=== PATIENT | male | born 1955 | race Caucasian/White ===

== ENCOUNTER 2017-05-09 09:30 | Inpatient (IN) | payer OTHER ==
[~2017-05-09] VITALS: Ht 157.5 cm; Wt 67.4 kg
[~2017-05-09 09:30] MED LIST: DIPH25CA37 PO; METF850T PO; OXYC5TAB PO; PRLSR20 PO
[2017-05-09] MEDS ORDERED: ATOR-26 PO (10:26)
[2017-05-09] MEDS ORDERED: GLIM1TAB2 PO (10:26)
[2017-05-09] MEDS ORDERED: PANT40TA2 PO (10:26)
[2017-05-09] MEDS ORDERED: MRLP527 PO (10:26)
[2017-05-09] MEDS ORDERED: GLC500 PO (10:26)
[2017-05-09] MEDS ORDERED: SITA1TAB27 PO (10:26)
[2017-05-09] MEDS ORDERED: LISI-461 PO (10:26)
--- NOTE | 2017-05-09 11:08 | DIAGNOSTIC IMAGING REPORT ---
ABDOMEN 2VIEW W/PA CHEST RTN CLINICAL HISTORY: constipation COMPARISON STUDY: Chest x-ray dated 06/09/2013 FINDINGS: Erect chest reveals bibasal atelectasis. There is no free air. Erect and supine views the abdomen reveal no abnormally dilated loops of large or small bowel. There are no transition zones indicate bowel obstruction. There are few right lower quadrant air-fluid levels. There is an eggshell right upper quadrant calcification. This could represent a gallstone, but it is not possible to accurately locate without a cross-sectional study.. IMPRESSION: 1. No evidence of bowel obstruction. No evidence of free air 2. Right upper quadrant eggshell calcification. This could represent a gallstone. Electronically signed by: Carlos Bonilla M.D. 05/09/2017 11:06 AM Dictated Date/Time: 05/09/2017 11:04 AM
[2017-05-09] MEDS ORDERED: OPTIRAY 320 IV PRN (11:45)
[2017-05-09 12:00] LABS: BASO % 0.2 %; BASO ABS # 0.02 K/uL (0-0.2); COMPLETE YES; EOS % 2.5 %; HEMATOCRIT 42.4 % (42-52); IG% 0.4 %; LYMPH % 6.4 %; LYMPH ABS # 0.83 K/uL (1.2-3.4); MEAN CELL VOLUME 85.5 fL (80-100); MEAN CORPUSCULAR HGB CONC 35.1 g/dl (32-36); MEAN PLATELET VOLUME 10.1 fL (7.4-10.4); MONO % 13.8 %; NEUT % 76.7 %; PLATELET COUNT 184 K/uL (130-400); RED BLOOD COUNT 4.96 M/uL (4.7-6.1)
[2017-05-09 12:20] LABS: BUN/CREATININE RATIO 11.8 (10-20); CALCIUM 9.2 mg/dl (8.5-10.1); CREATININE 0.92 mg/dl (0.60-1.40)
[2017-05-09 12:23] LABS: ALB/GLOB RATIO 0.7 (0.9-2)
--- NOTE | 2017-05-09 13:04 | DIAGNOSTIC IMAGING REPORT ---
CT ABD/PELVIS IV CONTRAST ONLY CLINICAL HISTORY: diffuse abdominal pain COMPARISON STUDY: None. TECHNIQUE: Following the IV administration of 110 mL of Optiray-320, CT scan of the abdomen and pelvis was performed from the lung bases to the proximal femurs. Images are reviewed in the axial, sagittal, and coronal planes. IV contrast was administered without complication. A dose lowering technique was utilized adhering to the principles of ALARA. CT DOSE: 948.11 mGy.cm FINDINGS: Lower chest: There is respiratory motion artifact. There is no focal pulmonary consolidation. There is a small hiatal hernia with mild distal esophageal wall thickening Liver: The contrast-enhanced liver is normal in size, contour, and attenuation. There is no intrahepatic biliary ductal dilatation. The hepatic veins and portal veins are patent. Gallbladder: There is cholelithiasis. There is marked gallbladder wall edema. There is pericholecystic stranding. The findings are viewed as suspicious for acute cholecystitis. Spleen: Normal in size and attenuation. Pancreas: No pancreatic masses are visualized. There is subtle infiltration the fat surrounding the pancreatic head. This may be secondary to gallbladder inflammation. Adrenal glands: Unremarkable. Kidneys: There is a 9 cm right renal cyst. Additional smaller renal cysts are visualized. Bowel: There are no transition zones indicate bowel obstruction. There is colonic diverticulosis. There are no acute peridiverticular inflammatory changes. There is a right inguinal hernia which contains a portion of the right colon. The appendix appears normal. Peritoneum: There is no intraperitoneal free air or abdominal ascites. Vasculature: The abdominal aorta is normal in course and caliber. Adenopathy: None. Pelvic viscera: The prostate is enlarged measuring 7.4 cm transversely. There is mild lateral wall thickening. Skeletal structures: No destructive osseous lesions are seen. IMPRESSION: 1. Cholelithiasis, marked gallbladder wall thickening, and mild pericholecystic edema. The findings are viewed as suspicious for acute cholecystitis and clinical correlation in this regard is advocated. If clinically indicated, a nuclear medicine hepatobiliary study could be obtained in follow-up to assess cystic duct patency 2. Mild pancreatic head edema. Diagnostic considerations include coexistent pancreatitis versus inflammation from adjacent cholecystitis 3. No evidence of bowel obstruction. No evidence of free air. 4. Normal appendix 5. Diverticulosis. No evidence of acute diverticulitis 6. Marked prostamegaly 7. Right internal hernia containing a portion right colon 8. Small hiatal hernia with distal esophageal wall thickening Electronically signed by: Carlos Bonilla M.D. 05/09/2017 1:03 PM Dictated Date/Time: 05/09/2017 12:55 PM
[2017-05-09] MEDS ORDERED: CEFOXITIN SOD 1 GM VIAL IV STA (13:34)
--- NOTE | 2017-05-09 15:01 | Surgery Consultation ---
Consultation Date of Consultation: May 09, 2017. Attending Physician: History of Present Illness The patient is a 62 year old white male who presents to the Emergency Room with complaints of difficulty moving his bowels over the last 2-3 days. He feels as though his abdomen is more bloated. No change in his diet. He continues to drink fluids. No fevers, chills, sweats, nausea,, vomiting, or diarrhea. He did use some MiraLAX yesterday and the day before with a small bowel movement. He states he used an enema last night with good results. He still feels as though his abdomen is bloated. He did not move his bowels this morning. He states he is going approximately once per day. Mild abdominal pain, worse in the right no difficulty with urination. No hematuria. No back pain. No chest pain or shortness of breath. No prior history of similar episodes. I saw pt at ER, pt is still have some RUQ pain, with nausea, no vomiting, pt denies fever, but some diarrhea, pt had CT scan- acute cholecystitis, with gallstones. Family History Diabetes mellitus Hypertension Social History Smoking Status: Never Smoker Smokeless Tobacco Use: No Alcohol Use: none Drug Use: none Marital Status: Housing Status: lives with family Occupation Status: retired Allergies Coded Allergies: No Known Allergies (Verified , 05/09/17) Home Medications Scheduled Atorvastatin (Lipitor), 80 MG PO DAILY Glimepiride (Glimepiride), 1 MG PO DAILY Lisinopril (Lisinopril), 10 MG PO DAILY Metformin HCl (Metformin HCl), 1,000 MG PO BIDM Pantoprazole (Pantoprazole Sodium), 40 MG PO DAILY Polyethylene (Polyethylene Glycol 3350), 71 GM PO BID Sitagliptin (Januvia), 100 MG PO DAILY Current Inpatient Medications Current Inpatient Medications Medications (Trade) Dose Ordered Sig/Tc Route Start Time Stop Time Status Last Admin Dose Admin Ioversol (Optiray 320) 100 ml UD PRN IV 05/09/17 11:45 05/13/17 11:44 Review of Systems Constitutional: No fever, No chills, No sweats, No weight loss, No weakness, No fatigue, No problem reported Eyes: No worsening of vision, No eye pain, No redness, No discharge, No diplopia, No problem reported ENT: No hearing loss, No unusual epistaxis, No nasal symptoms, No sore throat, No tinnitus, No dental problems, No trouble swallowing, No problem reported Respiratory: No cough, No sputum, No wheezing, No shortness of breath, No dyspnea on exertion, No dyspnea at rest, No hemoptysis, No problem reported Cardiovascular: No chest pain, No orthopnea, No PND, No edema, No claudication , No palpitations, No problem reported Abdomen: + pain, + nausea, + vomiting Musculoskeletal: No joint pain, No muscle pain, No swelling, No calf pain, No problem reported Genitourinary - Male: No hematuria, No dysuria, No urinary frequency, No urinary urgency, No urinary hesitancy, No urinary retention, No urinary incontinence, No penile discharge, No lesions, No impotence, No problem reported Neurologic: No memory loss, No paralysis, No weakness, No numbness/tingling, No vertigo, No balance problems, No problem reported Psychiatric: No depression symptoms, No anhedonism, No anxiety, No insomnia, No substance abuse, No problem reported Endocrine: + problem reported (DM) Hematologic / Lymphatic: No abnormal bleeding/bruising, No clotting problems, No swollen lymph nodes, No night sweats, No problem reported Physical Exam Date Time Temp Pulse Resp B/P (MAP) Pulse Ox O2 Delivery O2 Flow Rate FiO2 05/09/17 13:25 101 16 121/93 96 Room Air 05/09/17 11:53 102 18 141/89 95 Room Air 05/09/17 09:37 36.7 120 18 119/84 96 Room Air General Appearance: WD/WN, no apparent distress Head: normocephalic Eyes: normal inspection ENT: normal ENT inspection Neck: supple, no JVD Respiratory/Chest: chest non-tender, lungs clear, normal breath sounds, no respiratory distress Cardiovascular: regular rate, rhythm, no edema, no gallop, no JVD, no murmur Abdomen/GI: normal bowel sounds, soft, + tenderness (at RUQ, no rebound pain) Extremities/Musculoskelatal: normal inspection, no calf tenderness, normal capillary refill Neurologic/Psych: no motor/sensory deficits, alert, normal mood/affect Skin: normal color, warm/dry, no rash Laboratory Results Last 24 Hours Test 05/09/17 11:45 White Blood Count 13.00 K/uL Red Blood Count 4.96 M/uL Hemoglobin 14.9 g/dL Hematocrit 42.4 % Mean Corpuscular Volume 85.5 fL Mean Corpuscular Hemoglobin 30.0 pg Mean Corpuscular Hemoglobin Concent 35.1 g/dl Platelet Count 184 K/uL Mean Platelet Volume 10.1 fL Neutrophils (%) (Auto) 76.7 % Lymphocytes (%) (Auto) 6.4 % Monocytes (%) (Auto) 13.8 % Eosinophils (%) (Auto) 2.5 % Basophils (%) (Auto) 0.2 % Neutrophils # (Auto) 9.98 K/uL Lymphocytes # (Auto) 0.83 K/uL Monocytes # (Auto) 1.79 K/uL Eosinophils # (Auto) 0.33 K/uL Basophils # (Auto) 0.02 K/uL RDW Standard Deviation 44.2 fL RDW Coefficient of Variation 14.2 % Immature Granulocyte % (Auto) 0.4 % Immature Granulocyte # (Auto) 0.05 K/uL Sodium Level 134 mmol/L Potassium Level 4.0 mmol/L Chloride Level 101 mmol/L Carbon Dioxide Level 23 mmol/L Anion Gap 10.0 mmol/L Blood Urea Nitrogen 11 mg/dl Creatinine 0.92 mg/dl Est Creatinine Clear Calc Drug Dose 75.2 ml/min Estimated GFR () 101.5 Estimated GFR (Non- 87.6 BUN/Creatinine Ratio 11.8 Random Glucose 279 mg/dl Calcium Level 9.2 mg/dl Total Bilirubin 1.7 mg/dl Aspartate Amino Transf (AST/SGOT) 16 U/L Alanine Aminotransferase (ALT/SGPT) 28 U/L Alkaline Phosphatase 102 U/L Total Protein 8.6 gm/dl Albumin 3.4 gm/dl Globulin 5.2 gm/dl Albumin/Globulin Ratio 0.7 Amylase Level 27 U/L Lipase 118 U/L Assessment & Plan CT scan-IMPRESSION: 1. Cholelithiasis, marked gallbladder wall thickening, and mild pericholecystic edema. The findings are viewed as suspicious for acute cholecystitis and clinical correlation in this regard is advocated. If clinically indicated, a nuclear medicine hepatobiliary study could be obtained in follow-up to assess cystic duct patency 2. Mild pancreatic head edema. Diagnostic considerations include coexistent pancreatitis versus inflammation from adjacent cholecystitis 3. No evidence of bowel obstruction. No evidence of free air. 4. Normal appendix 5. Diverticulosis. No evidence of acute diverticulitis 6. Marked prostamegaly 7. Right internal hernia containing a portion right colon 8. Small hiatal hernia with distal esophageal wall thickening pt is a 62 yo male who presents to ER with 2 days history RUQ pain with nausea and vomiting, CT - acute cholecystitis, with gallstone, IMP: acute cholecystitis, with gallstone, Plan, I recommend to admit to hospital IV fluid iv antibiotic, control pain, U/ S study and HIDA scan, repeat labs in AM. Will F/U pt and his family agree with the plan, I answered all questions, D/W possible laparsoscopic cholecystectomy, possible open or cholangiogram, D/W the risks and benefits, and alternatives of the procedure, the risks -infection , bleeding, injury CBD, bowel, NM, DVT, stroke, may need ERCP, they understood,
[2017-05-09] MEDS ORDERED: D5W AND 1/2NSS + 20MEQ KCL 1,000 ML IV SCH ×2 (15:02→16:30)
[2017-05-09] MEDS ORDERED: ONDANSETRON INJ 2 MG/ML 2 ML VIAL IV PRN (15:15)
[2017-05-09] MEDS ORDERED: ACETAMINOPHEN 325 MG TAB PO PRN (15:15)
--- NOTE | 2017-05-09 15:44 | EMERGENCY ROOM VISIT NOTE ---
History First contact with patient: 09:46 Chief Complaint: CONSTIPATION Stated Complaint: ABD PAIN Nursing Triage Summary: abdominal pain. taking mirilax and gave myself enema on thursday had relief. "I want to be checked out." History of Present Illness The patient is a 62 year old white male who presents to the Emergency Room with complaints of difficulty moving his bowels over the last 2-3 days. He feels as though his abdomen is more bloated. No change in his diet. He continues to drink fluids. No fevers, chills, sweats, nausea,, vomiting, or diarrhea. He did use some MiraLAX yesterday and the day before with a small bowel movement. He states he used an enema last night with good results. He still feels as though his abdomen is bloated. He did not move his bowels this morning. He states he is going approximately once per day. Mild abdominal pain, worse in the right, no difficulty with urination. No hematuria. No back pain. No chest pain or shortness of breath. No prior history of similar episodes. He is a poor historian and is very vague when describing his area of abdominal pain. Family members accompany him today. He is unsure if there is any relation to food intake, but he does not think so. He has not ate or drank anything since last night. Review of Systems REVIEW OF SYSTEM: HEENT: No dizziness, visual problems, hearing loss, or tinnitus. There is no difficulty swallowing and no oral lesions are present. PULMONARY: No cough, shortness of breath, sputum production or hemoptysis. CARDIOVASCULAR: No chest pain, palpitations, shortness of breath or peripheral edema. GASTROINTESTINAL: No diarrhea, nausea, vomiting, or abdominal pain. GENITOURINARY: No dysuria, frequency, urgency or nocturia. NEUROLOGIC: No weakness, muscle tenderness, epilepsy or history of neurological problems. MUSCULOSKELETAL: No history of joint tenderness/swelling. No history of arthritis or arthralgias. SKIN: No rashes or lesions. PSYCHIATRIC: No history of depression or mental illness. ENDOCRINE: No history of thyroid disorders, or abnormal hair growth. Positive diabetes. Past Medical/Surgical History Medical Problems: (1) Acute cholecystitis due to biliary calculus (2) Diab Alexa Wo Compl, Type Ii Or Unspec Type, Uncontrolled (3) Esophageal Reflux (4) Esophageal Stricture (5) Hypertension Nos (6) Hypertrophy (Benign) Of Prostate W/O Urinary Obst & Oth Luts Family History Diabetes mellitus Hypertension Social History Smoking Status: Never Smoker Smokeless Tobacco Use: No Alcohol Use: none Drug Use: none Marital Status: Housing Status: lives with family Occupation Status: retired Current/Historical Medications Scheduled Atorvastatin (Lipitor), 80 MG PO DAILY Glimepiride (Glimepiride), 1 MG PO DAILY Lisinopril (Lisinopril), 10 MG PO DAILY Metformin HCl (Metformin HCl), 1,000 MG PO BIDM Pantoprazole (Pantoprazole Sodium), 40 MG PO DAILY Polyethylene (Polyethylene Glycol 3350), 71 GM PO BID Sitagliptin (Januvia), 100 MG PO DAILY Physical Exam Vital Signs Date Time Temp Pulse Resp B/P (MAP) Pulse Ox O2 Delivery O2 Flow Rate FiO2 05/09/17 13:25 101 16 121/93 96 Room Air 05/09/17 11:53 102 18 141/89 95 Room Air 05/09/17 09:37 36.7 120 18 119/84 96 Room Air Physical Exam Gen.: Well-developed, well-nourished, middle-aged obese white male, in no acute distress. Sitting in a chair. Alert and oriented. Looks older than his stated age. Skin:Warm and dry with good turgor. No rashes or lesions. No ecchymosis or erythema. The patient is not diaphoretic. No abrasions. Heart: Heart RRR. No MGR. Peripheral pulses are 2+. Lungs: Lungs are clear to auscultation. No crackles rhonchi or wheezing. Good air movement. The patient is able to take a deep breath. Abdomen: Abdomen was inspected, auscultated, and palpated. Obese. Bowel sounds present x 4 but infrequent. Mildly firm, right-sided tenderness to palpation. He does have some pain present over the right upper quadrant with palpation. No hepato-splenomegaly. No masses noted. No rebound. No CVA tenderness. Rectal: Rectal exam today shows yellowish-brown stool present. No impaction in the rectal vault. Enlarged prostate without pain. No other obstructions are noted. Fairly good sphincter tone. Musculoskeletal: Gross motor function of the upper and lower extremities is intact and unremarkable. Medical Decision & Procedures ER Provider Diagnostic Interpretation: Radiologic imaging obtained today of the abdomen shows nonspecific bowel gas pattern. No evidence for obstruction. Questionable gallstone is present. CT scan imaging of the abdomen and pelvis was obtained with IV contrast. Films were read as positive by radiology for acute cholecystitis with pericholecystic fluid. No evidence for obstruction. EKG obtained today shows a normal sinus rhythm with a rate of 99. No acute ST or T-wave changes. Unchanged from 2012. Laboratory Results 05/09/17 11:45 Red Blood Count 4.96, Mean Corpuscular Volume 85.5, Mean Corpuscular Hemoglobin 30.0, Mean Corpuscular Hemoglobin Concent 35.1, Mean Platelet Volume 10.1, Neutrophils (%) (Auto) 76.7, Lymphocytes (%) (Auto) 6.4, Monocytes (%) (Auto) 13.8, Eosinophils (%) (Auto) 2.5, Basophils (%) (Auto) 0.2, Neutrophils # (Auto ) 9.98, Lymphocytes # (Auto) 0.83, Monocytes # (Auto) 1.79, Eosinophils # (Auto ) 0.33, Basophils # (Auto) 0.02 05/09/17 11:45 Test 05/09/17 11:45 White Blood Count 13.00 K/uL (4.8-10.8) Red Blood Count 4.96 M/uL (4.7-6.1) Hemoglobin 14.9 g/dL (14.0-18.0) Hematocrit 42.4 % (42-52) Mean Corpuscular Volume 85.5 fL (80-100) Mean Corpuscular Hemoglobin 30.0 pg (25-34) Mean Corpuscular Hemoglobin Concent 35.1 g/dl (32-36) Platelet Count 184 K/uL (130-400) Mean Platelet Volume 10.1 fL (7.4-10.4) Neutrophils (%) (Auto) 76.7 % Lymphocytes (%) (Auto) 6.4 % Monocytes (%) (Auto) 13.8 % Eosinophils (%) (Auto) 2.5 % Basophils (%) (Auto) 0.2 % Neutrophils # (Auto) 9.98 K/uL (1.4-6.5) Lymphocytes # (Auto) 0.83 K/uL (1.2-3.4) Monocytes # (Auto) 1.79 K/uL (0.11-0.59) Eosinophils # (Auto) 0.33 K/uL (0-0.5) Basophils # (Auto) 0.02 K/uL (0-0.2) RDW Standard Deviation 44.2 fL (36.4-46.3) RDW Coefficient of Variation 14.2 % (11.5-14.5) Immature Granulocyte % (Auto) 0.4 % Immature Granulocyte # (Auto) 0.05 K/uL (0.00-0.02) Anion Gap 10.0 mmol/L (3-11) Est Creatinine Clear Calc Drug Dose 75.2 ml/min Estimated GFR () 101.5 Estimated GFR (Non- 87.6 BUN/Creatinine Ratio 11.8 (10-20) Calcium Level 9.2 mg/dl (8.5-10.1) Total Bilirubin 1.7 mg/dl (0.2-1) Aspartate Amino Transf (AST/SGOT) 16 U/L (15-37) Alanine Aminotransferase (ALT/SGPT) 28 U/L (12-78) Alkaline Phosphatase 102 U/L (45-117) Total Protein 8.6 gm/dl (6.4-8.2) Albumin 3.4 gm/dl (3.4-5.0) Globulin 5.2 gm/dl (2.5-4.0) Albumin/Globulin Ratio 0.7 (0.9-2) Amylase Level 27 U/L (25-115) Lipase 118 U/L (73-393) CBC, chem panel, amylase, and lipase were obtained. WBCs are elevated at 13.0. Bilirubin is elevated at 1.7. Amylase and lipase are normal. Glucose elevated at 279. Medications Administered Medications (Trade) Dose Ordered Sig/Tc Route Start Time Stop Time Status Last Admin Dose Admin Cefoxitin Sodium (Mefoxin IV) 1,000 mg NOW STAT IV 05/09/17 13:34 05/09/17 13:36 DC 05/09/17 14:16 1,000 MG Mefoxin 1 g IV ED Course Patient and his family were educated regarding today's findings. Conservative care measures were discussed. Acute abdominal x-ray series was obtained. There was no evidence for obstruction. He does have a significant amount of retained stool. Rectal exam was unremarkable. Because of the potential gallstone seen on a regular radiographic films and his continued abdominal pain , CT scan of the abdomen and pelvis was obtained. IV was established and labs were also obtained. Findings are consistent with acute cholecystitis. Patient was given a gram of Mefoxin IV. I did speak with Dr. Salcedo. He did come to the ED to evaluate the patient. He will admit the patient for further management. Please see his dictation for final management and outcome. Patient will likely require surgical intervention and is aware. Patient remained stable while in the ED. He was reassured that I do not suspect significant constipation or obstruction at this point. Medical Decision Possibility of constipation, bowel obstruction, perforation, diverticulitis, colitis, acute cholecystitis, pancreatitis, and gastroenteritis were all considered, among others. [place] Drug Monitoring Program Search Results: no issues identified Medication Reconcilliation Current Medication List: was personally reviewed by me Blood Pressure Screening Blood pressure disposition: Elevated BP felt to be situational Impression Primary Impression: Acute cholecystitis due to biliary calculus Departure Information Referrals Fausto Reeves M.D. (PCP) Patient Instructions My [facility]
[2017-05-09 17:16] VITALS: BP 134/87; PULSE 97; TEMP 36.9; O2SAT 98; BMI 27.2
[2017-05-09] MEDS ORDERED: NURSING DECISION MEDICATION ORDER SCH (18:30)
[2017-05-09] MEDS ORDERED: NURSING VERBAL MED ORDER ONE (19:00)
[2017-05-09] MEDS ORDERED: INSULIN ASPART 100 UNITS/ML 3 ML PEN SC STA (19:36)
[2017-05-09] MEDS ORDERED: PHARMACY GLYCEMIC MGMT CONSULT PRN (20:00)
[2017-05-09] MEDS ORDERED: INSULIN ASPART 100 UNITS/ML 3 ML PEN SC ONE ×2 (20:00)
[2017-05-09] MEDS ORDERED: SODIUM CHLOR 0.45% + 20MEQ KCL 1,000 ML IV SCH (20:00)
[2017-05-09 20:06] LABS: MANUAL MICROSCOPIC REQUIRED? NO; REVIEW REQ? NO; URINE APPEARANCE CLEAR (CLEAR); URINE BILIRUBIN NEG (NEG); URINE COLOR DK YELLOW; URINE NITRITE NEG (NEG); URINE PH 5.5 (4.5-7.5); URINE SPECIFIC GRAVITY > 1.045 (1.000-1.030); UROBILINOGEN NEG (NEG)
--- NOTE | 2017-05-09 20:38 | DIAGNOSTIC IMAGING REPORT ---
BILIARY ULTRASOUND CLINICAL HISTORY: Right upper quadrant abdominal pain. Acute cholecystitis. COMPARISON STUDY: CT scan dated 05/09/2017 FINDINGS: The liver is of increased echogenicity consistent with hepatic steatosis. There is an area of presumed focal fatty sparing adjacent to gallbladder fossa. The liver measures 21 cm. The pancreas is obscured by bowel gas. There is no right-sided hydronephrosis. There is an 8 cm right renal cyst. Multiple gallstones are visualized. There is marked gallbladder wall thickening which measures up to 1 cm. There is trace pericholecystic fluid. The findings are viewed as suspicious for acute cholecystitis. The common bile duct is dilated measuring 1 cm. There is an equivocal 6 mm common bile duct calculus. IMPRESSION: 1. Multiple gallstones. Markedly thickened gallbladder wall measuring up to 1 cm. Trace pericholecystic fluid. The findings are suspicious for acute cholecystitis. 2. Dilated common bile duct measuring 1 cm. Equivocal 6 mm common bile duct calculus. 3. Hepatic steatosis 4. Nondiagnostic evaluation of the pancreas Electronically signed by: Carlos Bonilla M.D. 05/09/2017 8:37 PM Dictated Date/Time: 05/09/2017 8:33 PM
[2017-05-09] MEDS: SODIUM CHLORIDE 0.9% 1000ML 1,000 ML IV SCH (20:53)
[2017-05-09] MEDS ORDERED: INSULIN GLARGINE SOLOSTAR 100 UNITS/ML 3 ML PEN SC ONE (21:00)
[2017-05-09] MEDS ORDERED: INSULIN ASPART 100 UNITS/ML 3 ML PEN SC SCH ×2 (21:00)
[2017-05-09] MEDS ORDERED: CEFAZOLIN IV 1,000 MG in SYRINGE 0 ML IV SCH (22:00)
[2017-05-09] MEDS ORDERED: CEFAZOLIN IV 1,000 MG in DEXTROSE 5% 50ML 50 ML IV SCH (22:00)
[2017-05-09] MEDS ORDERED: METRONIDAZOLE / NSS 500 MG in PREMIXED NSS 0 ML IV SCH (22:00)
[2017-05-09] MEDS ORDERED: AMPICILLIN/SULBACTAM CONSULT ACTIVE PRN ×2 (22:30)
[2017-05-09 22:57] VITALS: BP 137/80; PULSE 85; TEMP 37.3; O2SAT 93
[2017-05-10] VITALS (8 sets, daily range): BP systolic 116–136; BP diastolic 75–81; PULSE 80–103; TEMP 36.5–36.9; O2SAT 92–97
[2017-05-10] MEDS ORDERED: POLYETHYLENE (MIRALAX) 17 GM PACK PO PRN
[2017-05-10] MEDS ORDERED: INSULIN ASPART 100 UNITS/ML 3 ML PEN SC SCH ×2
[2017-05-10] MEDS: AMPICILLIN/SULBACTAM SOD INJ 3,000 MG in SODIUM CHLORIDE 0.9% 100ML 100 ML IV SCH ×5 (00:08→23:55)
[2017-05-10] MEDS: INSULIN ASPART 100 UNITS/ML 3 ML PEN SC SCH ×4 (00:13→21:04)
--- NOTE | 2017-05-10 01:04 | INTERNAL MEDICINE CONSULTATION ---
DATE OF CONSULTATION: 05/10/2017 PRIMARY CARE PHYSICIAN: Prosper Oviedo MD Patient seen on the request of Dr. Salcedo for medical management. History obtained from patient and records. HISTORY OF PRESENT ILLNESS: Medical history significant for hypertension, diabetes type 2 on oral meds, GERD , BPH as per records, PUD as per records. Two days history of central achy abdominal discomfort, constipation, some nausea. No vomiting, no fever, no chills. A CAT scan done at the ER showed cholelithiasis, marked gallbladder thickening, mild pericholecystic edema, acute cholecystitis, mild pancreatic head edema. Patient admitted under Surgery service for acute cholecystitis. Currently comfortable. Has already had a bowel movement inpatient. Has received IV Cefazolin and Metronidazole. MEDICAL HISTORY: As above. SURGERIES: He has had hernia surgery. HOME MEDICATIONS: Include MiraLax, lisinopril, Januvia, Protonix, atorvastatin, glimepiride, aspirin, metformin, ranitidine. ALLERGIES: No known drug allergies. FAMILY HISTORY: Diabetes. PERSONAL AND SOCIAL HISTORY: Nonsmoker, no chronic intake of alcohol. 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 REVIEW OF SYSTEMS: As per HPI, all other ROS negative. PHYSICAL EXAMINATION: VITAL SIGNS: Blood pressure was noted to be 137/80, pulse rate 85, RR 16, temperature 37.3, sats 93% on room air. GENERAL: Noted to be comfortable, no respiratory distress. SKIN: Normal color, warm. HEENT: alopecia. [place] palpebral conjuctivae. No ptosis. Dry mucosa. NECK: Short, supple. CHEST: Clear to auscultation. No tenderness. CARDIOVASCULAR: Regular rate and rhythm. No murmurs. ABDOMEN: Some distention. Right-sided abdominal tenderness. EXTREMITIES: No LE tenderness, no edema, no gross deformities. NEUROLOGIC: Coherent, no gross focality. LABORATORIES: Hemoglobin was noted to be 14.9, hematocrit 42.4, white cell count 13, platelets was noted to be 184. Sodium 136, potassium 4, chloride 101, BUN 11, creatinine 0.9, glucose was noted to be 279, LFTs, lipase normal Hemoglobin A1c in April 2017 was noted to be 10. CT abdomen and pelvis : 1. Cholelithiasis, marked gallbladder wall thickening, and mild pericholecystic edema. The findings are viewed as suspicious for acute cholecystitis and clinical correlation in this regard is advocated. If clinically indicated, a nuclear medicine hepatobiliary study could be obtained in follow-up to assess cystic duct patency 2. Mild pancreatic head edema. Diagnostic considerations include coexistent pancreatitis versus inflammation from adjacent cholecystitis 3. No evidence of bowel obstruction. No evidence of free air. 4. Normal appendix 5. Diverticulosis. No evidence of acute diverticulitis 6. Marked prostamegaly 7. Right internal hernia containing a portion right colon 8. Small hiatal hernia with distal esophageal wall thickening Abdominal ultrasound showed multiple gallstones, markedly thickened gallbladder wall, Possible acute cholecystitis, dilated common bile duct. ASSESSMENT : 1. Acute calculous cholecystitis no sepsis. Marked symptomatic improvement with ongoing management 2. Hypertension, stable. 3. DM2, on oral meds, suboptimal control as of recent HgA1c. RECOMMENDATIONS: Consider changing current antibiotic regimen of IV Cefazolin and Flagyl to Unasyn in light of Flagyl shortage in the hospital. Glycemic control as per Pharmacy. DVT prophylaxis, SCDs for now Recommend pharmacologic anticoagulation with Lovenox 40 mg subcutaneous daily once bleeding risk is deemed to be minimal and negligible. Thank you very much for this consultation. Dr. Zeng will follow patient's progress. ANA PAULA
[2017-05-10] MEDS: SODIUM CHLORIDE 0.9% 1000ML 1,000 ML IV SCH ×2 (06:12→15:47)
[2017-05-10 06:29] LABS: BASO % 0.2 %; BASO ABS # 0.02 K/uL (0-0.2); COMPLETE YES; EOS % 7.1 %; HEMATOCRIT 37.7 % (42-52); IG% 0.4 %; LYMPH % 10.1 %; LYMPH ABS # 0.96 K/uL (1.2-3.4); MEAN CELL VOLUME 86.3 fL (80-100); MEAN CORPUSCULAR HEMOGLOBIN 29.1 pg (25-34); MEAN CORPUSCULAR HGB CONC 33.7 g/dl (32-36); MEAN PLATELET VOLUME 10.1 fL (7.4-10.4); MONO % 11.3 %; NEUT % 70.9 %; PLATELET COUNT 169 K/uL (130-400); RED BLOOD COUNT 4.37 M/uL (4.7-6.1); WHITE BLOOD COUNT 9.53 K/uL (4.8-10.8)
[2017-05-10 07:07] LABS: BUN/CREATININE RATIO 17.8 (10-20); CALCIUM 8.4 mg/dl (8.5-10.1); CREATININE 0.65 mg/dl (0.60-1.40); MAGNESIUM 2.4 mg/dl (1.8-2.4); POTASSIUM 3.7 mmol/L (3.5-5.1)
[2017-05-10 07:11] LABS: ALB/GLOB RATIO 0.6 (0.9-2)
[2017-05-10] MEDS ORDERED: CONSULT PHARMACY PRN (09:00)
[2017-05-10] MEDS: PANTOprazole SOD 40 MG TAB PO SCH ×2 (09:00→09:10)
[2017-05-10] MEDS: LISINOPRIL 10 MG TAB PO SCH ×2 (09:00→09:10)
--- NOTE | 2017-05-10 09:42 | Surgery Progress Note ---
Surgery Progress Note Date of Service May 10, 2017. Subjective + feeling well pt is doing better, but pt is still have RUQ pain, U/S -IMPRESSION: 1. Multiple gallstones. Markedly thickened gallbladder wall measuring up to 1 cm. Trace pericholecystic fluid. The findings are suspicious for acute cholecystitis. 2. Dilated common bile duct measuring 1 cm. Equivocal 6 mm common bile duct calculus. 3. Hepatic steatosis 4. Nondiagnostic evaluation of the pancreas Objective Vital Signs: Date Time Temp Pulse Resp B/P (MAP) Pulse Ox O2 Delivery O2 Flow Rate FiO2 05/10/17 09:14 Room Air 05/10/17 07:43 36.7 80 18 116/75 (89) 97 Room Air 05/10/17 00:00 Room Air 05/09/17 22:57 37.3 85 16 137/80 (99) 93 Room Air 05/09/17 18:45 Room Air 05/09/17 17:16 36.9 97 17 134/87 98 Room Air 05/09/17 15:55 36.7 97 16 130/89 97 05/09/17 15:30 97 18 130/89 97 05/09/17 13:25 101 16 121/93 96 Room Air 05/09/17 11:53 102 18 141/89 95 Room Air General Appearance: WD/WN, + mild distress Head: normocephalic Neck: supple, no JVD Respiratory/Chest: chest non-tender, lungs clear, normal breath sounds Cardiovascular: regular rate, rhythm, no edema, no gallop, no JVD, no murmur Abdomen: normal bowel sounds, soft, + tenderness (RUQ, felt tenderness mass on RUQ) Extremities: normal range of motion, non-tender, normal inspection Laboratory Results: Results Past 24 Hours Test 05/09/17 11:45 05/09/17 18:02 05/09/17 19:30 05/09/17 20:36 Range/Units White Blood Count 13.00 4.8-10.8 K/uL Red Blood Count 4.96 4.7-6.1 M/uL Hemoglobin 14.9 14.0-18.0 g/dL Hematocrit 42.4 42-52 % Mean Corpuscular Volume 85.5 80-100 fL Mean Corpuscular Hemoglobin 30.0 25-34 pg Mean Corpuscular Hemoglobin Concent 35.1 32-36 g/dl Platelet Count 184 130-400 K/uL Mean Platelet Volume 10.1 7.4-10.4 fL Neutrophils (%) (Auto) 76.7 % Lymphocytes (%) (Auto) 6.4 % Monocytes (%) (Auto) 13.8 % Eosinophils (%) (Auto) 2.5 % Basophils (%) (Auto) 0.2 % Neutrophils # (Auto) 9.98 1.4-6.5 K/uL Lymphocytes # (Auto) 0.83 1.2-3.4 K/uL Monocytes # (Auto) 1.79 0.11-0.59 K/uL Eosinophils # (Auto) 0.33 0-0.5 K/uL Basophils # (Auto) 0.02 0-0.2 K/uL RDW Standard Deviation 44.2 36.4-46.3 fL RDW Coefficient of Variation 14.2 11.5-14.5 % Immature Granulocyte % (Auto) 0.4 % Immature Granulocyte # (Auto) 0.05 0.00-0.02 K/uL Sodium Level 134 136-145 mmol/L Potassium Level 4.0 3.5-5.1 mmol/L Chloride Level 101 98-107 mmol/L Carbon Dioxide Level 23 21-32 mmol/L Anion Gap 10.0 3-11 mmol/L Blood Urea Nitrogen 11 7-18 mg/dl Creatinine 0.92 0.60-1.40 mg/dl Est Creatinine Clear Calc Drug Dose 75.2 ml/min Estimated GFR () 101.5 Estimated GFR (Non- 87.6 BUN/Creatinine Ratio 11.8 10-20 Random Glucose 279 70-99 mg/dl Calcium Level 9.2 8.5-10.1 mg/dl Total Bilirubin 1.7 0.2-1 mg/dl Aspartate Amino Transf (AST/SGOT) 16 15-37 U/L Alanine Aminotransferase (ALT/SGPT) 28 12-78 U/L Alkaline Phosphatase 102 45-117 U/L Total Protein 8.6 6.4-8.2 gm/dl Albumin 3.4 3.4-5.0 gm/dl Globulin 5.2 2.5-4.0 gm/dl Albumin/Globulin Ratio 0.7 0.9-2 Amylase Level 27 25-115 U/L Lipase 118 73-393 U/L Bedside Glucose 234 224 70-99 mg/dl Urine Color DK YELLOW Urine Appearance CLEAR CLEAR Urine pH 5.5 4.5-7.5 Urine Specific [place] > 1.045 1.000-1.030 Urine Protein 1+ NEG Urine Glucose (UA) 3+ NEG Urine Ketones 2+ NEG Urine Occult Blood NEG NEG Urine Nitrite NEG NEG Urine Bilirubin NEG NEG Urine Urobilinogen NEG NEG Urine Leukocyte Esterase NEG NEG Urine WBC (Auto) 10-30 0-5 /hpf Urine RBC (Auto) 0-4 0-4 /hpf Urine Hyaline Casts (Auto) 1-5 0-5 /lpf Urine Epithelial Cells (Auto) 5-10 0-5 /lpf Urine Bacteria (Auto) NEG NEG Test 05/09/17 23:53 05/10/17 05:55 05/10/17 05:57 Range/Units Bedside Glucose 227 198 70-99 mg/dl White Blood Count 9.53 4.8-10.8 K/uL Red Blood Count 4.37 4.7-6.1 M/uL Hemoglobin 12.7 14.0-18.0 g/dL Hematocrit 37.7 42-52 % Mean Corpuscular Volume 86.3 80-100 fL Mean Corpuscular Hemoglobin 29.1 25-34 pg Mean Corpuscular Hemoglobin Concent 33.7 32-36 g/dl Platelet Count 169 130-400 K/uL Mean Platelet Volume 10.1 7.4-10.4 fL Neutrophils (%) (Auto) 70.9 % Lymphocytes (%) (Auto) 10.1 % Monocytes (%) (Auto) 11.3 % Eosinophils (%) (Auto) 7.1 % Basophils (%) (Auto) 0.2 % Neutrophils # (Auto) 6.75 1.4-6.5 K/uL Lymphocytes # (Auto) 0.96 1.2-3.4 K/uL Monocytes # (Auto) 1.08 0.11-0.59 K/uL Eosinophils # (Auto) 0.68 0-0.5 K/uL Basophils # (Auto) 0.02 0-0.2 K/uL RDW Standard Deviation 44.0 36.4-46.3 fL RDW Coefficient of Variation 14.0 11.5-14.5 % Immature Granulocyte % (Auto) 0.4 % Immature Granulocyte # (Auto) 0.04 0.00-0.02 K/uL Sodium Level 137 136-145 mmol/L Potassium Level 3.7 3.5-5.1 mmol/L Chloride Level 106 98-107 mmol/L Carbon Dioxide Level 22 21-32 mmol/L Anion Gap 9.0 3-11 mmol/L Blood Urea Nitrogen 12 7-18 mg/dl Creatinine 0.65 0.60-1.40 mg/dl Est Creatinine Clear Calc Drug Dose 97.0 ml/min Estimated GFR () 119.2 Estimated GFR (Non- 102.8 BUN/Creatinine Ratio 17.8 10-20 Random Glucose 208 70-99 mg/dl Calcium Level 8.4 8.5-10.1 mg/dl Magnesium Level 2.4 1.8-2.4 mg/dl Total Bilirubin 0.9 0.2-1 mg/dl Aspartate Amino Transf (AST/SGOT) 11 15-37 U/L Alanine Aminotransferase (ALT/SGPT) 23 12-78 U/L Alkaline Phosphatase 93 45-117 U/L Total Protein 7.2 6.4-8.2 gm/dl Albumin 2.7 3.4-5.0 gm/dl Globulin 4.5 2.5-4.0 gm/dl Albumin/Globulin Ratio 0.6 0.9-2 Amylase Level 27 25-115 U/L Lipase 121 73-393 U/L Assessment & Plan base on U/S finding, pt has significant inflammation of gallbladder I recommend to do laparosocpic cholecystectomy, possible open , cholangiogram, subtotal cholecystectomy. D/W benefits, risks and alternatives of the procedure, the risks- infection, bleeding, injury CBD, bowel, biliary leak, may need ERCP, UT, DVT, stroke, , pt understood, he and his agree with the plan, I answered all questions,
[2017-05-10] MEDS: INSULIN GLARGINE SOLOSTAR 100 UNITS/ML 3 ML PEN SC SCH ×2 (09:53→21:06)
[2017-05-10] MEDS ORDERED: MoRPHine SULFATE 2 MG/ML CARP ONE (10:33)
[2017-05-10] MEDS ORDERED: EpHEDrine SULFATE INJ 50 MG/ML AMP IV PRN (10:45)
[2017-05-10] MEDS ORDERED: FENTANYL CITRATE INJ 50 MCG/1 ML 2 ML VIAL IV PRN (10:45)
[2017-05-10] MEDS ORDERED: PROMETHAZINE HCL INJ 12.5 MG in SODIUM CHLORIDE 0.9% 50ML 50 ML IV PRN (10:45)
[2017-05-10] MEDS ORDERED: NURSING VERBAL MED ORDER ONE (10:45)
[2017-05-10] MEDS ORDERED: HYDROmorphone INJ 1 MG/ML SYR IV PRN (10:45)
[2017-05-10] MEDS ORDERED: PHENYLEPHRINE 100MCG/ML 5ML SYR IV PRN (10:45)
[2017-05-10] MEDS ORDERED: ATROPINE SULFATE 0.1 MG/ML 5ML SYR IV PRN (10:45)
[2017-05-10] MEDS ORDERED: ONDANSETRON INJ 2 MG/ML 2 ML VIAL IV PRN (10:45)
[2017-05-10] MEDS ORDERED: LABETALOL HCL IV 5 MG/ML 20ML IV PRN (10:45)
[2017-05-10] MEDS ORDERED: LIDOCAINE HCL 2% 2 ML VIAL (20MG/ML) ONE ×2 (10:47)
[2017-05-10] MEDS ORDERED: PROPOFOL IV EMULSION 10 MG/ML 20 ML VIAL IV ONE (10:47)
[2017-05-10] MEDS ORDERED: ROCURONIUM BROMIDE 10 MG/ML 5 ML VIAL IV ONE ×5 (10:48→12:16)
[2017-05-10] MEDS ORDERED: FENTANYL CITRATE INJ 50 MCG/1 ML 2 ML VIAL ONE ×3 (10:51→14:58)
[2017-05-10] MEDS ORDERED: MIDAZOLAM HCL 1 MG/ML 2ML VIAL ONE (10:51)
[2017-05-10] MEDS ORDERED: LIDOCAINE HCL 1% 20 ML VIAL ONE (11:12)
[2017-05-10] MEDS ORDERED: BUPIVACAINE 0.5 % 5 MG/1 ML MPF 30ML VIAL ONE (11:13)
[2017-05-10] MEDS ORDERED: BACITRACIN OINT 15 GM TUBE ONE (11:13)
--- NOTE | 2017-05-10 11:29 | DIAGNOSTIC IMAGING REPORT ---
NUCLEAR HEPATOBILIARY SCAN CLINICAL HISTORY: Right upper quadrant abdominal pain. Cholecystitis. COMPARISON STUDY: Abdominal ultrasound dated 05/09/2017. Abdominal CT dated 05/09/2017. TECHNIQUE: Dynamic images of the liver and anterior abdomen were obtained every 5 minutes for a total of 60 minutes following the IV administration of 5.5mCi of technetium 99m Choletec. The gallbladder was not visualized at 60 minutes, so 2 mg of IV morphine was administered with additional imaging performed every 5 minutes for 30 additional minutes. FINDINGS: The hepatobiliary scan shows prompt and heterogeneous hepatic uptake. There is visualized activity within the intra and extrahepatic biliary tree at 10 minutes. There is normal biliary to bowel transit, with small bowel visualized by 15 minutes. The gallbladder was not visualized on 60 minutes, and was also not seen at 90 minutes following morphine administration. IMPRESSION: Findings are consistent with acute cholecystitis. This is concordant with the CT and ultrasound findings. Electronically signed by: Clarence Barahona M.D. 05/10/2017 11:28 AM Dictated Date/Time: 05/10/2017 11:25 AM
--- NOTE | 2017-05-10 11:31 | Gastrointestinal Consultation ---
Gastrointestinal Consultation Date of Consultation: May 10, 2017 History of Present Illness Patient is a 62 year old male who presented to the hospital yesterday with acute onset of right upper quadrant and epigastric abdominal pain. We were consulted out of concern of distal biliary obstruction as suggested on ultrasound. He notes that he was eating his meal yesterday afternoon he began to have severe stabbing pain in the epigastrium and right upper quadrant region. He did have nausea without vomiting associated with this. No fevers or chills, and no diarrhea. This is first occurrence of pain of this nature. He's had no alarm symptoms such as weight loss, heartburn, or other GI complaints. Evaluation with CT scan and right upper quadrant ultrasound suggesting acute cholecystitis, he had a very mildly elevated total bilirubin yesterday 1.7 minutes normalized this morning. He feels somewhat better but not totally improved. He is now finishing a HIDA scan that appears to be positive for acute cholecystitis but did fill the small bowel. CT 1. Cholelithiasis, marked gallbladder wall thickening, and mild pericholecystic edema. The findings are viewed as suspicious for acute cholecystitis and clinical correlation in this regard is advocated. If clinically indicated, a nuclear medicine hepatobiliary study could be obtained in follow-up to assess cystic duct patency 2. Mild pancreatic head edema. Diagnostic considerations include coexistent pancreatitis versus inflammation from adjacent cholecystitis 3. No evidence of bowel obstruction. No evidence of free air. 4. Normal appendix 5. Diverticulosis. No evidence of acute diverticulitis 6. Marked prostamegaly 7. Right internal hernia containing a portion right colon 8. Small hiatal hernia with distal esophageal wall thickening Right upper quadrant ultrasound 1. Multiple gallstones. Markedly thickened gallbladder wall measuring up to 1 cm. Trace pericholecystic fluid. The findings are suspicious for acute cholecystitis. 2. Dilated common bile duct measuring 1 cm. Equivocal 6 mm common bile duct calculus. 3. Hepatic steatosis 4. Nondiagnostic evaluation of the pancreas Family History Diabetes mellitus Hypertension Social History Smoking Status: Never Smoker Alcohol Use: none Drug Use: none Marital Status: Housing Status: lives with family Occupation Status: retired Allergies Coded Allergies: No Known Allergies (Verified , 05/09/17) Current Medications Home Meds and Scripts Medications Dose Route/Sig Max Daily Dose Days Date Category Metformin HCl 500 Mg Tab 1,000 Mg PO BIDM 05/09/17 Reported Lipitor (Atorvastatin Calcium) 80 Mg Tab 80 Mg PO DAILY 05/09/17 Reported Glimepiride 1 Mg Tab 1 Mg PO DAILY 05/09/17 Reported Pantoprazole Sodium (Pantoprazole) 40 Mg Tab 40 Mg PO DAILY 05/09/17 Reported Januvia (Sitagliptin) 100 Mg Tab 100 Mg PO DAILY 05/09/17 Reported Lisinopril 10 Mg Tab 10 Mg PO DAILY 05/09/17 Reported Polyethylene Glycol 3350 (Polyethylene) 527 Gm Soln 71 Gm PO BID 05/09/17 Reported Review of Systems Constitutional: + see HPI Eyes: No see HPI, No worsening of vision, No eye pain, No redness, No discharge , No diplopia, No problem reported ENT: No see HPI, No hearing loss, No unusual epistaxis, No nasal symptoms, No sore throat, No tinnitus, No dental problems, No trouble swallowing, No pain on swallowing, No problem reported Respiratory: No see HPI, No cough, No sputum, No wheezing, No shortness of breath, No dyspnea on exertion, No dyspnea at rest, No hemoptysis, No problem reported Cardiac: + see HPI Abdomen: No see HPI, No pain, No nausea, No vomiting, No diarrhea, No constipation, No GI bleeding, No dysphagia, No odynophagia, No acolic stools, No jaundice, No dark urine, No problem reported Musculoskeletal: No see HPI, No joint pain, No muscle pain, No swelling, No calf pain, No problem reported Male : No see HPI, No dysuria, No urinary frequency, No incontinence, No nocturia more than once/night, No slowing stream, No hematuria, No sexual dysfunction, No problem reported Neuro: No see HPI, No memory loss, No paralysis, No weakness, No numbness/ tingling, No vertigo, No balance problems, No problem reported Physical Exam Date Time Temp Pulse Resp B/P (MAP) Pulse Ox O2 Delivery O2 Flow Rate FiO2 05/10/17 09:14 Room Air 05/10/17 07:43 36.7 80 18 116/75 (89) 97 Room Air 05/10/17 00:00 Room Air 05/09/17 22:57 37.3 85 16 137/80 (99) 93 Room Air 05/09/17 18:45 Room Air 05/09/17 17:16 36.9 97 17 134/87 98 Room Air 05/09/17 15:55 36.7 97 16 130/89 97 05/09/17 15:30 97 18 130/89 97 05/09/17 13:25 101 16 121/93 96 Room Air 05/09/17 11:53 102 18 141/89 95 Room Air General Appearance: WD/WN Eyes: normal inspection ENT: normal ENT inspection Neck: supple Respiratory/Chest: chest non-tender, lungs clear Cardiovascular: regular rate, rhythm, no edema Abdomen: normal bowel sounds (mild tenderness in the right upper quadrant and epigastric region), non tender Neurologic/Psych: rn faculty II-XII nml as tested Laboratory Results Last 24 Hours Test 05/09/17 11:45 05/09/17 18:02 05/09/17 19:30 05/09/17 20:36 White Blood Count 13.00 K/uL Red Blood Count 4.96 M/uL Hemoglobin 14.9 g/dL Hematocrit 42.4 % Mean Corpuscular Volume 85.5 fL Mean Corpuscular Hemoglobin 30.0 pg Mean Corpuscular Hemoglobin Concent 35.1 g/dl Platelet Count 184 K/uL Mean Platelet Volume 10.1 fL Neutrophils (%) (Auto) 76.7 % Lymphocytes (%) (Auto) 6.4 % Monocytes (%) (Auto) 13.8 % Eosinophils (%) (Auto) 2.5 % Basophils (%) (Auto) 0.2 % Neutrophils # (Auto) 9.98 K/uL Lymphocytes # (Auto) 0.83 K/uL Monocytes # (Auto) 1.79 K/uL Eosinophils # (Auto) 0.33 K/uL Basophils # (Auto) 0.02 K/uL RDW Standard Deviation 44.2 fL RDW Coefficient of Variation 14.2 % Immature Granulocyte % (Auto) 0.4 % Immature Granulocyte # (Auto) 0.05 K/uL Sodium Level 134 mmol/L Potassium Level 4.0 mmol/L Chloride Level 101 mmol/L Carbon Dioxide Level 23 mmol/L Anion Gap 10.0 mmol/L Blood Urea Nitrogen 11 mg/dl Creatinine 0.92 mg/dl Est Creatinine Clear Calc Drug Dose 75.2 ml/min Estimated GFR () 101.5 Estimated GFR (Non- 87.6 BUN/Creatinine Ratio 11.8 Random Glucose 279 mg/dl Calcium Level 9.2 mg/dl Total Bilirubin 1.7 mg/dl Aspartate Amino Transf (AST/SGOT) 16 U/L Alanine Aminotransferase (ALT/SGPT) 28 U/L Alkaline Phosphatase 102 U/L Total Protein 8.6 gm/dl Albumin 3.4 gm/dl Globulin 5.2 gm/dl Albumin/Globulin Ratio 0.7 Amylase Level 27 U/L Lipase 118 U/L Bedside Glucose 234 mg/dl 224 mg/dl Urine Color DK YELLOW Urine Appearance CLEAR Urine pH 5.5 Urine Specific [place] > 1.045 Urine Protein 1+ Urine Glucose (UA) 3+ Urine Ketones 2+ Urine Occult Blood NEG Urine Nitrite NEG Urine Bilirubin NEG Urine Urobilinogen NEG Urine Leukocyte Esterase NEG Urine WBC (Auto) 10-30 /hpf Urine RBC (Auto) 0-4 /hpf Urine Hyaline Casts (Auto) 1-5 /lpf Urine Epithelial Cells (Auto) 5-10 /lpf Urine Bacteria (Auto) NEG Test 05/09/17 23:53 05/10/17 05:55 05/10/17 05:57 Bedside Glucose 227 mg/dl 198 mg/dl White Blood Count 9.53 K/uL Red Blood Count 4.37 M/uL Hemoglobin 12.7 g/dL Hematocrit 37.7 % Mean Corpuscular Volume 86.3 fL Mean Corpuscular Hemoglobin 29.1 pg Mean Corpuscular Hemoglobin Concent 33.7 g/dl Platelet Count 169 K/uL Mean Platelet Volume 10.1 fL Neutrophils (%) (Auto) 70.9 % Lymphocytes (%) (Auto) 10.1 % Monocytes (%) (Auto) 11.3 % Eosinophils (%) (Auto) 7.1 % Basophils (%) (Auto) 0.2 % Neutrophils # (Auto) 6.75 K/uL Lymphocytes # (Auto) 0.96 K/uL Monocytes # (Auto) 1.08 K/uL Eosinophils # (Auto) 0.68 K/uL Basophils # (Auto) 0.02 K/uL RDW Standard Deviation 44.0 fL RDW Coefficient of Variation 14.0 % Immature Granulocyte % (Auto) 0.4 % Immature Granulocyte # (Auto) 0.04 K/uL Sodium Level 137 mmol/L Potassium Level 3.7 mmol/L Chloride Level 106 mmol/L Carbon Dioxide Level 22 mmol/L Anion Gap 9.0 mmol/L Blood Urea Nitrogen 12 mg/dl Creatinine 0.65 mg/dl Est Creatinine Clear Calc Drug Dose 97.0 ml/min Estimated GFR () 119.2 Estimated GFR (Non- 102.8 BUN/Creatinine Ratio 17.8 Random Glucose 208 mg/dl Calcium Level 8.4 mg/dl Magnesium Level 2.4 mg/dl Total Bilirubin 0.9 mg/dl Aspartate Amino Transf (AST/SGOT) 11 U/L Alanine Aminotransferase (ALT/SGPT) 23 U/L Alkaline Phosphatase 93 U/L Total Protein 7.2 gm/dl Albumin 2.7 gm/dl Globulin 4.5 gm/dl Albumin/Globulin Ratio 0.6 Amylase Level 27 U/L Lipase 121 U/L Impression Patient is a 62 year old male oozing with right upper quadrant abdominal pain with imaging and history to support acute cholecystitis I'm unsure of this ultrasound reading, based upon his symptoms and laboratory findings, I think that he is a low to intermediate probability of having a common bile duct obstruction. Agree with planned today of cholecystectomy, suggest intraoperative cholangiogram if possible during time of cholecystectomy. Continue antibiotics, if has choledocholithiasis, we'll plan on ERCP during this admission. We'll continue to follow based upon results of surgery and clinical course. Please call with any questions and thanks for consultation.
--- NOTE | 2017-05-10 11:35 | History & Physical Bridge Note ---
H&P Re-Evaluation Bridge Note: I have examined the patient, reviewed the History & Physical and in the interval since the performance of the History & Physical I have noted the following changes of clinical significance: No changes noted
[2017-05-10] MEDS ORDERED: CEFAZOLIN SOD 2000MG/10 ML IV PUSH IV ONE (11:39)
[2017-05-10] MEDS ORDERED: CEFAZOLIN 2000MG IV PUSH 10 ML IV SCH (11:45)
[2017-05-10] MEDS ORDERED: NEOSTIGMINE METHYLSULFATE 5 MG/5 ML SYR ONE (12:27)
[2017-05-10] MEDS ORDERED: ONDANSETRON INJ 2 MG/ML 2 ML VIAL ONE (12:27)
[2017-05-10] MEDS ORDERED: GLYCOPYRROLATE INJ 0.2 MG/ML VIAL ONE (12:27)
--- NOTE | 2017-05-10 14:44 | [facility] Post Operative Brief Note ---
Immediate Operative Summary Operative Date May 10, 2017. Pre-Operative Diagnosis Acute Cholecystitis, cholelithiasis Post-Operative Diagnosis Acute Cholecystitis, cholelithiasis Procedure(s) Performed Laparoscopic Cholecystectomy Surgeon [employer] Consultant Surgeon(s) Dr Medina Estimated Blood Loss 150cc Findings signifcant inflammation of gallbladder, wall thicking edema, Specimens A: Gallbladder and Contents Drains NEY x1 Anesthesia general Complication(s) None Disposition Recovery Room / PACU
--- NOTE | 2017-05-10 15:04 | Pharmacy Progress Note ---
Glycemic Control Intl Consult Date of Service May 10, 2017. Scope Glycemic Pharmacist consulted by Dr Salcedo on 05/09/17 for glycemic control and to write orders per [facility] inpatient glycemic control protocol Objective Weight (Kilograms): 67.400 Accuchecks BSG (last 24hrs): Test 05/09/17 18:02 05/09/17 20:36 05/09/17 23:53 05/10/17 05:55 Bedside Glucose 234 mg/dl (70-99) 224 mg/dl (70-99) 227 mg/dl (70-99) 198 mg/dl (70-99) Test 05/10/17 05:57 Random Glucose 208 mg/dl (70-99) Laboratory Data (last 24hrs) Test 05/10/17 05:57 Anion Gap 9.0 mmol/L BUN/Creatinine Ratio 17.8 Blood Urea Nitrogen 12 mg/dl Creatinine 0.65 mg/dl Potassium Level 3.7 mmol/L Sodium Level 137 mmol/L White Blood Count 9.53 K/uL Red Blood Count 4.37 M/uL Hemoglobin 12.7 g/dL Hematocrit 37.7 % Mean Corpuscular Volume 86.3 fL Mean Corpuscular Hemoglobin 29.1 pg Mean Corpuscular Hemoglobin Concent 33.7 g/dl Platelet Count 169 K/uL Mean Platelet Volume 10.1 fL Neutrophils (%) (Auto) 70.9 % Lymphocytes (%) (Auto) 10.1 % Monocytes (%) (Auto) 11.3 % Eosinophils (%) (Auto) 7.1 % Basophils (%) (Auto) 0.2 % Neutrophils # (Auto) 6.75 K/uL Lymphocytes # (Auto) 0.96 K/uL Monocytes # (Auto) 1.08 K/uL Eosinophils # (Auto) 0.68 K/uL Basophils # (Auto) 0.02 K/uL HbA1c Test 05/10/17 05:57 Recent Pertinent Medications Outpatient Anti-diabetic Regimen: * Januvia 100 mg po daily, Metformin 1g po BID, Glimepiride 1 mg po daily The patient is currently receiving: * Basal insulin: Lantus 11 units SQ HS on 05/09 * Correctional Insulin: Novolog Correction per scale ACHS Goal Range: Low 140 mg/dL - High 180 mg/dL Correction Factor: 35 mg/dL/unit * Prandial insulin: Per carb ratio of 1 unit per 12 grams CHO consumed * Oral Agents: on hold Assessment & Plan ASSESSMENT: * 62 yr old T2DM male with acute cholecystitis. Patient taken to the OR today for laparoscopic cholecystectomy. * He is maintained on oral anti-diabetic agents as an outpatient. Unknown glycemic control, last A1c on record is 9.5%. A1c ordered for 11/6 am. * Will hold oral agents for admission and utilize SQ basal bolus insulin regimen which is the recommended regimen for inpatient glycemic control. * Fasting BSG of 208 mg/dL is above goal. Will continue to titrate Lantus dosing. Patient did not receive am Lantus dose per he was off the floor for HIDA scan and then transferred to OR holding. * Will add overnight checks with coverage since insulin needs are unknown, last dose of insulin was 1 unit this am, last BSG was taken > 9 hours ago. PLAN FOR INPATIENT GLYCEMIC CONTROL: * Holding outpatient oral diabetes medications * Basal insulin * Lantus 0-17 units SQ BID * 0 units for BSG < 110 mg/dL, 11 units for BSG 110-180 mg/dL, 17 units for BSG > 180 mg/dL * Correctional Insulin - tighten * NOVOLOG per scale ACHS * Goal Range: Low 120 mg/dL - High 160 mg/dL * Correction Factor: 30 mg/dL/unit * Nutritional / Prandial insulin per carb ratio of 1 unit per 10 grams CHO consumed * Please note that the plan above was derived based on current level of insulin resistance and hospital stress. These recommendations are appropriate for inpatient admission only. Plan of care upon discharge will need to be reassessed to avoid potential outpatient hypo/hyperglycemia. Thank you.
--- NOTE | 2017-05-10 15:23 | Anesthesiology Progress Note ---
Anesthesia Post Op Note Date & Time May 10, 2017 at 15:23 Vital Signs Pain Intensity: 7 Vital Signs Past 12 Hours Date Time Temp Pulse Resp B/P (MAP) Pulse Ox O2 Delivery O2 Flow Rate FiO2 05/10/17 15:15 78 16 135/73 96 Nasal Cannula 2 05/10/17 15:05 68 16 140/76 96 Oxymask 10 05/10/17 14:55 64 16 143/78 98 Oxymask 10 05/10/17 14:47 37. 64 16 127/72 98 Oxymask 10 05/10/17 09:14 Room Air 05/10/17 07:43 36.7 80 18 116/75 (89) 97 Room Air Notes Mental Status: alert / awake / arousable, participated in evaluation Pt Amnestic to Procedure: Yes Nausea / Vomiting: adequately controlled Pain: adequately controlled Airway Patency, RR, SpO2: stable & adequate BP & HR: stable & adequate Hydration State: stable & adequate Anesthetic Complications: no major complications apparent
[2017-05-10] MEDS: HYDROmorphone INJ 1 MG/ML SYR IV PRN ×2 (15:56→19:11)
[2017-05-11] MEDS: INSULIN ASPART 100 UNITS/ML 3 ML PEN SC SCH ×6 (00:02→21:27)
[2017-05-11] MEDS: OXYCODONE/ACETAMINOPHEN 5-325 TAB PO PRN ×5 (01:24→23:33)
[2017-05-11] MEDS: SODIUM CHLORIDE 0.9% 1000ML 1,000 ML IV SCH (01:25)
[2017-05-11 03:50] VITALS: BP 125/77; PULSE 82; TEMP 36.9; O2SAT 95
[2017-05-11] MEDS: AMPICILLIN/SULBACTAM SOD INJ 3,000 MG in SODIUM CHLORIDE 0.9% 100ML 100 ML IV SCH ×4 (05:59→23:33)
[2017-05-11] MEDS ORDERED: CEFAZOLIN SOD 2000MG/10 ML IV PUSH IV ONE (06:00)
[2017-05-11 06:42] LABS: BASO % 0.2 %; BASO ABS # 0.01 K/uL (0-0.2); COMPLETE YES; EOS % 4.1 %; IG% 0.2 %; LYMPH % 13.8 %; LYMPH ABS # 0.85 K/uL (1.2-3.4); MEAN CELL VOLUME 87.5 fL (80-100); MEAN CORPUSCULAR HEMOGLOBIN 29.2 pg (25-34); MEAN CORPUSCULAR HGB CONC 33.3 g/dl (32-36); MEAN PLATELET VOLUME 9.6 fL (7.4-10.4); MONO % 14.9 %; NEUT % 66.8 %; PLATELET COUNT 154 K/uL (130-400); RED BLOOD COUNT 3.77 M/uL (4.7-6.1); WHITE BLOOD COUNT 6.16 K/uL (4.8-10.8)
[2017-05-11 07:07] LABS: BUN/CREATININE RATIO 12.4 (10-20); CALCIUM 7.7 mg/dl (8.5-10.1); CREATININE 0.62 mg/dl (0.60-1.40); POTASSIUM 3.6 mmol/L (3.5-5.1)
--- NOTE | 2017-05-11 07:12 | OPERATIVE REPORT ---
DATE OF OPERATION: 05/10/2017 PREOPERATIVE DIAGNOSIS: Acute cholecystitis, cholelithiasis. POSTOPERATIVE DIAGNOSIS: Acute cholecystitis, cholelithiasis. PROCEDURE PERFORMED: Laparoscopic cholecystectomy. SURGEON: Marie Salcedo MD. PROMOTIONS PRODUCER: Prosper Medina MD. ANESTHESIA: General. ESTIMATED BLOOD LOSS: About 150 mL. INTRAVENOUS FLUIDS: 1100 mL. FINDINGS: Significant inflammation on the gallbladder. The gallbladder with significantly thickening, edema, inflammation, and multiple gallstones. COMPLICATIONS: None. INDICATIONS FOR THE PROCEDURE: This is a 62-year-old gentleman, who presented with 3 days' history of right upper quadrant pain and the patient had ultrasound showing significant cholecystitis with cholelithiasis. However, we did a HIDA scan, which shows patent common bile duct, and acute cholecystitis. The patient will require to do laparoscopic cholecystectomy, possible open, possible cholangiogram, possible subtotal cholecystectomy. I did talk to the patient and the patient's and the patient's daughter about the benefit and risk, alternate procedure. I indicated the risks may include, but not limited to such as bleeding, infection, injury to common bile duct, injury to bowel, may need ERCP, myocardial infarction, DVT, stroke, bile leak, incisional hernia, even . The patient understands and the patient's signed informed consent and I answered all questions. DETAILS OF PROCEDURE: We brought the patient to the OR, put the patient in the supine position. The patient received SCD on bilateral legs to prevent DVT. Also, the patient received 2 g of Ancef IV for prophylactic antibiotic. The patient received general anesthesia without difficulty. The abdomen was prepped and draped in routine sterile fashion. After a timeout, I injected local anesthesia by using 1% lidocaine mixed with 0.5% Marcaine just above umbilical and made a small incision just above umbilical, opened the fascia, and opened peritoneum under direct vision. I put a Moe trocar in, connected to CO2 to create pneumoperitoneum. Flow rate at 6 L per minute, pressure not more than 14 mmHg. Once we got a nice pneumoperitoneum, we put a 10 mm camera in, looked around the abdomen showing no more findings on the stomach, small bowel, large bowel, and liver. However, the gallbladder did show significant inflammation, gallbladder wall thickening, edema, inflammation with omentum covering the gallbladder showing his acute cholecystitis. Then, we put another three 5 mm trocar under direct vision on the right upper quadrant. Once all trocars in, we put a grasper in to hold the base of the gallbladder; however, based on the patient had significant distend gallbladder, we used a long needle and decompressed the gallbladder. Then, we used a grasper to hold the base of the gallbladder, put direction towards the diaphragm and put another grasper to hold the pouch of the gallbladder and put the latter in to expose the triangle of Calot. The cystic duct was identified and mobilized. I put two 5 mm metal clips on the proximal cystic duct, one on the distal cystic duct. Then, I used scissor transection to the cystic duct. Then, the cystic artery was identified and mobilized. I put two 5 mm metal clips on the proximal cystic artery and on the distal cystic artery. I used scissor transection to the cystic artery. I used Bovie to take down the gallbladder from liver bed and rechecked. No active bleeding and no bile leak. We pulled out the gallbladder through the catcher bag, then we reinserted Moe trocar in, connected to CO2 to create pneumoperitoneum again to look around the abdomen showing no active bleeding and no bile leak from the liver bed. Then, we removed all trocar under direct vision. No active bleeding from trocar site. Also, we put one 10 mm NEY drain inside the abdominal cavity based on the patient had significant inflammation on the gallbladder liver bed. Then, the pneumoperitoneum was released. I closed the umbilical incision of the fascial layer by using [id number] x2, #1 Vicryl and closed subcutaneous layer by using 2-0 Vicryl continuous running, closed skin by using 4-0 Vicryl, another two 5 mm trocar site then closed skin only and another 10 mm trocar site in the epigastrium. I closed the fascial layer by using #1 Vicryl [id number] x2, closed subcutaneous layer by using 2-0 Vicryl, closed the skin by using 4-0 Vicryl. We put the dressing on, and the patient tolerated the procedure well. All the instrument, needle, and sponge count correct x2 at the end of the case. The specimen sent to pathology. Gallbladder with gallstones. After the procedure, I did talk to the patient and the patient's about the OR finding and procedure we did, they understand, I answered all questions. I attest to the content of the Intraoperative Record and any orders documented therein. Any exceptions are noted below. ANA PAULA
[2017-05-11 07:15] LABS: ALB/GLOB RATIO 0.6 (0.9-2)
[2017-05-11] MEDS ORDERED: POTASSIUM CHLORIDE 20 MEQ TABCR PO STA (07:55)
[2017-05-11 07:57] VITALS: BP 118/72; PULSE 83; TEMP 36.8; O2SAT 96
--- NOTE | 2017-05-11 08:03 | Progress Note ---
Internal Med Progress Note Date of Service: May 11, 2017. Provider Documentation: SUBJECTIVE: no overnight events, patient reports that he is comfortable after his surgery, feels some pain at the site of surgery but tolerating pain, denies shortness of breath or chest pain OBJECTIVE: Exam: General- no acute distress, sitting on chair by bedside Eyes- EOMI ENT- no epistaxis or hemoptysis Neck- no JVD, trachea midline Lungs- lung monte clear to auscultation, no wheezing Heart- regular rate Abdomen- has abdomen dressing /binders, serosanguineous fluid from NEY drain from right quadrant Extremities- no edema Neuro- awake, alert, verbal, cooperative on exam Lab data as noted below. ASSESSMENT & PLAN: Hospitalist medicine consult followup s/p surgery on 05/10/17 (PROCEDURE PERFORMED: Laparoscopic cholecystectomy. POSTOPERATIVE DIAGNOSIS: Acute cholecystitis, cholelithiasis.) postop antibiotics: Ampicillin/Sulbactam postop anemia with CBC from admission to date 14.9 to 12.7 to 11, monitor CBC, maintain active type and screen postop elevations of Liver function enzyme alkaline phosphatase, continue to trend these labs mild hypokalemia - serum potassium 3.6, 40 meq of oral potassium ordered informed by nurse that patient making minimal urine output post-op but no urinary retention by bladder scan, renal function by lab normal today, continue hydration and monitor for urine output later versus repeating bladder ultrasound blood pressure within normal parameters, can continue lisinopril 5 mg daily diabetes mellitus - glucose controlled on current insulin regimen diabetes diet recommended pain medication: perococet prn bowel regimen: Miralax prn DVT: prophylaxis on SCD, encourage ambulation, physical therapy Vital Signs: Date Time Temp Pulse Resp B/P (MAP) Pulse Ox O2 Delivery O2 Flow Rate FiO2 05/11/17 07:57 36.8 83 17 118/72 (87) 96 Room Air 05/11/17 03:50 36.9 82 16 125/77 (93) 95 Room Air 05/11/17 00:00 Room Air 05/10/17 23:00 36.6 96 17 124/80 (95) 94 Room Air 05/10/17 19:44 Room Air 05/10/17 18:40 36.5 103 16 123/78 (93) 92 Room Air 05/10/17 18:34 97 Room Air 05/10/17 17:37 36.5 100 16 136/81 (99) 96 Nasal Cannula 2.0 05/10/17 16:44 36.9 96 16 117/76 (90) 97 Nasal Cannula 2.0 05/10/17 16:11 36.6 90 17 124/77 (93) 96 Nasal Cannula 2.0 05/10/17 15:40 97 Nasal Cannula 2.0 05/10/17 15:40 36.8 90 16 128/79 (95) 97 Nasal Cannula 2.0 05/10/17 15:40 97 Nasal Cannula 2.0 05/10/17 15:25 37 79 16 132/70 96 Nasal Cannula 2 05/10/17 15:15 78 16 135/73 96 Nasal Cannula 2 05/10/17 15:05 68 16 140/76 96 Oxymask 10 05/10/17 14:55 64 16 143/78 98 Oxymask 10 05/10/17 14:47 37. 64 16 127/72 98 Oxymask 10 05/10/17 09:14 Room Air Lab Results: Results Past 24 Hours Test 05/10/17 15:12 05/10/17 17:32 05/10/17 20:43 05/11/17 00:00 Range/Units Bedside Glucose 234 205 194 201 70-99 mg/dl Test 05/11/17 03:54 05/11/17 06:22 05/11/17 07:56 Range/Units Bedside Glucose 172 70-99 mg/dl White Blood Count 6.16 4.8-10.8 K/uL Red Blood Count 3.77 4.7-6.1 M/uL Hemoglobin 11.0 14.0-18.0 g/dL Hematocrit 33.0 42-52 % Mean Corpuscular Volume 87.5 80-100 fL Mean Corpuscular Hemoglobin 29.2 25-34 pg Mean Corpuscular Hemoglobin Concent 33.3 32-36 g/dl Platelet Count 154 130-400 K/uL Mean Platelet Volume 9.6 7.4-10.4 fL Neutrophils (%) (Auto) 66.8 % Lymphocytes (%) (Auto) 13.8 % Monocytes (%) (Auto) 14.9 % Eosinophils (%) (Auto) 4.1 % Basophils (%) (Auto) 0.2 % Neutrophils # (Auto) 4.12 1.4-6.5 K/uL Lymphocytes # (Auto) 0.85 1.2-3.4 K/uL Monocytes # (Auto) 0.92 0.11-0.59 K/uL Eosinophils # (Auto) 0.25 0-0.5 K/uL Basophils # (Auto) 0.01 0-0.2 K/uL RDW Standard Deviation 45.3 36.4-46.3 fL RDW Coefficient of Variation 14.2 11.5-14.5 % Immature Granulocyte % (Auto) 0.2 % Immature Granulocyte # (Auto) 0.01 0.00-0.02 K/uL Sodium Level 140 136-145 mmol/L Potassium Level 3.6 3.5-5.1 mmol/L Chloride Level 106 98-107 mmol/L Carbon Dioxide Level 24 21-32 mmol/L Anion Gap 10.0 3-11 mmol/L Blood Urea Nitrogen 8 7-18 mg/dl Creatinine 0.62 0.60-1.40 mg/dl Est Creatinine Clear Calc Drug Dose 101.7 ml/min Estimated GFR () 121.5 Estimated GFR (Non- 104.8 BUN/Creatinine Ratio 12.4 10-20 Random Glucose 154 70-99 mg/dl Calcium Level 7.7 8.5-10.1 mg/dl Total Bilirubin 0.8 0.2-1 mg/dl Aspartate Amino Transf (AST/SGOT) 205 15-37 U/L Alanine Aminotransferase (ALT/SGPT) 121 12-78 U/L Alkaline Phosphatase 370 45-117 U/L Total Protein 6.2 6.4-8.2 gm/dl Albumin 2.2 3.4-5.0 gm/dl Globulin 4.0 2.5-4.0 gm/dl Albumin/Globulin Ratio 0.6 0.9-2
[2017-05-11] MEDS: PANTOprazole SOD 40 MG TAB PO SCH (08:38)
[2017-05-11] MEDS: LISINOPRIL 10 MG TAB PO SCH (08:39)
[2017-05-11 08:42] LABS: ESTIMATED AVERAGE GLUCOSE 255 mg/dl; HA1C FLAG Normal (Normal)
[2017-05-11] MEDS: INSULIN GLARGINE SOLOSTAR 100 UNITS/ML 3 ML PEN SC SCH ×2 (08:49→21:29)
[2017-05-11 09:15] VITALS: O2SAT 96
--- NOTE | 2017-05-11 09:39 | Clinical Documentation Query ---
CLINICAL DOCUMENTATION QUERY Dr. REID, In your clinical opinion is this patient being managed for: ( ) Acute blood loss anemia/postoperative anemia due to blood loss ( ) Not Agree (x ) Other explanation of clinical findings (Please Explain) ( ) Unable to determine (Please Define) ( ) Need to Discuss The finalized consultation note for today has already addressed post-operation anemia The medical record reflects the following clinical findings, treatment, and risk factors. Clinical Indicators: Progress note 05/10 indicates pt with postoperative anemia. Initial Hgb 14.5/Hct 42.2 which has trended down to Hgb 11/Hct 33. EBL of 50 cc with an additional 75 cc hemovac drainage Treatment: daily CBC, maintain active type and screen Risk Factors: surgery Please clarify and document your clinical opinion in the progress notes and discharge summary. Terms such as "probable", "suspected", "likely", "questionable", "possible", or "still to be ruled out" are acceptable. IF IN AGREEMENT, YOU MUST DOCUMENT ABOVE DIAGNOSTIC STATEMENT IN DAILY PROGRESS NOTES AND DISCHARGE SUMMARY. This document is not part of the patient's record. Thank You, Anne Nicolas RN [phone]
--- NOTE | 2017-05-11 10:24 | Gastroenterology Progress Note ---
Progress Note Date of Service: May 11, 2017 Subjective Pt evaluation today including: conversation w/ patient, conversation w/ family , physical exam, chart review, lab review, review of inpatient medication list Pt sitting up at bedside, said tolerated [place] breakfast this AM, denies any fever , chills, CP, SOB, n/v. 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 Is feeling some "gas " in abd but denies any BM yet, just had prune juice and plans to walk around soon. Review of Systems Constitutional: No fever, No chills Respiratory: No cough, No shortness of breath Cardiac: No chest pain Abdomen: + pain, No nausea, No vomiting Skin: No rash, No itch, No jaundice Medications Current Inpatient Medications Medications (Trade) Dose Ordered Sig/Tc Route Start Time Stop Time Status Last Admin Dose Admin Ioversol (Optiray 320) 100 ml UD PRN IV 05/09/17 11:45 05/13/17 11:44 Ondansetron HCl (Zofran Inj) 4 mg Q4H PRN IV 05/09/17 15:15 06/08/17 15:14 Acetaminophen (Tylenol Tab) 650 mg Q6H PRN PO 05/09/17 15:15 06/08/17 15:14 Oxycodone/ Acetaminophen (Percocet 5-325mg Tab) 1 tab Q4H PRN PO 05/09/17 15:15 05/23/17 15:14 05/11/17 07:44 1 TAB Hydromorphone HCl (Dilaudid Inj) 1 mg Q3H PRN IV 05/09/17 15:15 05/23/17 15:14 05/10/17 19:11 1 MG Miscellaneous Information (Consult Glycemic Management Pharmacy) 1 ea UD PRN N/A 05/09/17 20:00 06/08/17 19:59 Sodium Chloride 1,000 ml @ 100 mls/hr Q10H IV 05/09/17 20:45 06/08/17 20:44 05/11/17 01:25 100 MLS/HR Lisinopril (Zestril Tab) 5 mg DAILY PO 05/10/17 09:00 06/09/17 08:59 05/11/17 08:39 5 MG Pantoprazole Sodium (Protonix Tab) 40 mg DAILY PO 05/10/17 09:00 06/09/17 08:59 05/11/17 08:38 40 MG Ampicillin Sodium/ Sulbactam Sodium 3000 mg/Sodium Chloride 108 ml @ 216 mls/hr Q6H IV 05/10/17 00:00 05/20/17 00:00 05/11/17 05:59 216 MLS/HR Ampicillin Sodium/ Sulbactam Sodium (Consult) 1 ea UD PRN N/A 05/09/17 22:30 06/08/17 22:29 Polyethylene (Miralax Powder Packet) 17 gm DAILY PRN PO 05/10/17 00:00 06/09/17 00:00 05/11/17 09:18 17 GM Insulin Glargine (Lantus Solostar Pen) SEE PROTOCOL TEXT BID SC 05/10/17 10:00 06/09/17 09:59 05/11/17 08:49 11 UNITS Insulin Aspart (novoLOG ASPART) SLIDING SCALE ACHS SC 05/10/17 17:15 06/09/17 17:14 05/11/17 08:48 6 UNITS Objective Vital Signs Date Time Temp Pulse Resp B/P (MAP) Pulse Ox O2 Delivery O2 Flow Rate FiO2 05/11/17 09:15 96 Room Air 05/11/17 07:57 36.8 83 17 118/72 (87) 96 Room Air 05/11/17 07:40 Room Air 05/11/17 03:50 36.9 82 16 125/77 (93) 95 Room Air 05/11/17 00:00 Room Air 05/10/17 23:00 36.6 96 17 124/80 (95) 94 Room Air 05/10/17 19:44 Room Air 05/10/17 18:40 36.5 103 16 123/78 (93) 92 Room Air 05/10/17 18:34 97 Room Air 05/10/17 17:37 36.5 100 16 136/81 (99) 96 Nasal Cannula 2.0 05/10/17 16:44 36.9 96 16 117/76 (90) 97 Nasal Cannula 2.0 05/10/17 16:11 36.6 90 17 124/77 (93) 96 Nasal Cannula 2.0 05/10/17 15:40 97 Nasal Cannula 2.0 05/10/17 15:40 36.8 90 16 128/79 (95) 97 Nasal Cannula 2.0 05/10/17 15:40 97 Nasal Cannula 2.0 05/10/17 15:25 37 79 16 132/70 96 Nasal Cannula 2 05/10/17 15:15 78 16 135/73 96 Nasal Cannula 2 05/10/17 15:05 68 16 140/76 96 Oxymask 10 05/10/17 14:55 64 16 143/78 98 Oxymask 10 05/10/17 14:47 37. 64 16 127/72 98 Oxymask 10 Physical Exam General Appearance: WD/WN, no apparent distress Eyes: normal inspection, PERRL, EOMI Neck: supple, no JVD, trachea midline Respiratory/Chest: normal breath sounds, no respiratory distress, no accessory muscle use Cardiovascular: regular rate, rhythm, no gallop, no murmur Abdomen: + abnormal bowel sounds (hypoactive), + distended, + tenderness (mid abd area), + pertinent finding (NEY drain to RUQ w sangenous drainage) Extremities: normal inspection, no pedal edema, no calf tenderness Neurologic/Psych: alert, normal mood/affect, oriented x 3 Skin: normal color, no jaundice, no rash Laboratory Results Last 24 Hours Test 05/10/17 15:12 05/10/17 17:32 05/10/17 20:43 05/11/17 00:00 Bedside Glucose 234 mg/dl 205 mg/dl 194 mg/dl 201 mg/dl Test 05/11/17 03:54 05/11/17 06:22 05/11/17 07:56 Bedside Glucose 172 mg/dl 158 mg/dl White Blood Count 6.16 K/uL Red Blood Count 3.77 M/uL Hemoglobin 11.0 g/dL Hematocrit 33.0 % Mean Corpuscular Volume 87.5 fL Mean Corpuscular Hemoglobin 29.2 pg Mean Corpuscular Hemoglobin Concent 33.3 g/dl Platelet Count 154 K/uL Mean Platelet Volume 9.6 fL Neutrophils (%) (Auto) 66.8 % Lymphocytes (%) (Auto) 13.8 % Monocytes (%) (Auto) 14.9 % Eosinophils (%) (Auto) 4.1 % Basophils (%) (Auto) 0.2 % Neutrophils # (Auto) 4.12 K/uL Lymphocytes # (Auto) 0.85 K/uL Monocytes # (Auto) 0.92 K/uL Eosinophils # (Auto) 0.25 K/uL Basophils # (Auto) 0.01 K/uL RDW Standard Deviation 45.3 fL RDW Coefficient of Variation 14.2 % Immature Granulocyte % (Auto) 0.2 % Immature Granulocyte # (Auto) 0.01 K/uL Sodium Level 140 mmol/L Potassium Level 3.6 mmol/L Chloride Level 106 mmol/L Carbon Dioxide Level 24 mmol/L Anion Gap 10.0 mmol/L Blood Urea Nitrogen 8 mg/dl Creatinine 0.62 mg/dl Est Creatinine Clear Calc Drug Dose 101.7 ml/min Estimated GFR () 121.5 Estimated GFR (Non- 104.8 BUN/Creatinine Ratio 12.4 Random Glucose 154 mg/dl Calcium Level 7.7 mg/dl Total Bilirubin 0.8 mg/dl Aspartate Amino Transf (AST/SGOT) 205 U/L Alanine Aminotransferase (ALT/SGPT) 121 U/L Alkaline Phosphatase 370 U/L Total Protein 6.2 gm/dl Albumin 2.2 gm/dl Globulin 4.0 gm/dl Albumin/Globulin Ratio 0.6 Assessment and Plan Pt is a 62 y/o male w RUQ abd pain, studies consistent w acute cholecystitis s/ p lap cholecystectomy on 05/10. IOC unable to be performed. Tbili and Alk phos are trending down, but transminases are elevated. - Obtain MRCP to r/o CBD stone. - Monitor LFTs - Symptomatic management otherwise. - Antibx and diet per Surgery team. I have seen, examined and agree with the plan as outlined by KUSH Eller as above. -exam reveals soft abd, tender in post surgical area -MRCP, if has stone then will plan for ERCP Jose Cintron M.D.
--- NOTE | 2017-05-11 11:17 | Pharmacy Progress Note ---
Glycemic Control Progress Note Date of Service May 11, 2017. Scope Glycemic Pharmacist consulted for glycemic control to write orders per [facility] inpatient glycemic control protocol. Objective Accuchecks BSG (last 24hrs): Test 05/10/17 15:12 05/10/17 17:32 05/10/17 20:43 05/11/17 00:00 Bedside Glucose 234 mg/dl (70-99) 205 mg/dl (70-99) 194 mg/dl (70-99) 201 mg/dl (70-99) Test 05/11/17 03:54 05/11/17 06:22 05/11/17 07:56 Bedside Glucose 172 mg/dl (70-99) 158 mg/dl (70-99) Random Glucose 154 mg/dl (70-99) HbA1c: Test 05/10/17 05:57 Hemoglobin A1c 10.5 % (4.5-5.6) H Recent Pertinent Medications The patient is currently receiving: * Basal insulin: Lantus 11-17 units every 12 hours * Correctional Insulin: Novolog Correction per scale ACHS Goal Range: Low 120 mg/dL - High 160 mg/dL Correction Factor: 30 mg/dL/unit * Prandial insulin: Per carb ratio of 1 unit per 10 grams CHO consumed * Oral Agents: on hold for admission - using SQ basal bolus insulin regimen Outpatient Anti-Diabetic Meds Outpatient Anti-diabetic Regimen: * Januvia 100 mg po daily, Metformin 1g po BID, Glimepiride 1 mg po daily Assessment & Plan ASSESSMENT: * See progress note from 05/10/17 for more background info, in short: * Pt receiving SQ basal bolus insulin regimen for hyperglycemia secondary to baseline DM (outpatient PO regimen on hold),stress/infection, recent surgery, * Pt s/p POD #1 laparoscopic cholecystectomy . Initiated on full liquid diets but not changing back to NPO for MRCP. * Patient is currently receiving an average of 30 units of insulin per day with near-adequate control. * ~31 units of basal insulin * minimal units of prandial/correctional insulin as pt has been NPO and on liquid diet * BSGs over the past 24hrs: 158, 172, 201, 194 * Changes needed to insulin regimen: * AM Fasting BSG = 158 mg/dl. This is slightly above goal range for patient based on inpatient targets and co-morbidities. However pt is NPO. Lantus is not quite at steady state. Expect BSGs to continue to improve with current dosing after repeated dosing. No changes to basal at this time but will schedule set dose rather than scale dosing. * Post-prandial BSGs: unable to really assess CF/CR since pt has had minimal PO intake PLAN FOR INPATIENT GLYCEMIC CONTROL: SQ basal bolus insulin regimen to maintain BSG <150 mg/dl to facilitate healing post-operatively. * Oral Agents * Continue to hold outpatient oral diabetes medications. * Basal insulin * Lantus 14 units SQ BID * Bolus insulin * NovoLog per scale ACHS or Q6hrs while NPO * Goal Range: Low 120 mg/dL - High 150 mg/dL * Correction Factor: 30 mg/dL/unit * Nutritional / Prandial insulin per carb ratio of 1 unit per 10 grams CHO consumed RECOMMENDATIONS FOR DISCHARGE: * A1c significantly elevated at 10.5% on 3 oral agents * Goal A1c based on age/comorbidities is <7% Per ADA Guidelines * A1c is greater than or equal to 10% consider metformin + combination injectable therapy (basal insulin + rapid acting insulin OR GLP1-RA) * Recommend continuing Metformin & Januvia. Consider d/c Glimepiride. Start basal insulin with Lantus/Baslagar vs NPH for discharge * Metformin, if not contraindicated and if tolerated, is the preferred initial pharmacological agent for type 2 diabetes. Metformin has a long standing evidence base for efficacy and safety, is inexpensive, and may reduce risk of cardiovascular events. * B12 supplementation may be necessary with intermediate project manager metformin use * Support Patient Self-Management * Healthy Lifestyle (diet, exercise, and smoking cessation) * Disease self-management (SMBG) * Prevention of complications (BP, Lipid goals, Immunizations) * Consider outpatient Diabetes Self-Management Education & Support * Please note that the plan above was derived based on current level of insulin resistance and hospital stress. These recommendations are appropriate for inpatient admission only. Plan of care upon discharge will need to be reassessed to avoid potential outpatient hypo/hyperglycemia. Thank you.
[2017-05-11 11:53] VITALS: BP 130/86; PULSE 92; TEMP 36.9; O2SAT 94
--- NOTE | 2017-05-11 13:27 | Surgery Progress Note ---
Surgery Progress Note Date of Service May 11, 2017. Subjective Post OP Day: 1 + feeling well F/U S/P lap manolo, pt is doing better, but pt develops urine retention, but pt denies nausea, no vomiting, Objective Vital Signs: Date Time Temp Pulse Resp B/P (MAP) Pulse Ox O2 Delivery O2 Flow Rate FiO2 05/11/17 11:53 36.9 92 20 130/86 (101) 94 Room Air 05/11/17 09:15 96 Room Air 05/11/17 07:57 36.8 83 17 118/72 (87) 96 Room Air 05/11/17 07:40 Room Air 05/11/17 03:50 36.9 82 16 125/77 (93) 95 Room Air 05/11/17 00:00 Room Air 05/10/17 23:00 36.6 96 17 124/80 (95) 94 Room Air 05/10/17 19:44 Room Air 05/10/17 18:40 36.5 103 16 123/78 (93) 92 Room Air 05/10/17 18:34 97 Room Air 05/10/17 17:37 36.5 100 16 136/81 (99) 96 Nasal Cannula 2.0 05/10/17 16:44 36.9 96 16 117/76 (90) 97 Nasal Cannula 2.0 05/10/17 16:11 36.6 90 17 124/77 (93) 96 Nasal Cannula 2.0 05/10/17 15:40 97 Nasal Cannula 2.0 05/10/17 15:40 36.8 90 16 128/79 (95) 97 Nasal Cannula 2.0 05/10/17 15:40 97 Nasal Cannula 2.0 05/10/17 15:25 37 79 16 132/70 96 Nasal Cannula 2 05/10/17 15:15 78 16 135/73 96 Nasal Cannula 2 05/10/17 15:05 68 16 140/76 96 Oxymask 10 05/10/17 14:55 64 16 143/78 98 Oxymask 10 05/10/17 14:47 37. 64 16 127/72 98 Oxymask 10 General Appearance: WD/WN, no apparent distress Head: normocephalic Neck: supple, no JVD Respiratory/Chest: chest non-tender, lungs clear, normal breath sounds Cardiovascular: regular rate, rhythm, no edema, no gallop, no JVD, no murmur Abdomen: normal bowel sounds, non distended, soft, + tenderness (at RUQ) Incision(s): clean, dry, intact Extremities: normal range of motion, non-tender, normal inspection Laboratory Results: Results Past 24 Hours Test 05/10/17 15:12 05/10/17 17:32 05/10/17 20:43 05/11/17 00:00 Range/Units Bedside Glucose 234 205 194 201 70-99 mg/dl Test 05/11/17 03:54 05/11/17 06:22 05/11/17 07:56 05/11/17 12:00 Range/Units Bedside Glucose 172 158 253 70-99 mg/dl White Blood Count 6.16 4.8-10.8 K/uL Red Blood Count 3.77 4.7-6.1 M/uL Hemoglobin 11.0 14.0-18.0 g/dL Hematocrit 33.0 42-52 % Mean Corpuscular Volume 87.5 80-100 fL Mean Corpuscular Hemoglobin 29.2 25-34 pg Mean Corpuscular Hemoglobin Concent 33.3 32-36 g/dl Platelet Count 154 130-400 K/uL Mean Platelet Volume 9.6 7.4-10.4 fL Neutrophils (%) (Auto) 66.8 % Lymphocytes (%) (Auto) 13.8 % Monocytes (%) (Auto) 14.9 % Eosinophils (%) (Auto) 4.1 % Basophils (%) (Auto) 0.2 % Neutrophils # (Auto) 4.12 1.4-6.5 K/uL Lymphocytes # (Auto) 0.85 1.2-3.4 K/uL Monocytes # (Auto) 0.92 0.11-0.59 K/uL Eosinophils # (Auto) 0.25 0-0.5 K/uL Basophils # (Auto) 0.01 0-0.2 K/uL RDW Standard Deviation 45.3 36.4-46.3 fL RDW Coefficient of Variation 14.2 11.5-14.5 % Immature Granulocyte % (Auto) 0.2 % Immature Granulocyte # (Auto) 0.01 0.00-0.02 K/uL Sodium Level 140 136-145 mmol/L Potassium Level 3.6 3.5-5.1 mmol/L Chloride Level 106 98-107 mmol/L Carbon Dioxide Level 24 21-32 mmol/L Anion Gap 10.0 3-11 mmol/L Blood Urea Nitrogen 8 7-18 mg/dl Creatinine 0.62 0.60-1.40 mg/dl Est Creatinine Clear Calc Drug Dose 101.7 ml/min Estimated GFR () 121.5 Estimated GFR (Non- 104.8 BUN/Creatinine Ratio 12.4 10-20 Random Glucose 154 70-99 mg/dl Calcium Level 7.7 8.5-10.1 mg/dl Total Bilirubin 0.8 0.2-1 mg/dl Aspartate Amino Transf (AST/SGOT) 205 15-37 U/L Alanine Aminotransferase (ALT/SGPT) 121 12-78 U/L Alkaline Phosphatase 370 45-117 U/L Total Protein 6.2 6.4-8.2 gm/dl Albumin 2.2 3.4-5.0 gm/dl Globulin 4.0 2.5-4.0 gm/dl Albumin/Globulin Ratio 0.6 0.9-2 Assessment & Plan base on U/S finding, pt has significant inflammation of gallbladder I recommend to do laparosocpic cholecystectomy, possible open , cholangiogram, subtotal cholecystectomy. D/W benefits, risks and alternatives of the procedure, the risks- infection, bleeding, injury CBD, bowel, biliary leak, may need ERCP, PR, DVT, stroke, , pt understood, he and his agree with the plan, I answered all questions, 05/11/2017 S/P lap manolo doing better, urine retention, consult urologist D/C main IV fluid repeta labs in am, stay one more day at hospital pt and his family members agree with [place] plan, will F/U base on U/S finding, pt has significant inflammation of gallbladder I recommend to do laparosocpic cholecystectomy, possible open , cholangiogram, subtotal cholecystectomy. D/W benefits, risks and alternatives of the procedure, the risks- infection, bleeding, injury CBD, bowel, biliary leak, may need ERCP, PR, DVT, stroke, , pt understood, he and his agree with the plan, I answered all questions,
[2017-05-11] MEDS: HYDROmorphone INJ 1 MG/ML SYR IV PRN (13:32)
[2017-05-11 14:10] VITALS: Ht 157.5 cm; Wt 67.4 kg
[2017-05-11 15:00] VITALS: BP 126/74; PULSE 89; TEMP 36.6; O2SAT 94
--- NOTE | 2017-05-11 16:29 | DIAGNOSTIC IMAGING REPORT ---
MRCP CLINICAL HISTORY: elevated lfts; r/o CBD stone s/p cholecystectomy postoperative pain TECHNIQUE: Multiaxial MRI acquisition COMPARISON STUDY: Biliary scan 05/10/2017. Right upper quadrant ultrasound 05/09/2017. CT examination 05/09/2017. FINDINGS: Near nondiagnostic study due to patient respiratory and somatic motion. Fatty infiltration of liver. Findings of prior cholecystectomy. Considerable infiltrative change in the gallbladder fossa region most likely residual from the patient's prior acute cholecystitis. Several small air bubbles presumably on a postoperative basis. Minimal edematous change of the pancreatic head and uncinate process. No evidence for abscess or collection. Bibasilar atelectatic and/or infiltrative change. MRCP component of the study shows considerable artifact throughout. There is no evidence for a major filling defect on the axial images of the common duct. Pancreatic duct does not appear distended. Poor visibility of the head distal aspect of the common bile duct. IMPRESSION: 1. Limited study due to considerable patient respiratory and somatic motion. 2. Findings of a prior cholecystectomy with considerable infiltrative change in the gallbladder fossa with mild secondary pancreatitis and/or edematous change of the pancreatic head and uncinate process. 3. No evidence for abscess collection or obstruction at this time. 4. Although the common bile duct is not seen well, a large residual calculus within that structure is not felt to be present. 5. note is made of a large lower pole right renal cyst. The above report was generated using voice recognition software. It may contain grammatical, syntax or spelling errors. Electronically signed by: Prosper Browne M.D. 05/11/2017 4:28 PM Dictated Date/Time: 05/11/2017 4:20 PM
[2017-05-11] MEDS ORDERED: TAMSULOSIN HCL 0.4 MG CAP PO SCH (21:00)
[2017-05-12 00:15] VITALS: BP 148/87; PULSE 87; TEMP 36.8; O2SAT 97
[2017-05-12] MEDS: OXYCODONE/ACETAMINOPHEN 5-325 TAB PO PRN ×2 (04:47→12:40)
[2017-05-12] MEDS: AMPICILLIN/SULBACTAM SOD INJ 3,000 MG in SODIUM CHLORIDE 0.9% 100ML 100 ML IV SCH ×2 (05:52→11:36)
[2017-05-12 06:56] LABS: BASO % 0.2 %; BASO ABS # 0.01 K/uL (0-0.2); COMPLETE YES; EOS % 6.5 %; HEMATOCRIT 33.7 % (42-52); IG% 0.5 %; LYMPH % 14.7 %; LYMPH ABS # 0.88 K/uL (1.2-3.4); MEAN CELL VOLUME 87.1 fL (80-100); MEAN CORPUSCULAR HEMOGLOBIN 28.7 pg (25-34); MEAN CORPUSCULAR HGB CONC 32.9 g/dl (32-36); MEAN PLATELET VOLUME 9.8 fL (7.4-10.4); NEUT % 65.1 %; PLATELET COUNT 173 K/uL (130-400); RED BLOOD COUNT 3.87 M/uL (4.7-6.1)
[2017-05-12 07:24] VITALS: BP 151/89; PULSE 72; TEMP 36.9; O2SAT 97
[2017-05-12 07:32] LABS: BUN/CREATININE RATIO 9.1 (10-20); CALCIUM 7.8 mg/dl (8.5-10.1); CREATININE 0.58 mg/dl (0.60-1.40); POTASSIUM 3.5 mmol/L (3.5-5.1)
[2017-05-12 07:33] LABS: ALB/GLOB RATIO 0.5 (0.9-2)
[2017-05-12 08:12] LABS: URINE APPEARANCE CLEAR (CLEAR); URINE BILIRUBIN NEG (NEG); URINE COLOR YELLOW; URINE EPITHELIAL CELL AUTO 0-5 /lpf (0-5); URINE NITRITE NEG (NEG); URINE PH 5.5 (4.5-7.5); URINE SPECIFIC GRAVITY 1.014 (1.000-1.030); UROBILINOGEN NEG (NEG)
[2017-05-12 08:13] LABS: MANUAL MICROSCOPIC REQUIRED? NO; REVIEW REQ? NO
[2017-05-12] MEDS: PANTOprazole SOD 40 MG TAB PO SCH (08:36)
[2017-05-12] MEDS: LISINOPRIL 10 MG TAB PO SCH (08:36)
[2017-05-12] MEDS: INSULIN ASPART 100 UNITS/ML 3 ML PEN SC SCH ×2 (08:39→12:46)
[2017-05-12] MEDS: INSULIN GLARGINE SOLOSTAR 100 UNITS/ML 3 ML PEN SC SCH (08:39)
[2017-05-12 08:47] LABS: AMYLASE 30 U/L (25-115)
--- NOTE | 2017-05-12 11:49 | Gastroenterology Progress Note ---
Progress Note Date of Service: May 12, 2017 Subjective Pt evaluation today including: conversation w/ patient, physical exam, chart review, lab review, review of studies, review of inpatient medication list Pt sitting up at bedside, said able to urinate w/o cath today, no BMs yet, denies any abd pain, n/v. Tolerating regular breakfast this AM. Noted LFTs improving, MRCP not an optimal study but no obvious filling defect or CBD stone noted. Review of Systems Constitutional: No fever, No chills Respiratory: No cough, No shortness of breath Cardiac: No chest pain Abdomen: No pain, No nausea, No vomiting Medications Current Inpatient Medications Medications (Trade) Dose Ordered Sig/Tc Route Start Time Stop Time Status Last Admin Dose Admin Ioversol (Optiray 320) 100 ml UD PRN IV 05/09/17 11:45 05/13/17 11:44 Ondansetron HCl (Zofran Inj) 4 mg Q4H PRN IV 05/09/17 15:15 06/08/17 15:14 Acetaminophen (Tylenol Tab) 650 mg Q6H PRN PO 05/09/17 15:15 06/08/17 15:14 Oxycodone/ Acetaminophen (Percocet 5-325mg Tab) 1 tab Q4H PRN PO 05/09/17 15:15 05/23/17 15:14 05/12/17 04:47 1 TAB Hydromorphone HCl (Dilaudid Inj) 1 mg Q3H PRN IV 05/09/17 15:15 05/23/17 15:14 05/11/17 13:32 1 MG Miscellaneous Information (Consult Glycemic Management Pharmacy) 1 ea UD PRN N/A 05/09/17 20:00 06/08/17 19:59 Lisinopril (Zestril Tab) 5 mg DAILY PO 05/10/17 09:00 06/09/17 08:59 05/12/17 08:36 5 MG Pantoprazole Sodium (Protonix Tab) 40 mg DAILY PO 05/10/17 09:00 06/09/17 08:59 05/12/17 08:36 40 MG Ampicillin Sodium/ Sulbactam Sodium 3000 mg/Sodium Chloride 108 ml @ 216 mls/hr Q6H IV 05/10/17 00:00 05/20/17 00:00 05/12/17 11:36 216 MLS/HR Ampicillin Sodium/ Sulbactam Sodium (Consult) 1 ea UD PRN N/A 05/09/17 22:30 06/08/17 22:29 Polyethylene (Miralax Powder Packet) 17 gm DAILY PRN PO 05/10/17 00:00 06/09/17 00:00 05/11/17 09:18 17 GM Insulin Aspart (novoLOG ASPART) SLIDING SCALE ACHS SC 05/10/17 17:15 06/09/17 17:14 05/12/17 08:39 8 UNITS Insulin Glargine (Lantus Solostar Pen) 14 units BID SC 05/11/17 21:00 06/10/17 20:59 05/12/17 08:39 14 UNITS Tamsulosin HCl (Flomax Cap) 0.4 mg HS PO 05/11/17 21:00 06/10/17 20:59 05/11/17 21:25 0.4 MG Objective Vital Signs Date Time Temp Pulse Resp B/P (MAP) Pulse Ox O2 Delivery O2 Flow Rate FiO2 05/12/17 07:30 Room Air 05/12/17 07:24 36.9 72 16 151/89 (109) 97 Room Air 05/12/17 00:15 36.8 87 16 148/87 (107) 97 Room Air 05/11/17 23:35 Room Air 05/11/17 16:20 Room Air 05/11/17 15:00 36.6 89 17 126/74 (91) 94 Room Air 05/11/17 11:53 36.9 92 20 130/86 (101) 94 Room Air Physical Exam General Appearance: WD/WN, no apparent distress, + obese Eyes: normal inspection, PERRL, EOMI Neck: supple, no JVD, trachea midline Respiratory/Chest: normal breath sounds, no respiratory distress, no accessory muscle use Cardiovascular: regular rate, rhythm, no gallop, no murmur Abdomen: normal bowel sounds, non tender, + distended, + pertinent finding (NEY drain to RUQ w scant amt of blood present) Extremities: normal inspection, no pedal edema, no calf tenderness Neurologic/Psych: alert, normal mood/affect, oriented x 3 Skin: normal color, no jaundice, no rash Laboratory Results Last 24 Hours Test 05/11/17 12:00 05/11/17 17:04 05/11/17 20:44 05/12/17 06:38 Bedside Glucose 253 mg/dl 163 mg/dl 186 mg/dl White Blood Count 6.00 K/uL Red Blood Count 3.87 M/uL Hemoglobin 11.1 g/dL Hematocrit 33.7 % Mean Corpuscular Volume 87.1 fL Mean Corpuscular Hemoglobin 28.7 pg Mean Corpuscular Hemoglobin Concent 32.9 g/dl Platelet Count 173 K/uL Mean Platelet Volume 9.8 fL Neutrophils (%) (Auto) 65.1 % Lymphocytes (%) (Auto) 14.7 % Monocytes (%) (Auto) 13.0 % Eosinophils (%) (Auto) 6.5 % Basophils (%) (Auto) 0.2 % Neutrophils # (Auto) 3.91 K/uL Lymphocytes # (Auto) 0.88 K/uL Monocytes # (Auto) 0.78 K/uL Eosinophils # (Auto) 0.39 K/uL Basophils # (Auto) 0.01 K/uL RDW Standard Deviation 44.5 fL RDW Coefficient of Variation 13.9 % Immature Granulocyte % (Auto) 0.5 % Immature Granulocyte # (Auto) 0.03 K/uL Sodium Level 138 mmol/L Potassium Level 3.5 mmol/L Chloride Level 104 mmol/L Carbon Dioxide Level 24 mmol/L Anion Gap 10.0 mmol/L Blood Urea Nitrogen 5 mg/dl Creatinine 0.58 mg/dl Est Creatinine Clear Calc Drug Dose 108.7 ml/min Estimated GFR () 124.9 Estimated GFR (Non- 107.7 BUN/Creatinine Ratio 9.1 Random Glucose 151 mg/dl Calcium Level 7.8 mg/dl Total Bilirubin 0.6 mg/dl Aspartate Amino Transf (AST/SGOT) 68 U/L Alanine Aminotransferase (ALT/SGPT) 83 U/L Alkaline Phosphatase 290 U/L Total Protein 6.4 gm/dl Albumin 2.2 gm/dl Globulin 4.2 gm/dl Albumin/Globulin Ratio 0.5 Amylase Level 30 U/L Lipase 129 U/L Test 05/12/17 07:40 05/12/17 08:20 Urine Color YELLOW Urine Appearance CLEAR Urine pH 5.5 Urine Specific [place] 1.014 Urine Protein NEG Urine Glucose (UA) 2+ Urine Ketones TRACE Urine Occult Blood 2+ Urine Nitrite NEG Urine Bilirubin NEG Urine Urobilinogen NEG Urine Leukocyte Esterase NEG Urine WBC (Auto) 1-5 /hpf Urine RBC (Auto) 10-30 /hpf Urine Hyaline Casts (Auto) 0 /lpf Urine Epithelial Cells (Auto) 0-5 /lpf Urine Bacteria (Auto) NEG Bedside Glucose 165 mg/dl Assessment and Plan Pt is a 62 y/o male w RUQ abd pain, studies consistent w acute cholecystitis s/ p lap cholecystectomy on 05/10. IOC unable to be performed. Tbili and alk phos normalized, LFTs improving now. MRCP did produce an optimal result but negative for filling defect/CBD stone. - Monitor LFTs - Symptomatic management otherwise. - Antibx and diet per Surgery team. - Will sign off; call if new questions/concerns arise. I have seen, examined and agree with the plan as outlined by KUSH Eller as above. -exam reveals soft abd -MRCP normal, LFT's improved Elsa Cramer.
--- NOTE | 2017-05-12 13:47 | Surgery Progress Note ---
Surgery Progress Note Date of Service May 12, 2017. Subjective Post OP Day: 3 + feeling well pt is doing better, no abdominal pain, he tolerated the diet, MRCP- IMPRESSION: 1. Limited study due to considerable patient respiratory and somatic motion. 2. Findings of a prior cholecystectomy with considerable infiltrative change in the gallbladder fossa with mild secondary pancreatitis and/or edematous change of the pancreatic head and uncinate process. 3. No evidence for abscess collection or obstruction at this time. 4. Although the common bile duct is not seen well, a large residual calculus within that structure is not felt to be present. 5. note is made of a large lower pole right renal cyst. Objective Vital Signs: Date Time Temp Pulse Resp B/P (MAP) Pulse Ox O2 Delivery O2 Flow Rate FiO2 05/12/17 07:30 Room Air 05/12/17 07:24 36.9 72 16 151/89 (109) 97 Room Air 05/12/17 00:15 36.8 87 16 148/87 (107) 97 Room Air 05/11/17 23:35 Room Air 05/11/17 16:20 Room Air 05/11/17 15:00 36.6 89 17 126/74 (91) 94 Room Air Physical Exam: NEY drainage (25 ml) General Appearance: WD/WN, no apparent distress Head: normocephalic Neck: supple, no JVD Respiratory/Chest: chest non-tender, lungs clear, normal breath sounds, no respiratory distress Cardiovascular: regular rate, rhythm, no edema, no gallop, no JVD, no murmur Abdomen: normal bowel sounds, non tender, non distended, soft, no organomegaly Incision(s): clean, dry, intact Extremities: normal range of motion, non-tender, normal inspection Laboratory Results: Results Past 24 Hours Test 05/11/17 17:04 05/11/17 20:44 05/12/17 06:38 05/12/17 07:40 Range/Units Bedside Glucose 163 186 70-99 mg/dl White Blood Count 6.00 4.8-10.8 K/uL Red Blood Count 3.87 4.7-6.1 M/uL Hemoglobin 11.1 14.0-18.0 g/dL Hematocrit 33.7 42-52 % Mean Corpuscular Volume 87.1 80-100 fL Mean Corpuscular Hemoglobin 28.7 25-34 pg Mean Corpuscular Hemoglobin Concent 32.9 32-36 g/dl Platelet Count 173 130-400 K/uL Mean Platelet Volume 9.8 7.4-10.4 fL Neutrophils (%) (Auto) 65.1 % Lymphocytes (%) (Auto) 14.7 % Monocytes (%) (Auto) 13.0 % Eosinophils (%) (Auto) 6.5 % Basophils (%) (Auto) 0.2 % Neutrophils # (Auto) 3.91 1.4-6.5 K/uL Lymphocytes # (Auto) 0.88 1.2-3.4 K/uL Monocytes # (Auto) 0.78 0.11-0.59 K/uL Eosinophils # (Auto) 0.39 0-0.5 K/uL Basophils # (Auto) 0.01 0-0.2 K/uL RDW Standard Deviation 44.5 36.4-46.3 fL RDW Coefficient of Variation 13.9 11.5-14.5 % Immature Granulocyte % (Auto) 0.5 % Immature Granulocyte # (Auto) 0.03 0.00-0.02 K/uL Sodium Level 138 136-145 mmol/L Potassium Level 3.5 3.5-5.1 mmol/L Chloride Level 104 98-107 mmol/L Carbon Dioxide Level 24 21-32 mmol/L Anion Gap 10.0 3-11 mmol/L Blood Urea Nitrogen 5 7-18 mg/dl Creatinine 0.58 0.60-1.40 mg/dl Est Creatinine Clear Calc Drug Dose 108.7 ml/min Estimated GFR () 124.9 Estimated GFR (Non- 107.7 BUN/Creatinine Ratio 9.1 10-20 Random Glucose 151 70-99 mg/dl Calcium Level 7.8 8.5-10.1 mg/dl Total Bilirubin 0.6 0.2-1 mg/dl Aspartate Amino Transf (AST/SGOT) 68 15-37 U/L Alanine Aminotransferase (ALT/SGPT) 83 12-78 U/L Alkaline Phosphatase 290 45-117 U/L Total Protein 6.4 6.4-8.2 gm/dl Albumin 2.2 3.4-5.0 gm/dl Globulin 4.2 2.5-4.0 gm/dl Albumin/Globulin Ratio 0.5 0.9-2 Amylase Level 30 25-115 U/L Lipase 129 73-393 U/L Urine Color YELLOW Urine Appearance CLEAR CLEAR Urine pH 5.5 4.5-7.5 Urine Specific [place] 1.014 1.000-1.030 Urine Protein NEG NEG Urine Glucose (UA) 2+ NEG Urine Ketones TRACE NEG Urine Occult Blood 2+ NEG Urine Nitrite NEG NEG Urine Bilirubin NEG NEG Urine Urobilinogen NEG NEG Urine Leukocyte Esterase NEG NEG Urine WBC (Auto) 1-5 0-5 /hpf Urine RBC (Auto) 10-30 0-4 /hpf Urine Hyaline Casts (Auto) 0 0-5 /lpf Urine Epithelial Cells (Auto) 0-5 0-5 /lpf Urine Bacteria (Auto) NEG NEG Test 05/12/17 08:20 05/12/17 12:12 Range/Units Bedside Glucose 165 246 70-99 mg/dl Assessment & Plan base on U/S finding, pt has significant inflammation of gallbladder I recommend to do laparosocpic cholecystectomy, possible open , cholangiogram, subtotal cholecystectomy. D/W benefits, risks and alternatives of the procedure, the risks- infection, bleeding, injury CBD, bowel, biliary leak, may need ERCP, CT, DVT, stroke, , pt understood, he and his agree with the plan, I answered all questions, 05/11/2017 S/P lap manolo doing better, urine retention, consult urologist D/C main IV fluid repeta labs in am, stay one more day at hospital pt and his family members agree with [facility] plan, will F/U 05/12/2017 pull out NEY pt wants to go home today, the post-op care instruction was given. F/U 1 week, base on U/S finding, pt has significant inflammation of gallbladder I recommend to do laparosocpic cholecystectomy, possible open , cholangiogram, subtotal cholecystectomy. D/W benefits, risks and alternatives of the procedure, the risks- infection, bleeding, injury CBD, bowel, biliary leak, may need ERCP, CT, DVT, stroke, , pt understood, he and his agree with the plan, I answered all questions, 05/11/2017 S/P lap manolo doing better, urine retention, consult urologist D/C main IV fluid repeta labs in am, stay one more day at hospital pt and his family members agree with [facility] plan, will F/U
[2017-05-12] MEDS ORDERED: OXYC-57 PO (13:49)
--- NOTE | 2017-05-12 13:52 | Discharge Instructions ---
Discharge Instructions Date of Service May 12, 2017. Admission Reason for Admission: Acute Cholecystitis Due To Biliary Calulus Discharge Discharge Diagnosis / Problem: S/P laparoscopic cholecystectomy Discharge Goals Goal(s): Decrease discomfort, Improve function Activity Recommendations Activity Limitations: per Instructions/Follow-up section Lifting Limitations: no more than 25 pounds Exercise/Sports Limitations: gradually increase as tolerated May Resume Sexual Activity: when tolerated Shower/Bathe: may shower/bathe in 3 days Driving or Machine Use: resume 3 days after discharge . Instructions / Follow-Up Instructions / Follow-Up keep the dressing on for 4 days, he can take a shower on 05/16/2017, no driving while taking pain medicine, follow up Dr. Salcedo 1 week, Current Hospital Diet Patient's current hospital diet: Diabetes Type 2 Diet Discharge Diet Recommended Diet: Regular Diet Procedures Procedures Performed: Laparoscopic Cholecystectomy Pending Studies Studies pending at discharge: no Laboratory Results Hemoglobin A1c Test 05/10/17 05:57 Range/Units Estimated Average Glucose 255 mg/dl Hemoglobin A1c 10.5 H 4.5-5.6 % Medical Emergencies . Who to Call and When: Medical Emergencies: If at any time you feel your situation is an emergency, please call 911 immediately. . Non-Emergent Contact Non-Emergency issues call your: Surgeon Call Non-Emergent contact if: you have a fever, temperature is above 100.5, your pain is not controlled, your pain is worsening, wound has increased drainage, wound has increased redness . "Provider Documentation" section prepared by Marie Salcedo. . VTE Core Measure Inpt VTE Proph given/why not?: SCD's [place] Drug Monitoring Program Search Results: no issues identified
[2017-05-12 14:05] VITALS: BP 151/89; PULSE 72; TEMP 36.9; O2SAT 97
--- NOTE | 2017-05-12 16:34 | DISCHARGE SUMMARY ---
ADMITTING DIAGNOSIS: Acute cholecystitis, cholelithiasis. DISCHARGE DIAGNOSIS: Same. OPERATION: Laparoscopic cholecystectomy. SURGEON: Marie Salcedo M.D. DETAILS OF DISCHARGE SUMMARY: This is a 62-year-old gentleman who presented to the ED with 3 days history of right upper quadrant pain and the patient had ultrasound shows acute cholecystitis with cholelithiasis. The patient was admitted to the hospital for IV antibiotic, comfort the pain, IV fluid and now the patient feels better. We did a laparoscopic cholecystectomy 05/09/2017. The patient tolerated the procedure well and the patient stayed in the hospital another couple days, the patient feels much better and today we removed the NEY drainage. PHYSICAL EXAMINATION: VITAL SIGNS: Temperature is 36.9, heart rate 72, respiratory rate 16, blood pressure is 151/89. GENERAL: The patient is alert, awake, oriented x3. HEAD, EYES, EARS, NOSE, AND THROAT: With normal limitation. No distress. NEUROLOGIC: Intact. NECK: No JVD. CHEST: Bilateral lung sounds clear. HEART: Normal S1, S2. No murmur. ABDOMEN: Soft, no tenderness, nondistended. All incisions intact, clear. EXTREMITIES: No edema. LABORATORY DATA: WBC 6, hemoglobin 11.1. Sodium 138, potassium 3.5, BUN 5, creatinine 0.58. AST is 68, total bilirubin 0.6, alk phos 290, amylase 30, lipase 129. PLAN: The patient wanted to go home today and I gave patient the postop care instructions. The patient understands. We will follow up the patient in 1 week in my office. ANA PAULA
--- NOTE | 2017-05-13 12:38 | EDITING REQUIRED CODING QUERY ---
ANEMIA To promote full compliance with coding requirements relating to patient care, physician participation is requested in all cases of gas leak inspector helper uncertainty. Please assist us with the question(s) below: Coding Question(s): The record reflects the following clinical findings: * postop anemia with CBC from admission to date 14.9 to 12.7 to 11, monitor CBC, maintain active type and screen * to clarify the above note. patient likely had blood loss post-op and should likely have stable hemoglobin in successive labs postop If these findings are indicative of anemia, please specify the known or suspected type by placing an "X" within the parenthesis (x). If other, please document type. Examples are: ( ) Acute blood loss anemia ( ) Acute Postoperative blood loss anemia ( ) Acute postoperative anemia due to dilutional fluids ( ) Chronic blood loss anemia ( ) Anemia of chronic disease ( ) Aplastic anemia ( ) Anemia due to renal disease ( ) Anemia in neoplastic disease ( ) Iron deficient anemia ( ) Anemia, unspecified or other ( ) Other: (please specify) ( ) Unable to determine Thank you Nelly Matthews
--- NOTE | 2017-05-21 12:25 | Urology Consultation ---
History General Date of Service: May 21, 2017. Primary Care Physician: Prosper Oviedo M.D. History of Present Illness I spoke with Dr Salcedo about pt. He agreed to withdrawal consult and I would see pt as outpatient he was started on flomax and began to void spontaneously prior to discharge. Laboratory Labs were reviewed and are within normal limits unless listed below. Labs are available in the chart and at [facility] Family History Diabetes mellitus Hypertension Social History Hx Tobacco Use In Past Year?: No Marital status: Occupation status: retired Immunizations History of Influenza Vaccine: Yes History of Tetanus Vaccine?: No History of Pneumococcal: Yes History of Hepatitis B Vaccine: No History of MDRO No Allergies Coded Allergies: No Known Allergies (Verified , 05/09/17) Medications Home Medications: Home Meds and Scripts Medications Dose Route/Sig Max Daily Dose Days Date Category Metformin HCl 500 Mg Tab 1,000 Mg PO BIDM 05/09/17 Reported Lipitor (Atorvastatin Calcium) 80 Mg Tab 80 Mg PO DAILY 05/09/17 Reported Glimepiride 1 Mg Tab 1 Mg PO DAILY 05/09/17 Reported Pantoprazole Sodium (Pantoprazole) 40 Mg Tab 40 Mg PO DAILY 05/09/17 Reported Januvia (Sitagliptin) 100 Mg Tab 100 Mg PO DAILY 05/09/17 Reported Lisinopril 10 Mg Tab 10 Mg PO DAILY 05/09/17 Reported Polyethylene Glycol 3350 (Polyethylene) 527 Gm Soln 71 Gm PO BID 05/09/17 Reported
--- NOTE | 2017-06-10 05:41 | EDITING REQUIRED CODING QUERY ---
ANEMIA To promote full compliance with coding requirements relating to patient care, physician participation is requested in all cases of polytechnic registrar uncertainty. Please assist us with the question(s) below: Coding Question(s): The record reflects the following clinical findings: * postop anemia with CBC from admission to date 14.9 to 12.7 to 11, monitor CBC, maintain active type and screen * to clarify the above note. patient likely had blood loss post-op and should likely have stable hemoglobin in successive labs postop If these findings are indicative of anemia, please specify the known or suspected type by placing an "X" within the parenthesis (x). If other, please document type. Examples are: ( ) Acute blood loss anemia (x) Acute Postoperative blood loss anemia ( ) Acute postoperative anemia due to dilutional fluids ( ) Chronic blood loss anemia ( ) Anemia of chronic disease ( ) Aplastic anemia ( ) Anemia due to renal disease ( ) Anemia in neoplastic disease ( ) Iron deficient anemia ( ) Anemia, unspecified or other ( ) Other: (please specify) ( ) Unable to determine Thank you Nelly Matthews
== END 2017-05-12 14:38 | disposition home or self-care (01) | DRG 418 ==
LOC: C.EDB 09:32 → C.3E 15:05 → ENRESERV 15:27
PROVIDERS: ADMIT Surgery; ATTEND Surgery
PROC: 0FT44ZZ Resection of Gallbladder, Percutaneous Endoscopic Approach (ICD-10-PCS; principal; 2017-05-10 11:30)
DX: K80.00 Calculus of gallbladder with acute cholecystitis without obstruction (principal); D62 Acute posthemorrhagic anemia; R74.8 Abnormal levels of other serum enzymes; R33.9 Retention of urine, unspecified; I10 Essential (primary) hypertension; E11.9 Type 2 diabetes mellitus without complications; K21.9 Gastro-esophageal reflux disease without esophagitis; E78.5 Hyperlipidemia, unspecified; N40.0 Benign prostatic hyperplasia without lower urinary tract symptoms; Z79.84 Long term (current) use of oral hypoglycemic drugs; Z79.899 Other long term (current) drug therapy; Z83.3 Family history of diabetes mellitus; Z82.49 Family history of ischemic heart disease and other diseases of the circulatory system

== ENCOUNTER 2018-11-29 10:14 | Observation (INO) ==
--- OUTSIDE RECORDS SUMMARY | 2018-11-29 10:17 | External Medical Summary | Continuity of Care Document ---
:1955 Author Name Nery Jimenez Address Unavailable Unavailable , Care Team Providers Name Role Phone Sandra CELESTE Unavailable [email or web address] PA-C Unavailable [email or web address] Darryl Dawson PA-C Unavailable [email or web address] LISETH CALDWELL M.D., A Unavailable Unavailable Unavailable Unavailable Unavailable Problems Inguinal hernia (550.90) (K40.90) Encounter for screening for cardiovascular disorders (V81.2) (Z13.6) Phimosis (605) (N47.1) Wound infection (958.3) (T14.8XXA) Esophageal reflux (530.81) (K21.9) Noncompliance with treatment (V15.81) (Z91.19) Esophageal stricture (530.3) (K22.2) Prostatitis (601.9) (N41.9) Diabetes mellitus (250.00) (E11.9) Swelling of upper lip (784.2) (R22.0) Urinary symptom or sign (788.99) (R39.9) Urinary tract infection (599.0) (N39.0) Benign Prostatic Hypertrophy (600.00) Hematuria (599.70) (R31.9) Need for influenza vaccination (V04.81) (Z23) Dysuria (788.1) (R30.0) Allergies and Adverse Reactions No Known Drug Allergies (Allergy) Medications Omeprazole 20 MG Oral Capsule Delayed Release; TAKE 1 CAPSULE TWICE DAILY. JIM Jacobsen Quantity: 180 Refills: 3 metFORMIN HCl - 500 MG Oral Tablet; TAKE 1 TABLET TWIC E DAILY WITH MEALS. JIM Dawson Quantity: 180 Refills: 3 raNITIdine HCl - 150 MG Oral Tablet; Take 1 tablet daily DO Sarina Parra Start: 14-May-2011 Quantity: 30 Refills: 5 Procedures History of Inguinal Hernia Repair Status : Completed Immunizations Influenza On: Jun-2011 Fluzone INJ On: 19-Apr-2014 9:20 Lot #: [id number], SANOFI PASTEUR Family History Unknown Family Member Family history of Diabetes Mellitus (V18.0) Status: Active Comments: Family History Family history of Hypertension (V17.49) Status: Active Comments: Family History Family history of Cancer Status: Active Comments: Famil y History Social History - Smoking Status Former smoker Plan of Treatment Planned Observations Planned Goals not documented Results No Known Results Results not documented Encounters Appointment; Anca Dawson PA-C 05-May-2017 10:00 Encounter Diagnosis: Problem not documented
--- NOTE | 2018-11-29 11:09 | XRay Report ---
XR chest 1V portable CLINICAL HISTORY: Chest Pain COMPARISON STUDY: No previous studies for comparison. FINDINGS: The bones soft tissues and hemidiaphragms are normal. The cardiomediastinal silhouette is n ormal. The lungs are clear. The pulmonary vasculature is normal. IMPRESSION: Negative chest. The above report was generated using voice recognition software. It may contain grammatical, syntax or spelling errors. Electronically signed by: Prosper Browne M.D. 11/29/2018 11:08 AM
[2018-11-29] MEDS ORDERED: FAMOTIDINE 20 MG TAB PO ONE (11:32)
[2018-11-29 11:37] LABS: Basophils # (auto) 0.02 K/uL (0-0.2); Basophils % (auto) 0.2 %; Eosinophils # (auto) 0.41 K/uL (0-0.5); Eosinophils % (auto) 3.7 %; Hematocrit (blood only) 44.7 % (42-52); Hemoglobin 15.9 g/dL (14.0-18.0); Immature Granulocytes # (auto) 0.06 K/uL (0.00-0.02); Immature Granulocytes % (auto) 0.5 %; Lymphocytes # (auto) 1.24 K/uL (1.2-3.4); Lymphocytes % (auto) 11.2 %; Mean Corpuscular Hgb Conc 35.6 g/dL (32-36); Mean Corpuscular Volume 83.1 fL (80-100); Mean Platelet Volume 10.6 fL (7.4-10.4); Monocytes % (auto) 9.9 %; Neutrophils # (auto) 8.23 K/uL (1.4-6.5); Neutrophils % (auto) 74.5 %; Platelet Count 222 K/uL (130-400); RDW Coefficient of Variation 14.8 % (11.5-14.5); RDW Standard Deviation 45.2 fL (36.4-46.3); Red Blood Count 5.38 M/uL (4.7-6.1); White Blood Count 11.06 K/uL (4.8-10.8)
[2018-11-29 11:53] LABS: Alanine Aminotransferase 38 U/L (12-78); Albumin Level 3.8 gm/dl (3.4-5.0); Aspartate Aminotransferase 20 U/L (15-37); Bilirubin Direct 0.2 mg/dl (0-0.2); Blood Urea Nitrogen 21 mg/dl (7-18); Calcium 9.8 mg/dl (8.5-10.1); Carbon Dioxide 23 mmol/L (21-32); Chloride 103 mmol/L (98-107); Creatinine Clr Calc Pharmacy 96.4 ml/min; Est GFR (African American) 112.8; Est GFR (Non-African American) 97.3; Glucose 152 mg/dl (70-99); Magnesium 2.1 mg/dl (1.8-2.4); Potassium 3.9 mmol/L (3.5-5.1); Sodium 139 mmol/L (136-145)
[2018-11-29 11:57] LABS: Albumin Globulin Ratio 0.9 (0.9-2); Alkaline Phosphatase 115 U/L (45-117); Bilirubin,Total 0.8 mg/dl (0.2-1); Globulin 4.2 gm/dl (2.5-4.0); Phosphorus 3.5 mg/dl (2.5-4.9); Troponin I < 0.015 ng/ml (0-0.045)
[2018-11-29] MEDS ORDERED: GI COCKTAIL ED USE PO STA (12:39)
[2018-11-29] MEDS ORDERED: NITROGLYCERIN SL 0.4 MG/TAB TAB SL STA (13:24)
[2018-11-29] MEDS ORDERED: ASPIRIN CHEW 324 MG PO STA (13:24)
--- NOTE | 2018-11-29 13:28 | Emergency Department Note ---
Entered by Magda Phillip acting as a scribe for Javed Swanson MD History of Present Illness General Chief complaint: Chest Pain Stated complaint: CHEST PAIN, THROAT PAIN Time Seen by Provider: 11/29/18 10:48 Source: patient and family Mode of arrival: ambulatory Limitations: no limitations History of Present Illness Onset (ago): hour(s) (0700) Location: chest Pain Consistency: + constant Exacerbated By: + movement and + other (deep breath) Associated symptoms: + chest pain and + other (The patient complains of throat pain and diarrhea. The patient denies diarrhea. ); no nausea/vomiting and no shortness of breath The patient is a 63 year old male with a history of diabetes and hypertension who presents to the ED with complaints of constant chest pain that onset at 0700. The patient presents with his family. He states that he woke up with the pain this morning. He notes that the pain is exacerbated with deep breathing and movement. The patient complains of throat pain. The patient denies shortness of breath, nausea, vomiting, and diarrhea. He states that he had spaKreditechetti last night at 1930 and did not eat breakfast this morning. He denies smoking cigarettes. Home Medications Home Medications Medication Instructions Recorded Confirmed Type atorvastatin 80 mg PO DAILY #0 05/09/17 11/29/18 History glimepiride 2 mg PO DAILY #0 05/09/17 11/29/18 History lisinopril 10 mg PO DAILY #0 05/09/17 11/29/18 History metformin 1,000 mg PO BIDM #0 05/09/17 11/29/18 History pantoprazole [Protonix] 40 mg PO DAILY #0 05/09/17 11/29/18 History Jardiance 25 mg PO DAILYBB 11/29/18 11/29/18 History linagliptin [Tradjenta] 5 mg PO DAILY 11/29/18 11/29/18 History Allergies Allergy/AdvReac Type Severity Reaction Status Date / Time No Known Allergies Allergy Unknown Verified 11/29/18 11:02 Past Med/Surg History Medical History Wound abscess (Acute 05/04/13) Wound, surgical, infected (Acute 05/05/13) Wound infection (Acute 05/05/13) Wound infection after surgery (Acute 05/05/13) Tendonitis of ankle, right (Acute) Acute cholecystitis due to biliary calculus Angioedema (Acute) Swelling of upper lip (Acute) No pertinent family history Surgical History No significant past surgical history Family History Other No pertinent family history Social History Preferred Language: Albanian Communication Ability: Effective Visual Impairment: No Limitations Hearing Ability: Normal Ad Operations Associate Required: No Beliefs That Will Affect Care: None Current Living Situation: Significant Other Other Information That Helps Us Care for You: No Feels Safe at Home: Yes Safety Concerns: Feels Safe At This Time Smoking Status: Never smoker Do You Dip or Chew Tobacco: No Second Hand Exposure: No Tobacco Cessation Education Requested by Patient: No Hx Alcohol Use: No Hx Substance Use: No Review of Systems See HPI for pertinent positives & negatives. and A total of 10 systems reviewed and were otherwise negative Physical Exam Vital Signs Vital Signs - 24 hr 11/29/18 10:19 11/29/18 10:37 11/29/18 10:38 Temperature 36.6 C Temperature Source Oral Sepsis Recent Fever Within 48 Hours No Sepsis New/Unexplained Change in Mental Status No Sepsis Action Taken by Nursing No Action Required Pulse Rate 105 H 101 H 96 H Pulse Rate [Apical] Pulse Rate from SpO2 Sensor 100 H 97 H Respiratory Rate 18 24 24 Respiratory Effort / Characteristics Respiratory Depth Normal Respiratory Pattern Blood Pressure 146/90 H 134/93 Blood Pressure [Right Arm] Blood Pressure Mean 108 106 Blood Pressure Mean [Right Arm] Blood Pressure Position [Right Arm] Pulse Oximetry 96 95 95 Oxygen Delivery Method Room Air 11/29/18 11:00 11/29/18 11:30 11/29/18 11:39 Temperature Temperature Source Sepsis Recent Fever Within 48 Hours Sepsis New/Unexplained Change in Mental Status Sepsis Action Taken by Nursing Pulse Rate 103 H 105 H Pulse Rate [Apical] Pulse Rate from SpO2 Sensor 105 H 104 H Respiratory Rate 28 H 23 Respiratory Effort / Characteristics Respiratory Depth Respiratory Pattern Blood Pressure 133/88 Blood Pressure [Right Arm] Blood Pressure Mean 103 Blood Pressure Mean [Right Arm] Blood Pressure Position [Right Arm] Pulse Oximetry 96 95 Oxygen Delivery Method 11/29/18 11:41 11/29/18 12:02 11/29/18 12:33 Temperature Temperature Source Sepsis Recent Fever Within 48 Hours Sepsis New/Unexplained Change in Mental Status Sepsis Action Taken by Nursing Pulse Rate 104 H 99 H Pulse Rate [Apical] 104 H Pulse Rate from SpO2 Sensor 99 H Respiratory Rate 18 17 27 H Respiratory Effort / Characteristics Non-Labored Spontaneous Respiratory Depth Normal Respiratory Pattern Regular Blood Pressure Blood Pressure [Right Arm] 133/88 Blood Pressure Mean Blood Pressure Mean [Right Arm] 103 Blood Pressure Position [Right Arm] Sitting Pulse Oximetry 98 97 Oxygen Delivery Method Room Air 11/29/18 13:13 11/29/18 13:30 11/29/18 13:36 Temperature Temperature Source Sepsis Recent Fever Within 48 Hours Sepsis New/Unexplained Change in Mental Status Sepsis Action Taken by Nursing Pulse Rate 99 H 99 H 104 H Pulse Rate [Apical] Pulse Rate from SpO2 Sensor 98 H 99 H 104 H Respiratory Rate 25 H 23 24 Respiratory Effort / Characteristics Respiratory Depth Respiratory Pattern Blood Pressure 142/94 H Blood Pressure [Right Arm] Blood Pressure Mean 110 Blood Pressure Mean [Right Arm] Blood Pressure Position [Right Arm] Pulse Oximetry 96 98 96 Oxygen Delivery Method GENERAL: Awake, alert, well-appearing, in no distress HENT: Normocephalic, atraumatic. Oropharynx with dry mucous membranes and otherwise unremarkable. EYES: Normal conjunctiva. Sclera non-icteric. NECK: Supple. No nuchal rigidity. FROM. No JVD. RESPIRATORY: Clear to auscultation bilaterally. CARDIAC: Regular rate, normal rhythm. Extremities warm and well perfused. Pulses equal. ABDOMEN: Soft, non-distended. Mild epigastric tenderness. No rebound or gu arding. No masses. RECTAL: Deferred. MUSCULOSKELETAL: Chest examination reveals no tenderness. The back is symmetrical on inspection without obvious abnormality. There is no CVA tenderness to palpation. No joint edema. LOWER EXTREMITIES: Calves are equal size bilaterally and non-tender. No edema. No discoloration. NEURO: Normal sensorium. No sensory or motor deficits noted. SKIN: No rash or jaundice noted. Course 1107: Past medical records reviewed. The patient was evaluated in room C03. A complete history and physical examination was performed. 1328: I reviewed the patient's case with Dr. Rachel Roberts [facility]. He will evaluate the patient for further management. Consultations Consultation #1: [id number]: I reviewed the patient's case with Dr. Ramos Hospitalist [facility]jo. He will evaluate the patient for further management. Administered Medications Insulin Aspart (Novolog Flexpen) 0 units SC ACHS RASHAAD Stop: 12/29/18 16:29 Last Admin: 11/29/18 17:08 Dose: 6 units Documented by: [id number] Cosigned by: [id number] Nitroglycerin (Nitro-Bid 2%) 0.5 inch EXT Q6H RASHAAD Stop: 12/29/18 15:59 Last Admin: 11/29/18 15:31 Dose: 0.5 inch Documented by: [id number] Discontinued Medications Al Hydrox/Mg Hydrox/Simethicone () 1 dose PO NOW STA Stop: 11/29/18 12:40 Last Admin: 11/29/18 12:55 Dose: 1 dose Documented by: [id number] Aspirin (Aspirin) 324 mg PO NOW STA Stop: 11/29/18 13:25 Last Admin: 11/29/18 13:38 Dose: 324 mg Documented by: [id number] Famotidine (Pepcid) 20 mg PO NOW ONE Stop: 11/29/18 11:33 Last Admin: 11/29/18 11:39 Dose: 20 mg Documented by: [id number] Nitroglycerin (Nitrostat) 0.4 mg SL NOW STA Stop: 11/29/18 13:25 Last Admin: 11/29/18 13:38 Dose: 0.4 mg Documented by: [id number] Medical Decision Making Differential Diagnosis Differential diagnoses: Acute coronary syndrome, myocardial infarction, pericarditis, pulmonary embolus, aortic dissection, pneumonia, pneumothorax, musculoskeletal, shingles, esopha geal. Medical Records Attestation: I reviewed the patient's medical records. Home Medications Current Medication List: was personally reviewed by me Laboratory Data Attestation: I reviewed the patient's lab results. Result diagrams: 11/29/18 10:39 11/29/18 10:39 Lab Results 11/29/18 11/29/18 Range/Units 10:39 10:39 WBC 11.06 H (4.8-10.8) K/uL RBC 5.38 (4.7-6.1) M/uL Hgb 15.9 (14.0-18.0) g/dL Hct 44.7 (42-52) % MCV 83.1 (80-100) fL MCH 29.6 (25-34) pg MCHC 35.6 (32-36) g/dL RDW Std Deviation 45.2 (36.4-46.3) fL RDW Coeff of Naomy 14.8 H (11.5-14.5) % Plt Count 222 (130-400) K/uL MPV 10.6 H (7.4-10.4) fL Immature Gran % (Auto) 0.5 % Neut % (Auto) 74.5 % Lymph % (Auto) 11.2 % Wake % (Auto) 9.9 % Eos % (Auto) 3.7 % Baso % (Auto) 0.2 % Immature Gran # (Auto) 0.06 H (0.00-0.02) K/uL Neut # (Auto) 8.23 H (1.4-6.5) K/uL Lymph # (Auto) 1.24 (1.2-3.4) K/uL Wake # (Auto) 1.10 H (0.11-0.59) K/uL Eos # (Auto) 0.41 (0-0.5) K/uL Baso # (Auto) 0.02 (0-0.2) K/uL Sodium 139 (136-145) mmol/L Potassium 3.9 (3.5-5.1) mmol/L Chloride 103 (98-107) mmol/L Carbon Dioxide 23 (21-32) mmol/L Anion Gap 12.0 H (3-11) BUN 21 H (7-18) mg/dl Creatinine 0.73 (0.6-1.4) mg/dl Est Cr Clr Drug Dosing 96.4 ml/min Est GFR ( Amer) 112.8 Est GFR (Non-Af Amer) 97.3 BUN/Creatinine Ratio 29.0 H (10-20) Glucose 152 H (70-99) mg/dl Calcium 9.8 (8.5-10.1) mg/dl Phosphorus 3.5 (2.5-4.9) mg/dl Magnesium 2.1 (1.8-2.4) mg/dl Total Bilirubin 0.8 (0.2-1) mg/dl Direct Bilirubin 0.2 (0-0.2) mg/dl AST 20 (15-37) U/L ALT 38 (12-78) U/L Alkaline Phosphatase 115 (45-117) U/L Troponin I < 0.015 (0-0.045) ng/ml Total Protein 8.0 (6.4-8.2) gm/dl Albumin 3.8 (3.4-5.0) gm/dl Globulin 4.2 H (2.5-4.0) gm/dl Albumin/Globulin Ratio 0.9 (0.9-2) Lipase 132 (73-393) U/L Imaging Data Radiologist's Impression: Radiology results as stated below per my review and the radiologist's interpretation: XR chest 1V portable CLINICAL HISTORY: Chest Pain COMPARISON STUDY: No previous studies for comparison. FINDINGS: The bones soft tissues and hemidiaphragms are normal. The cardiomediastinal silhouette is normal. The lungs are clear. The pulmonary va sculature is normal. IMPRESSION: Negative chest. The above report was generated using voice recognition software. It may contain grammatical, syntax or spelling errors. Electronically signed by: Prosper Browne M.D. 11/29/2018 11:08 AM Dictated: 11/29/18 1108 Transcribed: 11/29/18 1108 ECG Data Attestation: I personally reviewed and interpreted this ECG as follows: Indication: chest pain Rate (beats per minute): 99 Rhythm: normal sinus Findings: + other (normal axis) and + acute ischemic change (no acute ischemia) Blood Pressure Blood Pressure Findings: Normal blood pressure MDM Narrative The patient is a pleasant 63 y/o gentleman with a pmhx of NIDDM2 who presents to the emergency department with SSCP that he first noticed at 7am this morning after waking up and has been constant per HPI. On arrival the patient is in NAD, AFVSS. Patient has mild epigastric tpp without guarding. EKG without overt acute ischemia. CXR negative for acute process. WBC, nonspecific. H/H and platelets w nl. Chemistry without acidosis. LFTs and electrolytes unremarkable. Initial troponin negative, ~3.5 hours after onset of constant sx. Given patient's reproducible epigastric pain, suspicion initially was for more likely GI etiology. However, patient denies any improvement after Pepcid and GI cocktail. Moreover, while patient denies any prior exertional sx prior to today he does report that he felt his pain became worse when walking this morning. Thus, patient was ordered for ASA and nitroglycerin to see if sx improved. Given exertional component to patient's sx and Heart score of 5, moderate risk, reasonable to admit the patient for further cardiac evaluation. Case d/w Dr. Ramos, [facility] hospitalist, who will evaluate the patient for admission. Impression & Plan Substernal chest pain Discharge Plan Visit Data *Final* Discharge Date/Time: 11/29/18 14:25 Chief Complaint: Chest Pain Stated Complaint: CHEST PAIN, THROAT PAIN ED Provider: Javed Swanson Discharge Problem: Substernal chest pain Patient Disposition: Admitted As Inpatient Discharge Instructions Interventions: ED Discharge Assessment Last Done: 11/29/18 14:25 The scribe's documentation has been prepared under my direction and personally reviewed by me in its entirety. I confirm that the note above accurately reflects all work, treatment, procedures, and medical decision making performed by me.
[2018-11-29] MEDS ORDERED: ONDANSETRON INJ 2 MG/ML 2 ML VIAL IV PRN (14:57)
[2018-11-29] MEDS ORDERED: MoRPHine SULFATE 2 MG/ML CARP IV PRN (14:57)
[2018-11-29] MEDS ORDERED: ACETAMINOPHEN 325 MG TAB PO PRN (14:57)
[2018-11-29] MEDS ORDERED: NITROGLYCERIN SL 0.4 MG/TAB TAB SL PRN (14:57)
[2018-11-29] MEDS ORDERED: GLUCOSE 10 TABS/TUBE PO PRN (15:30)
[2018-11-29] MEDS ORDERED: GLUCOSE 40% GEL 15 GM TUBE PO PRN (15:30)
[2018-11-29] MEDS ORDERED: GLUCAGON FOR INJ 1 MG VIAL SQ PRN (15:30)
[2018-11-29] MEDS ORDERED: CARBOHYDRATES FOR HYPOGLYCEMIA PO PRN (15:30)
[2018-11-29] MEDS ORDERED: DEXTROSE 50% 50 ML SYRINGE IV PRN (15:30)
[2018-11-29] MEDS: NITROGLYCERIN 2% OINTMENT 30GM TUBE EXT SCH ×2 (15:31→22:11)
[2018-11-29] MEDS: INSULIN ASPART 100 UNITS/ML 3 ML PEN SC SCH ×2 (17:08→22:06)
[2018-11-29] MEDS ORDERED: NITROGLYCERIN/D5W 100MCG/ML 20ML SYR ONE (20:42)
[2018-11-29] MEDS ORDERED: NiCARDipine HCL INJ 2.5 MG/ML 10 ML AMP ONE (20:42)
[2018-11-29] MEDS ORDERED: HEPARIN (PORCINE) 1000 UNIT/ML 10 ML (CATH LAB USE ONLY) ONE (20:42)
[2018-11-29] MEDS ORDERED: MIDAZOLAM HCL 1 MG/ML 2ML VIAL ONE (20:42)
[2018-11-29] MEDS ORDERED: fentaNYL citrate 100 MCG/2 ML VIAL ONE (20:42)
--- NOTE | 2018-11-29 21:01 | Pre Anesthesia Assessment ---
Date of Service November 29, 2018 Pre Sedation Assessment Vital Signs Temp Pulse Pulse Pulse Resp BP BP 11/29/18 19:47 36.8 C 108 H 20 104/70 11/29/18 19:23 36.8 C 108 H 18 104/68 11/29/18 16:00 104 H 11/29/18 15:29 100 H 11/29/18 14:40 36.8 C 104 H 20 11/29/18 14:25 100 H 18 118/83 11/29/18 13:36 104 H 24 142/94 H 11/29/18 13:30 99 H 23 11/29/18 13:13 99 H 25 H 11/29/18 12:33 99 H 27 H 11/29/18 12:02 104 H 17 11/29/18 11:41 104 H 18 11/29/18 11:39 105 H 23 133/88 11/29/18 11:30 103 H 28 H 11/29/18 11:00 11/29/18 10:38 96 H 24 11/29/18 10:37 101 H 24 134/93 11/29/18 10:19 36.6 C 105 H 18 146/90 H BP Pulse Ox 11/29/18 19:47 94 11/29/18 19:23 93 11/29/18 16:00 11/29/18 15:29 111/70 94 11/29/18 14:40 126/73 95 11/29/18 14:25 96 11/29/18 13:36 96 11/29/18 13:30 98 11/29/18 13:13 96 11/29/18 12:33 97 11/29/18 12:02 11/29/18 11:41 133/88 98 11/29/18 11:39 11/29/18 11:30 95 11/29/18 11:00 96 11/29/18 10:38 95 11/29/18 10:37 95 11/29/18 10:19 96 Cardiovascular RRR, no murmur, no edema Respiratory normal respiratory effort, lungs clear to auscultation Pre-Sedation Airway Assessment Smoking Status: Never smoker Hx Sleep Apnea: No Hx Difficult Intubation: No Short, Thick Neck: No Thyromental Distance: > or= 3.5 Finger Breadths Oral Cavity: + WNL Mallampati Class: II ASA: ASA4 Procedure Planning Contraindications for Sedation: none Current Medications Reviewed: Yes Notes The planned sedation has been discussed with the patient. Informed Consent was obtained. I have identified the patient, determined the appropriateness of sedation and have assessed the patient immediately prior to the procedure. All medicine(s) and interventions are by my order.
--- NOTE | 2018-11-29 21:11 | History and Physical Report ---
DATE OF ADMISSION: 11/29/2018 CHIEF COMPLAINT: Chest pain. HISTORY OF PRESENT ILLNESS: This is a 63-year-old male with past medical history significant for diabetes, hypertension, peptic ulcer disease, family history of heart disease, elevated LFTs, who presents with chest pain. The patient woke up today morning with chest pain, it is was sharp and severe in nature. Pain is in the middle of the chest and also some radiation to the right shoulder. Also had some sweating. No shortness of breath, no dizziness, no cough, no fever, no chills, no headache, no blurred visions, no earache, no runny nose. Has some sore throat during this episode. No cough, no fever, no chills. Was brought in to the ER. Initial workup was negative. The patient given Gi cocktail has had epigastric tenderness. Did not helped much. Nitro seemed to help bring the pain a l bit down, but still had some chest discomfort, so we are called for admission. Currently resting comfortably, hemodynamically stable. He just took nitro and still has some pain in the middle of the chest. No diarrhea, no constipation, no blood in the stools, no black stools, no hematuria. Normal bladder movements. No burning micturition. No swelling in the legs. No rash. Lives with his fiancee. Otherwise was doing okay until this episode happened. He says his sugars are running okay at home. He says he used to be on medication for his peptic ulcer disease, but is no longer taking those medications. ALLERGIES: No known drug allergies. PAST MEDICAL HISTORY: As mentioned above. PAST SURGICAL HISTORY: Inguinal hernia repair. MEDICATIONS: The patient is on Protonix 40 mg p.o. daily, but patient is not taking it, linagliptin 5 mg p.o. daily, glimepiride 2 mg p.o. daily, Jardiance 25 mg p.o. daily, metformin 1000 mg p.o. b.i.d., atorvastatin 80 mg p.o. daily, lisinopril 10 mg p.o. daily, aspirin 81 mg p.o. daily. FAMILY HISTORY: Significant for father had cancer, diabetes. Mother had diabetes, leukemia. Brother had NH. Another brother had hypertension. SOCIAL HISTORY: , currently living with aneesh. No smoking history, no alcohol, no drug use. REVIEW OF SYMPTOMS: As per HPI. Rest of the review of symptoms negative. PHYSICAL EXAMINATION: GENERAL: The patient is of moderate build, not in acute distress. VITAL SIGNS: Temperature 36.6, pulse 104, respiratory rate 24, blood pressure 142/94, oxygen 96% on room air. HEENT: No pallor, no icterus. Pupils equal, round, and reactive to light. NECK: No JVD, no neck masses, no carotid bruits. CARDIOVASCULAR: S1, S2 heard, regular rate and rhythm, no murmur, no gallop. RESPIRATORY SYSTEM: Normal AP diameter. No accessory muscle use. No wheezing, no crackles. ABDOMEN: Soft, bowel sounds present. Epigastric tenderness present, no guarding, no rigidity, no distention. CENTRAL NERVOUS SYSTEM: Cranial nerves II-XII grossly intact. Nonfocal. EXTREMITIES: No edema, no erythema. LABORATORY DATA: WBC 11, hemoglobin 15.9, hematocrit 44.7, platelets 222. Sodium 139, potassium 3.9, chloride 103, bicarbonate 23, BUN 21, creatinine 0.7, serum glucose 152, calcium 9.8, phosphorus 3.5, magnesium 2.1, total bilirubin 0.8, direct bilirubin 0.2, AST 20, ALT 38, alkaline phosphatase 115. Troponin I less than 0.015. Lipase 132. IMAGING DATA: Chest x-ray, negative chest. EKG: Normal sinus rhythm at a rate of 92. No acute ST changes seen. ASSESSMENT AND PLAN: This is a 63-year-old male who presents with chest pain. 1. Chest pain, rule out acute coronary syndrome. Risk factors of diabetes, hypertension, age, family history, but the patient also has some tenderness in the epigastric region. But nitro seemed to help with the pain. We will observe in tele floor, serial cardiac enzymes, echocardiogram, Place on nitro paste, and consult cardiology for further recommendations. We will keep him n.p.o. after midnight . 2. History of possible peptic ulcer disease. Patient on Protonix and Zantac as per [facility]. Patient says he is not taking these medications, may need prescription for these medications. Will continue his Protonix daily and placed him on IV Pepcid b.i.d. and monitor. 3. Diabetes. He is on glimepiride, Jardiance, linagliptin, and metformin. We will hold all these medications. We will place him on Lantus and insulin sliding scale and follow the blood sugars. We will follow HbA1c levels. 4. History of hyperlipidemia. Continue statin. Follow fasting lipid profile. 5. History of hypertension, on lisinopril. We will monitor the blood pressure. 6. Deep venous thrombosis prophylaxis, sequential compression devices for now. 7. Disposition: Closely observe in the tele floor. Level 1 full code. Addendum. In the late evening patient complained of chest pain 10/10 in severity, received morphine and ekg showed st elevation in inferior leads. His troponin at 4pm was negative. Discussed with interventional cardiology and as patient having ongoing chest pain with St elevations heart was called. Will monitor post cath. MTDD
--- NOTE | 2018-11-29 21:44 | Post Anesthesia Assessment ---
Date of Service November 29, 2018 Post Sedation Assessment Vital Signs Temp Pulse Pulse Pulse Resp BP BP 11/29/18 19:47 36.8 C 108 H 20 104/70 11/29/18 19:23 36.8 C 108 H 18 104/68 11/29/18 16:00 104 H 11/29/18 15:29 100 H 11/29/18 14:40 36.8 C 104 H 20 11/29/18 14:25 100 H 18 118/83 11/29/18 13:36 104 H 24 142/94 H 11/29/18 13:30 99 H 23 11/29/18 13:13 99 H 25 H 11/29/18 12:33 99 H 27 H 11/29/18 12:02 104 H 17 11/29/18 11:41 104 H 18 11/29/18 11:39 105 H 23 133/88 11/29/18 11:30 103 H 28 H 11/29/18 11:00 11/29/18 10:38 96 H 24 11/29/18 10:37 101 H 24 134/93 11/29/18 10:19 36.6 C 105 H 18 146/90 H BP Pulse Ox 11/29/18 19:47 94 11/29/18 19:23 93 11/29/18 16:00 11/29/18 15:29 111/70 94 11/29/18 14:40 126/73 95 11/29/18 14:25 96 11/29/18 13:36 96 11/29/18 13:30 98 11/29/18 13:13 96 11/29/18 12:33 97 11/29/18 12:02 11/29/18 11:41 133/88 98 11/29/18 11:39 11/29/18 11:30 95 11/29/18 11:00 96 11/29/18 10:38 95 11/29/18 10:37 95 11/29/18 10:19 96 Recovery Score Activity: Moves 4 extremities Respiration: Deep Breath/Cough Circulation: +/-20% PreAnes Value Consciousness: Fully Awake Oxygen Saturation: O2 needed for >90% Discharge Sedation Level of Care: Fast Track Phase II Post Sedation Plan On clinical assessment, the patient appears to have tolerated the sedation without complications. Patient is recovering as anticipated. Patient will continue to be monitored by nursing and may be discharged when sedation discharge criteria are met per below protocol. Upon Completions of procedure and additional 15 minutes continue every 5 minute vital signs and the P.A.R. score; then discharge to a Phase I or Fast Track to Phase II per the following guidelines: * Discharge Patient to appropriate Phase II area if PAR is 8 or greater or return to pre- procedure baseline. The post - procedure orders will be as directed. * If PAR score is less than 8 or not return to pre-procedure baseline then patient will follow Phase I monitoring till PAR is reached for Phase II. The Phase I may be done in procedure room or may call to secure a Phase I area. * If naloxone or flumazenil are used for reversal, hold in Phase I for continue d monitoring from when last reversal dose was given for a minimum of 60 minutes or longer pending the nurse and/or physician discretion of patient condition before discharge to Phase II. Please call the Sedation Physician to re-evaluate and complete post-note for discharge to Phase II area. Do NOT discharge from procedure sedation or Phase 1 until post- sedation evaluation note is complete by procedure /sedation MD Sedation Discharge Instructions to be given to the patient at discharge to home.
--- NOTE | 2018-11-29 21:57 | Cardiac Catheterization ---
Cardiac Cath Procedure Full Procedure Date November 29, 2018 Pre-Procedure Diagnosis Pre-Procedure Diagnosis: STEMI AUC Score AUC Score: 8 Post-Procedure Diagnosis Post-Procedure Diagnosis: Severe CAD, Normal LV Systolic Function and Normal Intracardiac Pressures Procedure(s) Performed Procedure(s) Performed: Coronary Angiography, Left Heart Cath and LV Angiography Business Process Expert Irwin Nicolas MD Paint Trimmer Pipe Bowls(s) [place] Estimated Blood Loss Estimated Blood Loss: 15 Medication(s) Medication(s): Fentanyl, Heparin, Lidocaine 1%, Nicardipine and Versed Summary of Findings Indication: ACS, borderline inferior ST elevations Access: 6 Fr slender right radial artery Catheters: [place], JL 3.5, JR4 guide Findings: LM -long vessel, angiographically normal LAD -moderate caliber vessel, 50 to 60% mid segment focal stenosis after takeoff of second diagonal, mild diffuse distal disease as wraps around apex. Diagonal small without significant disease. Circumflex -dominant, moderate caliber vessel, mid segment luminal irregularities, mild disease in OM 2. Small left PDA with proximal hazy 80% st enosis. RCA -small, nondominant with mild mid segment disease LVEDP -7 LVEF>70%, no regional wall motion abnormalities, 1+ MR Arterial Closure: TR band Summary: 1. Small, left PDA with 80% hazy proximal stenosis 2. 50 to 60% focal mid LAD 3. Normal intracardiac filling pressure. 4. Hyperdynamic LV without wall motion normalities. Recommendations: Left PDA thought to be likely culprit vessel. Vessel too small for stenting and with SREE-3 flow, no active chest pain and preserved LV function decision to manage medically. Continue heparin infusion, start clopidogrel, continue aspirin. Continue home statin. Beta-eva, SHEREEN inhibitor as BP allows. Trend troponin, echo in a.m. 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
[2018-11-29] MEDS ORDERED: SODIUM CHLORIDE 0.9% 1000ML 1,000 ML IV SCH (22:00)
[2018-11-29] MEDS: INSULIN GLARGINE SOLOSTAR 100 UNITS/ML 3 ML PEN SC SCH (22:07)
[2018-11-29] MEDS: FAMOTIDINE 20 MG in SYRINGE 3 ML IV SCH (22:12)
[2018-11-30 04:45] LABS: Basophils # (auto) 0.01 K/uL (0-0.2); Basophils % (auto) 0.1 %; Hematocrit (blood only) 42.6 % (42-52); Hemoglobin 14.4 g/dL (14.0-18.0); Immature Granulocytes # (auto) 0.04 K/uL (0.00-0.02); Immature Granulocytes % (auto) 0.4 %; Lymphocytes # (auto) 1.01 K/uL (1.2-3.4); Lymphocytes % (auto) 9.8 %; Mean Corpuscular Hgb Conc 33.8 g/dL (32-36); Mean Corpuscular Volume 85.2 fL (80-100); Mean Platelet Volume 10.3 fL (7.4-10.4); Monocytes # (auto) 1.55 K/uL (0.11-0.59); Neutrophils # (auto) 7.64 K/uL (1.4-6.5); Neutrophils % (auto) 73.7 %; Platelet Count 214 K/uL (130-400); RDW Coefficient of Variation 15.4 % (11.5-14.5); RDW Standard Deviation 47.8 fL (36.4-46.3); White Blood Count 10.35 K/uL (4.8-10.8)
[2018-11-30 05:02] LABS: Blood Urea Nitrogen 24 mg/dl (7-18); Calcium 8.5 mg/dl (8.5-10.1); Carbon Dioxide 25 mmol/L (21-32); Chloride 102 mmol/L (98-107); Creatinine Clr Calc Pharmacy 84.8 ml/min; Est GFR (Non-African American) 92.3; Glucose 139 mg/dl (70-99); Magnesium 2.3 mg/dl (1.8-2.4); Potassium 4.2 mmol/L (3.5-5.1); Sodium 135 mmol/L (136-145)
[2018-11-30 05:07] LABS: Chol HDL Ratio 2; Cholesterol 93 mg/dl (0-200); HDL Cholesterol 42 mg/dl; LDL Cholesterol Calculated 18 mg/dl; Triglycerides 164 mg/dl (0-150); Troponin I < 0.015 ng/ml (0-0.045); VLDL Cholesterol 33 mg/dl
[2018-11-30] MEDS: NITROGLYCERIN 2% OINTMENT 30GM TUBE EXT SCH (05:33)
[2018-11-30 06:18] LABS: Estimated Average Glucose 189 mg/dl; Hemoglobin A1C 8.2 % (4.5-5.6)
[2018-11-30] MEDS: INSULIN ASPART 100 UNITS/ML 3 ML PEN SC SCH ×2 (07:37→11:43)
[2018-11-30] MEDS: INSULIN GLARGINE SOLOSTAR 100 UNITS/ML 3 ML PEN SC SCH (07:38)
[2018-11-30] MEDS: FAMOTIDINE 20 MG in SYRINGE 3 ML IV SCH (08:32)
[2018-11-30] MEDS ORDERED: ATORVASTATIN 40 MG TAB PO SCH (09:00)
[2018-11-30] MEDS ORDERED: PANTOprazole 40 MG TAB PO SCH (09:00)
[2018-11-30] MEDS ORDERED: LISINOPRIL 10 MG TAB PO SCH (09:00)
--- NOTE | 2018-11-30 09:34 | Cardiology Consultation ---
Date of Consultation November 30, 2018 Assessment & Plan (1) Substernal chest pain: The substernal chest pain may or may not have been cardiac in origin. The patient has had no additional chest pain since yesterday and has been up walking in the hallways without difficulty. (2) CAD in [place] artery: Patient has diabetic coronary artery disease which is mostly distal and should be treated medically. I will arrange follow-up with our group after disc harge. I will discontinue the Nitropaste. The patient should be given sublingual nitroglycerin upon discharge to be used on an as-needed basis. (3) Diabetes: History of Present Illness Attending Physician: April Hahn History of Present Illness This is a 63-year-old [place] male patient with no prior history of heart disease. Yesterday morning he awoke from sleep with retrosternal chest discomfort. He came to the emergency department. His EKG did not suggest the S ROSALES. His cardiac markers were initially negative and remained negative during his hospital stay. The patient however continued to have retrosternal chest discomfort which was of a concern due to the patient's history of diabetes. The patient was taken urgently to the cardiac catheterization lab where he was found to have diffuse mostly distal coronary artery disease. The most significant was a branch from the PDA with a high-grade stenosis that was felt to be medical treatment. The patient has no additional chest pain this morning. He has been ambulating in the hallway without difficulty. Allergies Allergy/AdvReac Type Severity Reaction Status Date / Time No Known Allergies Allergy Unknown Verified 11/29/18 11:02 Home Medications Home Medications Medication Instructions Recorded Confirmed Type atorvastatin 80 mg PO DAILY #0 05/09/17 11/29/18 History glimepiride 2 mg PO DAILY #0 05/09/17 11/29/18 History lisinopril 10 mg PO DAILY #0 05/09/17 11/29/18 History metformin 1,000 mg PO BIDM #0 05/09/17 11/29/18 History pantoprazole [Protonix] 40 mg PO DAILY #0 05/09/17 11/29/18 History Jardiance 25 mg PO DAILYBB 11/29/18 11/29/18 History linagliptin [Tradjenta] 5 mg PO DAILY 11/29/18 11/29/18 History Patient History Medical History Wound abscess (Acute 05/04/13) Wound, surgical, infected (Acute 05/05/13) Wound infection (Acute 05/05/13) Wound infection after surgery (Acute 05/05/13) Tendonitis of ankle, right (Acute) Acute cholecystitis due to biliary calculus Angioedema (Acute) Swelling of upper lip (Acute) No pertinent family history Surgical History No significant past surgical history Family History Other No pertinent family history Social History Preferred Language: Ghanaian Communication Ability: Effective Visual Impairment: No Limitations Hearing Ability: Normal Regional Flatbed Truck Driver Required: No Beliefs That Will Affect Care: None Current Living Situation: Significant Other Other Information That Helps Us Care for You: No Feels Safe at Home: Yes Safety Concerns: Feels Safe At This Time Smoking Status: Never smoker Do You Dip or Chew Tobacco: No Second Hand Exposure: No Tobacco Cessation Education Requested by Patient: No Hx Alcohol Use: No Hx Substance Use: No Review of Systems Review of Systems: All systems reviewed & are unremarkable except as noted in HPI & below No additional information. Physical Exam Physical Exam: General: no acute distress and stated age Head: normocephalic, no masses, lesions, tenderness or abnormalities Eyes: conjunctiva are pink and non-injected, sclera clear Neck: supple, no adenopathy, no bruits, normal jugular venous pulse, no hepatojugular reflux Chest: normal shape and normal respiratory effort Lungs: clear to auscultation and percussion Cardiac Exam: - regular rate & rhythm, no murmurs gallops or rubs - normal S1, normal S2 Pulses: 2(+) throughout Abdomen: abdomen soft, non-tender, no abnormal masses and no hepatosplenomegaly Musculoskeletal: no gait disturbance, no joint inflammation, no deforming arthritis Extremities: no edema and no cyanosis Neuro: grossly normal exam Results & Data Vital Signs (Past 12 Hours) Vital Signs Temp Pulse Pulse Resp BP Pulse Ox 11/30/18 03:39 37.0 C 93 H 18 115/74 95 11/29/18 23:56 36.8 C 89 18 112/72 93 11/29/18 23:00 101 H 111/72 11/29/18 22:45 74 104/70 11/29/18 22:40 102 H 109/72 11/29/18 22:28 102 H 106/70 11/29/18 22:20 102 H 11/29/18 22:13 66 111/69 11/29/18 21:59 36.6 C 106 H 114/71 93 Laboratory Results Laboratory Results - last 24 hr 11/29/18 11/29/18 11/29/18 10:39 10:39 15:56 WBC 11.06 H RBC 5.38 Hgb 15.9 Hct 44.7 MCV 83.1 MCH 29.6 MCHC 35.6 RDW Std Deviation 45.2 RDW Coeff of Naomy 14.8 H Plt Count 222 MPV 10.6 H Immature Gran % (Auto) 0.5 Neut % (Auto) 74.5 Lymph % (Auto) 11.2 Treasure % (Auto) 9.9 Eos % (Auto) 3.7 Baso % (Auto) 0.2 Immature Gran # (Auto) 0.06 H Neut # (Auto) 8.23 H Lymph # (Auto) 1.24 Treasure # (Auto) 1.10 H Eos # (Auto) 0.41 Baso # (Auto) 0.02 Sodium 139 Potassium 3.9 Chloride 103 Carbon Dioxide 23 Anion Gap 12.0 H BUN 21 H Creatinine 0.73 Est Cr Clr Drug Dosing 96.4 Est GFR ( Amer) 112.8 Est GFR (Non-Af Amer) 97.3 BUN/Creatinine Ratio 29.0 H Glucose 152 H POC Glucose Estimat Average Glucose Hemoglobin A1c Calcium 9.8 Phosphorus 3.5 Magnesium 2.1 Total Bilirubin 0.8 Direct Bilirubin 0.2 AST 20 ALT 38 Alkaline Phosphatase 115 Troponin I < 0.015 < 0.015 Total Protein 8.0 Albumin 3.8 Globulin 4.2 H Albumin/Globulin Ratio 0.9 Triglycerides Cholesterol LDL Cholesterol, Calc VLDL Cholesterol, Calc HDL Cholesterol Cholesterol/HDL Ratio Lipase 132 11/29/18 11/29/18 11/29/18 16:11 20:07 22:04 WBC RBC Hgb Hct MCV MCH MCHC RDW Std Deviation RDW Coeff of Naomy Plt Count MPV Immature Gran % (Auto) Neut % (Auto) Lymph % (Auto) Treasure % (Auto) Eos % (Auto) Baso % (Auto) Immature Gran # (Auto) Neut # (Auto) Lymph # (Auto) Treasure # (Auto) Eos # (Auto) Baso # (Auto) Sodium Potassium Chloride Carbon Dioxide Anion Gap BUN Creatinine Est Cr Clr Drug Dosing Est GFR ( Amer) Est GFR (Non-Af Amer) BUN/Creatinine Ratio Glucose POC Glucose 187 H 202 H 172 H Estimat Average Glucose Hemoglobin A1c Calcium Phosphorus Magnesium Total Bilirubin Direct Bilirubin AST ALT Alkaline Phosphatase Troponin I Total Protein Albumin Globulin Albumin/Globulin Ratio Triglycerides Cholesterol LDL Cholesterol, Calc VLDL Cholesterol, Calc HDL Cholesterol Cholesterol/HDL Ratio Lipase 11/29/18 11/30/18 11/30/18 22:23 04:18 04:19 WBC 10.35 RBC 5.00 Hgb 14.4 Hct 42.6 MCV 85.2 MCH 28.8 MCHC 33.8 RDW Std Deviation 47.8 H RDW Coeff of Naomy 15.4 H Plt Count 214 MPV 10.3 Immature Gran % (Auto) 0.4 Neut % (Auto) 73.7 Lymph % (Auto) 9.8 Treasure % (Auto) 15.0 Eos % (Auto) 1.0 Baso % (Auto) 0.1 Immature Gran # (Auto) 0.04 H Neut # (Auto) 7.64 H Lymph # (Auto) 1.01 L Treasure # (Auto) 1.55 H Eos # (Auto) 0.10 Baso # (Auto) 0.01 Sodium 135 L Potassium 4.2 Chloride 102 Carbon Dioxide 25 Anion Gap 8.0 BUN 24 H Creatinine 0.83 Est Cr Clr Drug Dosing 84.8 Est GFR ( Amer) 107.0 Est GFR (Non-Af Amer) 92.3 BUN/Creatinine Ratio 29.0 H Glucose 139 H POC Glucose Estimat Average Glucose Hemoglobin A1c Calcium 8.5 Phosphorus Magnesium 2.3 Total Bilirubin Direct Bilirubin AST ALT Alkaline Phosphatase Troponin I < 0.015 < 0.015 Total Protein Albumin Globulin Albumin/Globulin Ratio Triglycerides 164 H Cholesterol 93 LDL Cholesterol, Calc 18 VLDL Cholesterol, Calc 33 HDL Cholesterol 42 Cholesterol/HDL Ratio 2 Lipase 11/30/18 11/30/18 04:19 07:33 WBC RBC Hgb Hct MCV MCH MCHC RDW Std Deviation RDW Coeff of Naomy Plt Count MPV Immature Gran % (Auto) Neut % (Auto) Lymph % (Auto) Treasure % (Auto) Eos % (Auto) Baso % (Auto) Immature Gran # (Auto) Neut # (Auto) Lymph # (Auto) Treasure # (Auto) Eos # (Auto) Baso # (Auto) Sodium Potassium Chloride Carbon Dioxide Anion Gap BUN Creatinine Est Cr Clr Drug Dosing Est GFR ( Amer) Est GFR (Non-Af Amer) BUN/Creatinine Ratio Glucose POC Glucose 170 H Estimat Average Glucose 189 Hemoglobin A1c 8.2 H Calcium Phosphorus Magnesium Total Bilirubin Direct Bilirubin AST ALT Alkaline Phosphatase Troponin I Total Protein Albumin Globulin Albumin/Globulin Ratio Triglycerides Cholesterol LDL Cholesterol, Calc VLDL Cholesterol, Calc HDL Cholesterol Cholesterol/HDL Ratio Lipase Medications Administered Current Inpatient Medications Acetaminophen (Tylenol) 650 mg PO Q4H PRN PRN Reason: Pain or Fever Stop: 12/29/18 14:56 Atorvastatin Calcium (Lipitor) 80 mg PO DAILY [facility] Stop: 12/30/18 08:59 Last Admin: 11/30/18 07:40 Dose: 80 mg Documented by: Dextrose (Dextrose 50%) 25 - 50 ml IV UD PRN; Protocol PRN Reason: Hypoglycemia Protocol Stop: 12/29/18 15:29 Glucagon (Glucagen) 1 mg SQ UD PRN; Protocol PRN Reason: Hypoglycemia Protocol Stop: 12/29/18 15:29 Glucose (Glucose 40%) 15 - 30 gm PO UD PRN; Protocol PRN Reason: Hypoglycemia Protocol Stop: 12/29/18 15:29 Glucose (Dex4 Glucose) 4 - 8 tabs PO UD PRN; Protocol PRN Reason: Hypoglycemia Protocol Stop: 12/29/18 15:29 Famotidine 20 mg/ Syringe 5 mls @ 2.5 mls/min IV BID [facility] Stop: 12/29/18 20:59 Last Admin: 11/30/18 08:32 Dose: 2.5 mls/min Documented by: Insulin Aspart (Novolog Flexpen) 0 units SC ACHS [facility] Stop: 12/29/18 16:29 Last Admin: 11/30/18 07:37 Dose: 5 units Documented by: Insulin Glargine (Lantus Solostar Pen) 7 units SC BID [facility] Stop: 12/29/18 20:59 Last Admin: 11/30/18 07:38 Dose: 7 units Documented by: Lisinopril (Zestril) 10 mg PO DAILY RASHAAD Stop: 12/30/18 08:59 Last Admin: 11/30/18 07:40 Dose: 10 mg Documented by: Miscellaneous (Carbohydrates For Hypoglycemia) 15 - 30 gm PO UD PRN PRN Reason: Hypoglycemia Treatment Stop: 12/29/18 15:29 Morphine Sulfate (Morphine Sulfate) 2 mg IV Q30M PRN PRN Reason: Chest Pain Stop: 12/13/18 14:56 Last Admin: 11/29/18 19:51 Dose: 2 mg Documented by: Nitroglycerin (Nitrostat) 0.4 mg SL UD PRN PRN Reason: Chest Pain Stop: 12/29/18 14:56 Ondansetron HCl (Zofran) 4 mg IV Q6H PRN PRN Reason: Nausea Stop: 12/29/18 14:56 Pantoprazole Sodium (Protonix) 40 mg PO DAILY RASHAAD Stop: 12/30/18 08:59 Last Admin: 11/30/18 07:41 Dose: 40 mg Documented by:
--- NOTE | 2018-11-30 11:23 | Hospitalist Progress Note ---
Date of Service November 30, 2018 Assessment & Plan (1) Substernal chest pain: CHEST PAIN : Patient came in with chest pain, retrosternal which woke him up from sleep. Cardiac enzymes were initially negative, EKG did not suggest STEMI. As he continued to have chest pain which was a concern due to history of diabetes and risk factor, he was taken to cardiac cath -S/P Cardiac cath on 11/30/2018 - found to have diffuse mostly distal coronary artery disease, most significant was a branch from PDA with high-grade stenosis, to be medically treated. -Continue with ASA, Atorvastatin 80 mg q HS, Lisinopril 10 mg daily. Will give NTG PRN on discharge. -Discussed with cardiology- Cleared for discharge DM-Type II -HBA1c -Hold Metformin -ISS, Accuchecks HYPERLIPIDEMIA Continue with statin HTN -Stable -Continue with lisinopril DVT PROPHYLAXIS SCDS/TEDS DISPOSITION Cleared by cardiology for discharge. Patient is eager to be discharged Ok to discharge home today Fiance by bedside Subjective Patient is status post cardiac catheterization which did not show any significant obstructive coronary artery disease. Denies any chest pain, shortness of breath, cough, fever, chills. Eager to be discharged Physical Exam Physical Exam: GENERAL- AAOX3, No acute distress LUNGS- Air entry bilaterally equal. No rales, rhonchi, crackles, wheezes heard. HEART- Regular rate and rhythm. No murmurs ABDOMEN- Soft, non tender, non distended, Bowel sounds heard. EXTREMITIES- S/P Cath- right upper extremity; Good peripheral pulses, no edema Results & Data Vital Signs (Past 12 Hours) Vital Signs Temp Pulse Pulse Resp BP Pulse Ox 11/30/18 07:35 94 H 11/30/18 03:39 37.0 C 93 H 18 115/74 95 11/29/18 23:56 36.8 C 89 18 112/72 93
--- NOTE | 2018-11-30 12:30 | Discharge Summary ---
Date of Service November 30, 2018 Admission HPI Per Admitting Provider HISTORY OF PRESENT ILLNESS: This is a 63-year-old male with past medical history significant for diabetes, hypertension, peptic ulcer disease, family history of heart disease, elevated LFTs, who presents with chest pain. The patient woke up today morning with chest pain, it is was sharp and severe in nature. Pain is in the middle of the chest and also some radiation to the right shoulder. Also had some sweating. No shortness of breath, no dizziness, no cough, no fever, no chills, no headache, no blurred visions, no earache, no runny nose. Has some sore throat during this episode. No cough, no fever, no chills. Was brought in to the ER. Initial workup was negative. The patient given Gi cocktail has had epigastric tenderness. Did not helped much. Nitro seemed to help bring the pain a l bit down, but still had some chest discomfort, so we are called for admission. Currently resting comfortably, hemodynamically stable. He just took nitro and still has some pain in the middle of the chest. No diarrhea, no constipation, no blood in the stools, no black stools, no hematuria. Normal bladder movements. No burning micturition. No swelling in the legs. No rash. Lives with his fiancee. Otherwise was doing okay until this episode happened. He says his sugars are running okay at home. He says he used to be on medication for his peptic ulcer disease, but is no longer taking those medications. Principal Diagnosis 1. Chest pain 2. S/P Cardiac cath, no significant obstructive CAD Secondary diagnosis on discharge 1. DM II 2. HTN 3. Obesity Discharge Exam GENERAL- AAOX3, No acute distress LUNGS- Air entry bilaterally equal. No rales, rhonchi, crackles, wheezes heard. HEART- Regular rate and rhythm. No murmurs ABDOMEN- Soft, non tender, non distended, Bowel sounds heard. EXTREMITIES- S/P Cath- right upper extremity; Good peripheral pulses, no edema Discharge Data Allergies Allergy/AdvReac Type Severity Reaction Status Date / Time No Known Allergies Allergy Unknown Verified 11/29/18 11:02 Consultations 11/29/18 13:24 ED Decision to Admit Stat 11/29/18 14:57 Consult Cardiology Routine Procedures Performed Operation Date: 11/29/18 20:40 Actual Procedures p Cath, Left with Cors and Vent(Not Applicable) - George Nicolas MD s Cineradiography w/Routine Exam(Not Applicable) - George Nicolas MD Ordered Studies 11/29/18 20:41 CL Cath Imgs for PACS use only Urgent Hospital Course (1) Substernal chest pain: CHEST PAIN : Patient came in with chest pain, retrosternal which woke him up from sleep. Cardiac enzymes were initially negative, EKG did not suggest STEMI. As he continued to have chest pain which was a concern due to history of diabetes and risk factor, he was taken to cardiac cath -S/P Cardiac cath on 11/30/2018 - found to have diffuse mostly distal coronary artery disease, most significant was a branch from PDA with high-grade stenosis, to be medically treated. -Continue with ASA, Atorvastatin 80 mg q HS, Lisinopril 10 mg daily. Will give NTG PRN on discharge. -Discussed with cardiology- Cleared for discharge DM-Type II -HBA1c -Hold Metformin -ISS, Accuchecks HYPERLIPIDEMIA Continue with statin HTN -Stable -Continue with lisinopril DVT PROPHYLAXIS SCDS/TEDS DISPOSITION Cleared by cardiology for discharge. Patient is eager to be discharged Ok to discharge home today Fiance by bedside Total Time Total Time Spent Total Time Spent (In Minutes): 25 minutes Discharge Plan Discharge Items Patient Disposition: Home - Self-Care Reason For Visit: CHEST PAIN Discharge Diagnosis: Chest pain Discharge Goals: Decrease discomfort and Improve disease control Activity: Resume your previous activity Activity Comment: Post cardiac cath instructions to be followed as instructed Non-emergency contact: Primary Care Provider Call non-emergency contact if: your symptoms worsen Follow-up/Referrals: Prosper Oviedo MD [Primary Care Provider] - 12/09/18 10:05 am Diet: Carb Consistent or DM2, Heart Healthy, Low Fat and Low Sodium (2gm) Addtl Provider Instructions: You were admitted to the hospital for chest pain. You had a cardiac catheterization done today which did not show significant obstructive coronary artery disease. Medication changes New medicationSublingual nitroglycerin to be used every 5 minutes up to 3 times as needed for chest pain. Prescriptions: New nitroglycerin 0.4 mg tablet, sublingual 0.4 mg sublingual UD PRN (Reason: chest pain) Qty: 30 RF: 0 Continued atorvastatin 80 mg Tablet 80 mg PO DAILY Qty: 0 RF: 0 glimepiride 1 mg Tablet 2 mg PO DAILY Qty: 0 RF: 0 pantoprazole [Protonix] 40 mg Tablet,Delayed Release (Dr/Ec) 40 mg PO DAILY Qty: 0 RF: 0 metformin 1,000 mg Tablet 1,000 mg PO BIDM Qty: 0 RF: 0 lisinopril 10 mg Tablet 10 mg PO DAILY Qty: 0 RF: 0 Tradjenta 5 mg tablet 5 mg PO DAILY RF: 0 Jardiance 25 mg 25 mg PO DAILYBB RF: 0 Stand-Alone Forms: Call Back Authorization, [facility] Discharge Orders: Discharge Order (Routine); Ordered 11/30/18 Ordered By: April Hahn Admission Data Admit Date/Time: 11/29/18 13:59 Attending Provider: April Hahn Admit Provider: Hayder Ramos Primary Care Provider: Prosper Oviedo. Other Providers: Hayder Ramos ; Keven Escobar ; Gildardo Cabrera ; Diogo Sommers ; Keshawn Lyons ; KelseySyd yeung ; Prosper Cruz ; Raiza Griffith ; Yuliya Garcia Service: Telemetry
[2018-11-30] MEDS ORDERED: FAMOTIDINE 20 MG TAB PO SCH (21:00)
== END 2018-11-30 12:59 | disposition home or self-care (01) ==
LOC: 2E 10:14 → ED 10:14 → 2E 14:25

== ENCOUNTER 2020-05-14 17:45 | Inpatient (IN) ==
[2020-05-14 19:22] LABS: Hemoglobin 12.4 g/dL (14.0-18.0); Mean Corpuscular Hemoglobin 28.6 pg (25-34); Mean Corpuscular Hgb Conc 33.5 g/dL (32-36); Mean Corpuscular Volume 85.3 fL (80-100); Mean Platelet Volume 10.6 fL (7.4-10.4); Platelet Count 266 K/uL (130-400); RDW Coefficient of Variation 15.2 % (11.5-14.5); Red Blood Count 4.34 M/uL (4.7-6.1); White Blood Count 7.72 K/uL (4.8-10.8)
[2020-05-14 19:48] LABS: Basophils # (auto) 0.02 K/uL (0-0.2); Basophils % (auto) 0.3 %; Dohle Bodies 1+; Eosinophils # (auto) 0.44 K/uL (0-0.5); Eosinophils % (auto) 5.7 %; Immature Granulocytes # (auto) 0.05 K/uL (0.00-0.02); Immature Granulocytes % (auto) 0.6 %; Lymphocytes # (auto) 0.48 K/uL (1.2-3.4); Lymphocytes % (auto) 6.2 %; Monocytes # (auto) 0.72 K/uL (0.11-0.59); Monocytes % (auto) 9.3 %; Neutrophils # (auto) 6.01 K/uL (1.4-6.5); Neutrophils % (auto) 77.9 %; Toxic Vacuolation 1+
--- NOTE | 2020-05-14 19:50 | XRay Report ---
LUMBAR SPINE 5 VIEWS CLINICAL HISTORY: Low back pain. FINDINGS: 5 views of the lumbar spine are correlated with abdominal CT dated 05/09/2017. The skeletal structures are osteopenic. There is no radiographic evidence of fracture or malalignment. Vertebral body height and alignment are maintained. Small anterior osteophytes are seen throughout. The transve rse and spinous processes are intact. There is no evidence of spondylolysis. The intervertebral disc spaces are well-maintained. The visualized bony pelvis appears intact. Mild sclerotic change is noted in the right sacroiliac joint. There is a nonobstructed abdominal bowel gas pattern. Cholecystectomy clips are noted in the right upper quadrant. IMPRESSION: No bony abnormality is seen involving the lumbar spine. ACT 112: Negative or not required by law. Electronically signed by: Clarence Barahona M.D. 05/14/2020 7:48 PM
[2020-05-14 21:04] LABS: Albumin Globulin Ratio 0.5 (0.9-2); Albumin Level 2.7 gm/dl (3.4-5.0); BUN Creatinine Ratio 20.4 (10-20); Bilirubin,Total 0.7 mg/dl (0.2-1); Calcium 8.4 mg/dl (8.5-10.1); Creatinine Clr Calc Pharmacy 19.9 ml/min; Est GFR (Non-African American) 17.2; Potassium 4.1 mmol/L (3.5-5.1); Total Protein 7.7 gm/dl (6.4-8.2)
[2020-05-14 21:05] LABS: Appearance Urine Turbid (Clear); Bacteria Urine Automated 4+ (Negative); Bilirubin Urine Negative (Negative); Blood Urine 3+ (Negative); Color Urine Yellow; Epithelial Cell Urine Auto >30 /lpf (0-5); Glucose Urine UA Trace (Negative); Ketones Urine Trace (Negative); Leukocyte Esterase Urine 3+ (Negative); Nitrite Urine Negative (Negative); Protein Urine 1+ (Negative); RBC Urine Automated >30 /hpf (0-4); Specific Gravity Urine 1.016 (1.000-1.030); Urobilinogen Urine Negative (Negative); WBC Urine Automated >30 /hpf (0-5)
[2020-05-14] MEDS ORDERED: SODIUM CHLORIDE 0.9% 500 ML IV SCH (21:30)
[2020-05-14 21:34] LABS: Beta-Hydroxybutyrate 18.73 mg/dl (0.2-2.81)
[2020-05-14 21:44] LABS: Cast Urine Automated 0 /lpf (0-5)
[2020-05-14] MEDS ORDERED: cefTRIAXone SODIUM 1,000 MG/50 ML BAG IV STA (21:49)
[2020-05-14] MEDS ORDERED: SODIUM CHLORIDE 0.9% 1000ML 1,000 ML IV ONE (21:49)
[2020-05-14 23:01] LABS: Reticulocyte % 1.1 % (0.5-2.0); Reticulocytes # 0.05 10^6/uL (0.02-0.10)
[2020-05-14 23:44] LABS: Base Excess VBG -9.1 mEq/L; HCO3 VBG 16 mmol/L; PCO2 VBG 30 mmHg (38-50); PO2 VBG 31 mmHg; pH VBG 7.33 (7.36-7.41)
[2020-05-14 23:46] LABS: BUN Creatinine Ratio 20.8 (10-20); Calcium 7.7 mg/dl (8.5-10.1); Creatinine Clr Calc Pharmacy 20.2 ml/min; Est GFR (African American) 20.3; Est GFR (Non-African American) 17.5; Magnesium 2.2 mg/dl (1.8-2.4); Potassium 3.7 mmol/L (3.5-5.1)
[2020-05-14] MEDS ORDERED: CEFEPIME 2,000 MG/20 ML VIAL IV STA (23:48)
[2020-05-14] MEDS ORDERED: LACTATED RINGER'S 1,000 ML IV ONE (23:49)
[2020-05-14 23:50] LABS: Oxygen Saturation VBG < 60.0 %
[2020-05-14 23:56] LABS: Ferritin 932.9 ng/ml (8-388); Thyroid Stimulating Hormone 1.89 uIu/ml (0.300-4.500)
--- NOTE | 2020-05-15 00:13 | Emergency Department Note ---
History of Present Illness General Chief complaint: Back Injury/Pain Stated complaint: BACK PAIN, CONSTIPATED Time Seen by Provider: 05/14/20 18:57 History of Present Illness Provider complaint: Constipation and difficulty urinating Onset (ago): month(s) 1 Location: abdomen Maximum Pain Intensity: 1 Current Pain Intensity: 0 Associated symptoms: no chest pain, no cough, no fever/chills, no headaches, no nausea/vomiting and no shortness of breath 65-year-old male presents emergency department for constipation and difficulties urinating. Patient states that over the last month he has been having difficulties going to the bathroom. He states he feels like he needs to urinate but can never get all of his urine out. He states that he tries to run to the bathroom when he does have to urinate and sometimes a little bit of urine leaks out. He reports some chronic back pain. No numbness. Patient reports no fevers loss of taste or smell. No cough. No hematuria. Home Medications Home Medications Medication Instructions Recorded Confirmed Type atorvastatin 80 mg PO DAILY #0 05/09/17 05/14/20 History glimepiride 2 mg PO DAILY #0 05/09/17 05/14/20 History lisinopril 10 mg PO DAILY #0 05/09/17 05/14/20 History pantoprazole [Protonix] 40 mg PO QAM #0 05/09/17 05/14/20 History Tradjenta 5 mg PO DAILY 11/29/18 05/14/20 History empagliflozin [Jardiance] 25 mg PO QAM 09/20/19 05/14/20 History metoprolol succinate 25 mg PO DAILY 09/20/19 05/14/20 History nitroglycerin 0.4 mg SUBLINGUAL DIRECTED PRN 09/20/19 05/14/20 History metformin 1,000 mg PO BIDM 05/14/20 05/14/20 History Allergies Allergy/AdvReac Type Severity Reaction Status Date / Time No Known Allergies Allergy Verified 05/14/20 22:57 Past Med/Surg History Medical History (Updated 05/15/20 @ 00:17 by Serafin Walker) Acute cholecystitis due to biliary calculus Angioedema No pertinent family history Swelling of upper lip Tendonitis of ankle, right Wound abscess (05/04/13) Wound infection (05/05/13) Wound infection after surgery (05/05/13) Wound, surgical, infected (05/05/13) Surgical History No significant past surgical history Family History Other No pertinent family history Social History Smoking Status: Never smoker Second Hand Exposure: No; Hx Alcohol Use: No Hx Substance Use: No Preferred Language: Zimbabwean Communication Ability: Effective Visual Impairment: No Limitations Hearing Ability: Normal Carbonizer Required: No Beliefs That Will Affect Care: None Current Living Situation: Significant Other Feels Safe at Home: Yes Assistive Devices: None Review of Systems A total of 10 systems reviewed and were otherwise negative Physical Exam Vital Signs Vital Signs - 24 hr 05/14/20 17:48 05/14/20 19:10 05/14/20 21:37 Temperature 36.7 C Temperature Source Oral Pulse Rate 121 H Pulse Rate [Apical] 109 H 110 H Respiratory Rate 20 22 25 H Respiratory Effort / Characteristics Non-Labored Non-Labored Non-Labored Spontaneous Respiratory Depth Normal Normal Normal Respiratory Pattern Regular Blood Pressure 112/64 Blood Pressure [Left Arm] 97/60 L 88/61 L Blood Pressure Mean 80 Blood Pressure Mean [Left Arm] 72 70 Blood Pressure Position Sitting Blood Pressure Position [Left Arm] Lying Sitting Pulse Oximetry 96 94 97 Oxygen Delivery Method Room Air Room Air Room Air Sepsis Recent Fever Within 48 Hours No Sepsis New/Unexplained Change in Mental Status No Sepsis Action Taken by Nursing No Action Required 05/14/20 23:06 Temperature Temperature Source Pulse Rate Pulse Rate [Apical] 103 H Respiratory Rate 22 Respiratory Effort / Characteristics Non-Labored Respiratory Depth Normal Respiratory Pattern Blood Pressure Blood Pressure [Left Arm] 100/63 Blood Pressure Mean Blood Pressure Mean [Left Arm] 75 Blood Pressure Position Blood Pressure Position [Left Arm] Pulse Oximetry 95 Oxygen Delivery Method Room Air Sepsis Recent Fever Within 48 Hours Sepsis New/Unexplained Change in Mental Status Sepsis Action Taken by Nursing Physical Exam GENERAL: Disheveled. HENT: Exam performed. - Head: Normocephalic and atraumatic. - Right Ear: External ear normal. No mastoid tenderness. - Left Ear: External ear normal. No mastoid tenderness. - Mouth/Throat: The oropharynx is clear and moist. No trismus in the jaw. No dental abscesses or uvula swelling. No oropharyngeal exudate or tonsillar abscesses. EYES: Conjunctivae and EOM are normal. Pupils are equal, round, and reactive to light. Right eye exhibits no discharge. Left eye exhibits no discharge. No scleral icterus. NECK: Normal range of motion. Neck supple. No JVD present. No spinous process tenderness present. No carotid bruit present. No rigidity. No tracheal deviation and normal range of motion present. No Brudzinski's sign and no Kernig's sign noted. CV: Tachycardic rate, regular rhythm, normal heart sounds and intact distal pulses. There is no peripheral edema. Palpable radial pulses bue. PULM/CHEST: Effort normal and breath sounds normal. No respiratory distress. No stridor. He has no wheezes. He has no rales. - Chest Wall: He exhibits no tenderness. ABD: The abdomen is soft. Bowel sounds are normal. He has distension. No mass is present. There is no tenderness. There is no rebound, no guarding, no Kenyon's sign and no tenderness at McBurney's point. Rovsig negative. MUSC/SKEL: Normal range of motion. There is no peripheral edema, tenderness or deformity. No C or T-spine tenderness. Pain on palpation of the L-spine and the right and left lumbar paraspinal muscles. LYMPH: No cervical adenopathy. NEURO: He is alert and oriented to person, place, and time. He has normal strength. No cranial nerve deficit or sensory deficit. Coordination and gait normal. GCS eye subscore is 4. GCS verbal subscore is 5. GCS motor subscore is 6. Cerebellar tests wnl. No saddle anesthesia or paresthesias. SKIN: Skin is warm and dry. He is not diaphoretic. PSYCH: He has a normal mood and affect. Behavior is normal. Judgment and thought content normal. Course Course 1856: The patient was evaluated in room A3. A complete history and physical exam was performed. Cardiac monitoring: An order was placed for continuous cardiac monitoring. The monitor shows a rate of 100 with sinus rhythm 2144: Patient tachycardic and hypotensive. Patient ordered 1 L normal saline bolus. Labs show a BUN of 71 and a creatinine of 3.42. The patient's creatinin e is usually less than 1 when the EMR is reviewed. Per nursing the patient has urinated on his own multiple times. Per nursing the urine appeared yellow and thick and they were concerned about infection. Rocephin ordered for the patient. CT is pending. Lactic acid and blood cultures will be added. 2324: CT negative for diverticulitis appendicitis obstruction perforation or kidney stones. It does show possible cystitis. Vital signs improved status post fluid bolus. [facility]. Lactic acid within normal limits Administered Medications Discontinued Medications Sodium Chloride (Nss) 500 mls @ 75 mls/hr IV .[id number] RASHAAD Stop: 06/13/20 21:29 Last Infusion: 05/14/20 22:00 Dose: 0 mls/hr Documented by: [id number] Infusion: 05/14/20 21:59 Dose: 0 mls/hr Documented by: [id number] Admin: 05/14/20 21:37 Dose: 75 mls/hr Documented by: [id number] Sodium Chloride (Nss 1000ml) 1,000 mls @ 999 mls/hr IV .Q1H1M ONE Stop: 05/14/20 22:49 Last Infusion: 05/14/20 23:06 Dose: 0 mls/hr Documented by: [id number] Admin: 05/14/20 21:59 Dose: 999 mls/hr Documented by: [id number] Ceftriaxone Sodium (Rocephin) 1,000 mg in 50 mls @ 100 mls/hr IV NOW STA Stop: 05/14/20 22:18 Last Infusion: 05/14/20 22:34 Dose: 0 mls/hr Documented by: [id number] Admin: 05/14/20 21:59 Dose: 100 mls/hr Documented by: [id number] Medical Decision Making Laboratory Data Result diagrams: 05/14/20 19:14 05/14/20 23:16 Lab Results 05/14/20 05/14/20 05/14/20 Range/Units 17:54 19:14 19:14 WBC 7.72 (4.8-10.8) K/uL RBC 4.34 L (4.7-6.1) M/uL Hgb 12.4 L (14.0-18.0) g/dL Hct 37.0 L (42-52) % MCV 85.3 (80-100) fL MCH 28.6 (25-34) pg MCHC 33.5 (32-36) g/dL RDW Std Deviation 48.0 H (36.4-46.3) fL RDW Coeff of Naomy 15.2 H (11.5-14.5) % Plt Count 266 (130-400) K/uL MPV 10.6 H (7.4-10.4) fL Immature Gran % (Auto) 0.6 % Neut % (Auto) 77.9 % Lymph % (Auto) 6.2 % Beadle % (Auto) 9.3 % Eos % (Auto) 5.7 % Baso % (Auto) 0.3 % Reticulocyte % (Auto) 1.1 (0.5-2.0) % Neut # (Auto) 6.01 (1.4-6.5) K/uL Lymph # (Auto) 0.48 L (1.2-3.4) K/uL Beadle # (Auto) 0.72 H (0.11-0.59) K/uL Eos # (Auto) 0.44 (0-0.5) K/uL Baso # (Auto) 0.02 (0-0.2) K/uL Reticulocyte # 0.05 (0.02-0.10) 10^6/uL Immature Gran # (Auto) 0.05 H (0.00-0.02) K/uL Toxic Vacuolation 1+ Dohle Bodies 1+ VBG pH (7.36-7.41) VBG pCO2 (38-50) mmHg VBG pO2 mmHg VBG HCO3 mmol/L VBG O2 Saturation % VBG Base Excess mEq/L Barometric Pressure mm/Hg Sodium 127 L (136-145) mmol/L Potassium 4.1 (3.5-5.1) mmol/L Chloride 95 L (98-107) mmol/L Carbon Dioxide 16 L (21-32) mmol/L Anion Gap 16.0 H (3-11) BUN 71 H (7-18) mg/dl Creatinine 3.47 H (0.6-1.4) mg/dl Est Cr Clr Drug Dosing 19.9 ml/min Est GFR ( Amer) 20.0 Est GFR (Non-Af Amer) 17.2 BUN/Creatinine Ratio 20.4 H (10-20) Glucose 301 H* (70-99) mg/dl Osmolality 305 H (280-300) mOsm/kg Lactate (0.4-2.0) mmol/L Calcium 8.4 L (8.5-10.1) mg/dl Magnesium (1.8-2.4) mg/dl Iron (35-175) mcg/dl TIBC (250-450) mcg/dl Transferrin (200-360) mg/dl Ferritin (8-388) ng/ml Total Bilirubin 0.7 (0.2-1) mg/dl AST 31 (15-37) U/L ALT 27 (12-78) U/L Alkaline Phosphatase 120 H (45-117) U/L Total Protein 7.7 (6.4-8.2) gm/dl Albumin 2.7 L (3.4-5.0) gm/dl Globulin 5.0 H (2.5-4.0) gm/dl Albumin/Globulin Ratio 0.5 L (0.9-2) Lipase 171 (73-393) U/L Beta-Hydroxybutyric Acd 18.73 H (0.2-2.81) mg/dl TSH (0.300-4.500) uIu/ml Urine Color Urine Appearance (Clear) Urine pH (4.5-7.5) Ur Specific [place] (1.000-1.030) Urine Protein (Negative) Urine Glucose (UA) (Negative) Urine Ketones (Negative) Urine Blood (Negative) Urine Nitrite (Negative) Urine Bilirubin (Negative) Urine Urobilinogen (Negative) Ur Leukocyte Esterase (Negative) Urine WBC (Auto) (0-5) /hpf Urine RBC (Auto) (0-4) /hpf U Hyaline Cast (Auto) (0-5) /lpf U Epithel Cells (Auto) (0-5) /lpf Urine Bacteria (Auto) (Negative) Urine Yeast (None Prsent) 05/14/20 05/14/20 05/14/20 Range/Units 23:16 23:16 23:16 WBC (4.8-10.8) K/uL RBC (4.7-6.1) M/uL Hgb (14.0-18.0) g/dL Hct (42-52) % MCV (80-100) fL MCH (25-34) pg MCHC (32-36) g/dL RDW Std Deviation (36.4-46.3) fL RDW Coeff of Naomy (11.5-14.5) % Plt Count (130-400) K/uL MPV (7.4-10.4) fL Immature Gran % (Auto) % Neut % (Auto) % Lymph % (Auto) % Beadle % (Auto) % Eos % (Auto) % Baso % (Auto) % Reticulocyte % (Auto) (0.5-2.0) % Neut # (Auto) (1.4-6.5) K/uL Lymph # (Auto) (1.2-3.4) K/uL Beadle # (Auto) (0.11-0.59) K/uL Eos # (Auto) (0-0.5) K/uL Baso # (Auto) (0-0.2) K/uL Reticulocyte # (0.02-0.10) 10^6/uL Immature Gran # (Auto) (0.00-0.02) K/uL Toxic Vacuolation Dohle Bodies VBG pH 7.33 L (7.36-7.41) VBG pCO2 30 L (38-50) mmHg VBG pO2 31 mmHg VBG HCO3 16 mmol/L VBG O2 Saturation < 60.0 % VBG Base Excess -9.1 mEq/L Barometric Pressure 740.0 mm/Hg Sodium 130 L (136-145) mmol/L Potassium 3.7 (3.5-5.1) mmol/L Chloride 99 (98-107) mmol/L Carbon Dioxide 16 L (21-32) mmol/L Anion Gap 15.0 H (3-11) BUN 71 H (7-18) mg/dl Creatinine 3.42 H (0.6-1.4) mg/dl Est Cr Clr Drug Dosing 20.2 ml/min Est GFR ( Amer) 20.3 Est GFR (Non-Af Amer) 17.5 BUN/Creatinine Ratio 20.8 H (10-20) Glucose 233 H (70-99) mg/dl Osmolality (280-300) mOsm/kg Lactate 1.6 (0.4-2.0) mmol/L Calcium 7.7 L (8.5-10.1) mg/dl Magnesium 2.2 (1.8-2.4) mg/dl Iron 19 L (35-175) mcg/dl TIBC 156 L (250-450) mcg/dl Transferrin 131 L (200-360) mg/dl Ferritin 932.9 H (8-388) ng/ml Total Bilirubin (0.2-1) mg/dl AST (15-37) U/L ALT (12-78) U/L Alkaline Phosphatase (45-117) U/L Total Protein (6.4-8.2) gm/dl Albumin (3.4-5.0) gm/dl Globulin (2.5-4.0) gm/dl Albumin/Globulin Ratio (0.9-2) Lipase (73-393) U/L Beta-Hydroxybutyric Acd (0.2-2.81) mg/dl TSH 1.890 (0.300-4.500) uIu/ml Urine Color Urine Appearance (Clear) Urine pH (4.5-7.5) Ur Specific [place] (1.000-1.030) Urine Protein (Negative) Urine Glucose (UA) (Negative) Urine Ketones (Negative) Urine Blood (Negative) Urine Nitrite (Negative) Urine Bilirubin (Negative) Urine Urobilinogen (Negative) Ur Leukocyte Esterase (Negative) Urine WBC (Auto) (0-5) /hpf Urine RBC (Auto) (0-4) /hpf U Hyaline Cast (Auto) (0-5) /lpf U Epithel Cells (Auto) (0-5) /lpf Urine Bacteria (Auto) (Negative) Urine Yeast (None Prsent) 05/14/20 Range/Units Unknown WBC (4.8-10.8) K/uL RBC (4.7-6.1) M/uL Hgb (14.0-18.0) g/dL Hct (42-52) % MCV (80-100) fL MCH (25-34) pg MCHC (32-36) g/dL RDW Std Deviation (36.4-46.3) fL RDW Coeff of Naomy (11.5-14.5) % Plt Count (130-400) K/uL MPV (7.4-10.4) fL Immature Gran % (Auto) % Neut % (Auto) % Lymph % (Auto) % Beadle % (Auto) % Eos % (Auto) % Baso % (Auto) % Reticulocyte % (Auto) (0.5-2.0) % Neut # (Auto) (1.4-6.5) K/uL Lymph # (Auto) (1.2-3.4) K/uL Beadle # (Auto) (0.11-0.59) K/uL Eos # (Auto) (0-0.5) K/uL Baso # (Auto) (0-0.2) K/uL Reticulocyte # (0.02-0.10) 10^6/uL Immature Gran # (Auto) (0.00-0.02) K/uL Toxic Vacuolation Dohle Bodies VBG pH (7.36-7.41) VBG pCO2 (38-50) mmHg VBG pO2 mmHg VBG HCO3 mmol/L VBG O2 Saturation % VBG Base Excess mEq/L Barometric Pressure mm/Hg Sodium (136-145) mmol/L Potassium (3.5-5.1) mmol/L Chloride (98-107) mmol/L Carbon Dioxide (21-32) mmol/L Anion Gap (3-11) BUN (7-18) mg/dl Creatinine (0.6-1.4) mg/dl Est Cr Clr Drug Dosing ml/min Est GFR ( Amer) Est GFR (Non-Af Amer) BUN/Creatinine Ratio (10-20) Glucose (70-99) mg/dl Osmolality (280-300) mOsm/kg Lactate (0.4-2.0) mmol/L Calcium (8.5-10.1) mg/dl Magnesium (1.8-2.4) mg/dl Iron (35-175) mcg/dl TIBC (250-450) mcg/dl Transferrin (200-360) mg/dl Ferritin (8-388) ng/ml Total Bilirubin (0.2-1) mg/dl AST (15-37) U/L ALT (12-78) U/L Alkaline Phosphatase (45-117) U/L Total Protein (6.4-8.2) gm/dl Albumin (3.4-5.0) gm/dl Globulin (2.5-4.0) gm/dl Albumin/Globulin Ratio (0.9-2) Lipase (73-393) U/L Beta-Hydroxybutyric Acd (0.2-2.81) mg/dl TSH (0.300-4.500) uIu/ml Urine Color Yellow Urine Appearance Turbid A (Clear) Urine pH 5.0 (4.5-7.5) Ur Specific [place] 1.016 (1.000-1.030) Urine Protein 1+ H (Negative) Urine Glucose (UA) Trace H (Negative) Urine Ketones Trace H (Negative) Urine Blood 3+ H (Negative) Urine Nitrite Negative (Negative) Urine Bilirubin Negative (Negative) Urine Urobilinogen Negative (Negative) Ur Leukocyte Esterase 3+ H (Negative) Urine WBC (Auto) >30 H (0-5) /hpf Urine RBC (Auto) >30 H (0-4) /hpf U Hyaline Cast (Auto) 0 (0-5) /lpf U Epithel Cells (Auto) >30 H (0-5) /lpf Urine Bacteria (Auto) 4+ H (Negative) Urine Yeast Budding A (None Prsent) Imaging Data Radiologist's Impression: PreliminaryFindingsOnly See Final Report For Complete Findings CT ABDOMEN & PELVIS Without Contrast: Comparison 05/09/2017. Moderate bilateral hydronephrosis and hydroureters, presumablyrelated to bladder outlet obstruction. No renal or ureteral calculus. Large right renal cyst, as before. Markedlydistended urinarybladder extending into the lower abdomen with diffuse wall thickening and adjacent stranding which mayindicate superimposed cystitis. Markedlyenlarged prostate gland measuring 8.5 cmin greatest transverse dimension. Fattyliver. No abdominal aortic aneurysm. Interval cholecystectomy. No dilated bowel. Unremarkable appendix. Colonic diverticulosis. No CT evidence for diverticulitis. Large right inguinal hernia, as before containing mesenteric fat and loop of transverse colon, as before. No evidence for obstruction. Fat-containing periumbilical ventral abdominal wall hernia. Radiologist: Ezra Boswell M.D. Study ready at 22:10 and initial results transmitted at 22:19 MDM Narrative 1857: The patient was evaluated in room A3. A complete history and physical exam was performed. Cardiac monitoring: An order was placed for continuous cardiac monitoring. The monitor shows a rate of 100 with sinus rhythm 5: Patient tachycardic and hypotensive. Patient ordered 1 L normal saline bolus. Labs show a BUN of 71 and a creatinine of 3.42. The patient's creatinine is usually less than 1 when the EMR is reviewed. Per nursing the patient has urinated on his own multiple times. Per nursing the urine appeared yellow and thick and they were concerned about infection. Rocephin ordered for the patient. CT is pending. Lactic acid and blood cultures will be added. 2324: CT negative for diverticulitis appendicitis obstruction perforation or kidney stones. It does show possible cystitis. Vital signs improved status post fluid bolus. [facility]. Lactic acid within normal limits Impression & Plan ASHLEY (acute kidney injury), Acute UTI Discharge Plan Visit Data Chief Complaint: Back Injury/Pain Stated Complaint: BACK PAIN, CONSTIPATED ED Provider: Serafin Walker Discharge Problem: ASHLEY (acute kidney injury), Acute UTI Patient Disposition: Admitted As Inpatient Forms Stand Alone Forms: [facility] Prescriptions Prescriptions: No Action atorvastatin 80 mg Tablet 80 mg PO DAILY Qty: 0 RF: 0 glimepiride 1 mg Tablet 2 mg PO DAILY Qty: 0 RF: 0 pantoprazole [Protonix] 40 mg Tablet,Delayed Release (Dr/Ec) 40 mg PO QAM Qty: 0 RF: 0 lisinopril 10 mg Tablet 10 mg PO DAILY Qty: 0 RF: 0 Tradjenta 5 mg tablet 5 mg PO DAILY RF: 0 metoprolol succinate 25 mg tablet extended release 24 hr 25 mg PO DAILY RF: 0 Jardiance 25 mg tablet 25 mg PO QAM RF: 0 nitroglycerin 0.4 mg tablet, sublingual 0.4 mg sublingual DIRECTED PRN (Reason: chest pain) RF: 0 metformin 500 mg tablet 1,000 mg PO BIDM RF: 0 Referrals Referrals: Prosper Oviedo MD [Primary Care Provider] -
--- NOTE | 2020-05-15 00:21 | History & Physical Report ---
Date of Service May 15, 2020 Assessment & Plan (1) ASHLEY (acute kidney injury): Largely postrenal with obstructive uropathy, hx BPH prerenal component with ketonuria Home medications contributory Complicated UTI secondary to above No sepsis for now AGMA secondary to kidney dysfunction DKA component ? SGLT2 inhibitor Rx contributory New onset anemia Stool Hemoccult done at the ER negative. hx CAD as per records hypertension, stable hyperlipidemia on statin Rx DM2 on oral meds, suboptimal control as of last hemoglobin A1c of 7.09 October 2018 Constipation Medical telemetry IVF Facilitate Perera catheter placement Urology consult Re: Obstructive uropathy Follow renal function Appropriate to hold home SHEREEN inhibitor, Metformin, Jardiance for now Nephrology consult if with persistent metabolic acidosis, worsening kidney dysfunction Urine cultures, Cefepime Anemia work-up, transfuse PRBC if hemoglobin less than 8 and or for symptomatic anemia Basal insulin, ISS BG goal [id number], carb count coverage, update hemoglobin A1c Bowel regimen DVT prophylaxis. Heparin subcu Full code Text document was generated using [employer] voice recognition software. It may contain grammatical or spelling errors. Kindly contact undersigned for clarification of any documentation item in question. History of Present Illness Chief Complaint: Flank pain, constipation, not peeing a lot Primary Care Provider: Prosper Oviedo MD History obtained from patient, family, and records. Medical history significant for CAD, hypertension, hyperlipidemia, DM2 on oral meds, PUD/GERD as per records, BPH. Last confinement November 2018 for chest pain. Diffuse CAD on cardiac cath. Medical management recommended. 5 days history of achy flank pain, some urinary tension, poor urine output, some constipation. No chest pain, no S OB. No fever, no chills. Patient appetite okay. Denies inordinate NSAID intake. At the ER, patient given Ceftriaxone for UTI. MEDICAL HISTORY: As above. SURGERIES: hernia surgery, cholecystectomy FAMILY HISTORY: Diabetes, heart disease PERSONAL AND SOCIAL HISTORY: Nonsmoker, no chronic intake of alcohol. 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 Allergies Allergy/AdvReac Type Severity Reaction Status Date / Time No Known Allergies Allergy Verified 05/14/20 22:57 Home Medications Home Medications Medication Instructions Recorded Confirmed Type atorvastatin 80 mg PO DAILY #0 05/09/17 05/14/20 History glimepiride 2 mg PO DAILY #0 05/09/17 05/14/20 History lisinopril 10 mg PO DAILY #0 05/09/17 05/14/20 History pantoprazole [Protonix] 40 mg PO QAM #0 05/09/17 05/14/20 History Tradjenta 5 mg PO DAILY 11/29/18 05/14/20 History empagliflozin [Jardiance] 25 mg PO QAM 09/20/19 05/14/20 History metoprolol succinate 25 mg PO DAILY 09/20/19 05/14/20 History nitroglycerin 0.4 mg SUBLINGUAL DIRECTED PRN 09/20/19 05/14/20 History metformin 1,000 mg PO BIDM 05/14/20 05/14/20 History Past Med/Surg History Medical History Acute cholecystitis due to biliary calculus Angioedema Diabetes mellitus No pertinent family history Swelling of upper lip Tendonitis of ankle, right Wound abscess (05/04/13) Wound infection (05/05/13) Wound infection after surgery (05/05/13) Wound, surgical, infected (05/05/13) Surgical History No significant past surgical history Family History Other No pertinent family history Social History Smoking Status: Never smoker Second Hand Exposure: No; Hx Alcohol Use: No Hx Substance Use: No Preferred Language: Ukrainian Communication Ability: Effective Visual Impairment: No Limitations Hearing Ability: Normal Justice Professor Required: No Beliefs That Will Affect Care: None Current Living Situation: Spouse and Family Other Information That Helps Us Care for You: No Feels Safe at Home: Yes Safety Concerns: Feels Safe At This Time Assistive Devices: None Review of Systems Review of Systems: As per HPI, all 10 systems reviewed, all other ROS negative Physical Exam Physical Exam: GENERAL: Comfortable, obese, pleasant, no respiratory distress SKIN: Pallor , warm HEENT: Alopecia, pale palpebral conjunctivae, no ptosis, dry buccal mucosa NECK : Supple, short neck, no tenderness CHEST : CTA, no tenderness HEART : Tachycardic , no obvious murmurs ABDOMEN: distention, minimal hypogastric tenderness RECTAL : Intact sphincter, yellow brown stool (FOBT negative) EXTREMITIES : Minimal LE swelling, no LE tenderness, no other conspicuous deformities noted NEUROLOGIC : Coherent, no facial asymmetry, no other gross focality Results & Data Results & Data ([facility]) Vital Signs (Past 12 Hours) Vital Signs Temp Pulse Pulse Resp BP BP Pulse Ox 05/14/20 23:06 103 H 22 100/63 95 05/14/20 21:37 110 H 25 H 88/61 L 97 05/14/20 19:10 109 H 22 97/60 L 94 05/14/20 17:48 36.7 C 121 H 20 112/64 96 Laboratory Results Laboratory Results WBC 7.72 K/uL (4.8-10.8) 05/14/20 19:14 RBC 4.34 M/uL (4.7-6.1) L 05/14/20 19:14 Hgb 12.4 g/dL (14.0-18.0) L 05/14/20 19:14 Hct 37.0 % (42-52) L 05/14/20 19:14 MCV 85.3 fL (80-100) 05/14/20 19:14 MCH 28.6 pg (25-34) 05/14/20 19:14 MCHC 33.5 g/dL (32-36) 05/14/20 19:14 RDW Std Deviation 48.0 fL (36.4-46.3) H 05/14/20 19:14 RDW Coeff of Naomy 15.2 % (11.5-14.5) H 05/14/20 19:14 Plt Count 266 K/uL (130-400) 05/14/20 19:14 MPV 10.6 fL (7.4-10.4) H 05/14/20 19:14 Immature Gran % (Auto) 0.6 % 05/14/20 19:14 Neut % (Auto) 77.9 % 05/14/20 19:14 Lymph % (Auto) 6.2 % 05/14/20 19:14 [place] % (Auto) 9.3 % 05/14/20 19:14 Eos % (Auto) 5.7 % 05/14/20 19:14 Baso % (Auto) 0.3 % 05/14/20 19:14 Reticulocyte % (Auto) 1.1 % (0.5-2.0) 05/14/20 19:14 Neut # (Auto) 6.01 K/uL (1.4-6.5) 05/14/20 19:14 Lymph # (Auto) 0.48 K/uL (1.2-3.4) L 05/14/20 19:14 [place] # (Auto) 0.72 K/uL (0.11-0.59) H 05/14/20 19:14 Eos # (Auto) 0.44 K/uL (0-0.5) 05/14/20 19:14 Baso # (Auto) 0.02 K/uL (0-0.2) 05/14/20 19:14 Reticulocyte # 0.05 10^6/uL (0.02-0.10) 05/14/20 19:14 Immature Gran # (Auto) 0.05 K/uL (0.00-0.02) H 05/14/20 19:14 Toxic Vacuolation 1+ 05/14/20 19:14 Dohle Bodies 1+ 05/14/20 19:14 VBG pH 7.33 (7.36-7.41) L 05/14/20 23:16 VBG pCO2 30 mmHg (38-50) L 05/14/20 23:16 VBG pO2 31 mmHg 05/14/20 23:16 VBG HCO3 16 mmol/L 05/14/20 23:16 VBG O2 Saturation < 60.0 % 05/14/20 23:16 VBG Base Excess -9.1 mEq/L 05/14/20 23:16 Barometric Pressure 740.0 mm/Hg 05/14/20 23:16 Sodium 130 mmol/L (136-145) L 05/14/20 23:16 Potassium 3.7 mmol/L (3.5-5.1) 05/14/20 23:16 Chloride 99 mmol/L (98-107) 05/14/20 23:16 Carbon Dioxide 16 mmol/L (21-32) L 05/14/20 23:16 Anion Gap 15.0 (3-11) H 05/14/20 23:16 BUN 71 mg/dl (7-18) H 05/14/20 23:16 Creatinine 3.42 mg/dl (0.6-1.4) H 05/14/20 23:16 Est Cr Clr Drug Dosing 20.2 ml/min 05/14/20 23:16 Est GFR ( Amer) 20.3 05/14/20 23:16 Est GFR (Non-Af Amer) 17.5 05/14/20 23:16 BUN/Creatinine Ratio 20.8 (10-20) H 05/14/20 23:16 Glucose 233 mg/dl (70-99) H 05/14/20 23:16 Osmolality 305 mOsm/kg (280-300) H 05/14/20 17:54 Lactate 1.6 mmol/L (0.4-2.0) 05/14/20 23:16 Calcium 7.7 mg/dl (8.5-10.1) L 05/14/20 23:16 Magnesium 2.2 mg/dl (1.8-2.4) 05/14/20 23:16 Iron 19 mcg/dl (35-175) L 05/14/20 23:16 TIBC 156 mcg/dl (250-450) L 05/14/20 23:16 Transferrin 131 mg/dl (200-360) L 05/14/20 23:16 Ferritin 932.9 ng/ml (8-388) H 05/14/20 23:16 Total Bilirubin 0.7 mg/dl (0.2-1) 05/14/20 19:14 AST 31 U/L (15-37) 05/14/20 19:14 ALT 27 U/L (12-78) 05/14/20 19:14 Alkaline Phosphatase 120 U/L (45-117) H 05/14/20 19:14 Total Protein 7.7 gm/dl (6.4-8.2) 05/14/20 19:14 Albumin 2.7 gm/dl (3.4-5.0) L 05/14/20 19:14 Globulin 5.0 gm/dl (2.5-4.0) H 05/14/20 19:14 Albumin/Globulin Ratio 0.5 (0.9-2) L 05/14/20 19:14 Lipase 171 U/L (73-393) 05/14/20 19:14 Beta-Hydroxybutyric Acd 18.73 mg/dl (0.2-2.81) H 05/14/20 19:14 TSH 1.890 uIu/ml (0.300-4.500) 05/14/20 23:16 Urine Color Yellow 05/14/20 Unknown Urine Appearance Turbid (Clear) A 05/14/20 Unknown Urine pH 5.0 (4.5-7.5) 05/14/20 Unknown Ur Specific [place] 1.016 (1.000-1.030) 05/14/20 Unknown Urine Protein 1+ (Negative) H 05/14/20 Unknown Urine Glucose (UA) Trace (Negative) H 05/14/20 Unknown Urine Ketones Trace (Negative) H 05/14/20 Unknown Urine Blood 3+ (Negative) H 05/14/20 Unknown Urine Nitrite Negative (Negative) 05/14/20 Unknown Urine Bilirubin Negative (Negative) 05/14/20 Unknown Urine Urobilinogen Negative (Negative) 05/14/20 Unknown Ur Leukocyte Esterase 3+ (Negative) H 05/14/20 Unknown Urine WBC (Auto) >30 /hpf (0-5) H 05/14/20 Unknown Urine RBC (Auto) >30 /hpf (0-4) H 05/14/20 Unknown U Hyaline Cast (Auto) 0 /lpf (0-5) 05/14/20 Unknown U Epithel Cells (Auto) >30 /lpf (0-5) H 05/14/20 Unknown Urine Bacteria (Auto) 4+ (Negative) H 05/14/20 Unknown Urine Yeast Budding (None Prsent) A 05/14/[address] abdomen pelvis initial read: Moderate bilateral hydronephrosis and hydroureters presumably related to bladder outlet obstruction. No renal or ureteral calculus. Large right renal cyst as before. Markedly distended urinary bladder extending into the lower abdomen with diffuse wall thickening and adjacent stranding which may indicate superimposed cystitis. Markedly enlarged prostate measuring 8.5 cm greatest transverse dimension. Fatty liver. No AAA. Interval cholecystectomy. No dilated bowel. Colonic diverticulosis. Large right inguinal hernia. No evidence of obstruction. Chest x-ray as per my interpretation atelectasis
[2020-05-15 00:29] LABS: Folate (Folic Acid) 19.2 ng/ml (>5.38)
[2020-05-15] MEDS ORDERED: traMADol HCL 50 MG TABLET ONE (04:31)
[2020-05-15] MEDS ORDERED: POLYETHYLENE (MIRALAX) 17 GM PACK PO PRN (05:19)
[2020-05-15] MEDS ORDERED: DOCUSATE SODIUM/SENNA 50/8.6MG TAB PO SCH (05:20)
[2020-05-15] MEDS ORDERED: GLUCAGON FOR INJ 1 MG VIAL SQ PRN (05:21)
[2020-05-15] MEDS ORDERED: DEXTROSE 50% 50 ML SYRINGE IV PRN (05:21)
[2020-05-15] MEDS ORDERED: INSULIN GLARGINE SOLOSTAR 100 UNITS/ML 3 ML PEN SC STA ×3 (05:21→22:25)
[2020-05-15] MEDS ORDERED: PROMETHAZINE HCL 6.25 MG in SODIUM CHLORIDE 0.9% 50 ML IV PRN (05:21)
[2020-05-15] MEDS ORDERED: CEFEPIME CONSULT ACTIVE PRN (05:21)
[2020-05-15] MEDS ORDERED: GLUCOSE 40% GEL 15 GM TUBE PO PRN (05:21)
[2020-05-15] MEDS ORDERED: ACETAMINOPHEN 325 MG TAB PO PRN (05:21)
[2020-05-15] MEDS ORDERED: CARBOHYDRATES FOR HYPOGLYCEMIA PO PRN (05:21)
[2020-05-15] MEDS ORDERED: GLUCOSE 10 TABS/TUBE PO PRN (05:21)
[2020-05-15 05:51] LABS: Estimated Average Glucose 240 mg/dl
[2020-05-15] MEDS: HEPARIN SOD 5,000 UNIT/0.5 ML VIAL SQ SCH ×3 (06:06→21:57)
[2020-05-15] MEDS: METOPROLOL SUCC 25MG EXT REL TAB PO SCH ×3 (06:08→18:09)
[2020-05-15] MEDS: INSULIN ASPART 100 UNITS/ML 3 ML PEN SC SCH ×5 (06:08→20:34)
[2020-05-15 06:42] LABS: Hematocrit (blood only) 32.4 % (42-52); Hemoglobin 10.9 g/dL (14.0-18.0); Mean Corpuscular Hemoglobin 28.2 pg (25-34); Mean Corpuscular Hgb Conc 33.6 g/dL (32-36); Mean Corpuscular Volume 83.9 fL (80-100); Mean Platelet Volume 10.6 fL (7.4-10.4); Platelet Count 223 K/uL (130-400); RDW Coefficient of Variation 15.3 % (11.5-14.5); Red Blood Count 3.86 M/uL (4.7-6.1); White Blood Count 5.06 K/uL (4.8-10.8)
[2020-05-15 06:46] LABS: Base Excess VBG -9.3 mEq/L; pH VBG 7.36 (7.36-7.41)
[2020-05-15 06:51] LABS: INR 1.1 (0.9-1.1); Prothrombin Time 11.4 Seconds (9.0-12.0)
[2020-05-15 07:07] LABS: Dohle Bodies 2+; Eosinophils # (auto) 0.69 K/uL (0-0.5); Eosinophils % (auto) 13.6 %; Immature Granulocytes # (auto) 0.04 K/uL (0.00-0.02); Immature Granulocytes % (auto) 0.8 %; Lymphocytes # (auto) 0.43 K/uL (1.2-3.4); Lymphocytes % (auto) 8.5 %; Monocytes # (auto) 0.31 K/uL (0.11-0.59); Monocytes % (auto) 6.1 %; Neutrophils # (auto) 3.59 K/uL (1.4-6.5); Toxic Vacuolation 1+
[2020-05-15 07:11] LABS: BUN Creatinine Ratio 23.7 (10-20); Calcium 7.6 mg/dl (8.5-10.1); Creatinine Clr Calc Pharmacy 20.9 ml/min; Est GFR (African American) 21.1; Est GFR (Non-African American) 18.2; Potassium 3.6 mmol/L (3.5-5.1)
--- NOTE | 2020-05-15 07:38 | XRay Report ---
XR chest 1V portable CLINICAL HISTORY: Renal failure. COMPARISON STUDY: Chest radiograph November 29, 2018. FINDINGS: Lung volumes are normal. Lungs are clear. There is no pneumothorax or pleural effusion. Car diac size is stable. Mediastinal contours are normal. There is no evidence for pulmonary edema. IMPRESSION: No acute cardiopulmonary findings. ACT 112: Negative or not required by law. Electronically signed by: Artemio Grimes M.D. 05/15/2020 7:36 AM
--- NOTE | 2020-05-15 08:00 | Urology Consultation ---
Date of Consultation May 15, 2020 Assessment & Plan (1) Urinary retention: (2) Phimosis: Acute urinary retention with renal failurelikely secondary to phimosis and presumed meatal stenosis as well as BPH Attempted to place a catheter at the bedside I was able to navigate a catheter beyond his fibrotic ring, however I was unable to navigate this into the urethra as I suspect he had additionally has a stenotic meatus. Unfortunately, I believe he will require a formal procedure to open his phimosis and evaluate his meatus to be able to allow catheter placement With a certainly could be performed at the bedside but would be more comfortable under sedation We will plan to keep him n.p.o. now and attempt to place a catheter later today with a possible dorsal slit and urethral dilation at the same time History of Present Illness Attending Physician: Zhen Campos MD History of Present Illness 65-year-old gentleman admitted overnight, urinary retention with a massively distended bladder as well as right greater than left hydronephrosis Acute renal failure with a creatinine of 3.4, a year ago his creatinine was under 1 He reports that he has not had difficulty with catheters before On exam he is noted to have a phimosishe reports that it has been in this state for some time He has never had any interventions for his foreskin in the past He appears to be resting comfortably on initial evaluation Allergies Allergy/AdvReac Type Severity Reaction Status Date / Time No Known Allergies Allergy Verified 05/14/20 22:57 Home Medications Home Medications Medication Instructions Recorded Confirmed Type atorvastatin 80 mg PO DAILY #0 05/09/17 05/14/20 History glimepiride 2 mg PO DAILY #0 05/09/17 05/14/20 History lisinopril 10 mg PO DAILY #0 05/09/17 05/14/20 History pantoprazole [Protonix] 40 mg PO QAM #0 05/09/17 05/14/20 History Tradjenta 5 mg PO DAILY 11/29/18 05/14/20 History empagliflozin [Jardiance] 25 mg PO QAM 09/20/19 05/14/20 History metoprolol succinate 25 mg PO DAILY 09/20/19 05/14/20 History nitroglycerin 0.4 mg SUBLINGUAL DIRECTED PRN 09/20/19 05/14/20 History metformin 1,000 mg PO BIDM 05/14/20 05/14/20 History Patient History Medical History (Updated 05/15/20 @ 08:03 by George Patterson MD) Acute cholecystitis due to biliary calculus Angioedema No pertinent family history Swelling of upper lip Tendonitis of ankle, right Wound abscess (05/04/13) Wound infection (05/05/13) Wound infection after surgery (05/05/13) Wound, surgical, infected (05/05/13) Surgical History No significant past surgical history Family History Other No pertinent family history Social History Smoking Status: Never smoker Second Hand Exposure: No; Hx Alcohol Use: No Hx Substance Use: No Preferred Language: Nepali Communication Ability: Effective Visual Impairment: No Limitations Hearing Ability: Normal Programmer 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 Control Required: No Beliefs That Will Affect Care: None Current Living Situation: Spouse and Family Other Information That Helps Us Care for You: No Feels Safe at Home: Yes Safety Concerns: Feels Safe At This Time Assistive Devices: None Review of Systems Review of Systems: All systems reviewed & are unremarkable except as noted in HPI & below Constitutional: no fever, no chills and no fatigue Eyes: no worsening vision Ear, Nose, Mouth, Throat: no facial pain and no pain with swallowing Respiratory: no cough and no dyspnea Cardiovascular: no chest pain and no palpitations Gastrointestinal: + abdominal pain and + problem reported; no nausea and no vomiting Musculoskeletal: no back pain Integumentary: no rash and no urticaria Neurologic: no gait abnormality and no unsteadiness Psychiatric: no behavioral changes and no depression Endocrine: no fatigue Physical Exam Constitutional: well developed and well nourished Neck: neck nontender Respiratory: normal respiratory effort; no respiratory distress and does not use accessory muscles Cardiovascular: Rate/Rhythm: regular rate Vessels: radial pulses present Extremities: no edema Gastrointestinal (Abdomen): Inspection/Auscultation: abdomen normal to inspection Percussion/Palpation: abdomen soft; abdomen nontender and no guarding Distended lower abdomen Musculoskeletal: Head/Neck/Chest: normocephalic and head atraumatic Extremities: extremities normal to inspection Skin: no rashes and no lesions Trauma: no evidence of skin trauma Neurologic: awake; not obtunded Speech / Cognition: normal speech Motor/Sensory: no tremor Psychiatric: Orientation: alert and oriented x 3 Genitourinary: no CVA tenderness Phimosis; buried penis Presumed stenotic meatus Lymphatic: no lymphadenopathy Results & Data ([facility]) Vital Signs (Past 12 Hours) Vital Signs Temp Pulse Pulse Resp BP Pulse Ox 05/15/20 07:50 36.6 C 104 H 20 119/74 95 05/15/20 07:39 104 H 05/15/20 06:44 92 H 05/15/20 06:26 36.6 C 20 05/15/20 06:25 36.6 C 78 20 92/67 L 96 05/15/20 04:35 104 H 20 111/64 96 05/15/20 03:53 111 H 20 83/51 L 98 05/15/20 02:31 101 H 22 95/59 L 97 05/15/20 01:40 106 H 22 87/52 L 96 05/15/20 00:43 105 H 14 98/63 L 99 05/14/20 23:06 103 H 22 100/63 95 05/14/20 21:37 110 H 25 H 88/61 L 97 PG Care Time/CCT Total # of Minutes Spent Total Time Spent with Patient: Total time spent is greater than 50% in coordination of care (as documented) at patient's floor/unit and/or counseling patient: Coding Level of Care Code 00495 Inpt Consult Level 4 Diagnoses Urinary retention R33.9 Phimosis N47.1
--- NOTE | 2020-05-15 08:32 | CT Scan Report ---
CT OF THE ABDOMEN AND PELVIS WITHOUT CONTRAST CLINICAL HISTORY: Difficulty urinating. Abdominal distention. COMPARISON STUDY: CT of the abdomen and pelvis May 09, 2017. MRCP May 11, 2017. TECHNIQUE: Axial images of the abdomen and pelvis were obtained without IV contrast. Images were revi ewed in the axial, sagittal, and coronal planes. Automated exposure control was utilized for the chase dy. A dose lowering technique was utilized adhering to the principles of ALARA. FINDINGS: Lung bases are unremarkable. A small hiatal hernia is noted. There may be mild distal esoph ageal wall thickening. No pneumatosis, free air or portal venous gas is present. There is no biliary ductal dilatation status post cholecystectomy. Evaluation of the abdomen and pelvis is suboptimal on this unenhanced exam. The liver, spleen, adrenal glands and pancreas are unremarkable. There is no ev idence for a bowel obstruction. The appendix is normal. Previous right humeral hernia repair is noted . A portion of the transverse colon is noted adjacent to the mesh. Fat-containing right inguinal maría ia is noted. This is similar to prior exam. The prostate is markedly enlarged, measuring 8.4 cm in tr ansverse dimension. Bladder is markedly distended with bladder wall thickening and adjacent infiltrat ion. This likely accounts for moderate bilateral hydronephrosis. A few right renal cysts measure up t o 9.9 cm. Fat-containing umbilical and ventral hernias are noted. No urinary calculi identified. Ther e are prominent left inguinal and left pelvic sidewall lymph nodes. Colonic diverticulosis is noted. IMPRESSION: 1. Markedly distended bladder with bladder wall thickening and adjacent infiltration. Infiltration co uld be due to the obstruction or superimposed infection. The findings represent bladder outlet obstru ction due to a markedly enlarged prostate. This also results in moderate bilateral hydronephrosis. No urinary calculi. 2. Prominent left pelvic sidewall and left inguinal lymph nodes. These may be reactive however a shor t-term follow-up CT is recommended in 3 months. 3. Colonic diverticulosis without evidence for acute diverticulitis. 4. Status post right inguinal hernia repair, as above. No significant change since prior CT. ACT 112: Negative or not required by law. Electronically signed by: Artemio Grimes M.D. 05/15/2020 8:31 AM
[2020-05-15] MEDS: PANTOprazole 40 MG TAB PO SCH (08:40)
[2020-05-15] MEDS ORDERED: INSULIN GLARGINE SOLOSTAR 100 UNITS/ML 3 ML PEN SC SCH (09:00)
[2020-05-15] MEDS ORDERED: METOPROLOL SUCC 25MG EXT REL TAB PO SCH (09:00)
[2020-05-15] MEDS: MICONAZOLE NITRATE POWDER 43 GM EXT SCH ×2 (10:33→20:33)
[2020-05-15] MEDS: traMADol HCL 50 MG TABLET PO PRN ×2 (10:34→19:29)
[2020-05-15] MEDS: LACTATED RINGER'S 1,000 ML IV SCH ×2 (10:35→21:57)
--- NOTE | 2020-05-15 12:00 | Electrocardiogram Report ---
Test Reason : Blood Pressure : / mmHG Vent. Rate : 118 BPM Atrial Rate : 118 BPM P-R Int : 162 ms QRS Dur : 106 ms QT Int : 346 ms P-R-T Axes : 041 019 024 degrees QTc Int : 484 ms Sinus tachycardia Otherwise normal ECG When compared with ECG of 30-NOV-2018 06:48, ST no longer elevated in Inferior leads ST no longer elevated in Anterolateral leads Confirmed by Rodney Agee ([id number]) on 05/15/2020 11:59:44 AM Referred By: REFERRED SELF Confirmed By:Rodney Agee
[2020-05-15] MEDS ORDERED: BUPIVACAINE 0.5 % 5 MG/1 ML MPF 30ML VIAL ONE (12:16)
[2020-05-15] MEDS ORDERED: ATROPINE SULFATE 0.1 MG/ML 10ML SYR IV PRN (12:24)
[2020-05-15] MEDS ORDERED: PHENYLEPHRINE 100MCG/ML 5ML SYR IV PRN (12:24)
[2020-05-15] MEDS ORDERED: ePHEDrine sulfate 50 MG/ML AMP IV PRN (12:24)
[2020-05-15] MEDS ORDERED: LABETALOL HCL IV 5 MG/ML 20ML IV PRN (12:24)
[2020-05-15] MEDS ORDERED: fentaNYL citrate 100 MCG/2 ML VIAL IV PRN (12:24)
[2020-05-15] MEDS ORDERED: ONDANSETRON INJ 2 MG/ML 2 ML VIAL IV PRN (12:24)
[2020-05-15] MEDS ORDERED: LIDOCAINE HCL 2% 2 ML VIAL/AMP(20MG/ML) INFIL ONE (12:27)
[2020-05-15] MEDS ORDERED: PROPOFOL IV EMULSION 10 MG/ML 20 ML VIAL IV ONE (12:27)
[2020-05-15] MEDS ORDERED: fentaNYL citrate 100 MCG/2 ML VIAL ONE (12:27)
[2020-05-15] MEDS ORDERED: MIDAZOLAM HCL 1 MG/ML 2ML VIAL ONE (12:28)
--- NOTE | 2020-05-15 12:52 | Anesthesiology Consultation ---
Date of Service May 15, 2020 Covid 19 negative on 05/15/20. Assessment & Plan (1) Encounter for pre-operative examination: Chart Review Chart Review: Acceptable Risk for Surgery and Patient NOT seen in Pre Admission Testing Consults Requested none History Surgery Operation Date: 05/15/20 08:15 Proposed Procedures p [place] Slit, - George Patterson MD s Urethral Dilation, Cystoscopy - George Patterson MD Height/Weight Height: 5 ft 2 in Weight: 89 kg Allergies Allergy/AdvReac Type Severity Reaction Status Date / Time No Known Allergies Allergy Verified 05/14/20 22:57 Medications Home Medications Medication Instructions Recorded Confirmed Last Taken atorvastatin 80 mg PO DAILY #0 05/09/17 05/14/20 11/29/18 glimepiride 2 mg PO DAILY #0 05/09/17 05/14/20 11/29/18 lisinopril 10 mg PO DAILY #0 05/09/17 05/14/20 11/29/18 pantoprazole [Protonix] 40 mg PO QAM #0 05/09/17 05/14/20 11/29/18 Tradjenta 5 mg PO DAILY 11/29/18 05/14/20 11/29/18 empagliflozin [Jardiance] 25 mg PO QAM 09/20/19 05/14/20 Unknown metoprolol succinate 25 mg PO DAILY 09/20/19 05/14/20 Unknown nitroglycerin 0.4 mg SUBLINGUAL DIRECTED PRN 09/20/19 05/14/20 Unknown metformin 1,000 mg PO BIDM 05/14/20 05/14/20 Unknown Active Medications Generic Name Dose Route Start Last Admin Trade Name Freq PRN Reason Stop Dose Admin Heparin Sodium (Porcine) 5,000 units 05/15/20 06:00 05/15/20 06:06 Heparin Sod 5,000 Unit/0.5 Ml Vial SQ 06/14/20 05:59 5,000 units Q8 RASHAAD Administration Lactated Ringer's 1,000 mls @ 80 mls/hr 05/15/20 10:00 05/15/20 10:35 Lr IV 05/16/20 09:59 80 mls/hr .[id number] RASHAAD Administration Insulin Aspart 0 units 05/15/20 05:21 05/15/20 08:39 Insulin Aspart 100 Units/Ml 3 Ml Pen SC 06/14/20 05:20 3 units ACHS RASHAAD Administration Metoprolol Succinate 25 mg 05/15/20 06:00 05/15/20 06:10 Metoprolol Succ 25mg Ext Rel Tab PO 06/14/20 05:59 Not Given DAILY RASHAAD Miconazole Nitrate 1 appln 05/15/20 09:00 05/15/20 10:33 Miconazole Nitrate Powder 43 Gm EXT 06/14/20 08:59 1 appln BID RASHAAD Administration Pantoprazole Sodium 40 mg 05/15/20 09:00 05/15/20 08:40 Pantoprazole 40 Mg Tab PO 06/14/20 08:59 40 mg QAM RASHAAD Administration Tramadol HCl 25 - 50 mg 05/15/20 05:21 05/15/20 10:34 Tramadol Hcl 50 Mg Tablet PO 06/14/20 05:20 50 mg Q4H PRN Administration Pain Past Medical History Medical History Acute cholecystitis due to biliary calculus Angioedema Diabetes mellitus No pertinent family history Swelling of upper lip Tendonitis of ankle, right Wound abscess (05/04/13) Wound infection (05/05/13) Wound infection after surgery (05/05/13) Wound, surgical, infected (05/05/13) Past Family History Family History Other No pertinent family history Past Surgical History Surgical History No significant past surgical history Social History Smoking Status: Never smoker Hx Alcohol Use: No Hx Substance Use: No substance use type: does not use Physical Exam Vital Signs Last Vital Signs Temp 36.7 C 05/15/20 11:45 Pulse 117 H 05/15/20 11:45 Resp 18 05/15/20 11:45 BP 106/67 05/15/20 11:45 Pulse Ox 94 05/15/20 11:45 Testing Laboratory Results 05/15/20 06:26 05/15/20 06:26 PT 11.4 Seconds (9.0-12.0) 05/15/20 06:26 INR 1.1 (0.9-1.1) 05/15/20 06:26 Hemoglobin A1c 10.0 % (4.5-5.6) H 05/14/20 19:14 Urine Color Yellow 05/14/20 Unknown Urine Appearance Turbid (Clear) A 05/14/20 Unknown Urine pH 5.0 (4.5-7.5) 05/14/20 Unknown Ur Specific [place] 1.016 (1.000-1.030) 05/14/20 Unknown Urine Protein 1+ (Negative) H 05/14/20 Unknown Urine Glucose (UA) Trace (Negative) H 05/14/20 Unknown Urine Ketones Trace (Negative) H 05/14/20 Unknown Urine Nitrite Negative (Negative) 05/14/20 Unknown Ur Leukocyte Esterase 3+ (Negative) H 05/14/20 Unknown Urine WBC (Auto) >30 /hpf (0-5) H 05/14/20 Unknown Urine RBC (Auto) >30 /hpf (0-4) H 05/14/20 Unknown U Hyaline Cast (Auto) 0 /lpf (0-5) 05/14/20 Unknown U Epithel Cells (Auto) >30 /lpf (0-5) H 05/14/20 Unknown Urine Bacteria (Auto) 4+ (Negative) H 05/14/20 Unknown Blood Type O Positive 05/14/20 23:16 Antibody Screen NEGATIVE 05/14/20 23:16 05/14/20 Unknown Urine Culture - Preliminary Urine,Clean Catch Pin-point growth present, reincubating. 05/15/20 05/15/20 05/15/20 11:47 08:06 05:34 POC Glucose 206 H 233 H 301 H* 05/15/20 05:33 POC Glucose 325 H*
--- NOTE | 2020-05-15 13:56 | Operative Report ---
PG Post Operative Report Pre & Post Diagnosis Operation Date: 05/15/20 08:15 Pre-Op Diagnosis: Phimosis, meatal stenosisI Post-Op Diagnosis: Phimosis, meatal stenosisI I identified the patient and participated in the time-out.: Yes Procedure Operation Date: 05/15/20 08:15 Actual Procedures p [place] Slit, Meatal dilation - George Patterson MD Surgeon Irwin Patterson MD Hvac Technician Residential Harika Johnson Estimated Blood Loss 0 Findings Consistent with Post-Op Diagnosis Specimens none Description of Procedure The patient was identified in the preoperative holding area, appropriate informed consents were reviewed and completed and the patient was transferred to the operative suite. Upon arrival, appropriate antibiotics and anesthesia were administered and the patient was placed in dorsal lithotomy position and prepped and draped in sterile fashion. To begin the case I administered a penile block into formsfirst a ring block followed by a deep dorsal block. Half percent Marcaine was used for both. I then attempted to dilate the phimotic ring utilizing a hemostat. This was unsuccessful as he was extremely scarred in. I was able to advance one limb of the hemostat through the opening and clamped dorsally. I then incised this utilizing iris scissors. I performed a repeat clamp and cut before suturing the cut edges utilizing a running 3-0 chromic bilaterally. I was still unable to fully visualize the meatus but I could palpate it and I was able to advance a hemostat into the meatus and stretch the meatus dilating it. After that placement of a Perera catheter was successful. A 16 Arabic coud catheter was utilized and immediately drained in excess of 1-1/2 L of urine. The final aspect of the urine was extremely purulent and bloody. I irrigated briefly and it cleared appropriately. He tolerated the procedure well and was reversed of anesthesia. He was taken to the recovery room in stable condition with a Perera catheter in place. Harika Jhonson was scrubbed and present for the entirety of the case providing assistance. I attest to the content of the Intraoperative Record and any orders documented therein. Any exceptions are noted below.
[2020-05-15] MEDS ORDERED: PHENYLEPHRINE 100MCG/ML 5ML SYR ONE (14:03)
--- NOTE | 2020-05-15 14:21 | Anesthesiology Progress Note ---
Date of Service May 15, 2020 Anesthesia Post Procedure Vital Signs Vital Signs: Temp Pulse Pulse Pulse Pulse Resp BP 05/15/20 14:17 110 H 22 05/15/20 14:05 111 H 22 05/15/20 13:55 36.7 C 115 H 18 05/15/20 12:52 37 C 120 H 20 05/15/20 11:45 36.7 C 117 H 18 05/15/20 07:50 36.6 C 104 H 20 05/15/20 07:39 104 H 05/15/20 06:44 92 H 05/15/20 06:26 36.6 C 20 05/15/20 06:25 36.6 C 78 20 05/15/20 04:35 104 H 20 05/15/20 03:53 111 H 20 05/15/20 02:31 101 H 22 05/15/20 01:40 106 H 22 05/15/20 00:43 105 H 14 05/14/20 23:06 103 H 22 05/14/20 21:37 110 H 25 H 05/14/20 19:10 109 H 22 05/14/20 17:48 36.7 C 121 H 20 112/64 BP BP Pulse Ox 05/15/20 14:17 106/71 95 05/15/20 14:05 114/70 96 05/15/20 13:55 90/55 L 93 05/15/20 12:52 123/69 97 05/15/20 11:45 106/67 94 05/15/20 07:50 119/74 95 05/15/20 07:39 05/15/20 06:44 05/15/20 06:26 05/15/20 06:25 92/67 L 96 05/15/20 04:35 111/64 96 05/15/20 03:53 83/51 L 98 05/15/20 02:31 95/59 L 97 05/15/20 01:40 87/52 L 96 05/15/20 00:43 98/63 L 99 05/14/20 23:06 100/63 95 05/14/20 21:37 88/61 L 97 05/14/20 19:10 97/60 L 94 05/14/20 17:48 96 Pain Intensity Back: Pain Intensity: 2 Transfer of Care Handoff Completed per policy Notes Mental Status: alert / awake / arousable Patient Amnestic to Procedure: Yes Nausea / Vomiting: adequately controlled Pain: adequately controlled Airway Patency, RR, SpO2: stable & adequate BP & HR: stable & adequate Hydration State: stable & adequate Anesthetic Complications: no major complications apparent and Pt Satisfied with anesthetic care Notes: The patient is stable at his baseline.
[2020-05-15 15:29] LABS: BUN Creatinine Ratio 25.7 (10-20); Calcium 7.8 mg/dl (8.5-10.1); Est GFR (African American) 26.2; Est GFR (Non-African American) 22.6; Potassium 3.4 mmol/L (3.5-5.1)
--- NOTE | 2020-05-15 17:28 | Hospitalist Progress Note ---
Date of Service May 15, 2020 Assessment & Plan (1) ASHLEY (acute kidney injury): Obstructive uropathy Acute kidney injury Acute urinary retention Acute Metabolic acidosis H/O BPH S/P dorsal split, meatal dilatation by Dr. Patterson POD #0 Continue Perera catheter Appreciate urology input Monitor renal function Continue IV fluids Avoid nephrotoxic agents as able Consider nephrology evaluation if needed Constipation Continue bowel regimen Encourage ambulation Bilateral leg pain Check venous Dopplers to rule out DVT Complicated UTI Urine culture pending Blood culture pending Empirically started on cefepime Anemia FOBT Negative Partly dilutional secondary to IV fluids Monitor CBC No acute bleeding issues Hypertension Continue metoprolol Resume lisinopril as able Monitor Hyperlipidemia on statin DM II Hold PO meds Last HbA1C: 7.09 October 2018 Update HbA1C:10.0 Continue insulin therapy while hospitalized Will need to be discharged on insulin given uncontrolled diabetes Diabetic education DVT Px: Heparin SQ Code Status Full code Admission and Anticipated Discharge Date Admission Date: May 15, 2020 Subjective Patient is seen and examined at bedside Reports urinary retention, dysuria, cloudy urine Also states having bilateral leg pain Denies hematuria, chest pain, dyspnea, dizziness, nausea, vomiting, abdominal pain Family at bedside Patient had meatal dilatation today Review of Systems Review of Systems: All systems reviewed & are unremarkable except as noted in HPI & below Physical Exam Physical Exam: Physical Exam: Vitals signs as noted above General Appearance:Obese, no apparent distress Head: normocephalic, Atraumatic Eyes: normal inspection, EOMI Neck: supple, Trachea midline Respiratory/Chest: Normal breath sounds, CTA, No accessory muscle use Cardiovascular: S1, S2, No murmur Abdomen/GI:Soft, Non tender, Bowel sounds present Extremities/Musculoskelatal:normal inspection, B/L LE edema, tender Neurologic/Psych:AAOX3, grossly no focal neurological deficits Skin: normal color, warm Results & Data Results & Data ([facility]) Vital Signs (Past 12 Hours) Vital Signs Temp Pulse Pulse Pulse Pulse Resp BP 05/15/20 15:35 37.2 C 115 H 20 05/15/20 15:05 37.1 C 115 H 20 05/15/20 14:35 36.8 C 117 H 20 05/15/20 14:31 37.2 C 111 H 20 05/15/20 14:17 110 H 22 05/15/20 14:05 111 H 22 05/15/20 13:55 36.7 C 115 H 18 05/15/20 12:52 37 C 120 H 20 123/69 05/15/20 11:45 36.7 C 117 H 18 106/67 05/15/20 07:50 36.6 C 104 H 20 119/74 05/15/20 07:39 104 H 05/15/20 06:44 92 H 05/15/20 06:26 36.6 C 20 05/15/20 06:25 36.6 C 78 20 92/67 L BP Pulse Ox 05/15/20 15:35 120/73 96 05/15/20 15:05 124/76 96 05/15/20 14:35 106/69 96 05/15/20 14:31 114/67 96 05/15/20 14:17 106/71 95 05/15/20 14:05 114/70 96 05/15/20 13:55 90/55 L 93 05/15/20 12:52 97 05/15/20 11:45 94 05/15/20 07:50 95 05/15/20 07:39 05/15/20 06:44 05/15/20 06:26 05/15/20 06:25 96 Laboratory Results Short CBC 05/14/20 05/15/20 Range/Units 19:14 06:26 WBC 7.72 5.06 (4.8-10.8) K/uL Hgb 12.4 L 10.9 L (14.0-18.0) g/dL Hct 37.0 L 32.4 L (42-52) % Plt Count 266 223 (130-400) K/uL BMP 05/14/20 05/14/20 05/15/20 19:14 23:16 06:26 Sodium 127 L 130 L 130 L Potassium 4.1 3.7 3.6 Chloride 95 L 99 101 Carbon Dioxide 16 L 16 L 14 L BUN 71 H 71 H 79 H Creatinine 3.47 H 3.42 H 3.31 H Glucose 301 H* 233 H 266 H Calcium 8.4 L 7.7 L 7.6 L 05/15/20 15:02 Sodium 134 L Potassium 3.4 L Chloride 106 Carbon Dioxide 13 L BUN 71 H Creatinine 2.77 H D Glucose 161 H Calcium 7.8 L Cardiac Enzymes 05/15/20 Range/Units 06:26 Total Creatine Kinase 111 (39-308) U/L Liver Function 05/14/20 Range/Units 19:14 Total Bilirubin 0.7 (0.2-1) mg/dl AST 31 (15-37) U/L ALT 27 (12-78) U/L Alkaline Phosphatase 120 H (45-117) U/L Albumin 2.7 L (3.4-5.0) gm/dl Urine 05/14/20 Range/Units Unknown Urine Color Yellow Urine Appearance Turbid A (Clear) Urine pH 5.0 (4.5-7.5) Ur Specific [place] 1.016 (1.000-1.030) Urine Protein 1+ H (Negative) Urine Glucose (UA) Trace H (Negative)
[2020-05-15 18:37] LABS: Creatinine Clr Calc Pharmacy 28.2 ml/min; Est GFR (African American) 30.3; Est GFR (Non-African American) 26.1; Potassium 3.4 mmol/L (3.5-5.1)
--- NOTE | 2020-05-15 18:57 | Ultrasound Report ---
US venous doppler LE BI CLINICAL HISTORY: Bilateral leg pain COMPARISON STUDY: No previous studies for comparison. FINDINGS: Real-time and color flow Doppler imaging were performed. Flow was seen within the femoral, popliteal and calf veins with no intraluminal thrombus demonstrated. The saphenous vein is patent. Th ere is a complex right popliteal cyst measuring 50 x 49 x 9 mm. IMPRESSION: No evidence of lower extremity DVT. ACT 112: Negative or not required by law. Electronically signed by: Carlos Bonilla M.D. 05/15/2020 6:56 PM
[2020-05-15] MEDS ORDERED: POTASSIUM CHLORIDE CRTAB 20 MEQ TABCR PO ONE (19:17)
[2020-05-15] MEDS: DOCUSATE SODIUM/SENNA 50/8.6MG TAB PO SCH (20:33)
[2020-05-15] MEDS ORDERED: CEFEPIME 2,000 MG in SYRINGE 0 ML IV SCH (22:00)
[2020-05-15] MEDS ORDERED: METOPROLOL TARTRATE 25 MG TAB PO STA (22:27)
[2020-05-15] MEDS ORDERED: POTASSIUM CHLORIDE CRTAB 20 MEQ TABCR PO STA (22:29)
[2020-05-16] MEDS: traMADol HCL 50 MG TABLET PO PRN (00:01)
[2020-05-16] MEDS ORDERED: HYDROmorphone INJ 0.5 MG/0.5 ML SYR IV PRN (01:26)
[2020-05-16] MEDS ORDERED: oxyCODONE HCL IR 5 MG TAB (IMMEDIATE RELEASE) PO STA (01:26)
--- NOTE | 2020-05-16 01:45 | Communication Note ---
Date of Service: May 16, 2020 Patient noted to have hematuria and blood clots through Perera catheter as per RN. Patient with penile pain as per RN. AP Postop hematuria Hold heparin subcu for now. SCDs for DVT prophylaxis
[2020-05-16 02:14] LABS: Hematocrit (blood only) 31.5 % (42-52); Hemoglobin 10.6 g/dL (14.0-18.0); Mean Corpuscular Hgb Conc 33.7 g/dL (32-36); Mean Corpuscular Volume 83.3 fL (80-100); Mean Platelet Volume 10.3 fL (7.4-10.4); Platelet Count 247 K/uL (130-400); RDW Coefficient of Variation 15.3 % (11.5-14.5); RDW Standard Deviation 46.8 fL (36.4-46.3); Red Blood Count 3.78 M/uL (4.7-6.1); White Blood Count 6.32 K/uL (4.8-10.8)
[2020-05-16 02:54] LABS: ALC (manual) 0.16 K/uL (1.2-3.4); ANC (manual) 5.22 K/uL (1.4-6.5); Dohle Bodies 1+; Echinocytes 1+; Eosinophils # (manual) 0.71 K/uL (0-0.5); Eosinophils % (manual) 11.3 %; Lymphocytes # (manual) 0.16 K/uL (1.2-3.4); Lymphocytes % (manual) 2.6 %; Monocytes # (manual) 0.22 K/uL (0.11-0.59); Monocytes % (manual) 3.5 %; Neutrophils # (manual) 5.22 K/uL (1.4-6.5); Neutrophils % (manual) 82.6 %
[2020-05-16 03:35] LABS: BUN Creatinine Ratio 31.9 (10-20); Calcium 7.8 mg/dl (8.5-10.1); Creatinine Clr Calc Pharmacy 38.5 ml/min; Est GFR (African American) 44.2; Est GFR (Non-African American) 38.1
[2020-05-16] MEDS: LACTATED RINGER'S 1,000 ML IV SCH (04:40)
[2020-05-16] MEDS: METOPROLOL SUCC 25MG EXT REL TAB PO SCH (05:49)
[2020-05-16 06:52] LABS: Basophils # (auto) 0.01 K/uL (0-0.2); Basophils % (auto) 0.2 %; Eosinophils # (auto) 0.65 K/uL (0-0.5); Eosinophils % (auto) 10.7 %; Hematocrit (blood only) 32.6 % (42-52); Hemoglobin 10.8 g/dL (14.0-18.0); Immature Granulocytes % (auto) 1.7 %; Lymphocytes # (auto) 0.63 K/uL (1.2-3.4); Lymphocytes % (auto) 10.4 %; Mean Corpuscular Hemoglobin 28.1 pg (25-34); Mean Corpuscular Hgb Conc 33.1 g/dL (32-36); Mean Corpuscular Volume 84.7 fL (80-100); Mean Platelet Volume 10.6 fL (7.4-10.4); Monocytes # (auto) 0.54 K/uL (0.11-0.59); Monocytes % (auto) 8.9 %; Neutrophils # (auto) 4.13 K/uL (1.4-6.5); Neutrophils % (auto) 68.1 %; Platelet Count 266 K/uL (130-400); RDW Coefficient of Variation 15.5 % (11.5-14.5); RDW Standard Deviation 48.2 fL (36.4-46.3); Red Blood Count 3.85 M/uL (4.7-6.1); White Blood Count 6.06 K/uL (4.8-10.8)
[2020-05-16 07:05] LABS: BUN Creatinine Ratio 37.8 (10-20); Creatinine Clr Calc Pharmacy 50.6 ml/min; Est GFR (African American) 60.9; Est GFR (Non-African American) 52.5
--- NOTE | 2020-05-16 08:22 | Urology Progress Note ---
Date of Service May 16, 2020 Assessment & Plan (1) Urinary retention: (2) Phimosis: 65 year-old male patient, with multiple comorbidities, admitted with renal failure, acute urinary retention, and suspected UTI. -Acute renal failure and urinary retention likely secondary to phimosis, meatal stenosis, as well as BPH. -POD #1 dorsal slit with meatal dilation and crespo catheter insertion. -Patient clinically improving. -Remains afebrile. -Labs reviewed, creatinine improving. -Continue with supportive care and antibiotic therapy, urine culture pending. -Recommend maintaining crespo catheter for 1-2 weeks. -Will arrange outpatient follow-up with urology service for hospital follow-up and catheter removal. -Expected clinical course reviewed with patient, all questions answered. Thank you for allowing us to participate in the acute care of Mr. Diamond. Please reconsult us with additional questions, concerns or changes in patient status. Admission and Anticipated Discharge Date Admission Date: May 15, 2020 Subjective POD #1 dorsal slit with meatal dilation and crespo catheter insertion. He reports he is feeling "much better". No longer experiencing abdominal/flank discomfort. Does have some mild discomfort to penis, reports this as tolerable. Has been tolerating crespo catheter. Denies fevers or chills. Denies nausea or vomiting. Chart review: Afebrile Wbc 6.06 Hgb 10.8 Creatinine 1.38 (3.47 on admission) Preliminary blood cultures no growth after 24 hours. Preliminary urine culture pin point growth, reincubating. Currently on IV Cefepime. Denies additional urologic concerns today. Review of Systems Constitutional: as per Subjective / HPI; no fever and no chills Gastrointestinal: as per Subjective / HPI; no nausea and no vomiting Genitourinary: + as per Subjective / HPI Neurologic: no dizziness Physical Exam Constitutional: well developed and well nourished; no acute distress and not ill appearing Respiratory: normal respiratory effort and able to speak in complete sentences; no respiratory distress and no audible wheezes Gastrointestinal (Abdomen): Inspection/Auscultation: abdomen normal to inspection; abdomen not distended Percussion/Palpation: abdomen soft; abdomen nontender and no guarding Psychiatric: Orientation: alert, oriented x 3 and cooperative Affect: euthymic affect Genitourinary: no CVA tenderness Crespo catheter intact draining concentrated yellow urine with small red-tinged sediment. Sutures intact to dorsal slit. Mild erythema to scrotum and bilateral groin. No drainage. Results & Data ([facility]) Vital Signs (Past 12 Hours) Vital Signs Temp Pulse Pulse Pulse Resp BP Pulse Ox 05/16/20 07:29 36.6 C 84 18 126/78 97 05/16/20 07:20 85 05/16/20 04:05 36.7 C 88 20 116/73 96 05/16/20 04:03 108 H 05/16/20 00:05 107 H 118/69 05/15/20 23:00 37.0 C 108 H 20 109/71 95 05/15/20 20:31 37.1 C 112 H 16 111/68 96 PG Care Time/CCT Total # of Minutes Spent Total Time Spent with Patient: Total time spent is greater than 50% in coordination of care (as documented) at patient's floor/unit and/or counseling patient: Coding Level of Care Code 22476 Subseq Hosp Care Lvl 2 Diagnoses Urinary retention R33.9 Phimosis N47.1
[2020-05-16] MEDS: DOCUSATE SODIUM/SENNA 50/8.6MG TAB PO SCH ×2 (08:26→21:29)
[2020-05-16] MEDS: PANTOprazole 40 MG TAB PO SCH (08:26)
[2020-05-16] MEDS: ATORVASTATIN 40 MG TAB PO SCH (08:27)
[2020-05-16] MEDS: MICONAZOLE NITRATE POWDER 43 GM EXT SCH ×2 (08:27→21:31)
[2020-05-16] MEDS: INSULIN ASPART 100 UNITS/ML 3 ML PEN SC SCH ×4 (08:30→21:28)
[2020-05-16] MEDS: INSULIN GLARGINE SOLOSTAR 100 UNITS/ML 3 ML PEN SC SCH ×2 (08:34→21:28)
[2020-05-16] MEDS ORDERED: INSULIN GLARGINE SOLOSTAR 100 UNITS/ML 3 ML PEN SC SCH (09:00)
[2020-05-16] MEDS: CEFEPIME 2,000 MG in SYRINGE 0 ML IV SCH ×2 (10:45→21:27)
[2020-05-16] MEDS: oxyCODONE HCL IR 5 MG TAB (IMMEDIATE RELEASE) PO PRN ×2 (18:51→23:40)
--- NOTE | 2020-05-16 21:02 | Hospitalist Progress Note ---
Date of Service May 16, 2020 Assessment & Plan (1) ASHLEY (acute kidney injury): Creatinine 3.47 at time of admission. Baseline creatinine 0.7 - 0.[address] of abdomen and pelvis demonstrated markedly distended bladder with bladder wall thickening, markedly enlarged prostate, bilateral hydronephrosis. Urology consulted. Urinary retention thought to be due to a combination of phimosis / meatal stenosis and BPH. Urinary catheter insertion unsuccessful at bedside. Dorsal slit, meatal dilation, and Perera catheter placement performed by Dr. Patterson 05/15. Perera catheter to stay in place until seen for follow-up in Urology Clinic. Creatinine 3.47 >>> 1.38. (2) Urinary retention: As discussed above. (3) Phimosis: As discussed above. (4) Urinary tract infection: Urine culture 05/14 grew Samira albicans and Lactobacillus. Unlikely that Lactobacillus is pathogen. May have fungal UTI (vs colonization or contamination), present on admission. Consider course of fluconazole- check follow-up QTc first. (5) Anemia: Hbg 12.4 day of admission and fell as low as 10.6. Normocytic. No gross GI bleeding. Fe 19, TIBC 156, transferrin 131, ferritin 932, B12 560, folate 19, TSH 1.89. (6) Coronary artery disease: No anginal symptoms. Continue metoprolol and statin. (7) Hypertension: Lisinopril on hold to to ASHLEY. Continue metoprolol. 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 Usually managed with metformin, glimepiride, empagliflozin. Hgb A1c = 10.0. Hold oral agents during hospital stay. Lantus / NovoLog per protocol. FBS today = 170. (9) Dyslipidemia: Continue atorvastatin. (10) DVT prophylaxis: Initially received SQ heparin which was stopped due to postop bleeding. SCD's. Ambluate. (11) Discharge planning issues: Discharge disposition to be determined. Poor functional status. Needs assistance with ADL's. PT / OT evals. Family Medicine follow-up with Dr. Oviedo. Admission and Anticipated Discharge Date Admission Date: May 15, 2020 Subjective Recheck for obstructive uropathy and other problems. Patient seen in their room around 1420. Feels a little better, but still weak and needs assistance. Has some postop pain. Perera cath. Review of Systems: Constitutional- no fever. Cardiac- no chest pain. Pulmonary- no cough or SOB. GI- no nausea, vomiting, diarrhea, melena, hematochezia. - as noted above. Otherwise, as noted above. Physical Exam Constitutional: no acute distress Eyes: sclerae not anicteric Respiratory: normal respiratory effort, lungs clear to auscultation Cardiovascular: Rate/Rhythm: regular rate and regular rhythm Vessels: no JVD Extremities: no calf tenderness and no edema Gastrointestinal (Abdomen): normal bowel sounds, soft, nontender, no hepatosplenomegaly Musculoskeletal: Extremities: no cyanosis Skin: no rashes, warm and dry Psychiatric: Orientation: alert and oriented x 3 Results & Data Results & Data ([facility]) Vital Signs (Past 12 Hours) Vital Signs Temp Pulse Pulse Resp BP BP Pulse Ox 05/16/20 19:23 36.7 C 90 20 122/73 93 05/16/20 15:00 88 05/16/20 14:58 36.6 C 86 20 116/72 97 05/16/20 11:33 36.6 C 84 18 120/77 96 Laboratory Results 05/16/20 06:32 05/16/20 06:32 Microbiology 05/14/20 23:16 Blood Aerobic Blood Culture - Preliminary No growth in Aerobic bottle after 48 hours. 05/14/20 23:16 Blood Anaerobic Blood Culture - Preliminary No growth in Anaerobic bottle after 48 hours. 05/14/20 23:20 Blood Aerobic Blood Culture - Preliminary No growth in Aerobic bottle after 48 hours. 05/14/20 23:20 Blood Anaerobic Blood Culture - Preliminary No growth in Anaerobic bottle after 48 hours. 05/14/20 Unknown Urine,Clean Catch Urine Culture - Final Samira albicans/dubliniensis Lactobacillus species
[2020-05-17] MEDS: LACTATED RINGER'S 1,000 ML IV SCH (04:01)
[2020-05-17 06:47] LABS: BUN Creatinine Ratio 33.2 (10-20); Calcium 8.1 mg/dl (8.5-10.1); Creatinine Clr Calc Pharmacy 72.2 ml/min; Est GFR (African American) 95.6; Est GFR (Non-African American) 82.5; Potassium 4.3 mmol/L (3.5-5.1)
[2020-05-17] MEDS: MICONAZOLE NITRATE POWDER 43 GM EXT SCH ×2 (08:22→21:40)
[2020-05-17] MEDS: ATORVASTATIN 40 MG TAB PO SCH (08:22)
[2020-05-17] MEDS: PANTOprazole 40 MG TAB PO SCH (08:27)
[2020-05-17] MEDS: METOPROLOL SUCC 25MG EXT REL TAB PO SCH (08:27)
[2020-05-17] MEDS: DOCUSATE SODIUM/SENNA 50/8.6MG TAB PO SCH (08:28)
[2020-05-17] MEDS: INSULIN ASPART 100 UNITS/ML 3 ML PEN SC SCH ×4 (08:29→21:38)
[2020-05-17] MEDS: oxyCODONE HCL IR 5 MG TAB (IMMEDIATE RELEASE) PO PRN (08:39)
[2020-05-17] MEDS ORDERED: INSULIN GLARGINE SOLOSTAR 100 UNITS/ML 3 ML PEN SC SCH (09:00)
--- NOTE | 2020-05-17 09:48 | Urology Progress Note ---
Date of Service May 17, 2020 Assessment & Plan (1) Urinary tract infection: (2) ASHLEY (acute kidney injury): Creatinine back to baseline after severe ASHLEY secondary to urinary retention Plan for discharge home with a catheter Outpatient follow-up in 2 weeks to consider voiding trial Culture showing Candidacertainly there is a chance that this is a contaminant given his severe phimosis and suspected fungal balanoposthitis His urine, however, is quite cloudy so covering him with Diflucan would likely be appropriate If suitable for outpatient antibiotic therapy and antifungal therapy I would recommend discharge home today Admission and Anticipated Discharge Date Admission Date: May 15, 2020 Subjective Substantial improvement over the past 48 hours Creatinine has returned to baseline Good urine output Tolerating the catheter Minimal discomfort from his dorsal slit incision Anxious to go home Physical Exam Physical Exam: Cloudy urine; incision healing appropriately Constitutional: well developed and well nourished Respiratory: no respiratory distress Cardiovascular: Extremities: no pedal edema Gastrointestinal (Abdomen): Inspection/Auscultation: abdomen normal to inspection Results & Data ([facility]) Vital Signs (Past 12 Hours) Vital Signs Temp Pulse Pulse Resp BP Pulse Ox 05/17/20 08:05 36.6 C 83 18 147/83 H 97 05/17/20 07:10 81 05/17/20 03:00 37.0 C 84 20 143/89 H 97 05/16/20 23:10 36.9 C 78 20 143/86 H 97 05/16/20 22:20 88 PG Care Time/CCT Total # of Minutes Spent Total Time Spent with Patient: Total time spent is greater than 50% in coordination of care (as documented) at patient's floor/unit and/or counseling patient: Coding Level of Care Code 85125 Subseq Hosp Care Lvl 2 Diagnoses Urinary tract infection N39.0 ASHLEY (acute kidney injury) N17.9
--- NOTE | 2020-05-17 10:58 | Electrocardiogram Report ---
Test Reason : Blood Pressure : / mmHG Vent. Rate : 085 BPM Atrial Rate : 085 BPM P-R Int : 162 ms QRS Dur : 112 ms QT Int : 402 ms P-R-T Axes : 063 029 042 degrees QTc Int : 478 ms Normal sinus rhythm Normal ECG When compared with ECG of 15-MAY-2020 11:35, T wave amplitude has increased in Lateral leads Confirmed by Rodney Agee ([id number]) on 05/17/2020 10:57:54 AM Referred By: REFERRED SELF Confirmed By:Rodney Agee
[2020-05-17] MEDS: CEFEPIME 2,000 MG in SYRINGE 0 ML IV SCH (12:31)
[2020-05-17] MEDS ORDERED: FLUCONAZOLE 100 MG TAB PO ONE (20:15)
--- NOTE | 2020-05-17 20:27 | Hospitalist Progress Note ---
Date of Service May 17, 2020 Assessment & Plan (1) ASHLEY (acute kidney injury): Creatinine 3.47 at time of admission. Baseline creatinine 0.7 - 0.[address] of abdomen and pelvis demonstrated markedly distended bladder with bladder wall thickening, markedly enlarged prostate, bilateral hydronephrosis. Urology consulted. Urinary retention thought to be due to a combination of phimosis / meatal stenosis and BPH. Urinary catheter insertion unsuccessful at bedside. Dorsal slit, meatal dilation, and Perera catheter placement performed by Dr. Patterson 05/15. Perera catheter to stay in place until seen for follow-up in Urology Clinic. Creatinine 3.47 >>> 0.95. (2) Urinary retention: As discussed above. (3) Phimosis: As discussed above. (4) Urinary tract infection: Urine culture 05/14 grew Samira albicans and Lactobacillus. Unlikely that Lactobacillus is pathogen. May have fungal UTI (vs colonization or contamination), present on admission. QTc 478 msec. Start fluconazole with caution. Check f/u EKG in a.m. (5) Anemia: Hbg 12.4 day of admission and fell as low as 10.6. Normocytic. No gross GI bleeding. Fe 19, TIBC 156, transferrin 131, ferritin 932, B12 560, folate 19, TSH 1.89. (6) Coronary artery disease: No anginal symptoms. Continue metoprolol and statin. (7) Hypertension: Lisinopril on hold to to ASHLEY. Continue metoprolol. 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 Usually managed with metformin, glimepiride, empagliflozin. Hgb A1c = 10.0. Hold oral agents during hospital stay. Receiving Lantus / NovoLog per protocol; dose adjusted yesterday. FBS today = 171. Blood sugar at 11:52 = 362. Lantus / NovoLog coverage adjusted. Probably best not to resume empagliflozin at time of discharge due to Candidiasis, recent surgery, and risk for genital / perineal infections. May need insulin at home if patient is willing. (9) Dyslipidemia: Continue atorvastatin. (10) Diarrhea: 3 loose stools today. Was constipated and received MiraLax and Senokot-S. Testing for C diff not indicated at this time in light of laxative use. (11) DVT prophylaxis: Initially received SQ heparin which was stopped due to postop bleeding. SCD's. Ambluate. (12) Discharge planning issues: Discharge disposition to be determined. Needs assistance with ADL's, but functional status seems to be improving daily. PT / OT evals. Family Medicine follow-up with Dr. Oviedo. Admission and Anticipated Discharge Date Admission Date: May 15, 2020 Subjective Recheck for obstructive uropathy and other problems. Patient seen in their room around 1800. Feels better. Needs less assistance with ambulation. Less postop pain. Perera cath. Few loose stools today- was constipated and received MiraLax and Senokot-S. Blood sugars running high. Review of Systems: Constitutional- no fever. Cardiac- no chest pain. Pulmonary- no cough or SOB. GI- no nausea, vomiting, melena, hematochezia. - as noted above. Otherwise, as noted above. Physical Exam Constitutional: no acute distress Eyes: sclerae not anicteric Respiratory: normal respiratory effort, lungs clear to auscultation Cardiovascular: Rate/Rhythm: regular rate and regular rhythm Vessels: no JVD Extremities: no calf tenderness and no edema Gastrointestinal (Abdomen): normal bowel sounds, soft, nontender, no hepatosp lenomegaly Musculoskeletal: Extremities: no cyanosis Skin: no rashes, warm and dry Psychiatric: Orientation: alert and oriented x 3 Genitourinary: + bladder abnormality (Perera cath) Results & Data Results & Data ([facility]) Vital Signs (Past 12 Hours) Vital Signs Temp Pulse Resp BP Pulse Ox 05/17/20 19:34 36.6 C 102 H 20 130/69 95 05/17/20 15:27 36.7 C 96 H 20 131/83 95 05/17/20 12:00 36.2 C L 83 18 136/77 96 Laboratory Results Laboratory Results - last 24 hr 05/17/20 05/17/20 05/17/20 05:48 07:50 11:52 Sodium 136 Potassium 4.3 Chloride 107 Carbon Dioxide 19 L Anion Gap 10.0 BUN 31 H Creatinine 0.95 D Est Cr Clr Drug Dosing 72.2 Est GFR ( Amer) 95.6 Est GFR (Non-Af Amer) 82.5 BUN/Creatinine Ratio 33.2 H Glucose 162 H POC Glucose 171 H 362 H* Calcium 8.1 L Beta-Hydroxybutyric Acd 05/17/20 05/17/20 05/17/20 16:22 20:32 20:32 Sodium Potassium Chloride Carbon Dioxide Anion Gap BUN Creatinine Est Cr Clr Drug Dosing Est GFR ( Amer) Est GFR (Non-Af Amer) BUN/Creatinine Ratio Glucose POC Glucose 279 H 444 H* 314 H* Calcium Beta-Hydroxybutyric Acd 05/17/20 05/17/20 05/17/20 20:33 20:34 20:48 Sodium Potassium Chloride Carbon Dioxide Anion Gap BUN Creatinine Est Cr Clr Drug Dosing Est GFR ( Amer) Est GFR (Non-Af Amer) BUN/Creatinine Ratio Glucose 305 H* POC Glucose 404 H* 352 H* Calcium Beta-Hydroxybutyric Acd 9.09 H
[2020-05-17] MEDS: AMOXICILLIN 500 MG CAP PO SCH (21:37)
[2020-05-17] MEDS: INSULIN GLARGINE SOLOSTAR 100 UNITS/ML 3 ML PEN SC SCH (21:38)
[2020-05-17 21:54] LABS: Beta-Hydroxybutyrate 9.09 mg/dl (0.2-2.81)
[2020-05-18 06:19] LABS: Hematocrit (blood only) 35.1 % (42-52); Hemoglobin 11.4 g/dL (14.0-18.0); Mean Corpuscular Hemoglobin 27.9 pg (25-34); Mean Corpuscular Hgb Conc 32.5 g/dL (32-36); Mean Platelet Volume 9.9 fL (7.4-10.4); Platelet Count 298 K/uL (130-400); RDW Coefficient of Variation 15.8 % (11.5-14.5); RDW Standard Deviation 50.3 fL (36.4-46.3); Red Blood Count 4.08 M/uL (4.7-6.1); White Blood Count 9.76 K/uL (4.8-10.8)
[2020-05-18 06:49] LABS: BUN Creatinine Ratio 31.2 (10-20); Calcium 8.3 mg/dl (8.5-10.1); Creatinine Clr Calc Pharmacy 88.6 ml/min; Est GFR (African American) 109.4; Est GFR (Non-African American) 94.4; Potassium 4.1 mmol/L (3.5-5.1)
[2020-05-18] MEDS: INSULIN ASPART 100 UNITS/ML 3 ML PEN SC SCH ×2 (08:02→12:49)
[2020-05-18] MEDS: PANTOprazole 40 MG TAB PO SCH (08:04)
[2020-05-18] MEDS: AMOXICILLIN 500 MG CAP PO SCH (08:04)
[2020-05-18] MEDS: ATORVASTATIN 40 MG TAB PO SCH (08:04)
[2020-05-18] MEDS: METOPROLOL SUCC 25MG EXT REL TAB PO SCH (08:05)
[2020-05-18] MEDS: MICONAZOLE NITRATE POWDER 43 GM EXT SCH (08:06)
[2020-05-18] MEDS: INSULIN GLARGINE SOLOSTAR 100 UNITS/ML 3 ML PEN SC SCH (08:07)
[2020-05-18] MEDS ORDERED: lisinopril 5 MG TAB PO SCH (09:00)
--- NOTE | 2020-05-18 12:20 | Electrocardiogram Report ---
Test Reason : Blood Pressure : / mmHG Vent. Rate : 096 BPM Atrial Rate : 096 BPM P-R Int : 150 ms QRS Dur : 112 ms QT Int : 360 ms P-R-T Axes : 049 023 038 degrees QTc Int : 455 ms Normal sinus rhythm Normal ECG When compared with ECG of 17-MAY-2020 06:51, No significant change was found Confirmed by Rodney Agee ([id number]) on 05/18/2020 12:19:41 PM Referred By: REFERRED SELF Confirmed By:Rodney Agee
--- NOTE | 2020-05-18 12:32 | Hospitalist Progress Note ---
Date of Service May 18, 2020 Assessment & Plan (1) ASHLEY (acute kidney injury): Creatinine 3.47 at time of admission. Baseline creatinine 0.7 - 0.[address] of abdomen and pelvis demonstrated markedly distended bladder with bladder wall thickening, markedly enlarged prostate, bilateral hydronephrosis. Urology consulted. Urinary retention thought to be due to a combination of phimosis / meatal stenosis and BPH. Urinary catheter insertion unsuccessful at bedside. Dorsal slit, meatal dilation, and Perera catheter placement performed by Dr. Patterson 05/15. Perera catheter to stay in place until seen for follow-up in Urology Clinic. Has BPH. Continue tamsulosin and finasteride. Creatinine 3.47 >>> 0.76. (2) Urinary retention: As discussed above. (3) Phimosis: As discussed above. (4) Benign prostatic hyperplasia: Continue tamsulosin + finasteride. (5) Urinary tract infection: Urine culture 05/14 grew Samira albicans and Lactobacillus. Present on admission. Unlikely that Lactobacillus is pathogen. May have fungal UTI (vs colonization or contamination), present on admission. QTc yesterday 478 msec. Rx with fluconazole with caution. QTc this morning 455 msec. Will discharge on fluconazole 100 mg daily to complete 14 days course of therapy (relatively low dose of 100 mg dose chosen because prolonged QTc). Check f/u EKG in clinic. Stop fluconazole if QTc > 500 msec. (6) Anemia: Hbg 12.4 day of admission and fell as low as 10.6. Normocytic. No gross GI bleeding. Fe 19, TIBC 156, transferrin 131, ferritin 932, B12 560, folate 19, TSH 1.89. Follow. (7) Coronary artery disease: No anginal symptoms. Continue metoprolol and statin. (8) Hypertension: Lisinopril held due to ASHLEY. Continue metoprolol. Resume lisinopril. Follow and titrate dosing. (9) Diabetes mellitus type 2 with complications: DM type 2 complicated by CAD. Usually managed with metformin, glimepiride, empagliflozin. Hgb A1c = 10.0. Hold oral agents during hospital stay. Receiving Lantus / NovoLog per protocol. Blood sugars often high and insulin dosing adjusted. Possible dietary indiscretion. FBS today = 220. Blood sugar at 1204 was 423. Lantus / NovoLog coverage adjusted. Patient and his partner comfortable with staring insulin at home (she is diabetic). Best not to resume empagliflozin at time of discharge due to Candidiasis, recent surgery, and risk for genital / perineal infections. Discharge on glimepiride, metformin, linagliptin, Lantus BID with sliding scale. Consider referral to [facility] to assist with management- will defer to PCP. (10) Dyslipidemia: Continue atorvastatin. (11) Diarrhea: 3 loose stools yesterday. Was constipated and received MiraLax and Senokot-S. Testing for C diff not indicated in light of laxative use. No diarrhea this morning. Check stools for C diff if significant diarrhea without laxatives. (12) DVT prophylaxis: Initially received SQ heparin which was stopped due to postop bleeding. SCD's. Ambluate. (13) Discharge planning issues: Skilled care or rehab considered, but functional status improving daily and now ambulating in hallway. DM not well-controlled, but patient does not wish to stay in hospital for further adjustments. Discharge to home with home health services. Family Medicine follow-up with Dr. Oviedo. Urology follow-up with [facility]. Admission and Anticipated Discharge Date Admission Date: May 15, 2020 Subjective Recheck for obstructive uropathy and other problems. Patient seen in their room around 1130. Feels much better. Stronger each day- ambulated in hallway this morning. No significant postop pain. No problems with Perera cath. Diarrhea resolved. Blood sugars running high last night. Review of Systems: Constitutional- no fever. Cardiac- no chest pain. Pulmonary- no cough or SOB. GI- no nausea, vomiting, melena, hematochezia. - as noted above. Otherwise, as noted above. Physical Exam Constitutional: no acute distress Eyes: + anicteric sclerae Respiratory: normal respiratory effort, lungs clear to auscultation Cardiovascular: Rate/Rhythm: regular rate and regular rhythm Vessels: no JVD Extremities: no calf tenderness and no edema Gastrointestinal (Abdomen): normal bowel sounds, soft, nontender, no hepatosplenomegaly Musculoskeletal: Extremities: no cyanosis Skin: no rashes, warm and dry Psychiatric: Orientation: alert and oriented x 3 Genitourinary: + bladder abnormality (Perera cath) Results & Data Results & Data ([facility]) Vital Signs (Past 12 Hours) Vital Signs Temp Pulse Pulse Resp BP BP Pulse Ox 05/18/20 07:37 97 H 05/18/20 07:15 36.6 C 91 H 18 151/85 H 98 05/18/20 04:00 36.8 C 97 H 18 144/81 H 94
--- NOTE | 2020-05-18 19:10 | Discharge Summary ---
Date of Service Date of Admission: 05/15/20 Date of Discharge: 05/18/20 Admission HPI Per Admitting Provider History obtained from patient, family, and records. Medical history significant for CAD, hypertension, hyperlipidemia, DM2 on oral meds, PUD/GERD as per records, BPH. Last confinement November 2018 for chest pain. Diffuse CAD on cardiac cath. Medical management recommended. 5 days history of achy flank pain, some urinary tension, poor urine output, some constipation. No chest pain, no S OB. No fever, no chills. Patient appetite okay. Denies inordinate NSAID intake. At the ER, patient given Ceftriaxone for UTI. Principal Diagnosis acute kidney injury due to obstructive uropathy OTHER ACUTE / NEW DIAGNOSES: UTI, present on admission DM type 2, uncontrolled Discharge Data Allergies Allergy/AdvReac Type Severity Reaction Status Date / Time No Known Allergies Allergy Verified 05/14/20 22:57 Consultations 05/14/20 22:34 ED Decision to Admit Stat 05/15/20 05:21 Consult Urology Routine Procedures Performed Operation Date: 05/15/20 08:15 Actual Procedures p [place]allo Slit, Meatal dilation - George Patterson MD Ordered Studies 05/14/20 21:19 CT abd pelvis wo con Stat 05/15/20 US venous doppler LE BI Routine Diabetes Follow up Diabetes Follow-up Needed for HgbA1c >9% Hospital Course (1) ASHLEY (acute kidney injury): Presented with difficulty voiding and flank pain. Creatinine 3.47 at time of admission. (Baseline creatinine 0.7 - 0.8 in 2019.) CT of abdomen and pelvis demonstrated markedly distended bladder with bladder wall thickening, markedly enlarged prostate, bilateral hydronephrosis. Urology consulted. Urinary retention thought to be due to a combination of phimosis / meatal stenosis and BPH. Urinary catheter insertion unsuccessful at bedside. Dorsal slit, meatal dilation, and Perera catheter placement performed by Dr. Patterson 05/15. Perera catheter to stay in place until seen for follow-up in Urology Clinic. Has BPH. Continue tamsulosin and finasteride. Creatinine 3.47 >>> 0.76. (2) Urinary retention: As discussed above. (3) Phimosis: As discussed above. (4) Benign prostatic hyperplasia: Continue tamsulosin + finasteride. (5) Urinary tract infection: Urine culture 05/14 grew Samira albicans and Lactobacillus. Present on admission. Unlikely that Lactobacillus is pathogen. May have fungal UTI (vs colonization or contamination), present on admission. QTc 05/17 = 478 msec. Rx with fluconazole with caution. QTc day of discharge = 455 msec. Discharged on fluconazole 100 mg daily to complete 14 days course of therapy (relatively low dose of 100 mg dose chosen because prolonged QTc). Check f/u EKG in clinic. Stop fluconazole if QTc > 500 msec. (6) Anemia: Hbg 12.4 day of admission and fell as low as 10.6. Normocytic. No gross GI bleeding. Fe 19, TIBC 156, transferrin 131, ferritin 932, B12 560, folate 19, TSH 1.89. Follow. (7) Coronary artery disease: No anginal symptoms. Continue metoprolol and statin. (8) Hypertension: Lisinopril held due to ASHLEY. Continue metoprolol. Resume lisinopril. Follow and titrate dosing. (9) Diabetes mellitus type 2 with complications: DM type 2 complicated by CAD. Usually managed with metformin, glimepiride, empagliflozin. Hgb A1c = 10.0. Hold oral agents during hospital stay. Receiving Lantus / NovoLog per protocol. Blood sugars often high and insulin dosing adjusted. Possible dietary indiscretion. FBS day of discharge = 220. Blood sugar at 1204 was 423. He is not interested in continued hospitalization to achieve better glycemic control. Pt and his partner comfortable with staring insulin at home (she is diabetic). Best not to resume empagliflozin at time of discharge due to Candidiasis, recent surgery, and risk for genital / perineal infections. Discharged on glimepiride, metformin, linagliptin, Lantus BID with sliding scale. Consider referral to [facility] to assist with management- will defer to PCP. (10) Dyslipidemia: Continue atorvastatin. (11) Diarrhea: 3 loose stools 05/17. Was constipated and received MiraLax and Senokot-S. Testing for C diff not indicated in light of laxative use. No diarrhea morning of discharge. Check stools for C diff if significant diarrhea without laxatives. (12) DVT prophylaxis: Initially received SQ heparin which was stopped due to postop bleeding. SCD's. Ambluating. (13) Discharge planning issues: Skilled care or rehab considered, but functional status improving daily and now ambulating in hallway. DM not well-controlled, but patient does not wish to stay in hospital for further adjustments. Discharged to home with home health services. Family Medicine follow-up with Dr. Oviedo. Urology follow-up with [facility]. Total Time Total Time Spent Total Time Spent (In Minutes): 45 Discharge Plan Discharge Items Patient Disposition: Home - Home Health Services Reason For Visit: trouble urinating, kidney problems Discharge Diagnosis: kidney failure (improved). trouble emptying bladder bladder infection Activity: As commented below Activity Comment: gradually increase activity as tolerated; use walker to avoid falls Non-emergency contact: Primary Care Provider, Hospitalist and Urologist Call non-emergency contact if: you have any medication questions, your symptoms worsen and your temperature is above 101 Follow-up/Referrals: Prosper Oviedo MD [Primary Care Provider] - (Date & Time 05/21/2020 11:20 AM Prosper Oviedo MD [facility] ) Diet: Carb Consistent or DM2 and Heart Healthy Addtl Attending Provider Instructions: MEDICATION CHANGES: STOP empagliflozin (Jardiance) It can sometimes cause severe infections. NEW MEDICATIONS: fluconazole (Diflucan) 100 mg daily For yeast infection in bladder. amoxicillin 500 mg 3 times a day For bacterial infection in bladder. long-acting insulin (Lantus) as instructed below: Use it twice a day (morning and bedtime) BLOOD SUGAR LANTUS DOSE under 101 none 101-150 10 units 151-200 15 units 201-250 20 units 251-300 25 units above 300 30 units SUMMARY OF TEST RESULTS: CT scan showed blockage in bladder and kidneys. CT scan also showed some enlarged lymph glands. Repeat CT scan recommended in 3 months. Urine culture grew yeast and bacteria. Blood sugars were high. Hemoglobin A1c was 10. OTHER INSTRUCTIONS: Perera catheter care as instructed. Please check blood sugars before meals and at bedtime. Seek medical attention if you have: * temperature above 101 * chest pain or trouble breathing * abdominal pain, nausea, vomiting * diarrhea, dark stools or bloody stools * any unanswered questions or concerns Call 911 if symptoms are severe. Please take good care of yourself. Call if you have any questions or problems. You can reach a [facility] hospitalist on duty at [facility] 24 hours a day by calling [phone]. My cell # is [phone]. Pending Studies at Discharge: No Stand-Alone Forms: My [facility], Smoking Cessation Medications and DC Order Prescriptions: New amoxicillin 500 mg Capsule 500 mg PO TID Qty: 9 RF: 0 Lantus Solostar U-100 Insulin 100 unit/mL (3 mL) Insulin Pen See Rx Instructions .ROUTE .COMPLEX Qty: 15 RF: 0 (DME) pen needle, diabetic [BD Alisa 2nd Gen Pen Needle] 32 gauge x 5/32" needle See Rx Instructions .ROUTE .MEDSUPPLY Qty: 50 RF: 6 fluconazole 100 mg tablet 100 mg PO DAILY Qty: 13 RF: 0 (DME) [facility] See Rx Instructions .ROUTE .COMPLEX Qty: 1 RF: 0 Continued atorvastatin 80 mg Tablet 80 mg PO DAILY Qty: 0 RF: 0 glimepiride 1 mg Tablet 2 mg PO DAILY Qty: 0 RF: 0 pantoprazole [Protonix] 40 mg Tablet,Delayed Release (Dr/Ec) 40 mg PO QAM Qty: 0 RF: 0 lisinopril 10 mg Tablet 10 mg PO DAILY Qty: 0 RF: 0 Tradjenta 5 mg tablet 5 mg PO DAILY RF: 0 metoprolol succinate 25 mg tablet extended release 24 hr 25 mg PO DAILY RF: 0 nitroglycerin 0.4 mg tablet, sublingual 0.4 mg sublingual DIRECTED PRN (Reason: chest pain) RF: 0 metformin 500 mg tablet 1,000 mg PO BIDM RF: 0 famotidine 20 mg tablet 20 mg PO DAILY RF: 0 tamsulosin 0.4 mg Capsule 0.4 mg PO DAILY RF: 0 gabapentin 100 mg capsule 100 mg PO TID RF: 0 finasteride 5 mg Tablet 5 mg PO DAILY RF: 0 aspirin 81 mg Tablet,Chewable 81 mg PO DAILY RF: 0 Discontinued Jardiance 25 mg tablet 25 mg PO QAM RF: 0 Discharge Orders: Discharge Order (Routine); Ordered 05/18/20 Ordered By: Austyn Collier Admission Data Admit Date/Time: 05/15/20 00:23 Attending Provider: Austyn Collier Admit Provider: Abhinav Zavala Primary Care Provider: Rozick,Prosper S. Other Providers: Abhinav Zavala ; Rodney Paul ; Keven Ervin ; George Patterson ; Erika Tom ; Marlys Eugene ; Randell Jimenez ; Pamela Min ; Harika Johnson ; Sandrita Liao ; Keshawn Morales ; Antionette Salazar ; Vijaya Rios ; Zhen Campos ; [place] Other Interventions: Discharge Summary Assessment (RN) Last Done: 05/18/20 13:33
== END 2020-05-18 14:28 | disposition home health service (06) | DRG 727 ==
LOC: ED 17:45 → SUATTDRO 05-15 00:23 → 2N 05-15 00:23

== ENCOUNTER 2020-05-20 14:03 | Inpatient (IN) ==
[2020-05-20] MEDS ORDERED: LIDOCAINE 2% JELLY 5 ML TUBE EXT ONE (16:29)
[2020-05-20] MEDS ORDERED: SODIUM CHLORIDE 0.9% 1000ML 1,000 ML IV SCH (16:30)
[2020-05-20] MEDS ORDERED: SODIUM CHLORIDE 0.9% 500 ML IV SCH (16:30)
--- NOTE | 2020-05-20 16:45 | XRay Report ---
XR chest 1V portable HISTORY: 65 years-old Male weakness acute weakness COMPARISON: Chest radiograph 05/14/2020 TECHNIQUE: Semierect AP view of the chest FINDINGS: Cardiac silhouette is upper limits of normal in size. Mild eventration of the right hemidiaphragm. No pneumothorax, pleural effusion, airspace consolidation or overt pulmonary edema. Mild linear subsegm ental scarring of the left upper lobe. Bones appear grossly intact. IMPRESSION: No acute process. ACT 112: Negative or not required by law. The above report was generated using voice recognition software. It may contain grammatical, syntax o r spelling errors. Electronically signed by: Yaw Hickman M.D. 05/20/2020 4:43 PM
[2020-05-20 17:01] LABS: Hemoglobin 11.8 g/dL (14.0-18.0); Mean Corpuscular Hemoglobin 28.3 pg (25-34); Mean Corpuscular Hgb Conc 33.7 g/dL (32-36); Mean Corpuscular Volume 83.9 fL (80-100); Platelet Count 354 K/uL (130-400); RDW Coefficient of Variation 15.6 % (11.5-14.5); RDW Standard Deviation 48.1 fL (36.4-46.3); Red Blood Count 4.17 M/uL (4.7-6.1); White Blood Count 14.27 K/uL (4.8-10.8)
[2020-05-20 17:32] LABS: Albumin Globulin Ratio 0.4 (0.9-2); BUN Creatinine Ratio 32.7 (10-20); Bilirubin,Total 0.4 mg/dl (0.2-1); Creatinine Clr Calc Pharmacy 46.1 ml/min; Est GFR (African American) 55.9; Est GFR (Non-African American) 48.3; Globulin 5.5 gm/dl (2.5-4.0); Magnesium 2.7 mg/dl (1.8-2.4); Potassium 4.8 mmol/L (3.5-5.1); Total Protein 7.5 gm/dl (6.4-8.2)
[2020-05-20 17:34] LABS: ALC (manual) 0.74 K/uL (1.2-3.4); ANC (manual) 12.41 K/uL (1.4-6.5); Eosinophils # (manual) 0.13 K/uL (0-0.5); Eosinophils % (manual) 0.9 %; Lymphocytes # (manual) 0.74 K/uL (1.2-3.4); Lymphocytes % (manual) 5.2 %; Metamyelocytes # (manual) 0.24 K/uL (0-0); Metamyelocytes % (manual) 1.7 %; Monocytes # (manual) 0.74 K/uL (0.11-0.59); Monocytes % (manual) 5.2 %; Neutrophils # (manual) 12.41 K/uL (1.4-6.5)
[2020-05-20 17:43] LABS: Beta-Hydroxybutyrate 2.72 mg/dl (0.2-2.81)
[2020-05-20] MEDS ORDERED: NovoLIN-R INSULIN PER UNIT CHARGE IV STA (17:48)
[2020-05-20] MEDS ORDERED: NovoLIN-R INSULIN PER UNIT CHARGE SC STA (17:48)
[2020-05-20] MEDS ORDERED: NYSTATIN POWDER 15GM BTL EXT STA (17:49)
[2020-05-20 18:31] LABS: Appearance Urine Turbid (Clear); Bilirubin Urine Negative (Negative); Blood Urine 3+ (Negative); Color Urine Orange; Glucose Urine UA 3+ (Negative); Ketones Urine Negative (Negative); Leukocyte Esterase Urine 3+ (Negative); Nitrite Urine Negative (Negative); Protein Urine 1+ (Negative); Specific Gravity Urine 1.013 (1.000-1.030); Urobilinogen Urine Negative (Negative)
[2020-05-20] MEDS ORDERED: cefTRIAXone SODIUM 1,000 MG/50 ML BAG IV STA (18:55)
[2020-05-20] MEDS ORDERED: FLUCONAZOLE 100 MG/50 ML BAG IV SCH (19:00)
[2020-05-20 19:15] LABS: Bacteria Urine 1+ (Negative); Hyaline Casts Urine 0-5 /lpf (0-5); WBC Urine >30 /hpf (0-5)
[2020-05-20] MEDS ORDERED: FLUCONAZOLE 100 MG/50 ML BAG IV ONE (20:15)
--- NOTE | 2020-05-20 22:42 | History and Physical Report ---
DATE OF ADMISSION: 05/20/2020 CHIEF COMPLAINT: Leaky catheter, hematuria. HISTORY OF PRESENT ILLNESS: This is a 65-year-old male with past medical history significant for type 2 diabetes, hyperlipidemia, CAD, hypertension, peptic ulcer disease. The patient was recently in the hospital for ASHLEY secondary to combination of phimosis, meatal stenosis, and BPH, and the patient is status post dorsal slit, meatal dilatation, Perera catheter placement by urology on 05/15/2020. ASHLEY got resolved and he was found to have UTI with Samira albicans, was discharged on fluconazole on 05/18/2020. The patient came to the ER today 3 times because of leaky of urine around catheter. Catheter was flushed and sent home and this time the catheter was replaced in the ER. UA was showing yeast and had some hematuria, so he was getting admitted for observation. The patient denies any pain. No fever, no chills, no other complaints. Currently resting comfortably and hemodynamically stable. Denies any headache, no blurred visions, no earache, no runny nose, no sore throat, no loss of sense of smell or taste. No cough, no shortness of breath, no chest pain. Appetite is okay. No nausea, no vomiting, no abdominal pain. Normal bowel movements. Has swelling in the legs. He says he ambulates without any support at home. Lives with his . Blood sugars were running high in the ER, he was given IV insulin. He states sugars are running up and down at home. ALLERGIES: No known drug allergies. PAST MEDICAL HISTORY: As mentioned above. PAST SURGICAL HISTORY: Repair of inguinal hernia. MEDICATIONS: The patient is on amoxicillin 500 mg p.o. t.i.d., aspirin 81 mg p.o. daily, atorvastatin 80 mg p.o. daily, famotidine 20 mg p.o. daily, finasteride 5 mg p.o. daily, fluconazole 100 mg p.o. daily, gabapentin 100 mg p.o. t.i.d., glimepiride 2 mg p.o. daily, Lantus sliding scale 30 units b.i.d., lisinopril 10 mg p.o. daily, metformin 1000 mg p.o. b.i.d., Toprol-XL 25 mg p.o. daily, nitroglycerin 0.4 mg sublingual p.r.n., Protonix 40 mg p.o. daily, Flomax 0.4 mg p.o. daily, Tradjenta 5 mg p.o. daily. FAMILY HISTORY: Significant for father had cancer, diabetes; mother has diabetes and leukemia; brother has [place] and hypertension. SOCIAL HISTORY: and lives with his . No smoking, no alcohol, no drug use. REVIEW OF SYSTEMS: As per HPI. Rest of review of systems negative. PHYSICAL EXAMINATION: GENERAL: The patient is obese, not in acute distress. VITAL SIGNS: Temperature 36.9, pulse 84, respiratory rate 20, blood pressure 121/70, oxygen 99% on room air. HEENT: Pupils equal, round, reactive to light. Oral mucosa moist. NECK: No JVD, no neck masses. CARDIOVASCULAR: S1, S2 heard, regular rate and rhythm, no murmur, no gallop. RESPIRATORY SYSTEM: Normal AP diameter. No accessory muscle use. No wheezing, no crackles. ABDOMEN: Soft, bowel sounds present, nontender. No distention. CENTRAL NERVOUS SYSTEM: Cranial nerves II-XII are grossly intact. Nonfocal. EXTREMITIES: Bilateral lower extremity edema present, no erythema seen. LABORATORY DATA: WBC 14, hemoglobin 11.8, hematocrit 35, platelets 354. Sodium 128, potassium 4.8, chloride 110, bicarbonate 21, BUN 40, creatinine 1.48, serum glucose 511, calcium 8, magnesium 2.7, total bilirubin 0.4, AST 9, ALT 22, alkaline phosphatase 59, lipase 1756. UA positive for leukocyte esterase +3, budding hyphae yeast. IMAGING DATA: Chest x-ray: No acute process seen. ASSESSMENT AND PLAN: This is a 65-year-old male who was recently in the hospital for urinary retention and is status post dorsal slit, meatal dilatation, and Perera catheter placement on 05/15/2020, who comes with leaking and obstruction. 1. Perera catheter obstruction. Came to the ER 3 times today with leaking around urinary catheter, status post catheter placement. Has some hematuria. We will monitor in the hospital. Consult urology in the a.m. 2. Urinary tract infection. Yeast in the urine. Presently on Diflucan, which will continue. Received Rocephin in ER which will be continued.. Follow the cultures. Will follow ekg for any qt prolongation. while on Diflucan. 3. Acute kidney injury. Baseline creatinine around 0.7 to 0.8, on discharge was 0.7, currently is 1.4. Getting fluids. We will follow the labs in a.m. 4. Elevated lipase, it could be non specific . He does not have any abdominal pain. Will follow the repeat labs in the a.m. 5. History of benign prostatic hypertrophy, on Flomax and Proscar. 6. Anemia, hemoglobin is 11.8 today, it was 13.2 on discharge, could be ongoing hematuria. We will follow the labs. 7. History of coronary artery disease. Continue metoprolol, statin, aspirin. 8. Hypertension. We will hold the lisinopril. Continue metoprolol. Monitor the blood pressure. 9. Diabetes. HbA1c was 10 recently. Sugars were running high when he came in. Currently received 10 units of iv and sub q insulin and sugars have come down to within 200s. Will continue his home Lantus and sliding scale. Hold metformin, glimepiride, and Tradjenta. Will closely monitor his blood sugars. If sugars are high, we may put him on insulin drip. 10. Hyperlipidemia, continue statin. 11. Hyponatremia. Na 128. Mostly pseudohyponatremia from hyperglycemia. Getting fluids.Will follow labs in am. 12. Deep venous thrombosis prophylaxis, sequential compression devices. DISPOSITION: Closely monitor in the med/tele. Expect to discharge home and follow with family doctor. Level 1 full code. MTDD
[2020-05-21] MEDS ORDERED: INSULIN GLARGINE SOLOSTAR 100 UNITS/ML 3 ML PEN SQ SCH ×2 (00:23→00:25)
[2020-05-21] MEDS ORDERED: NITROGLYCERIN SL 0.4 MG/TAB TAB SL PRN ×2 (00:23)
[2020-05-21] MEDS ORDERED: ACETAMINOPHEN 325 MG TAB PO PRN (00:23)
[2020-05-21] MEDS ORDERED: POLYETHYLENE (MIRALAX) 17 GM PACK PO PRN (00:23)
[2020-05-21] MEDS: INSULIN ASPART 100 UNITS/ML 3 ML PEN SC SCH ×3 (00:43→12:14)
[2020-05-21] MEDS ORDERED: DEXTROSE 50% 50 ML SYRINGE IV PRN (00:45)
[2020-05-21] MEDS ORDERED: GLUCOSE 40% GEL 15 GM TUBE PO PRN (00:45)
[2020-05-21] MEDS ORDERED: GLUCAGON FOR INJ 1 MG VIAL SQ PRN (00:45)
[2020-05-21] MEDS ORDERED: GLUCOSE 10 TABS/TUBE PO PRN (00:45)
[2020-05-21] MEDS: INSULIN GLARGINE SOLOSTAR 100 UNITS/ML 3 ML PEN SQ SCH ×2 (00:45→08:44)
[2020-05-21] MEDS ORDERED: CARBOHYDRATES FOR HYPOGLYCEMIA PO PRN (00:45)
--- NOTE | 2020-05-21 00:45 | Emergency Department Note ---
History of Present Illness General Chief complaint: Catheter Replacement Stated complaint: CATHETER ISSUES Time Seen by Provider: 05/20/20 16:09 Source: patient and RN notes reviewed Mode of arrival: ambulatory Limitations: no limitations History of Present Illness Provider complaint: Catheter not draining Maximum Pain Intensity: 5 This patient is a 65-year-old male who presents emergency department with complaints of a catheter that is not draining. Patient states he has been in the emergency department now 3 times in 24 hours. Patient states he had surgery with Dr. Patterson recently and had a catheter placed. He has had difficulty keeping the catheter flowing. It has been irrigated on each of the visits in the last 24 hours. He was also informed that his blood sugar was markedly elevated in addition to a lipase of 3000. Home Medications Medication Instructions Recorded Confirmed Type atorvastatin 80 mg PO DAILY #0 05/09/17 05/20/20 History glimepiride 2 mg PO DAILY #0 05/09/17 05/20/20 History lisinopril 10 mg PO DAILY #0 05/09/17 05/20/20 History pantoprazole [Protonix] 40 mg PO QAM #0 05/09/17 05/20/20 History Tradjenta 5 mg PO DAILY 11/29/18 05/20/20 History metoprolol succinate 25 mg PO DAILY 09/20/19 05/20/20 History nitroglycerin 0.4 mg SUBLINGUAL DIRECTED PRN 09/20/19 05/20/20 History metformin 1,000 mg PO BIDM 05/14/20 05/20/20 History Wheeled Walker #1 ea 05/18/20 05/20/20 Rx aspirin 81 mg PO DAILY 05/18/20 05/20/20 History finasteride 5 mg PO DAILY 05/18/20 05/20/20 History gabapentin 100 mg PO TID 05/18/20 05/20/20 History pen needle, diabetic [BD Alisa 2nd #50 ea 05/18/20 05/20/20 Rx Gen Pen Needle] tamsulosin 0.4 mg PO DAILY 05/18/20 05/20/20 History Bedside Commode #1 ea 05/21/20 Rx Lantus Solostar U-100 Insulin 20 unit SUBCUT BID #15 ml 05/21/20 05/20/20 Rx Allergies Allergy/AdvReac Type Severity Reaction Status Date / Time No Known Allergies Allergy Verified 05/20/20 17:30 Past Med/Surg History Medical History Abnormal CT scan, pelvis CT abdomen & pelvis 05/15/20: "Prominent left pelvic sidewall and left inguinal lymph nodes. These may be reactive however a short-term follow-up CT is recommended in 3 months." Angioedema Benign prostatic hyperplasia Coronary artery disease Diabetes mellitus type 2 with complications Dyslipidemia Hematuria Hypertension Urinary retention Surgical History Status post cardiac catheterization Status post cholecystectomy Family History Other No pertinent family history Social History Smoking Status: Never smoker Second Hand Exposure: No; Hx Alcohol Use: No Hx Substance Use: No Preferred Language: Romanian Communication Ability: Effective Visual Impairment: No Limitations Hearing Ability: Normal Slot Router Required: No Beliefs That Will Affect Care: None Current Living Situation: Spouse and Family Feels Safe at Home: Yes Review of Systems See HPI for pertinent positives & negatives. and A total of 10 systems reviewed and were otherwise negative Physical Exam Vital Signs Vital Signs - 24 hr 05/20/20 14:12 05/20/20 16:26 05/20/20 19:21 Temperature 36.9 C Temperature Source Oral Pulse Rate 93 H Pulse Rate [Right Finger] 88 Respiratory Rate 20 20 Respiratory Effort / Characteristics Non-Labored Spontaneous Respiratory Depth Normal Blood Pressure 114/75 Blood Pressure [Left Arm] 114/85 Blood Pressure Mean 88 Blood Pressure Mean [Left Arm] 94 Pulse Oximetry 98 97 Oxygen Delivery Method Room Air Room Air Sepsis Recent Fever Within 48 Hours No Sepsis New/Unexplained Change in Mental Status N/A Sepsis Action Taken by Nursing No Action Required Vital signs reviewed. General: Chronically ill appearing 65 yo male, slightly dissheveled, in no significant distress. HEENT: No scleral icterus, PERRLA, neck supple. Cardiovascular: Regular rate and rhythm, no extra sounds. Pulmonary: Clear to auscultation bilaterally, normal work of breathing. Abdomen: Soft, obese, mild lower abd distension, nontender, nondistended, positive bowel sounds. Musculoskeletal: Atraumatic, no peripheral edema. : Excoriated perineum/yeast dermatitis with largely buried penis, crespo catheter in place. Neurologic: Patient awake alert and oriented x 3 Skin: Warm, dry, no rash Course Administered Medications Discontinued Medications Aspirin (Aspirin 81 Mg Ectab) 81 mg PO DAILY RASHAAD Stop: 06/20/20 08:59 Last Admin: 05/21/20 07:33 Dose: 81 mg Documented by: [id number] Atorvastatin Calcium (Atorvastatin 40 Mg Tab) 80 mg PO DAILY RASHAAD Stop: 06/20/20 08:59 Last Admin: 05/21/20 07:32 Dose: 80 mg Documented by: [id number] Famotidine (Famotidine 20 Mg Tab) 20 mg PO DAILY RASHAAD Stop: 06/20/20 08:59 Last Admin: 05/21/20 07:32 Dose: 20 mg Documented by: [id number] Finasteride (Finasteride 5 Mg Tab) 5 mg PO DAILY RASHAAD Stop: 06/20/20 08:59 Last Admin: 05/21/20 07:33 Dose: 5 mg Documented by: [id number] Fluconazole (Fluconazole 100 Mg Tab) 100 mg PO DAILY RASHAAD Stop: 05/31/20 08:59 Last Admin: 05/21/20 07:32 Dose: 100 mg Documented by: [id number] Gabapentin (Gabapentin 100 Mg Cap) 100 mg PO TID RASHAAD Stop: 06/20/20 00:22 Last Admin: 05/21/20 13:42 Dose: 100 mg Documented by: [id number] Admin: 05/21/20 07:31 Dose: 100 mg Documented by: [id number] Admin: 05/21/20 00:59 Dose: 100 mg Documented by: [id number] Sodium Chloride (Nss) 500 mls @ 999 mls/hr IV .Q31M RASHAAD Stop: 05/20/20 17:00 Last Infusion: 05/20/20 18:46 Dose: 0 mls/hr Documented by: [id number] Admin: 05/20/20 17:23 Dose: 999 mls/hr Documented by: [id number] Sodium Chloride (Nss 1000ml) 1,000 mls @ 125 mls/hr IV .Q8H RASHAAD Stop: 05/21/20 00:29 Last Infusion: 05/21/20 00:24 Dose: 0 mls/hr Documented by: [id number] Admin: 05/20/20 17:23 Dose: 125 mls/hr Documented by: [id number] Ceftriaxone Sodium (Rocephin) 1,000 mg in 50 mls @ 100 mls/hr IV NOW STA Stop: 05/20/20 19:24 Last Infusion: 05/20/20 20:00 Dose: 0 mls/hr Documented by: [id number] Admin: 05/20/20 19:21 Dose: 100 mls/hr Documented by: [id number] Fluconazole (Diflucan) 100 mg in 50 mls @ 100 mls/hr IV TODAY@2014 ONE; Protocol Stop: 05/20/20 20:44 Last Infusion: 05/20/20 21:15 Dose: 0 mls/hr Documented by: [id number] Admin: 05/20/20 20:46 Dose: 100 mls/hr Documented by: [id number] Sodium Chloride (Nss 1000ml) 1,000 mls @ 125 mls/hr IV .Q8H RASHAAD Stop: 06/20/20 00:22 Last Infusion: 05/21/20 16:22 Dose: 0 mls/hr Documented by: [id number] Admin: 05/21/20 08:47 Dose: 125 mls/hr Documented by: [id number] Infusion: 05/21/20 08:47 Dose: 125 mls/hr Documented by: [id number] Admin: 05/21/20 00:48 Dose: 125 mls/hr Documented by: [id number] Insulin Aspart (Insulin Aspart 100 Units/Ml 3 Ml Pen) 0 units SC ACHS RASHAAD Stop: 06/20/20 00:22 Last Admin: 05/21/20 12:14 Dose: 27 units Documented by: [id number] Cosigned by: [id number] Admin: 05/21/20 08:44 Dose: 10 units Documented by: [id number] Cosigned by: [id number] Admin: 05/21/20 00:43 Dose: 13 units Documented by: [id number] Cosigned by: [id number] Insulin Glargine (Insulin Glargine Solostar 100 Units/Ml 3 Ml Pen) 30 units SQ BID RASHAAD Stop: 06/20/20 00:24 Last Admin: 05/21/20 00:53 Dose: Not Given Documented by: [id number] Insulin Glargine (Insulin Glargine Solostar 100 Units/Ml 3 Ml Pen) 20 units SQ BID RASHAAD Stop: 06/20/20 00:29 Last Admin: 05/21/20 08:44 Dose: 20 units Documented by: [id number] Cosigned by: [id number] Admin: 05/21/20 00:45 Dose: 20 units Documented by: [id number] Cosigned by: [id number] Insulin Human Regular (Novolin-R Insulin Per Unit Charge) 10 units IV NOW STA Stop: 05/20/20 17:49 Last Admin: 05/20/20 18:53 Dose: 10 units Documented by: [id number] Cosigned by: [id number] Insulin Human Regular (Novolin-R Insulin Per Unit Charge) 10 units SC NOW STA Stop: 05/20/20 17:49 Last Admin: 05/20/20 18:54 Dose: 10 units Documented by: [id number] Cosigned by: [id number] Lidocaine HCl (Lidocaine 2% Jelly 5 Ml Tube) 1 ml EXT NOW ONE Stop: 05/20/20 16:30 Last Admin: 05/20/20 17:22 Dose: 1 ml Documented by: [id number] Metoprolol Succinate (Metoprolol Succ 25mg Ext Rel Tab) 25 mg PO DAILY RASHAAD Stop: 06/20/20 08:59 Last Admin: 05/21/20 07:33 Dose: 25 mg Documented by: [id number] Nystatin (Nystatin Powder 15gm Btl) 1 appln EXT NOW STA Stop: 05/20/20 17:50 Last Admin: 05/20/20 18:54 Dose: 1 appln Documented by: [id number] Pantoprazole Sodium (Pantoprazole 40 Mg Tab) 40 mg PO QAM [facility] Stop: 06/20/20 08:59 Last Admin: 05/21/20 07:32 Dose: 40 mg Documented by: [id number] Tamsulosin HCl (Tamsulosin Hcl 0.4 Mg Cap) 0.4 mg PO DAILY RASHAAD Stop: 06/20/20 08:59 Last Admin: 05/21/20 07:31 Dose: 0.4 mg Documented by: [id number] Medical Decision Making Differential Diagnosis DDX: UTI, crespo dislodgement, prostatitis, SBO, renal failure, bladder mass, bladder hemorrhage Medical Records Attestation: I reviewed the patient's medical records. Home Medications Current Medication List: was personally reviewed by me Laboratory Data Attestation: I reviewed the patient's lab results. Result diagrams: 05/21/20 05:37 05/21/20 05:37 Lab Results 05/20/20 05/20/20 05/20/20 Range/Units 16:50 16:50 16:50 WBC 14.27 H (4.8-10.8) K/uL RBC 4.17 L (4.7-6.1) M/uL Hgb 11.8 L (14.0-18.0) g/dL Hct 35.0 L (42-52) % MCV 83.9 (80-100) fL MCH 28.3 (25-34) pg MCHC 33.7 (32-36) g/dL RDW Std Deviation 48.1 H (36.4-46.3) fL RDW Coeff of Naomy 15.6 H (11.5-14.5) % Plt Count 354 (130-400) K/uL MPV 10.0 (7.4-10.4) fL Neutrophils % (Manual) 87.0 % Lymphocytes % (Manual) 5.2 % Monocytes % (Manual) 5.2 % Eosinophils % (Manual) 0.9 % Metamyelocytes % (Man) 1.7 % Neutrophils # (Manual) 12.41 H (1.4-6.5) K/uL Total Absolute Neuts 12.41 H (1.4-6.5) K/uL Lymphocytes # (Manual) 0.74 L (1.2-3.4) K/uL Total Abs Lymphocytes 0.74 L (1.2-3.4) K/uL Monocytes # (Manual) 0.74 H (0.11-0.59) K/uL Eosinophils # (Manual) 0.13 (0-0.5) K/uL Metamyelocytes # (Man) 0.24 H (0-0) K/uL Sodium 128 L (136-145) mmol/L Potassium 4.8 (3.5-5.1) mmol/L Chloride 99 (98-107) mmol/L Carbon Dioxide 21 (21-32) mmol/L Anion Gap 8.0 (3-11) BUN 48 H (7-18) mg/dl Creatinine 1.48 H (0.6-1.4) mg/dl Est Cr Clr Drug Dosing 46.1 ml/min Est GFR ( Amer) 55.9 Est GFR (Non-Af Amer) 48.3 BUN/Creatinine Ratio 32.7 H (10-20) Glucose 511 H* (70-99) mg/dl Calcium 8.0 L (8.5-10.1) mg/dl Magnesium 2.7 H (1.8-2.4) mg/dl Total Bilirubin 0.4 (0.2-1) mg/dl AST 9 L (15-37) U/L ALT 22 (12-78) U/L Alkaline Phosphatase 159 H (45-117) U/L Total Protein 7.5 (6.4-8.2) gm/dl Albumin 2.0 L (3.4-5.0) gm/dl Globulin 5.5 H (2.5-4.0) gm/dl Albumin/Globulin Ratio 0.4 L (0.9-2) Lipase 1756 H (73-393) U/L Beta-Hydroxybutyric Acd 2.72 (0.2-2.81) mg/dl Urine Color Urine Appearance (Clear) Urine pH (4.5-7.5) Ur Specific Daniels (1.000-1.030) Urine Protein (Negative) Urine Glucose (UA) (Negative) Urine Ketones (Negative) Urine Blood (Negative) Urine Nitrite (Negative) Urine Bilirubin (Negative) Urine Urobilinogen (Negative) Ur Leukocyte Esterase (Negative) Urine RBC (0-4) /hpf Urine WBC (0-5) /hpf Ur Epithelial Cells (0-5) /lpf Urine Bacteria (Negative) Hyaline Casts (0-5) /lpf Urine Yeast (None Prsent) 05/20/20 Range/Units 17:56 WBC (4.8-10.8) K/uL RBC (4.7-6.1) M/uL Hgb (14.0-18.0) g/dL Hct (42-52) % MCV (80-100) fL MCH (25-34) pg MCHC (32-36) g/dL RDW Std Deviation (36.4-46.3) fL RDW Coeff of Naomy (11.5-14.5) % Plt Count (130-400) K/uL MPV (7.4-10.4) fL Neutrophils % (Manual) % Lymphocytes % (Manual) % Monocytes % (Manual) % Eosinophils % (Manual) % Metamyelocytes % (Man) % Neutrophils # (Manual) (1.4-6.5) K/uL Total Absolute Neuts (1.4-6.5) K/uL Lymphocytes # (Manual) (1.2-3.4) K/uL Total Abs Lymphocytes (1.2-3.4) K/uL Monocytes # (Manual) (0.11-0.59) K/uL Eosinophils # (Manual) (0-0.5) K/uL Metamyelocytes # (Man) (0-0) K/uL Sodium (136-145) mmol/L Potassium (3.5-5.1) mmol/L Chloride (98-107) mmol/L Carbon Dioxide (21-32) mmol/L Anion Gap (3-11) BUN (7-18) mg/dl Creatinine (0.6-1.4) mg/dl Est Cr Clr Drug Dosing ml/min Est GFR ( Amer) Est GFR (Non-Af Amer) BUN/Creatinine Ratio (10-20) Glucose (70-99) mg/dl Calcium (8.5-10.1) mg/dl Magnesium (1.8-2.4) mg/dl Total Bilirubin (0.2-1) mg/dl AST (15-37) U/L ALT (12-78) U/L Alkaline Phosphatase (45-117) U/L Total Protein (6.4-8.2) gm/dl Albumin (3.4-5.0) gm/dl Globulin (2.5-4.0) gm/dl Albumin/Globulin Ratio (0.9-2) Lipase (73-393) U/L Beta-Hydroxybutyric Acd (0.2-2.81) mg/dl Urine Color Roane Urine Appearance Turbid A (Clear) Urine pH 5.0 (4.5-7.5) Ur Specific Daniels 1.013 (1.000-1.030) Urine Protein 1+ H (Negative) Urine Glucose (UA) 3+ H (Negative) Urine Ketones Negative (Negative) Urine Blood 3+ H (Negative) Urine Nitrite Negative (Negative) Urine Bilirubin Negative (Negative) Urine Urobilinogen Negative (Negative) Ur Leukocyte Esterase 3+ H (Negative) Urine RBC 10-30 H (0-4) /hpf Urine WBC >30 H (0-5) /hpf Ur Epithelial Cells 10-20 H (0-5) /lpf Urine Bacteria 1+ H (Negative) Hyaline Casts 0-5 (0-5) /lpf Urine Yeast Budding w/ Hyphae A (None Prsent) Imaging Data Radiologist's Impression: XR chest 1V portable HISTORY: 65 years-old Male weakness acute weakness COMPARISON: Chest radiograph 05/14/2020 TECHNIQUE: Semierect AP view of the chest FINDINGS: Cardiac silhouette is upper limits of normal in size. Mild eventration of the right hemidiaphragm. No pneumothorax, pleural effusion, airspace consolidation or overt pulmonary edema. Mild linear subsegmental scarring of the left upper lobe. Bones appear grossly intact. IMPRESSION: No acute process. ACT 112: Negative or not required by law. The above report was generated using voice recognition software. It may contain grammatical, syntax or spelling errors. Electronically signed by: Yaw Hickman M.D. 05/20/2020 4:43 PM Dictated: 05/20/201641Transcribed: 05/20/201641 Blood Pressure Blood Pressure Findings: Elevated blood pressure Blood Pressure Disposition: further management by hospitalist MDM Narrative This pt was evaluated and appeared to be in no distress. The pt's crespo catheter was replaced and the catheter irrigated. Urine cultures were reviewed. Pt was noted to be growing orquidea. IV diflucan was ordered as well as ceftriaxone as crespo has been in place and manipulated on multiple occasions. Pt was given IV insulin 10 Units and SQ insulin 10 units for glucose of 511. IVF were initiated. Lipase is elevated at 1756 but improved from previous. CXR was obtained and is clear. Pt was agreeable to stay and case was d/w hospitalist for further management. Impression & Plan Complication of Crespo catheter, Hyperglycemia, Yeast UTI Discharge Plan Visit Data Chief Complaint: Catheter Replacement Stated Complaint: CATHETER ISSUES ED Provider: Valencia Schilling Discharge Problem: Complication of Crespo catheter, Hyperglycemia, Yeast UTI Patient Disposition: Admitted As Inpatient Discharge Instructions Interventions: ED Discharge Assessment Last Done: 05/20/20 23:30 Discharge Problem: Complication of Crespo catheter Qualifiers: Encounter type: subsequent encounter Qualified Code(s): T83.9XXD - Unspecified complication of genitourinary prosthetic device, implant and graft, subsequent encounter
[2020-05-21] MEDS: SODIUM CHLORIDE 0.9% 1000ML 1,000 ML IV SCH ×2 (00:48→08:47)
[2020-05-21] MEDS: GABAPENTIN 100 MG CAP PO SCH ×3 (00:59→13:42)
[2020-05-21 05:56] LABS: Hematocrit (blood only) 31.1 % (42-52); Hemoglobin 10.5 g/dL (14.0-18.0); Mean Corpuscular Hemoglobin 28.6 pg (25-34); Mean Corpuscular Hgb Conc 33.8 g/dL (32-36); Mean Corpuscular Volume 84.7 fL (80-100); Mean Platelet Volume 9.6 fL (7.4-10.4); Platelet Count 344 K/uL (130-400); RDW Coefficient of Variation 15.8 % (11.5-14.5); RDW Standard Deviation 48.8 fL (36.4-46.3); Red Blood Count 3.67 M/uL (4.7-6.1); White Blood Count 11.81 K/uL (4.8-10.8)
[2020-05-21 06:24] LABS: BUN Creatinine Ratio 41.8 (10-20); Calcium 7.6 mg/dl (8.5-10.1); Creatinine Clr Calc Pharmacy 86.7 ml/min; Est GFR (African American) 108.8; Est GFR (Non-African American) 93.9; Magnesium 2.6 mg/dl (1.8-2.4); Potassium 4.1 mmol/L (3.5-5.1)
[2020-05-21 06:27] LABS: ALC (manual) 0.51 K/uL (1.2-3.4); ANC (manual) 9.47 K/uL (1.4-6.5); Echinocytes 1+; Eosinophils # (manual) 0.71 K/uL (0-0.5); Lymphocytes # (manual) 0.51 K/uL (1.2-3.4); Lymphocytes % (manual) 4.3 %; Metamyelocytes % (manual) 1.7 %; Monocytes # (manual) 0.61 K/uL (0.11-0.59); Monocytes % (manual) 5.2 %; Myelocytes # (manual) 0.31 K/uL (0-0); Myelocytes % (manual) 2.6 %; Neutrophils # (manual) 9.47 K/uL (1.4-6.5); Neutrophils % (manual) 80.2 %
[2020-05-21 07:33] LABS: Microcytosis Present
[2020-05-21] MEDS ORDERED: ATORVASTATIN 40 MG TAB PO SCH (09:00)
[2020-05-21] MEDS ORDERED: ASPIRIN 81 MG ECTAB PO SCH (09:00)
[2020-05-21] MEDS ORDERED: FINASTERIDE 5 MG TAB PO SCH (09:00)
[2020-05-21] MEDS ORDERED: PANTOprazole 40 MG TAB PO SCH (09:00)
[2020-05-21] MEDS ORDERED: METOPROLOL SUCC 25MG EXT REL TAB PO SCH (09:00)
[2020-05-21] MEDS ORDERED: FLUCONAZOLE 100 MG TAB PO SCH (09:00)
[2020-05-21] MEDS ORDERED: FAMOTIDINE 20 MG TAB PO SCH (09:00)
[2020-05-21] MEDS ORDERED: TAMSULOSIN HCL 0.4 MG CAP PO SCH (09:00)
--- NOTE | 2020-05-21 11:21 | Urology Consultation ---
Date of Consultation May 21, 2020 Assessment & Plan (1) Complication of Perera catheter: (2) Hematuria: 65yo M who is s/p dorsal slit, meatal dilatation on 05/[address] Patterson admitted with Perera catheter complication and hematuria -Reviewed plan of care with Dr. Patterson -Patient doing well, catheter currently draining w/o difficulty -Remains afebrile, wbc is improving and creatinine is stable -No acute intervention planned today -Plan to keep Perera catheter until seen by urology as outpatient - Will arrange outpatient voiding trial -Can gently irrigate catheter as needed -Continue flomax and finasteride -Recommend continue broad spectrum antibiotics pending final urine culture results -OK to d/c fluconazole for prior orquidea positive culture -Will continue to follow while inpatient History of Present Illness Reason for Consultation: catheter obstruction; hematuria Attending Physician: Austyn Collier MD History of Present Illness The patient is a 65-year-old male with a PMHx including type 2 DM, hyperlipidemia, CAD, hypertension, and peptic ulcer disease who presented to the ER x3 times on 05/20 for leakage of urine around Perera catheter and was subsequently admitted for observation given Perera catheter obstruction and hematuria. Patient with a recent hospital admission for ASHLEY secondary to combination of phimosis, meatal stenosis, and BPH. He is s/p dorsal slit, meatal dilatation on 05/[address] Patterson. Perera catheter placement by urology on 05/15/2020. UTI with Orquidea albicans, was discharged on fluconazole on 05/18/2020. Urology consulted for catheter obstruction and hematuria Chart review: Afebrile Wbc 11.81 Hgb 10.5 Cr 0.77 Urine culture 05/20 - pending Urine culture 05/14 and 05/18- Orquidea albicans On IV Ceftriaxone and PO Diflucan Patient examined at bedside this AM. Awake, sitting up in chair on arrival. Denies fevers or chills. Tolerating diet, no nausea or vomiting. Perera catheter intact/patent, draining pink-tinged urine. Denies back, flank, and suprapubic pain. Denies dysuria. He offers no additional complaints today. Allergies Allergy/AdvReac Type Severity Reaction Status Date / Time No Known Allergies Allergy Verified 05/20/20 17:30 Home Medications Medication Instructions Recorded Confirmed Type atorvastatin 80 mg PO DAILY #0 05/09/17 05/20/20 History glimepiride 2 mg PO DAILY #0 05/09/17 05/20/20 History lisinopril 10 mg PO DAILY #0 05/09/17 05/20/20 History pantoprazole [Protonix] 40 mg PO QAM #0 05/09/17 05/20/20 History Tradjenta 5 mg PO DAILY 11/29/18 05/20/20 History metoprolol succinate 25 mg PO DAILY 09/20/19 05/20/20 History nitroglycerin 0.4 mg SUBLINGUAL DIRECTED PRN 09/20/19 05/20/20 History metformin 1,000 mg PO BIDM 05/14/20 05/20/20 History Wheeled Walker #1 ea 05/18/20 05/20/20 Rx aspirin 81 mg PO DAILY 05/18/20 05/20/20 History finasteride 5 mg PO DAILY 05/18/20 05/20/20 History gabapentin 100 mg PO TID 05/18/20 05/20/20 History pen needle, diabetic [BD Alisa 2nd #50 ea 05/18/20 05/20/20 Rx Gen Pen Needle] tamsulosin 0.4 mg PO DAILY 05/18/20 05/20/20 History Bedside Commode #1 ea 05/21/20 Rx Lantus Solostar U-100 Insulin 20 unit SUBCUT BID #15 ml 05/21/20 05/20/20 Rx Patient History Medical History (Updated 05/21/20 @ 12:45 by KUSH Machado) Abnormal CT scan, pelvis CT abdomen & pelvis 05/15/20: "Prominent left pelvic sidewall and left inguinal lymph nodes. 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 [employer] Required: No Beliefs That Will Affect Care: None Current Living Situation: Spouse and Family Feels Safe at Home: Yes Review of Systems Review of Systems: All systems reviewed & are unremarkable except as noted in HPI & below Physical Exam Constitutional: well developed and well nourished; no acute distress and not ill appearing Neck: normal visual inspection Respiratory: normal respiratory effort and able to speak in complete sentences Cardiovascular: Extremities: no calf tenderness Gastrointestinal (Abdomen): Inspection/Auscultation: abdomen normal to inspection; abdomen not distended Musculoskeletal: Head/Neck/Chest: normocephalic Skin: no rashes, warm and dry Neurologic: moves all extremities and awake; not confused Psychiatric: Orientation: alert, oriented x 3 and cooperative Genitourinary: Perera catheter intact/patent, draining pink-tinged urine Results & Data ([facility]) Vital Signs (Past 12 Hours) Vital Signs Temp Pulse Pulse Resp BP BP Pulse Ox 05/21/20 07:23 36.8 C 78 16 131/78 98 05/21/20 03:18 36.6 C 85 18 136/71 96 05/21/20 00:36 36.7 C 92 H 14 144/77 H 97 05/21/20 00:34 91 H 05/20/20 23:29 88 18 153/71 H 97 05/20/20 22:13 83 20 160/77 H 96 05/20/20 21:26 84 20 139/75 98 PG Care Time/CCT Total # of Minutes Spent Total Time Spent with Patient: Total time spent is greater than 50% in coordination of care (as documented) at patient's floor/unit and/or counseling patient: Coding Level of Care Code 95064 Initial Inpt Care Lvl 3 Diagnoses Complication of Perrea catheter T83.9XXA Encounter type: initial encounter Hematuria R31.9 (1) Complication of Perera catheter Encounter type: initial encounter Qualified Code(s): T83.9XXA - Unspecified complication of genitourinary prosthetic device, implant and graft, initial encounter
--- NOTE | 2020-05-21 13:43 | Electrocardiogram Report ---
Test Reason : Blood Pressure : / mmHG Vent. Rate : 081 BPM Atrial Rate : 081 BPM P-R Int : 162 ms QRS Dur : 100 ms QT Int : 428 ms P-R-T Axes : 000 173 158 degrees QTc Int : 497 ms Poor data quality, interpretation may be adversely affected Normal sinus rhythm Right axis deviation Possible Right ventricular hypertrophy Prolonged QT Abnormal ECG When compared with ECG of 18-MAY-2020 06:44, QRS axis Shifted right T wave inversion now evident in Lateral leads Confirmed by Jay Agudelo ([id number]) on 05/21/2020 1:43:11 PM Referred By: REFERRED SELF Confirmed By:Jay Agudelo
[2020-05-21] MEDS ORDERED: cefTRIAXone SODIUM 2,000 MG in DEXTROSE 5% 50 ML IV SCH (18:00)
--- NOTE | 2020-05-21 22:20 | Hospitalist Progress Note ---
Date of Service May 21, 2020 Assessment & Plan (1) Urinary retention: Recent admission for obstructive uropathy secondary to severe phimosis, meatal stenosis, BPH. Dorsal slit, meatal dilation, and Perera catheter placement performed by Dr. Patterson 05/15. Catheter was functioning well during hospital stay, but had multiple trips to the ED for obstruction & leakage. Initially, catheter was flushed. Catheter was replaced by ED physician. Seen in consultation by Urology. [place] that catheter was not draining well due to positioning. Perera catheter to stay in place until seen for follow-up in Urology Clinic. Arrangements made for home health nursing to assess Perera and flush PRN. (2) Acute kidney injury: Creatinine 1.48 compared to 0.76 on 05/18. ASHLEY probably due to recurrent bladder obstruction due to Perera catheter malfunction. Creatinine day of discharge = 0.77. (3) Abnormal urinalysis: UA last hospital stay showed leukocyte esterase, WBC's, RBC's, many epithelial cells, bacteria, yeast. Urine culture grew lactobacillus and Samira. ? colonization vs infection. Discharged on fluconazole. QTc now 500 mSec. DC fluconazole since Candiduria may be due to colonization. No indications for more aggressive therapy at this time (e.g., caspofungin or amphotericin bladder irrigation). Repeat urine culture pending, but specific organisms should probably not be treated unless signs / symptoms of infection. (4) Diabetes mellitus type 2 with complications: DM type 2 complicated by CAD. Usually managed with metformin, glimepiride, empagliflozin. Hgb A1c = 10.0 05/14/20. Blood sugars were elevated during last hospital stay, but pt was not interested in continued hospitalization to achieve better glycemic control. Empagliflozin stopped at time of discharge 05/18 due to Candidiasis, recent surgery, and risk for genital / perineal infections. Discharged on glimepiride, metformin, linagliptin, Lantus BID with sliding scale. Blood sugars as high as 381 this hospital stay. Received insulin with improvement. health educator spoke with patient and his partner; they indicated that he was not taking Lantus at home. (Apparently they were concerned about possibility of hypoglycemia.) Blood sugars today: 191, 312, 332. Again, patient not interested in continued hospitalization to achieve better glycemic control. Discharged on glimepiride, metformin, linagliptin, Lantus BID 20 units BID (hold for BSG < 151). Arrangements made for home health nursing to assist with management. Will need ongoing education and support. Consider referral to [facility] to assist with management- will defer to PCP. (5) Elevated lipase: Serum lipase 1756, repeat 690. LFT'S: 05/20/20 16:50 Total Bilirubin 0.4 AST 9 L ALT 22 Alkaline Phosphatase 159 H No abdominal pain. No pancreatic or biliary tract abnormalities noted on CT abdomen 05/15/20. Elevated lipase may have been related to bladder obstruction / ASHLEY. Recheck if clinically indicated. (6) Coronary artery disease: No anginal symptoms. Continue metoprolol and statin. (7) Hypertension: Continue metoprolol and lisinopril. (8) Benign prostatic hyperplasia: Continue finasteride and tamsulosin. (9) Abnormal CT scan, pelvis: CT abdomen & pelvis 05/15/20: "Prominent left pelvic sidewall and left inguinal lymph nodes. These may be reactive however a short-term follow-up CT is recommended in 3 months." (10) DVT prophylaxis: SCD's ordered. (11) Discharge planning issues: Continued hospital stay recommended for better control of diabetes, but patient insists on being discharged. Discharge to home. Family Medicine follow-up with Dr. Oviedo. Urology follow-up with Dr. Patterson. Admission and Anticipated Discharge Date Admission Date: May 20, 2020 Subjective Recheck for urinary retention, hyperglycemia, and other problems. Patient seen in their room around 1430. Would like to go home. Perera catheter replaced and draining well. Blood sugars still high. No fever, cough, SOB, nausea, vomiting, diarrhea. Physical Exam Constitutional: no acute distress Eyes: + anicteric sclerae Respiratory: normal respiratory effort, lungs clear to auscultation Cardiovascular: Rate/Rhythm: regular rate and regular rhythm Vessels: no JVD Extremities: + edema (trace pretibial); no calf tenderness Gastrointestinal (Abdomen): normal bowel sounds, soft, nontender, no hepatosplenomegaly Musculoskeletal: Extremities: no cyanosis Skin: no rashes, warm and dry Psychiatric: Orientation: alert and oriented x 3 Genitourinary: + bladder abnormality (Perera cath) Results & Data Results & Data ([facility]) Vital Signs (Past 12 Hours) Vital Signs Temp Pulse Resp BP BP Pulse Ox 05/21/20 11:04 36.5 C 85 18 130/74 98 05/21/20 07:23 36.8 C 78 16 131/78 98 05/21/20 03:18 36.6 C 85 18 136/71 96 Laboratory Results 05/21/20 05:37 05/21/20 05:37
--- NOTE | 2020-05-22 10:27 | Discharge Summary ---
Date of Service Date of Admission: 05/20/20 Date of Discharge: 05/21/20 Admission HPI Per Admitting Provider This is a 65-year-old male with past medical history significant for type 2 diabetes, hyperlipidemia, CAD, hypertension, peptic ulcer disease. The patient was recently in the hospital for ASHLEY secondary to combination of phimosis, meatal stenosis, and BPH, and the patient is status post dorsal slit, meatal dilatation, Peerra catheter placement by urology on 05/15/2020. ASHLEY got resolved and he was found to have UTI with Samira albicans, was discharged on fluconazole on 05/18/2020. The patient came to the ER today 3 times because of leaky of urine around catheter. Catheter was flushed and sent home and this time the catheter was replaced in the ER. UA was showing yeast and had some hematuria, so he was getting admitted for observation. The patient denies any pain. No fever, no chills, no other complaints. Currently resting comfortably and hemodynamically stable. Denies any headache, no blurred visions, no earache, no runny nose, no sore throat, no loss of sense of smell or taste. No cough, no shortness of breath, no chest pain. Appetite is okay. No nausea, no vomiting, no abdominal pain. Normal bowel movements. Has swelling in the legs. He says he ambulates without any support at home. Lives with his . Blood sugars were running high in the ER, he was given IV insulin. He states sugars are running up and down at home. Principal Diagnosis urinary retention due to malfunctioning Perera catheter OTHER ACUTE DIAGNOSES: acute kidney injury diabetes mellitus type 2, poorly controlled Discharge Data Allergies Allergy/AdvReac Type Severity Reaction Status Date / Time No Known Allergies Allergy Verified 05/20/20 17:30 Consultations 05/20/20 18:57 ED Decision to Admit Stat 05/21/20 00:23 Consult Case Management - Discharge Planning Routine 05/21/20 08:00 Consult Urology Routine Hospital Course (1) Urinary retention: Recent admission for obstructive uropathy secondary to severe phimosis, meatal stenosis, BPH. Dorsal slit, meatal dilation, and Perera catheter placement performed by Dr. Patterson 05/15. Catheter was functioning well during hospital stay, but had multiple trips to the ED for obstruction & leakage. Initially, catheter was flushed. Catheter was replaced by ED physician. Seen in consultation by Urology. [place] that catheter was not draining well due to positioning. Perera catheter to stay in place until seen for follow-up in Urology Clinic. Arrangements made for home health nursing to assess Perera and flush PRN. (2) Acute kidney injury: Creatinine 1.48 compared to 0.76 on 05/18. ASHLEY probably due to recurrent bladder obstruction due to Perera catheter malfunction. Creatinine day of discharge = 0.77. (3) Abnormal urinalysis: UA last hospital stay showed leukocyte esterase, WBC's, RBC's, many epithelial cells, bacteria, yeast. Urine culture grew lactobacillus and Samira. ? colonization vs infection. Discharged on fluconazole. QTc now 500 mSec. DC fluconazole since Candiduria may be due to colonization. No indications for more aggressive therapy at this time (e.g., caspofungin or amphotericin bladder irrigation). Repeat urine culture pending, but specific organisms should probably not be treated unless signs / symptoms of infection. (4) Diabetes mellitus type 2 with complications: DM type 2 complicated by CAD. Usually managed with metformin, glimepiride, empagliflozin. Hgb A1c = 10.0 05/14/20. Blood sugars were elevated during last hospital stay, but pt was not interested in continued hospitalization to achieve better glycemic control. Empagliflozin stopped at time of discharge 05/18 due to Candidiasis, recent surgery, and risk for genital / perineal infections. Discharged on glimepiride, metformin, linagliptin, Lantus BID with sliding scale. Blood sugars as high as 381 this hospital stay. Received insulin with improvement. hospice educator spoke with patient and his partner; they indicated that he was not taking Lantus at home. (Apparently they were concerned about possibility of hypoglycemia.) Blood sugars today: 191, 312, 332. Again, patient not interested in continued hospitalization to achieve better glycemic control. Discharged on glimepiride, metformin, linagliptin, Lantus BID 20 units BID (hold for BSG < 151). Arrangements made for home health nursing to assist with management. Will need ongoing education and support. Consider referral to [facility] to assist with management- will defer to PCP. (5) Elevated lipase: Serum lipase 1756, repeat 690. LFT'S: 05/20/20 16:50 Total Bilirubin 0.4 AST 9 L ALT 22 Alkaline Phosphatase 159 H No abdominal pain. No pancreatic or biliary tract abnormalities noted on CT abdomen 05/15/20. Elevated lipase may have been related to bladder obstruction / ASHLEY. Recheck if clinically indicated. (6) Coronary artery disease: No anginal symptoms. Continue metoprolol and statin. (7) Hypertension: Continue metoprolol and lisinopril. (8) Benign prostatic hyperplasia: Continue finasteride and tamsulosin. (9) Abnormal CT scan, pelvis: CT abdomen & pelvis 05/15/20: "Prominent left pelvic sidewall and left inguinal lymph nodes. These may be reactive however a short-term follow-up CT is recommended in 3 months." (10) DVT prophylaxis: SCD's ordered. (11) Discharge planning issues: Continued hospital stay recommended for better control of diabetes, but patient insists on being discharged. Discharged to home. Family Medicine follow-up with Dr. Oviedo. Urology follow-up with Dr. Patterson. Total Time Total Time Spent Total Time Spent (In Minutes): 35 Discharge Plan Discharge Items Patient Disposition: Home - Home Health Services Reason For Visit: problems with Perera catheter Discharge Diagnosis: problems with Perera catheter high blood sugars Activity: Resume your previous activity Non-emergency contact: Primary Care Provider, Hospitalist and Urologist Call non-emergency contact if: you have any medication questions, your symptoms worsen and your temperature is above 101 Follow-up/Referrals: George Patterson MD [Physician] - (Please call office for appointment in about 2 weeks.) Prosper Oviedo MD [Primary Care Provider] - (05/28/2020 12:20 PM Prosper Oviedo MD [facility] ) Diet: Carb Consistent or DM2 and Heart Healthy Addtl Attending Provider Instructions: MEDICATION CHANGES: Stop fluconazole (Diflucan). Stop famotidine (Pepcid). Stop amoxicillin. New Lantus dose: 20 units twice a day Skip dose if blood sugar is under 150. RECOMMENDATIONS FOR FOLLOW-UP: Home health nurses will come to your home to check Perera catheter and help you with your medications. OTHER INSTRUCTIONS: Check Perera catheter daily for patency / proper position. Flush catheter daily with 60 ml sterile saline. Check blood sugars 4 times a day and keep diary. Seek medical attention if you have: * temperature above 101 * chest pain or trouble breathing * abdominal pain, nausea, vomiting * diarrhea, dark stools or bloody stools * problems with Perera catheter * any unanswered questions or concerns Call 911 if symptoms are severe. Please take good care of yourself. Call if you have any questions or problems. You can reach a [facility] hospitalist on duty at [facility] 24 hours a day by calling [phone]. My cell # is [phone]. Pending Studies at Discharge: Yes Studies:: urine culture Stand-Alone Forms: My [facility] Health, Smoking Cessation Medications and DC Order Prescriptions: New (DME) Bedside Commode Misc 1 ea .Route DAILY Qty: 1 RF: 0 Continued atorvastatin 80 mg Tablet 80 mg PO DAILY Qty: 0 RF: 0 glimepiride 1 mg Tablet 2 mg PO DAILY Qty: 0 RF: 0 pantoprazole [Protonix] 40 mg Tablet,Delayed Release (Dr/Ec) 40 mg PO QAM Qty: 0 RF: 0 lisinopril 10 mg Tablet 10 mg PO DAILY Qty: 0 RF: 0 Tradjenta 5 mg tablet 5 mg PO DAILY RF: 0 metoprolol succinate 25 mg tablet extended release 24 hr 25 mg PO DAILY RF: 0 nitroglycerin 0.4 mg tablet, sublingual 0.4 mg sublingual DIRECTED PRN (Reason: chest pain) RF: 0 metformin 500 mg tablet 1,000 mg PO BIDM RF: 0 tamsulosin 0.4 mg Capsule 0.4 mg PO DAILY RF: 0 gabapentin 100 mg capsule 100 mg PO TID RF: 0 finasteride 5 mg Tablet 5 mg PO DAILY RF: 0 aspirin 81 mg Tablet,Chewable 81 mg PO DAILY RF: 0 (DME) pen needle, diabetic [BD Alisa 2nd Gen Pen Needle] 32 gauge x 5/32" needle See Rx Instructions .ROUTE .MEDSUPPLY Qty: 50 RF: 6 (DME) Wheeled [facility] See Rx Instructions .ROUTE .COMPLEX Qty: 1 RF: 0 Changed Lantus Solostar U-100 Insulin 100 unit/mL (3 mL) Insulin Pen 20 unit subcut BID Qty: 15 RF: 0 Discontinued famotidine 20 mg tablet 20 mg PO DAILY RF: 0 amoxicillin 500 mg Capsule 500 mg PO TID Qty: 9 RF: 0 fluconazole 100 mg tablet 100 mg PO DAILY Qty: 13 RF: 0 Discharge Orders: Discharge Order (Routine); Ordered 05/21/20 Ordered By: Austyn Collier Admission Data Admit Date/Time: 05/20/20 20:19 Attending Provider: Austyn Collier Admit Provider: Hayder Ramos Primary Care Provider: Prosper Oviedo Other Providers: Eloina Claudio ; George Patterson ; [place] Other Interventions: Discharge Summary Assessment (RN) Last Done: 05/21/20 15:48
== END 2020-05-21 16:43 | disposition home health service (06) | DRG 699 ==
LOC: ED 14:03 → 2N 20:19

== ENCOUNTER 2020-05-29 12:30 | Inpatient (IN) ==
--- NOTE | 2020-05-29 13:04 | Emergency Department Note ---
History of Present Illness General Chief complaint: Catheter Replacement Time Seen by Provider: 05/29/20 12:44 History of Present Illness This patient comes in with problems with his Perera catheter he has been seen here multiple times recently. He was seen here yesterday and was irrigated and was working. A nurse did a bladder scan and there is only about 35 cc. His diaper was wet though so he appears to be draining around the catheter. He tells me his blood sugars been okay and he has no complaints otherwise. He feels like he needs to urinate. No fever chills no cough or shortness of breath. No fall or trauma. Home Medications Medication Instructions Recorded Confirmed Type atorvastatin 80 mg PO QAM #0 05/09/17 05/27/20 History glimepiride 2 mg PO QAM #0 05/09/17 05/27/20 History lisinopril 10 mg PO QAM #0 05/09/17 05/27/20 History pantoprazole [Protonix] 40 mg PO QAM #0 05/09/17 05/27/20 History Tradjenta 5 mg PO QAM 11/29/18 05/27/20 History metoprolol succinate 25 mg PO QAM 09/20/19 05/27/20 History nitroglycerin 0.4 mg SUBLINGUAL DIRECTED PRN 09/20/19 05/27/20 History metformin 1,000 mg PO BIDM 05/14/20 05/27/20 History Wheeled Walker #1 ea 05/18/20 05/20/20 Rx aspirin 81 mg PO QAM 05/18/20 05/27/20 History finasteride 5 mg PO QAM 05/18/20 05/27/20 History gabapentin 100 mg PO TID 05/18/20 05/27/20 History pen needle, diabetic [BD Alisa 2nd #50 ea 05/18/20 05/20/20 Rx Gen Pen Needle] tamsulosin 0.4 mg PO QAM 05/18/20 05/27/20 History Bedside Commode #1 ea 05/21/20 Rx Lantus Solostar U-100 Insulin 20 unit SUBCUT BID #15 ml 05/21/20 05/27/20 Rx cefdinir 300 mg PO BID 10 Days #20 cap 05/27/20 Rx Allergies Allergy/AdvReac Type Severity Reaction Status Date / Time No Known Allergies Allergy Verified 05/27/20 09:00 Past Med/Surg History Medical History Abnormal CT scan, pelvis CT abdomen & pelvis 05/15/20: "Prominent left pelvic sidewall and left inguinal lymph nodes. These may be reactive however a short-term follow-up CT is recommended in 3 months." Angioedema Benign prostatic hyperplasia Coronary artery disease Diabetes mellitus type 2 with complications Dyslipidemia Hematuria Hypertension Urinary retention Surgical History Status post cardiac catheterization Status post cholecystectomy Family History Other No pertinent family history Social History Smoking Status: Never smoker Second Hand Exposure: No; Hx Alcohol Use: No Hx Substance Use: No Preferred Language: Ghanaian Communication Ability: Effective Visual Impairment: No Limitations Hearing Ability: Normal Nuts And Bolts Assembler Required: No Beliefs That Will Affect Care: None Current Living Situation: Spouse and Family Feels Safe at Home: Yes Review of Systems A total of 10 systems reviewed and were otherwise negative Physical Exam Vital Signs Vital Signs - 24 hr 05/29/20 12:39 05/29/20 14:00 05/29/20 14:03 Temperature 37 C Temperature Source Oral Pulse Rate 80 81 Pulse Rate from SpO2 Sensor 81 Respiratory Rate 18 23 Respiratory Effort / Characteristics Non-Labored Spontaneous Respiratory Depth Normal Respiratory Pattern Regular Blood Pressure 145/80 H 112/67 Blood Pressure Mean 101 80 Blood Pressure Position Lying Pulse Oximetry 98 97 97 Oxygen Delivery Method Room Air Room Air Sepsis Recent Fever Within 48 Hours No Sepsis New/Unexplained Change in Mental Status No Sepsis Action Taken by Nursing No Action Required 05/29/20 14:30 05/29/20 15:00 Temperature Temperature Source Pulse Rate 79 85 Pulse Rate from SpO2 Sensor 79 86 Respiratory Rate 24 20 Respiratory Effort / Characteristics Respiratory Depth Respiratory Pattern Blood Pressure 123/66 109/59 L Blood Pressure Mean 87 68 Blood Pressure Position Pulse Oximetry 96 96 Oxygen Delivery Method Sepsis Recent Fever Within 48 Hours Sepsis New/Unexplained Change in Mental Status Sepsis Action Taken by Nursing General: Well developed well nourished in no acute distress, breathing comfortably on room air. Normal speech HEENT: Normal cephalic atraumatic. Pupils are equal round and reactive to light. Extraocular movements are intact. Oropharynx is pink with moist mucous membranes. No swelling of the mouth lips or tongue. Neck: Supple with a midline trachea. No meningeal signs or stiffness, no JVD or bruits. No Stridor. Chest: Clear to auscultation bilaterally. No wheezes or rhonchi. No increased work of breathing. Heart: Regular rate and rhythm without murmurs or gallops. Abdomen: Soft nontender, nondistended without rebound guarding or rigidity. Perera catheter is in place. The bag appears to be empty. Extremities: No cyanosis clubbing or edema. No calf tenderness or assymetry Spine/Back. Non tender to palpation. No CVA tenderness Skin: Good turgor without rashes. Neurologic exam: Cranial nerves two through 12 are intact. Motor and sensation are intact and symmetrical throughout. Course Administered Medications Sodium Chloride (Nss 1000ml) 1,000 mls @ 999 mls/hr IV .Q1H1M ONE Stop: 05/29/20 15:31 Last Admin: 05/29/20 14:51 Dose: 999 mls/hr Documented by: [id number] Medical Decision Making Differential Diagnosis Perera catheter obstruction, UTI, dehydration, diabetic emergency Medical Records Attestation: I reviewed the patient's medical records. Home Medications Current Medication List: was personally reviewed by me Laboratory Data Result diagrams: 05/29/20 13:53 05/29/20 13:53 Lab Results 05/29/20 05/29/20 05/29/20 Range/Units 13:53 13:53 13:53 WBC 14.19 H (4.8-10.8) K/uL RBC 3.59 L (4.7-6.1) M/uL Hgb 10.0 L (14.0-18.0) g/dL Hct 29.6 L (42-52) % MCV 82.5 (80-100) fL MCH 27.9 (25-34) pg MCHC 33.8 (32-36) g/dL RDW Std Deviation 46.9 H (36.4-46.3) fL RDW Coeff of Naomy 15.4 H (11.5-14.5) % Plt Count 411 H (130-400) K/uL MPV 8.9 (7.4-10.4) fL Immature Gran % (Auto) 0.7 % Neut % (Auto) 82.5 % Lymph % (Auto) 7.2 % [place] % (Auto) 7.7 % Eos % (Auto) 1.8 % Baso % (Auto) 0.1 % Neut # (Auto) 11.71 H (1.4-6.5) K/uL Lymph # (Auto) 1.02 L (1.2-3.4) K/uL [place] # (Auto) 1.09 H (0.11-0.59) K/uL Eos # (Auto) 0.25 (0-0.5) K/uL Baso # (Auto) 0.02 (0-0.2) K/uL Immature Gran # (Auto) 0.10 H (0.00-0.02) K/uL PT 11.2 (9.0-12.0) Seconds INR 1.1 (0.9-1.1) APTT 24.7 (21.0-31.0) Seconds PTT Ratio 0.9 Sodium 121 L (136-145) mmol/L Potassium 3.6 (3.5-5.1) mmol/L Chloride 89 L (98-107) mmol/L Carbon Dioxide 21 (21-32) mmol/L Anion Gap 10.0 (3-11) BUN 11 (7-18) mg/dl Creatinine 0.73 (0.6-1.4) mg/dl Est Cr Clr Drug Dosing 112.3 ml/min Est GFR ( Amer) 111.2 Est GFR (Non-Af Amer) 96.0 BUN/Creatinine Ratio 14.8 (10-20) Glucose 145 H (70-99) mg/dl Calcium 7.2 L (8.5-10.1) mg/dl Total Bilirubin 0.7 (0.2-1) mg/dl AST 21 (15-37) U/L ALT 29 (12-78) U/L Alkaline Phosphatase 138 H (45-117) U/L Total Protein 6.8 (6.4-8.2) gm/dl Albumin 2.0 L (3.4-5.0) gm/dl Globulin 4.8 H (2.5-4.0) gm/dl Albumin/Globulin Ratio 0.4 L (0.9-2) Lipase 169 (73-393) U/L Urine Color Urine Appearance (Clear) Urine pH (4.5-7.5) Ur Specific [place] (1.000-1.030) Urine Protein (Negative) Urine Glucose (UA) (Negative) Urine Ketones (Negative) Urine Blood (Negative) Urine Nitrite (Negative) Urine Bilirubin (Negative) Urine Urobilinogen (Negative) Ur Leukocyte Esterase (Negative) Urine WBC (Auto) (0-5) /hpf Urine RBC (Auto) (0-4) /hpf U Hyaline Cast (Auto) (0-5) /lpf U Epithel Cells (Auto) (0-5) /lpf Urine Bacteria (Auto) (Negative) Urine Yeast (None Prsent) SARS-CoV-2 Ag (Rapid) (Negative) 05/29/20 05/29/20 Range/Units 13:53 Unknown WBC (4.8-10.8) K/uL RBC (4.7-6.1) M/uL Hgb (14.0-18.0) g/dL Hct (42-52) % MCV (80-100) fL MCH (25-34) pg MCHC (32-36) g/dL RDW Std Deviation (36.4-46.3) fL RDW Coeff of Naomy (11.5-14.5) % Plt Count (130-400) K/uL MPV (7.4-10.4) fL Immature Gran % (Auto) % Neut % (Auto) % Lymph % (Auto) % [place] % (Auto) % Eos % (Auto) % Baso % (Auto) % Neut # (Auto) (1.4-6.5) K/uL Lymph # (Auto) (1.2-3.4) K/uL [place] # (Auto) (0.11-0.59) K/uL Eos # (Auto) (0-0.5) K/uL Baso # (Auto) (0-0.2) K/uL Immature Gran # (Auto) (0.00-0.02) K/uL PT (9.0-12.0) Seconds INR (0.9-1.1) APTT (21.0-31.0) Seconds PTT Ratio Sodium (136-145) mmol/L Potassium (3.5-5.1) mmol/L Chloride (98-107) mmol/L Carbon Dioxide (21-32) mmol/L Anion Gap (3-11) BUN (7-18) mg/dl Creatinine (0.6-1.4) mg/dl Est Cr Clr Drug Dosing ml/min Est GFR ( Amer) Est GFR (Non-Af Amer) BUN/Creatinine Ratio (10-20) Glucose (70-99) mg/dl Calcium (8.5-10.1) mg/dl Total Bilirubin (0.2-1) mg/dl AST (15-37) U/L ALT (12-78) U/L Alkaline Phosphatase (45-117) U/L Total Protein (6.4-8.2) gm/dl Albumin (3.4-5.0) gm/dl Globulin (2.5-4.0) gm/dl Albumin/Globulin Ratio (0.9-2) Lipase (73-393) U/L Urine Color [place] Urine Appearance Cloudy A (Clear) Urine pH 5.5 (4.5-7.5) Ur Specific [place] 1.010 (1.000-1.030) Urine Protein 2+ H (Negative) Urine Glucose (UA) 2+ H (Negative) Urine Ketones Negative (Negative) Urine Blood 3+ H (Negative) Urine Nitrite Negative (Negative) Urine Bilirubin Negative (Negative) Urine Urobilinogen Negative (Negative) Ur Leukocyte Esterase 3+ H (Negative) Urine WBC (Auto) >30 H (0-5) /hpf Urine RBC (Auto) >30 H (0-4) /hpf U Hyaline Cast (Auto) 1-5 (0-5) /lpf U Epithel Cells (Auto) 0-5 (0-5) /lpf Urine Bacteria (Auto) Negative (Negative) Urine Yeast Budding A (None Prsent) SARS-CoV-2 Ag (Rapid) Negative (Negative) [facility] Narrative This patient comes in as described above he is had multiple issues with his Perera catheter. He denies any other complaints has had no fever or chills. He tends to be poorly controlled with his diabetes and tends to refuse admission. I seen him several times in the past. We did attempt to irrigate his Perera, but it did immediately squirt around the edges and we had to replace the Perera catheter. The nurse replaced it without difficulty and immediately got a large amount of bloody urine with clots. There was about 2 L of urine slowly drained. His white count is elevated at 14. He is anemic with hemoglobin at 10 but this is stable with his previous. His sodium is surprisingly low at 121. It was 141 a recheck before he has been low before but never this low. Blood sugar is 145 which is actually good for him. His kidney function is good. I do think he needs to be admitted/observed for further treatment evaluation of hyponatremia he was given a liter normal saline bolus in the ED. Additionally they can further monitor his Perera output ensure that he is adequately draining. I have consulted the [facility] hospitalist to see him in the ER for these measures. Urinalysis and culture have been sent. Dr. Gonzales will be seeing him for admission. Impression & Plan Acute hyponatremia, Obstructed Perera catheter, Acute urinary retention, Diab etes, Hematuria Discharge Plan Visit Data Chief Complaint: Catheter Replacement ED Provider: Zack Joshua Discharge Problem: Acute hyponatremia, Obstructed Perera catheter, Acute urinary retention, Diabetes, Hematuria Forms Stand Alone Forms: My [facility] Prescriptions Prescriptions: No Action atorvastatin 80 mg Tablet 80 mg PO QAM Qty: 0 RF: 0 glimepiride 1 mg Tablet 2 mg PO QAM Qty: 0 RF: 0 pantoprazole [Protonix] 40 mg Tablet,Delayed Release (Dr/Ec) 40 mg PO QAM Qty: 0 RF: 0 lisinopril 10 mg Tablet 10 mg PO QAM Qty: 0 RF: 0 Tradjenta 5 mg tablet 5 mg PO QAM RF: 0 metoprolol succinate 25 mg tablet extended release 24 hr 25 mg PO QAM RF: 0 nitroglycerin 0.4 mg tablet, sublingual 0.4 mg sublingual DIRECTED PRN (Reason: chest pain) RF: 0 metformin 500 mg tablet 1,000 mg PO BIDM RF: 0 tamsulosin 0.4 mg Capsule 0.4 mg PO QAM RF: 0 gabapentin 100 mg capsule 100 mg PO TID RF: 0 finasteride 5 mg Tablet 5 mg PO QAM RF: 0 aspirin 81 mg Tablet,Chewable 81 mg PO QAM RF: 0 (DME) pen needle, diabetic [BD Alisa 2nd Gen Pen Needle] 32 gauge x 5/32" needle See Rx Instructions .ROUTE .MEDSUPPLY Qty: 50 RF: 6 (DME) Wheeled Walker Misc See Rx Instructions .ROUTE .COMPLEX Qty: 1 RF: 0 Lantus Solostar U-100 Insulin 100 unit/mL (3 mL) Insulin Pen 20 unit subcut BID Qty: 15 RF: 0 (DME) Bedside Commode Misc 1 ea .Route DAILY Qty: 1 RF: 0 cefdinir 300 mg capsule 300 mg PO BID 10 Days Qty: 20 RF: 0 Discharge Problem: Obstructed Perera catheter Qualifiers: Encounter type: subsequent encounter Qualified Code(s): T83.091D - Other mecha nical complication of indwelling urethral catheter, subsequent encounter Diabetes Qualifiers: Diabetes mellitus type: type 2 Diabetes mellitus halfway insulin use: with manager intermediate use Diabetes mellitus complication status: with other specified complication Qualified Code(s): E11.69 - Type 2 diabetes mellitus with other specified complication Hematuria Qualifiers: Hematuria type: gross Qualified Code(s): R31.0 - Gross hematuria
[2020-05-29 14:09] LABS: Basophils # (auto) 0.02 K/uL (0-0.2); Basophils % (auto) 0.1 %; Eosinophils # (auto) 0.25 K/uL (0-0.5); Eosinophils % (auto) 1.8 %; Hematocrit (blood only) 29.6 % (42-52); Immature Granulocytes % (auto) 0.7 %; Lymphocytes # (auto) 1.02 K/uL (1.2-3.4); Lymphocytes % (auto) 7.2 %; Mean Corpuscular Hemoglobin 27.9 pg (25-34); Mean Corpuscular Hgb Conc 33.8 g/dL (32-36); Mean Corpuscular Volume 82.5 fL (80-100); Mean Platelet Volume 8.9 fL (7.4-10.4); Monocytes # (auto) 1.09 K/uL (0.11-0.59); Monocytes % (auto) 7.7 %; Neutrophils # (auto) 11.71 K/uL (1.4-6.5); Neutrophils % (auto) 82.5 %; Platelet Count 411 K/uL (130-400); RDW Coefficient of Variation 15.4 % (11.5-14.5); RDW Standard Deviation 46.9 fL (36.4-46.3); Red Blood Count 3.59 M/uL (4.7-6.1); White Blood Count 14.19 K/uL (4.8-10.8)
[2020-05-29 14:13] LABS: Appearance Urine Cloudy (Clear); Bacteria Urine Automated Negative (Negative); Bilirubin Urine Negative (Negative); Blood Urine 3+ (Negative); Color Urine Orange; Epithelial Cell Urine Auto 0-5 /lpf (0-5); Glucose Urine UA 2+ (Negative); Ketones Urine Negative (Negative); Leukocyte Esterase Urine 3+ (Negative); Nitrite Urine Negative (Negative); Protein Urine 2+ (Negative); Urobilinogen Urine Negative (Negative); WBC Urine Automated >30 /hpf (0-5); pH Urine 5.5 (4.5-7.5)
[2020-05-29 14:23] LABS: INR 1.1 (0.9-1.1); Partial Thromboplastin Ratio 0.9; Partial Thromboplastin Time 24.7 Seconds (21.0-31.0); Prothrombin Time 11.2 Seconds (9.0-12.0)
[2020-05-29 14:27] LABS: BUN Creatinine Ratio 14.8 (10-20); Calcium 7.2 mg/dl (8.5-10.1); Creatinine Clr Calc Pharmacy 112.3 ml/min; Est GFR (African American) 111.2; Potassium 3.6 mmol/L (3.5-5.1)
[2020-05-29 14:30] LABS: Albumin Globulin Ratio 0.4 (0.9-2); Bilirubin,Total 0.7 mg/dl (0.2-1); Globulin 4.8 gm/dl (2.5-4.0); Total Protein 6.8 gm/dl (6.4-8.2)
[2020-05-29] MEDS ORDERED: SODIUM CHLORIDE 0.9% 1000ML 1,000 ML IV ONE (14:31)
[2020-05-29 14:32] LABS: RBC Urine Automated >30 /hpf (0-4)
--- NOTE | 2020-05-29 15:38 | History & Physical Report ---
Date of Service May 29, 2020 Assessment & Plan (1) Complication, blocked Perera catheter: Status post dorsal slit, meatal dilatation on 05/15 and hematuria Has been having recurrent catheter blockage and required a few ER visits Catheter changed in the ER today and showed to be clot that came out through the catheter Catheter is draining clear urine now Urine was sent for culture and sensitivity We will continue current antibiotic as an outpatient Urology consult for further guidance (2) Hematuria: As above (3) Acute hyponatremia: Noted to have a sodium level of 121 Normal sodium of 141 on of this month No definite cause and asymptomatic We will restrict oral fluid intake and monitor PRP Nephrology consult for further guidance (4) Diabetes mellitus type 2 with complications: History of uncontrolled diabetes We will hold home oral medications Continue insulin and will put him on a sliding scale (5) Coronary artery disease: No acute symptoms We will continue current medications (6) Hypertension: BP seems to be controlled DVT prophylaxis SCDs for now-Due to Hematuria CODE STATUS Full History of Present Illness Chief Complaint: Recurrent blockages of with urinary catheter bleeding Primary Care Provider: Prosper Oviedo MD He is a 65-year-old male with significant past medical history of type 2 diab etes, hyperlipidemia, CAD, hypertension, peptic ulcer disease and history of phimosis with meatal stenosis status post catheter placement by urologist apparently has been coming to ER for the last few days with recurrent catheter obstruction. This morning his catheter was noted to obstructed and on replacement a bit of clot came out through the catheter and the urine drainage following that was completely clear. He complained to have some hypogastric discomfort but denies any other significant symptoms. He did not have any fever and/or chills, no abdominal pain, nausea and/or vomiting, no chest pain or palpitation and no shortness of breath. Apparently he was noted to have a very low sodium of 121 without any symptoms and the sodium was noted to be normal on 16 of this month. No history of anorexia and or weakness. And his blood glucose was 145. He was admitted to medical telemetry unit for continuation of care. Allergies Allergy/AdvReac Type Severity Reaction Status Date / Time No Known Allergies Allergy Verified 05/27/20 09:00 Home Medications Medication Instructions Recorded Confirmed Type atorvastatin 80 mg PO QAM #0 05/09/17 05/27/20 History glimepiride 2 mg PO QAM #0 05/09/17 05/27/20 History lisinopril 10 mg PO QAM #0 05/09/17 05/27/20 History pantoprazole [Protonix] 40 mg PO QAM #0 05/09/17 05/27/20 History Tradjenta 5 mg PO QAM 11/29/18 05/27/20 History metoprolol succinate 25 mg PO QAM 09/20/19 05/27/20 History nitroglycerin 0.4 mg SUBLINGUAL DIRECTED PRN 09/20/19 05/27/20 History metformin 1,000 mg PO BIDM 05/14/20 05/27/20 History Wheeled Walker #1 ea 05/18/20 05/20/20 Rx aspirin 81 mg PO QAM 05/18/20 05/27/20 History finasteride 5 mg PO QAM 05/18/20 05/27/20 History gabapentin 100 mg PO TID 05/18/20 05/27/20 History pen needle, diabetic [BD Alisa 2nd #50 ea 05/18/20 05/20/20 Rx Gen Pen Needle] tamsulosin 0.4 mg PO QAM 05/18/20 05/27/20 History Bedside Commode #1 ea 05/21/20 Rx Lantus Solostar U-100 Insulin 20 unit SUBCUT BID #15 ml 05/21/20 05/27/20 Rx cefdinir 300 mg PO BID 10 Days #20 cap 05/27/20 Rx Past Med/Surg History Medical History Abnormal CT scan, pelvis CT abdomen & pelvis 05/15/20: "Prominent left pelvic sidewall and left inguinal lymph nodes. These may be reactive however a short-term follow-up CT is recommended in 3 months." Angioedema Benign prostatic hyperplasia Coronary artery disease Diabetes mellitus type 2 with complications Dyslipidemia Hematuria Hypertension Urinary retention Surgical History Status post cardiac catheterization Status post cholecystectomy Family History Other No pertinent family history Social History Smoking Status: Never smoker Second Hand Exposure: No; Hx Alcohol Use: No Hx Substance Use: No Preferred Language: Surinamese Communication Ability: Effective Visual Impairment: No Limitations Hearing Ability: Normal Gericare Aide Required: No Beliefs That Will Affect Care: None Current Living Situation: Spouse and Family Feels Safe at Home: Yes Review of Systems Review of Systems: All systems reviewed & are unremarkable except as noted in HPI & below Physical Exam Physical Exam: No apparent distress at rest Constitutional: well developed and well nourished; no acute distress and not ill appearing Eyes: PERRL, conjunctivae normal, anicteric sclerae ENMT: external ear and nose normal, oropharynx normal Neck: trachea midline, no thyromegaly Respiratory: no respiratory distress Auscultation: lungs clear to auscultation bilaterally Cardiovascular: Rate/Rhythm: regular rate and regular rhythm Heart Sounds: no murmur Extremities: + edema (1+ edema bilaterally.) Gastrointestinal (Abdomen): Inspection/Auscultation: normal bowel sounds; ab domen not distended Percussion/Palpation: abdomen soft; abdomen nontender Musculoskeletal: No acute arthritis in any joint Neurologic: Alert, awake and oriented x3. No focal sensory and motor deficit appreciated Psychiatric: A+Ox3, euthymic affect Genitourinary: + phimosis (History of phimosis with recent surgery) and + edematous scrotum Lymphatic: no cervical or axillary lymphadenopathy Results & Data Results & Data ([facility]) Vital Signs (Past 12 Hours) Vital Signs Temp Pulse Resp BP Pulse Ox 05/29/20 15:00 85 20 109/59 L 96 05/29/20 14:30 79 24 123/66 96 05/29/20 14:03 97 05/29/20 14:00 81 23 112/67 97 05/29/20 12:39 37 C 80 18 145/80 H 98 Laboratory Results Short CBC 05/29/20 Range/Units 13:53 WBC 14.19 H (4.8-10.8) K/uL Hgb 10.0 L (14.0-18.0) g/dL Hct 29.6 L (42-52) % Plt Count 411 H (130-400) K/uL BMP 05/29/20 13:53 Sodium 121 L Potassium 3.6 Chloride 89 L Carbon Dioxide 21 BUN 11 Creatinine 0.73 Glucose 145 H Calcium 7.2 L Liver Function 05/29/20 Range/Units 13:53 Total Bilirubin 0.7 (0.2-1) mg/dl AST 21 (15-37) U/L ALT 29 (12-78) U/L Alkaline Phosphatase 138 H (45-117) U/L Albumin 2.0 L (3.4-5.0) gm/dl Urine 05/29/20 Range/Units 13:53 Urine Color [place] Urine Appearance Cloudy A (Clear) Urine pH 5.5 (4.5-7.5) Ur Specific [place] 1.010 (1.000-1.030) Urine Protein 2+ H (Negative) Urine Glucose (UA) 2+ H (Negative) Code Status & VTE Plan VTE Prophylaxis Plan VTE Prophylaxis will be ordered: Yes (1) Hematuria Hematuria type: gross Qualified Code(s): R31.0 - Gross hematuria (2) Complication, blocked Perera catheter Encounter type: initial encounter Qualified Code(s): T83.091A - Other mechanical complication of indwelling urethral catheter, initial encounter
--- NOTE | 2020-05-29 16:13 | Nephrology Consultation ---
Date of Consultation May 29, 2020 Assessment & Plan (1) Hyponatremia: truly acute hyponatremia w/ drop by 14 points w/in a day. no sx on presentation; presenting sNa 121 at 1400 today. sNa was 135 on 05/28. -will recheck at 1700 along w/ serum osms >> 128, 256 respectively -await pending urine studies -agree w/ 1.2 L FR for now -given rapid change in sodium prior to admission, rapid correction is not necessarily contraindicated -gave 20 mEq po K x 1 >> maintain eukalemia Present on Admission?: Yes History of Present Illness Reason for Consultation: hyponatremia Requesting Physician: Dr Gonzales Attending Physician: Dr Gonzales History of Present Illness 65 y/o M whom I'm asked to see for hyponatremia after he was admitted today for recurrent crespo catheter blockage and noted to have sNa 121, after normal value earlier this month and even yesterday in [facility]. he has had intermittent mild hyponatremia in the past, including earlier this month. Other PMH includes chronic urinary retention, HTN, DM on insulin, CAD. he is s/p dorsal slit/ meatal dilatation on 05/15 and has had recurrent catheter blockage since then; catheter changed in ER and clot removed with that exchange; with clear drainage now. urine cx and urology c/s pending. He was started on 1.2 L FR; IVF were stopped in ER. Repeat bmp ordered for 2199. of note yesterday as OP in [facility] his sNa was 135, w/ BG 282 at the time. states that pcp recently started him on "a water pill to flush my kidneys out;" no diuretics on home med list or mentioned in pcp note yesterday Allergies Allergy/AdvReac Type Severity Reaction Status Date / Time No Known Allergies Allergy Verified 05/29/20 16:16 Home Medications Medication Instructions Recorded Confirmed Type atorvastatin 80 mg PO QAM #0 05/09/17 05/29/20 History glimepiride 2 mg PO QAM #0 05/09/17 05/29/20 History lisinopril 10 mg PO QAM #0 05/09/17 05/29/20 History pantoprazole [Protonix] 40 mg PO QAM #0 05/09/17 05/29/20 History Tradjenta 5 mg PO QAM 11/29/18 05/29/20 History metoprolol succinate 25 mg PO QAM 09/20/19 05/29/20 History nitroglycerin 0.4 mg SUBLINGUAL DIRECTED PRN 09/20/19 05/29/20 History metformin 1,000 mg PO BIDM 05/14/20 05/29/20 History aspirin 81 mg PO QAM 05/18/20 05/29/20 History finasteride 5 mg PO QAM 05/18/20 05/29/20 History gabapentin 100 mg PO TID 05/18/20 05/29/20 History tamsulosin 0.4 mg PO QAM 05/18/20 05/29/20 History Lantus Solostar U-100 Insulin 20 unit SUBCUT BID #15 ml 05/21/20 05/29/20 Rx cefdinir 300 mg PO BID 10 Days #20 cap 05/27/20 05/29/20 Rx Patient History Medical History Abnormal CT scan, pelvis CT abdomen & pelvis 05/15/20: "Prominent left pelvic sidewall and left inguinal lymph nodes. These may be reactive however a short-term follow-up CT is recommended in 3 months." Angioedema Benign prostatic hyperplasia Coronary artery disease Diabetes mellitus type 2 with complications Dyslipidemia Hematuria Hypertension Urinary retention Surgical History Status post cardiac catheterization Status post cholecystectomy Family History Other No pertinent family history Social History Smoking Status: Never smoker Second Hand Exposure: No; Hx Alcohol Use: No Hx Substance Use: No Preferred Language: Chinese Communication Ability: Effective Visual Impairment: No Limitations Hearing Ability: Normal District Manager Required: No Beliefs That Will Affect Care: None Current Living Situation: Spouse and Family Other Information That Helps Us Care for You: No Feels Safe at Home: Yes Safety Concerns: Feels Safe At This Time Assistive Devices: None Review of Systems Review of Systems: All systems reviewed & are unremarkable except as noted in HPI & below Constitutional: no fatigue, no weakness and no anorexia Respiratory: no cough, no chest congestion, no dyspnea and no hemoptysis Cardiovascular: no dyspnea on exertion, no orthopnea, no syncope and no edema Gastrointestinal: no abdominal pain, no nausea and no vomiting Genitourinary: + as per Subjective / HPI Musculoskeletal: no myalgia, no muscle weakness and no body aches Integumentary: no rash and no non-healing lesions Neurologic: no unsteadiness, no falls and no localized weakness Physical Exam Constitutional: well developed, well nourished and + obese; no acute distress Eyes: EOM intact bilaterally ENMT: Ears: no external ear abnormality Nose: no external nose abnormality Mouth: + dry oral mucous membranes Neck: no nuchal rigidity Respiratory: normal respiratory effort Auscultation: lungs clear to auscultation bilaterally and + diminished lung sounds Cardiovascular: RRR, no murmur, no edema Gastrointestinal (Abdomen): Inspection/Auscultation: normal bowel sounds Percussion/Palpation: abdomen soft; abdomen nontender Musculoskeletal: no cyanosis or clubbing, extremities motor strength 5/5 Extremities: strength 5/5 throughout Skin: no rashes, warm and dry Neurologic: nguyen, fluent speech, no tremor Psychiatric: Orientation: alert and oriented x 3 Eye Contact: good eye contact Affect: + flat affect Genitourinary: crespo w/ ample clear yellow urine Results & Data ([facility]) Vital Signs (Past 12 Hours) Vital Signs Temp Pulse Resp BP Pulse Ox 05/29/20 15:00 85 20 109/59 L 96 05/29/20 14:30 79 24 123/66 96 05/29/20 14:03 97 05/29/20 14:00 81 23 112/67 97 05/29/20 12:39 37 C 80 18 145/80 H 98 Laboratory Results 05/29/20 13:53 05/29/20 13:53 crespo UA: cloudy orange urine; 5.5; s.g.1010; 2+ protein, glucose, 3+ blood; > 30 wbc, RBC/HPF; and yeast present no serum osms; urine osms/lytes pending collection
[2020-05-29 16:17] LABS: Creatinine Urine Random 21.3 mg/dl; Urine Potassium 11.4 mmol/L
[2020-05-29] MEDS ORDERED: POTASSIUM CHLORIDE CRTAB 20 MEQ TABCR PO STA ×2 (16:44→17:40)
[2020-05-29 17:20] LABS: BUN Creatinine Ratio 13.4 (10-20); Calcium 7.1 mg/dl (8.5-10.1); Creatinine Clr Calc Pharmacy 120.6 ml/min; Est GFR (African American) 114.5; Est GFR (Non-African American) 98.8; Potassium 3.3 mmol/L (3.5-5.1)
[2020-05-29] MEDS ORDERED: NITROGLYCERIN SL 0.4 MG/TAB TAB SL PRN (18:39)
[2020-05-29] MEDS ORDERED: CARBOHYDRATES FOR HYPOGLYCEMIA PO PRN (18:45)
[2020-05-29] MEDS ORDERED: GLUCOSE 10 TABS/TUBE PO PRN (18:45)
[2020-05-29] MEDS ORDERED: GLUCAGON FOR INJ 1 MG VIAL IM PRN (18:45)
[2020-05-29] MEDS ORDERED: GLUCOSE 40% GEL 15 GM TUBE PO PRN (18:45)
[2020-05-29] MEDS ORDERED: DEXTROSE 50% 50 ML SYRINGE IV PRN (18:45)
[2020-05-29] MEDS: CEFDINIR 300 MG CAP PO SCH (20:17)
[2020-05-29] MEDS: GABAPENTIN 100 MG CAP PO SCH (20:17)
[2020-05-29] MEDS: INSULIN ASPART 100 UNITS/ML 3 ML PEN SC SCH ×2 (20:55→20:59)
[2020-05-29] MEDS: INSULIN GLARGINE SOLOSTAR 100 UNITS/ML 3 ML PEN SQ SCH (21:00)
[2020-05-29] MEDS ORDERED: POTASSIUM CHLORIDE 40 MEQ in DEXTROSE 5% 1,000 ML IV SCH (21:00)
[2020-05-29] MEDS ORDERED: HEPARIN SOD 5,000 UNIT/0.5 ML VIAL SQ SCH (21:00)
[2020-05-29 22:36] LABS: BUN Creatinine Ratio 11.7 (10-20); Calcium 7.5 mg/dl (8.5-10.1); Creatinine Clr Calc Pharmacy 122.4 ml/min; Est GFR (African American) 115.2; Est GFR (Non-African American) 99.4; Potassium 3.9 mmol/L (3.5-5.1)
[2020-05-30] MEDS: GABAPENTIN 100 MG CAP PO SCH ×2 (07:45→12:24)
[2020-05-30] MEDS: INSULIN GLARGINE SOLOSTAR 100 UNITS/ML 3 ML PEN SQ SCH (07:46)
[2020-05-30] MEDS: CEFDINIR 300 MG CAP PO SCH (07:46)
[2020-05-30] MEDS: INSULIN ASPART 100 UNITS/ML 3 ML PEN SC SCH ×2 (07:48→12:26)
[2020-05-30] MEDS ORDERED: D5W AND 1/2NSS 1,000 ML IV SCH (08:00)
[2020-05-30 08:45] LABS: Basophils # (auto) 0.02 K/uL (0-0.2); Basophils % (auto) 0.2 %; Eosinophils # (auto) 0.32 K/uL (0-0.5); Eosinophils % (auto) 2.7 %; Hematocrit (blood only) 33.4 % (42-52); Hemoglobin 10.8 g/dL (14.0-18.0); Immature Granulocytes # (auto) 0.06 K/uL (0.00-0.02); Immature Granulocytes % (auto) 0.5 %; Lymphocytes # (auto) 0.87 K/uL (1.2-3.4); Lymphocytes % (auto) 7.3 %; Mean Corpuscular Hemoglobin 27.4 pg (25-34); Mean Corpuscular Hgb Conc 32.3 g/dL (32-36); Mean Corpuscular Volume 84.8 fL (80-100); Mean Platelet Volume 9.3 fL (7.4-10.4); Monocytes # (auto) 0.96 K/uL (0.11-0.59); Monocytes % (auto) 8.1 %; Neutrophils # (auto) 9.64 K/uL (1.4-6.5); Neutrophils % (auto) 81.2 %; Platelet Count 425 K/uL (130-400); RDW Coefficient of Variation 15.4 % (11.5-14.5); RDW Standard Deviation 47.7 fL (36.4-46.3); Red Blood Count 3.94 M/uL (4.7-6.1); White Blood Count 11.87 K/uL (4.8-10.8)
[2020-05-30] MEDS ORDERED: TAMSULOSIN HCL 0.4 MG CAP PO SCH (09:00)
[2020-05-30] MEDS ORDERED: METOPROLOL SUCC 25MG EXT REL TAB PO SCH (09:00)
[2020-05-30] MEDS ORDERED: ATORVASTATIN 40 MG TAB PO SCH (09:00)
[2020-05-30] MEDS ORDERED: lisinopril 10 MG TAB PO SCH (09:00)
[2020-05-30] MEDS ORDERED: PANTOprazole 40 MG TAB PO SCH (09:00)
[2020-05-30] MEDS ORDERED: FINASTERIDE 5 MG TAB PO SCH (09:00)
[2020-05-30] MEDS ORDERED: ASPIRIN 81 MG ECTAB PO SCH (09:00)
[2020-05-30 09:08] LABS: BUN Creatinine Ratio 8.4 (10-20); Creatinine Clr Calc Pharmacy 97.4 ml/min; Est GFR (African American) 109.4; Est GFR (Non-African American) 94.4; Potassium 4.3 mmol/L (3.5-5.1)
--- NOTE | 2020-05-30 10:02 | Nephrology Progress Note ---
Date of Service May 30, 2020 Assessment & Plan (1) Hyponatremia: truly acute hyponatremia w/ drop by 14 points w/in a day. no sx on presentation; presenting sNa 121 at 1400 today. sNa was 135 on 05/28. Sodium now up to 138 -Agree with D5 half NS at 80 mL/h -given rapid change in sodium prior to admission, rapid correction is not necessarily contraindicated Admission and Anticipated Discharge Date Admission Date: May 29, 2020 Subjective Patient seen for hyponatremia. He feels fine. No shortness of breath. No vomiting or diarrhea. Sodium corrected 138 this morning. Review of Systems Review of Systems: All systems reviewed & are unremarkable except as noted in HPI & below Physical Exam Physical Exam: General exam: Appears comfortable, no acute distress HEENT: Pupils are equal and reactive to light Neck: No JVD, neck is supple trachea is midline Respiratory system: Clear breath sounds bilaterally. Gastrointestinal: Abdomen is soft, non distended, non tender, bowel sounds are present CVS: Regular rate and rhythm. No murmurs, rubs or gallops Musculoskeletal: No joint or muscle tenderness Extremities: Non tender, no edema, peripheral pulses are present Neuro: Oriented, no tremors, no focal neurological deficits Skin: No rashes Results & Data ([facility]) Vital Signs (Past 12 Hours) Vital Signs Temp Pulse Pulse Resp BP Pulse Ox 05/30/20 07:12 37.2 C 87 97 H 20 127/75 97 05/30/20 04:11 37.5 C 90 18 110/70 96 05/30/20 00:09 37.1 C 87 18 117/72 97 05/29/20 22:39 86 Laboratory Results 05/30/20 08:24 05/29/20 05/29/20 05/30/20 13:53 13:53 08:24 WBC 14.19 H 11.87 H RBC 3.59 L 3.94 L MCV 82.5 84.8 MCH 27.9 27.4 MCHC 33.8 32.3 RDW Std Deviation 46.9 H 47.7 H RDW Coeff of Naomy 15.4 H 15.4 H Plt Count 411 H 425 H MPV 8.9 9.3 Albumin 2.0 L
--- NOTE | 2020-05-30 10:06 | Urology Consultation ---
Date of Consultation May 30, 2020 Assessment & Plan (1) Complication, blocked Perera catheter: 65yo M s/p dorsal slit, meatal dilatation on 05/[address] Patterson admitted with Perera catheter complication, hematuria, and hyponatremia. - Afebrile, labs reviewed - creatinine WNL, WBC improved to 11.87 today - UC&S pending - follow cultures - Perera catheter intact, patent and draining without difficulty today - Reviewed plan of care with Dr. Patterson - Discussed options for voiding trial today while inpatient vs keep Perera catheter until scheduled outpatient voiding trial on 06/04 - He elects to keep catheter until scheduled voiding trial - Okay to gently irrigate catheter as needed - Continue Tamsulosin and Finasteride - Keep scheduled outpatient follow-up for voiding trial Thank you for allowing us to participate in the acute care of Mr. Diamond. Please reconsult us with additional questions, concerns or changes in patient status. History of Present Illness Reason for Consultation: Perera complication, hematuria Attending Physician: Fredi Zeng MD History of Present Illness 65yo M s/p dorsal slit, meatal dilatation on 05/[address] Patterson admitted with Perera catheter complication, hematuria, and hyponatremia. PMHx type 2 DM, hyperlipidemia, CAD, hypertension, and peptic ulcer disease. Patient is known to our service from prior admissions. Initial hospital admission for [facility] secondary to combination of phimosis, meatal stenosis, and BPH. He is s/p dorsal slit, meatal dilatation on 05/[address] Patterson. Subsequent multiple ER presentations and admission for Perera catheter complications. He presented to [facility] ED again on 05/29 c/o Perera complication. Perera catheter was irrigated and noted to be leaking significantly. Perera was exchanged in ED with about 2L of blood tinged urine with clots slowly drained per notes. Urine culture obtained. Lab work: Na 121, Creat 0.73, WBC 14.19. He was admitted for obstructed Perera and hyponatremia. Our service is consulted for Perera complication and hematuria. Chart review: Afebrile WBC - 11.87 Hgb - 10.8 Cr - 0.76 Na - 138 Urine culture 05/29 - pending Multiple recent urine cultures showing Samira albicans On PO Cefdinir Pt seen and examined at bedside today. He is asleep and lying in bed on arrival, arouses easily to speech. Appears comfortable. No issues overnight. Offers no complaints at present. Denies issues with catheter overnight. Tolerating Perera catheter. Perera intact, patent, and draining clear yellow urine with minimal pink tinge, some sediment noted in tubing. No abdominal, flank, or suprapubic pain. No fever or chills. No nausea or vomiting. No additional concerns at this time. Allergies Allergy/AdvReac Type Severity Reaction Status Date / Time No Known Allergies Allergy Verified 05/29/20 16:16 Home Medications Medication Instructions Recorded Confirmed Type atorvastatin 80 mg PO QAM #0 05/09/17 05/29/20 History glimepiride 2 mg PO QAM #0 05/09/17 05/29/20 History lisinopril 10 mg PO QAM #0 05/09/17 05/29/20 History pantoprazole [Protonix] 40 mg PO QAM #0 05/09/17 05/29/20 History Tradjenta 5 mg PO QAM 11/29/18 05/29/20 History metoprolol succinate 25 mg PO QAM 09/20/19 05/29/20 History nitroglycerin 0.4 mg SUBLINGUAL DIRECTED PRN 09/20/19 05/29/20 History metformin 1,000 mg PO BIDM 05/14/20 05/29/20 History aspirin 81 mg PO QAM 05/18/20 05/29/20 History finasteride 5 mg PO QAM 05/18/20 05/29/20 History gabapentin 100 mg PO TID 05/18/20 05/29/20 History tamsulosin 0.4 mg PO QAM 05/18/20 05/29/20 History Lantus Solostar U-100 Insulin 20 unit SUBCUT BID #15 ml 05/21/20 05/29/20 Rx cefdinir 300 mg PO BID 10 Days #20 cap 05/27/20 05/29/20 Rx Patient History Medical History Abnormal CT scan, pelvis CT abdomen & pelvis 05/15/20: "Prominent left pelvic sidewall and left inguinal lymph nodes. These may be reactive however a short-term follow-up CT is recommended in 3 months." Angioedema Benign prostatic hyperplasia Coronary artery disease Diabetes mellitus type 2 with complications Dyslipidemia Hematuria Hypertension Urinary retention Surgical History Status post cardiac catheterization Status post cholecystectomy Family History Other No pertinent family history Social History Smoking Status: Never smoker Second Hand Exposure: No; Hx Alcohol Use: No Hx Substance Use: No Preferred Language: Honduran Communication Ability: Effective Visual Impairment: No Limitations Hearing Ability: Normal Second Watch Sergeant Required: No Beliefs That Will Affect Care: None marital status: Single Current Living Situation: Spouse and Family Other Information That Helps Us Care for You: No Feels Safe at Home: Yes Safety Concerns: Feels Safe At This Time Assistive Devices: None Review of Systems Constitutional: as per Subjective / HPI Gastrointestinal: as per Subjective / HPI Genitourinary: + as per Subjective / HPI Physical Exam Constitutional: well developed and well nourished; no acute distress and not ill appearing Respiratory: normal respiratory effort and able to speak in complete sentences; no respiratory distress and no labored breathing Cardiovascular: Extremities: no pedal edema Gastrointestinal (Abdomen): Inspection/Auscultation: abdomen normal to inspection; abdomen not distended Percussion/Palpation: abdomen soft; abdomen nontender Musculoskeletal: Head/Neck/Chest: normocephalic and head atraumatic Neurologic: moves all extremities and awake Psychiatric: Orientation: alert and oriented x 3 Genitourinary: Buried penis. Perera intact, patent, draining clear yellow urine, minimal pink tinge, some sediment noted in tubing Results & Data ([facility]) Vital Signs (Past 12 Hours) Vital Signs Temp Pulse Pulse Resp BP Pulse Ox 05/30/20 07:12 37.2 C 87 97 H 20 127/75 97 05/30/20 04:11 37.5 C 90 18 110/70 96 05/30/20 00:09 37.1 C 87 18 117/72 97 05/29/20 22:39 86 PG Care Time/CCT Total # of Minutes Spent Total Time Spent with Patient: Total time spent is greater than 50% in coordinat ion of care (as documented) at patient's floor/unit and/or counseling patient: Coding Level of Care Code 99241 Inpt Consult Level 3 Diagnoses Complication, blocked Perera catheter T83.091A Encounter type: initial encounter (1) Complication, blocked Perera catheter Encounter type: initial encounter Qualified Code(s): T83.091A - Other mechanical complication of indwelling urethral catheter, initial encounter
--- NOTE | 2020-05-30 10:14 | Hospitalist Progress Note ---
Date of Service May 30, 2020 Assessment & Plan (1) Complication, blocked Crespo catheter: -As per the ED notes on 05/29/20 "This patient comes in with problems with his Crespo catheter he has been seen here multiple times recently. He was seen here yesterday and was irrigated and was working. A nurse did a bladder scan and there is only about 35 cc. His diaper was wet though so he appears to be draining around the catheter. He tells me his blood sugars been okay and he has no complaints otherwise. He feels like he needs to urinate. No fever chills no cough or shortness of breath. No fall or trauma." -according to the 05/29/2020 hospitalist note that patient "Status post dorsal slit, meatal dilatation on 05/15 and hematuria. Has been having recurrent catheter blockage and required a few ER visits. Catheter changed in the ER today and showed to be clot that came out through the catheter. Catheter is draining clear urine now. Urine was sent for culture and sensitivity" -on the 05/30/2020 hospitalist exam that Patient's serum sodium and serum potassium has normalized while on IV fluids and serum potassium supplements. On 05/30/2020 AM labs, the serum 138 and serum potassium 4.3. Patient reports that his main health issues of having a too small crespo catheter from home has been resolved after crespo exchanged on this hospital visit. Crespo with yellow urine in the crespo bag. No blood noted in the crespo bag. Patient denies any problem with bowel movements. No other symptoms - no chest pain, no shortness of breath, no abdomen pain, no vomiting. He had diarrhea that resolved a week ago. He denies any problems with ambulation. laboratory manager reports that patient has home health services. Patient denies any fever at home. Previous urine cultures of Samira albicans. The 05/29/2020 urine cultures are pending. Patient has been on cefdinir 300 mg BID for 2 days before hospital presentation. He was to continue a 10 day course of cefdinir- This likely can be continued. The initial WBC of 14 K on 05/29/2020 trended down to 11 K after IV fluids on this hospital stay. Patient reports he has been afebrile. Patient reports that he wishes to be discharged today on 05/29/2020 to celebrate Thanksgiving. He has upcoming outpatient appointment on 06/04/2020 urology appointment with [facility] [address] [place] [address] Dr, [place] [address] (2) Hematuria: -appears resolved (3) Acute hyponatremia: -05/29/2020 presentation serum sodium 121 (Normal sodium of 141 on 05/21/2020), serum potassium 3.3 on presentation -hyponatremia possibly from diarrhea that resolved 1 week ago -nephrology consult assessed the patient -Patient's serum sodium and serum potassium has normalized while on IV fluids and serum potassium supplements. on 05/30/2020 AM labs, the serum 138 and serum potassium 4.3 -Patient will need repeat serum sodium and serum potassium labs by primary care doctor after hospital discharge (4) Diabetes mellitus type 2 with complications: -History of uncontrolled diabetes -HbA1c 10.6 on 05/28/2020 labs as reviewed on [facility] chart -patient's home oral medications were held while in the hospital and placed on insulin with sliding scale -Patient requests to be discharge on 05/30/2020 and can continue home dose diabetes medication with insulin and review with primary care doctor the diabet es medication control on 06/05/2020 11:20 AM Provider Prosper Oviedo MD Department [facility] (5) Coronary artery disease: -No acute symptoms -continue home dose aspirin and atorvastatin (6) Hypertension: -continue home dose lisinopril 10 mg daily Admission and Anticipated Discharge Date Admission Date: May 29, 2020 Subjective -on the 05/30/2020 hospitalist exam that Patient's serum sodium and serum potassium has normalized while on IV fluids and serum potassium supplements. On 05/30/2020 AM labs, the serum 138 and serum potassium 4.3. Patient reports that his main health issues of having a too small crespo catheter from home has been resolved after crespo exchanged on this hospital visit. Crespo with yellow urine in the crespo bag. No blood noted in the crespo bag. Patient denies any problem with bowel movements. No other symptoms - no chest pain, no shortness of breath, no abdomen pain, no vomiting. He had diarrhea that resolved a week ago. He denies any problems with ambulation. laboratory manager reports that patient has home health services. Patient denies any fever at home. Previous urine cultures of Samira albicans. The 05/29/2020 urine cultures are pending. Patient has been on cefdinir 300 mg BID for 2 days before hospital presentation. He was to continue a 10 day course of cefdinir- This likely can be continued. The initial WBC of 14 K on 05/29/2020 trended down to 11 K after IV fluids on this hospital stay. Patient reports he has been afebrile. Patient reports that he wishes to be discharged today on 05/29/2020 to celebrate Thanksgiving. He has upcoming outpatient appointment on 06/04/2020 urology appointment with [facility] [address] [place] [address] , [place] [address] Review of Systems Review of Systems: All systems reviewed & are unremarkable except as noted in Subjective Physical Exam Constitutional: comfortable Eyes: PERRL, conjunctivae normal, anicteric sclerae EOM intact bilaterally ENMT: external ear and nose normal, oropharynx normal Neck: normal visual inspection Respiratory: normal respiratory effort, lungs clear to auscultation Cardiovascular: Rate/Rhythm: regular rate and regular rhythm Gastrointestinal (Abdomen): normal bowel sounds, soft, nontender, no h epatosplenomegaly Musculoskeletal: Head/Neck/Chest: normocephalic Neurologic: PERRL, EOMI, accommodation nl, no face palsy, no dysarthria moves all extremities Psychiatric: A+Ox3, euthymic affect Genitourinary: + penis abnormality (crespo, drains yellow urine) Results & Data Results & Data ([facility]) Vital Signs (Past 12 Hours) Vital Signs Temp Pulse Pulse Resp BP Pulse Ox 05/30/20 07:12 37.2 C 87 97 H 20 127/75 97 05/30/20 04:11 37.5 C 90 18 110/70 96 05/30/20 00:09 37.1 C 87 18 117/72 97 05/29/20 22:39 86 (1) Hematuria Hematuria type: gross Qualified Code(s): R31.0 - Gross hematuria (2) Complication, blocked Crespo catheter Encounter type: initial encounter Qualified Code(s): T83.091A - Other mechanical complication of indwelling urethral catheter, initial encounter
--- NOTE | 2020-05-30 12:16 | Discharge Summary ---
Date of Service May 30, 2020 Admission HPI Per Admitting Provider He is a 65-year-old male with significant past medical history of type 2 diabetes, hyperlipidemia, CAD, hypertension, peptic ulcer disease and history of phimosis with meatal stenosis status post catheter placement by urologist apparently has been coming to ER for the last few days with recurrent catheter obstruction. This morning his catheter was noted to obstructed and on replacement a bit of clot came out through the catheter and the urine drainage following that was completely clear. He complained to have some hypogastric discomfort but denies any other significant symptoms. He did not have any fever and/or chills, no abdominal pain, nausea and/or vomiting, no chest pain or palpitation and no shortness of breath. Apparently he was noted to have a very low sodium of 121 without any symptoms and the sodium was noted to be normal on 16 of this month. No history of anorexia and or weakness. And his blood glucose was 145. He was admitted to medical telemetry unit for continuation of care. Principal Diagnosis Complication, blocked Conteh catheter (Problem with Conteh Catheter resolved with conteh catheter replacement while in the hospital) Hematuria Acute hyponatremia (resolved) Diabetes mellitus type 2 with complications Coronary artery disease Hypertension Discharge Exam Constitutional comfortable Eyes PERRL, conjunctivae normal, anicteric sclerae EOM intact bilaterally ENMT external ear and nose normal, oropharynx normal Neck normal visual inspection Respiratory normal respiratory effort, lungs clear to auscultation Cardiovascular Rate/Rhythm: regular rate and regular rhythm Gastrointestinal (Abdomen) normal bowel sounds, soft, nontender, no hepatosplenomegaly Musculoskeletal Head/Neck/Chest: normocephalic Neurologic PERRL, EOMI, accommodation nl, no face palsy, no dysarthria moves all extremities Psychiatric A+Ox3, euthymic affect Genitourinary + penis abnormality (conteh, drains yellow urine) Discharge Data Allergies Allergy/AdvReac Type Severity Reaction Status Date / Time No Known Allergies Allergy Verified 05/29/20 16:16 Consultations 05/29/20 14:57 ED Decision to Admit Stat 05/29/20 15:46 Consult Urology Routine 05/29/20 19:03 Consult Nephrology Routine 05/30/20 09:33 Consult Case Management - Discharge Planning Routine Hospital Course (1) Complication, blocked Conteh catheter: -As per the ED notes on 05/29/20 "This patient comes in with problems with his Conteh catheter he has been seen here multiple times recently. He was seen here yesterday and was irrigated and was working. A nurse did a bladder scan and there is only about 35 cc. His diaper was wet though so he appears to be draining around the catheter. He tells me his blood sugars been okay and he has no complaints otherwise. He feels like he needs to urinate. No fever chills no cough or shortness of breath. No fall or trauma." -according to the 05/29/2020 hospitalist note that patient "Status post dorsal slit, meatal dilatation on 05/15 and hematuria. Has been having recurrent catheter blockage and required a few ER visits. Catheter changed in the ER today and showed to be clot that came out through the catheter. Catheter is draining clear urine now. Urine was sent for culture and sensitivity" -on the 05/30/2020 hospitalist exam that Patient's serum sodium and serum potassium has normalized while on IV fluids and serum potassium supplements. On 05/30/2020 AM labs, the serum 138 and serum potassium 4.3. Patient reports that his main health issues of having a too small conteh catheter from home has been resolved after conteh exchanged on this hospital visit. Conteh with yellow urine in the conteh bag. No blood noted in the conteh bag. Patient denies any problem with bowel movements. No other symptoms - no chest pain, no shortness of breath, no abdomen pain, no vomiting. He had diarrhea that resolved a week ago. He denies any problems with ambulation. 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 Patient denies any fever at home. Previous urine cultures of Samira albicans. The 05/29/2020 urine cultures are pending. Patient has been on cefdinir 300 mg BID for 2 days before hospital presentation. He was to continue a 10 day course of cefdinir- This likely can be continued. The initial WBC of 14 K on 05/29/2020 trended down to 11 K after IV fluids on this hospital stay. Patient reports he has been afebrile. Patient reports that he wishes to be discharged today on 05/29/2020 to celebrate Thanksgiving. He has upcoming outpatient appointment on 06/04/2020 urology appointment with [facility] [address] [place] [address] [place] [address] (2) Hematuria: -appears resolved (3) Acute hyponatremia: -05/29/2020 presentation serum sodium 121 (Normal sodium of 141 on 05/21/2020), serum potassium 3.3 on presentation -hyponatremia possibly from diarrhea that resolved 1 week ago -nephrology consult assessed the patient -Patient's serum sodium and serum potassium has normalized while on IV fluids and serum potassium supplements. on 05/30/2020 AM labs, the serum 138 and serum potassium 4.3 -Patient will need repeat serum sodium and serum potassium labs by primary care doctor after hospital discharge (4) Diabetes mellitus type 2 with complications: -History of uncontrolled diabetes -HbA1c 10.6 on 05/28/2020 labs as reviewed on [employer] chart -patient's home oral medications were held while in the hospital and placed on insulin with sliding scale -Patient requests to be discharge on 05/30/2020 and can continue home dose diabetes medication with insulin and review with primary care doctor the diabetes medication control on 06/05/2020 11:20 AM Provider Prosper Oviedo MD Department [facility] (5) Coronary artery disease: -No acute symptoms -continue home dose aspirin and atorvastatin (6) Hypertension: -continue home dose lisinopril 10 mg daily Total Time Total Time Spent Total Time Spent (In Minutes): 40 minutes Total Time Includes: Examination of the Patient, Discharge Planning, Medication Reconciliation and Communication With Other Providers Discharge Plan Discharge Items Patient Disposition: Home - Home Health Services Reason For Visit: HYPONATREMIA, COMPLICATION WITH CONTEH Discharge Diagnosis: Complication, blocked Conteh catheter (Problem with Conteh Catheter resolved with conteh catheter replacement while in the hospital) Hematuria Acute hyponatremia (resolved) Diabetes mellitus type 2 with complications Coronary artery disease Hypertension Condition on Discharge: Good Activity: Per Instructions section Non-emergency contact: Primary Care Provider and Urologist Call non-emergency contact if: you have any medication questions Follow-up/Referrals: Prosper Oviedo MD [Primary Care Provider] - (Date & Time 06/05/2020 11:20 AM Provider Prosper Oviedo MD Department [facility] ) Diet: Carb Consistent or DM2 Addtl Attending Provider Instructions: discharge pharmacy [address] [address] Patient has 06/04/2020 urology appointment with [facility] [address] [place] [address] , [place] [address] Patient will need repeat serum sodium and serum potassium labs by primary care doctor after hospital discharge -History of uncontrolled diabetes -HbA1c 10.6 on 05/28/2020 labs as reviewed on [employer] chart -patient's home oral medications were held while in the hospital and placed on insulin with sliding scale -Patient requests to be discharge on 05/30/2020 and can continue home dose diabetes medication with insulin and review with primary care doctor the diabetes medication control on 06/05/2020 11:20 AM Provider Prosper Oviedo MD Department [facility] Pending Studies at Discharge: Yes Studies:: 05/29/2020 urine culture pending Stand-Alone Forms: My [facility], Smoking Cessation Medications and DC Order Prescriptions: Continued atorvastatin 80 mg Tablet 80 mg PO QAM Qty: 0 RF: 0 glimepiride 1 mg Tablet 2 mg PO QAM Qty: 0 RF: 0 pantoprazole [Protonix] 40 mg Tablet,Delayed Release (Dr/Ec) 40 mg PO QAM Qty: 0 RF: 0 lisinopril 10 mg Tablet 10 mg PO QAM Qty: 0 RF: 0 Tradjenta 5 mg tablet 5 mg PO QAM RF: 0 metoprolol succinate 25 mg tablet extended release 24 hr 25 mg PO QAM RF: 0 nitroglycerin 0.4 mg tablet, sublingual 0.4 mg sublingual DIRECTED PRN (Reason: chest pain) RF: 0 metformin 500 mg tablet 1,000 mg PO BIDM RF: 0 tamsulosin 0.4 mg Capsule 0.4 mg PO QAM RF: 0 gabapentin 100 mg capsule 100 mg PO TID RF: 0 finasteride 5 mg Tablet 5 mg PO QAM RF: 0 aspirin 81 mg Tablet,Chewable 81 mg PO QAM RF: 0 Lantus Solostar U-100 Insulin 100 unit/mL (3 mL) Insulin Pen 20 unit subcut BID Qty: 15 RF: 0 cefdinir 300 mg capsule 300 mg PO BID 10 Days Qty: 20 RF: 0 Discharge Orders: Discharge Order (Routine); Ordered 05/30/20 Ordered By: Fredi Zeng Admission Data Admit Date/Time: 05/29/20 16:16 Attending Provider: Fredi Zeng Admit Provider: Rupa Gonzales Care Provider: Prosper Oviedo Other Providers: Rupa Gonzales ; George Patterson ; Lauren Pandey ; [place]
== END 2020-05-30 13:14 | disposition home health service (06) | DRG 641 ==
LOC: ED 12:30 → SUATTDRO 16:16 → 2N 16:16

== ENCOUNTER 2020-10-17 06:46 | Inpatient (IN) ==
[2020-10-17] MEDS ORDERED: ACETAMINOPHEN 1,000 MG/100 ML VIAL IV STA (07:02)
[2020-10-17] MEDS ORDERED: MoRPHine SULFATE 4 MG/ML 1 ML CARP\\VIAL IV STA (07:07)
[2020-10-17] MEDS ORDERED: SODIUM CHLORIDE 0.9% 1000ML 1,000 ML IV ONE ×2 (07:07→08:43)
[2020-10-17 07:54] LABS: Basophils # (auto) 0.02 K/uL (0-0.2); Basophils % (auto) 0.3 %; Eosinophils # (auto) 0.08 K/uL (0-0.5); Eosinophils % (auto) 1.2 %; Hemoglobin 14.6 g/dL (14.0-18.0); Immature Granulocytes # (auto) 0.03 K/uL (0.00-0.02); Immature Granulocytes % (auto) 0.5 %; Lymphocytes # (auto) 1.09 K/uL (1.2-3.4); Lymphocytes % (auto) 16.8 %; Mean Corpuscular Hemoglobin 27.7 pg (25-34); Mean Corpuscular Volume 81.6 fL (80-100); Mean Platelet Volume 11.3 fL (7.4-10.4); Monocytes # (auto) 0.45 K/uL (0.11-0.59); Neutrophils % (auto) 74.2 %; Platelet Count 270 K/uL (130-400); RDW Coefficient of Variation 14.9 % (11.5-14.5); RDW Standard Deviation 44.4 fL (36.4-46.3); Red Blood Count 5.27 M/uL (4.7-6.1); White Blood Count 6.47 K/uL (4.8-10.8)
[2020-10-17 08:01] LABS: Appearance Urine Turbid (Clear); Bacteria Urine Automated Negative (Negative); Bilirubin Urine Negative (Negative); Blood Urine 3+ (Negative); Color Urine Yellow; Glucose Urine UA 3+ (Negative); Ketones Urine 2+ (Negative); Leukocyte Esterase Urine 2+ (Negative); Nitrite Urine Negative (Negative); Protein Urine 1+ (Negative); Specific Gravity Urine 1.027 (1.000-1.030); Urobilinogen Urine Negative (Negative); WBC Urine Automated >30 /hpf (0-5)
[2020-10-17 08:18] LABS: Cast Urine Automated 0 /lpf (0-5)
[2020-10-17 08:27] LABS: Albumin Globulin Ratio 0.6 (0.9-2); Albumin Level 3.2 gm/dl (3.4-5.0); BUN Creatinine Ratio 40.1 (10-20); Bilirubin,Total 0.5 mg/dl (0.2-1); Calcium 10.9 mg/dl (8.5-10.1); Creatinine Clr Calc Pharmacy 56.7 ml/min; Est GFR (African American) 75.9; Est GFR (Non-African American) 65.5; Globulin 5.4 gm/dl (2.5-4.0); Potassium 4.8 mmol/L (3.5-5.1); Total Protein 8.6 gm/dl (6.4-8.2)
[2020-10-17] MEDS ORDERED: DKA GOAL RANGE 150-250 mg/dl ONE ×2 (08:52→11:15)
[2020-10-17 08:58] LABS: Influenza A virus by PCR Negative (Neg); Influenza B virus by PCR Negative (Neg); RSV by PCR Negative (Neg); SARS CoV2 RNA(COVID-19) InHosp NEGATIVE (Negative)
[2020-10-17] MEDS ORDERED: PENDING 1/2NSS+20mEq KCL IVF SCH (09:00)
[2020-10-17] MEDS ORDERED: OPTIRAY 320 100ml IV ONE (09:02)
[2020-10-17 09:07] LABS: Beta-Hydroxybutyrate 63.47 mg/dl (0.2-2.81)
--- NOTE | 2020-10-17 09:14 | XRay Report ---
SINGLE VIEW CHEST CLINICAL HISTORY: Generalized abdominal pain. FINDINGS: An AP, portable, upright chest radiograph is compared to study dated 05/20/2020. The cardio mediastinal silhouette is unremarkable. The lungs and pleural spaces are clear. No pneumothorax is se en. The bony thorax is grossly intact. IMPRESSION: No active disease in the chest. ACT 112: Negative or not required by law. Electronically signed by: Clarence Barahona M.D. 10/17/2020 9:13 AM
[2020-10-17] MEDS: INSULIN REGULAR 250 UNITS in SODIUM CHLORIDE 0.9% 247.5 ML IV SCH (09:40)
[2020-10-17] MEDS ORDERED: SODIUM CHLOR 0.45% + 20MEQ KCL 20 MEQ/1,000 ML BAG IV SCH (09:45)
[2020-10-17 09:49] LABS: Base Excess VBG -10.8 mEq/L; pH VBG 7.32 (7.36-7.41)
--- NOTE | 2020-10-17 09:49 | CT Scan Report ---
ABDOMEN AND PELVIS CT WITH IV CONTRAST CT DOSE: 906.02 mGy.cm HISTORY: lower abdominal pain, indwelling crespo cath TECHNIQUE: Multiaxial CT images of the abdomen and pelvis were performed following the use of intrave nous contrast. A dose lowering technique was utilized adhering to the principles of ALARA. COMPARISON STUDY: Abdomen and pelvis CT 05/14/2020. FINDINGS: The lung bases are clear. No pneumoperitoneum. No pneumatosis. No suspicious lytic or blast ic osseous lesions. The heart is normal in size. Small hiatus hernia. Multiple small to moderate midl ine ventral hernias containing fat. This remains unchanged. There is fat-containing right inguinal he rnia. The hernia sac also appears to partially containing the cecum. This remains unchanged. There is also a small fat-containing right femoral hernia, unchanged. The bladder is a Crespo catheter is seen within the prostatic urethra. The tip is located within the bladder base. There is severe bladder di stention with mild bladder wall thickening and adjacent fat stranding. This has progressed in the int erval. Therefore, this favors a bladder outlet obstruction from the Crespo catheter. Small of gas with in the bladder lumen is likely due to the recent catheterization. There is moderate to severe bilater al hydroureteronephrosis which is not significantly changed. A few scattered bilateral renal hypodens e lesions are also unchanged. Dominant cyst within the lower pole the right kidney measures 9.6 cm. T here is also a 1.7 cm hypodense lesion within the interpolar region of the right kidney best in image 193. This is stable compared to the 2017 examination and therefore also favors a cyst. Post cystecto my. The liver, spleen, adrenal glands, and pancreas are unremarkable. No retroperitoneal lymphadenopa thy. Colonic diverticulosis. No evidence for acute diverticulitis. No definite bowel wall thickening or obstruction. Normal appendix. The prostate gland remains markedly enlarged. A few prominent left p elvic sidewall and left inguinal lymph nodes remain stable. IMPRESSION: 1. Markedly distended bladder which demonstrates a thickened wall and mild adjacent fat stranding. Th ere is also moderate to severe bilateral hydronephrosis. This is likely secondary to bladder outlet o bstruction from the Crespo catheter balloon which is located within the prostatic urethra. Recommend r emoval/repositioning of the Crespo catheter. Trace gas within the bladder lumen is likely due to the c atheterization. 2. Markedly enlarged prostate gland, unchanged. 3. Colonic diverticulosis. No evidence for acute diverticulitis. 4. Additional stable findings as described above. 5. These findings were discussed with Dr. ochoa at 9:45 AM on 10/17/2020.. ACT 112: Negative or not required by law. Electronically signed by: Jose Shen M.D. 10/17/2020 9:48 AM
[2020-10-17] MEDS ORDERED: POLYETHYLENE (MIRALAX) 17 GM PACK PO PRN (10:48)
[2020-10-17] MEDS ORDERED: MAGNESIUM HYDROXIDE SUSP 30 ML UDC PO PRN (10:48)
[2020-10-17] MEDS ORDERED: ONDANSETRON INJ 2 MG/ML 2 ML VIAL IV PRN (10:48)
[2020-10-17] MEDS ORDERED: ALUMINUM/MAGNESIUM SUSP 30 ML UDC PO PRN (10:48)
[2020-10-17] MEDS ORDERED: LABETALOL HCL IV 5 MG/ML 20ML IV STA (11:02)
[2020-10-17] MEDS ORDERED: PHARMACY GLYCEMIC MGMT CONSULT STA (11:15)
--- NOTE | 2020-10-17 11:20 | History & Physical Report ---
Date of Service October 17, 2020 Assessment & Plan (1) Abdominal pain: (2) Obstructive uropathy: (3) DKA, type 2: This is a 65-year-old male who has significant past medical history of insulin- dependent T2DM, CAD, HTN, HLD, PUD, BPH with obstructive uropathy chronic Crespo who presents to ED with at bedside secondary to abdominal pain x1 day. Abdominal pain/obstructive uropathy BPH with crespo 2/2 to prostatic abscess with extension to scrotum CT abdomen pelvis revealed markedly distended bladder and moderate to severe bilateral hydronephrosis secondary to bladder outlet obstruction from Crespo catheter balloon located in the prostatic urethra. Nursing staff in ED advanced Crespo and had 2200 mL of urine output instantaneously. Patient's abdominal pain improved significantly. 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 He had a scrotal exploration and has had Crespo catheter ever since. He had VCUG 09/19 which was unremarkable. Patient failed a voiding trial on 10/10 and Crespo catheter was replaced. He is scheduled for outpatient cystoscopy. Consult urology secondary to severe bilateral hydronephrosis although given significant output with advancement of Crespo - likely this will resolve. Continue Flomax and finasteride Urine culture ordered and pending IV Rocephin empirically Uncontrolled T2DM Diabetic ketoacidosis in type II Insulin drip per protocol, glycemic pharmacy on board IVF + 20meq KCL, goal range 150-250 pending IVF + D5 when bsg in goal range serial vbg, bmp, mag, phos adaptive physical educator last a1c 10.6 on 05/28/20 Hold Metformin Hypertensive urgency give 10mg IV labetalol x1 now and as needed every 6 hours Possibly exacerbated by pain in setting of urinary obstruction, monitor Continue metoprolol Start lisinopril 5 mg daily -previously had been on 10 mg daily but this had since been discontinued secondary to softer blood pressures per outpatient record SHEREEN inhibitor would benefit in setting of T2DM CAD Continue ASA, statin, metoprolol No chest pain or shortness of breath PUD IV pepcid Elevated Lipase unknown etiology, has been elevated in past ? setting of dka no epigastric pain/n/v CT a/p shows normal appearing pancreas repeat in a.m. DVT ppx: SQ Lovenox Dispo: PCU PCP: Rozick FULL CODE Pt was seen and examined in collaboration with Dr. Campos, please see addendum History of Present Illness Chief Complaint: Abdominal pain x 1 day. Primary Care Provider: Prosper Oviedo MD This is a 65-year-old male who has significant past medical history of insulin- dependent T2DM, CAD, HTN, HLD, PUD, BPH with obstructive uropathy chronic Crespo who presents to ED with at bedside secondary to abdominal pain x1 day. He elicits he woke up this morning with severe abdominal pain mostly located in suprapubic region. Pain was very sharp and constant. He states he had his Crespo catheter changed on 10/10 and admits to gradually increasing pain ever since. He has had output from his Crespo catheter. He denied any fever, chills, sweats, lightheadedness, dizziness, chest pain, shortness of breath, URI symptoms, cough, nausea or vomiting. He admits to being more constipated and had 2 very small but hard stools today. When he arrived at ED work-up revealed significant obstructive uropathy secondary to Crespo placement and dislodgment with severe bilateral hydronephrosis. Nursing staff advanced Crespo and got 2200 mL of urine output and immediate relief of patient's abdominal pain. During further work-up patient was found to have significant hyperglycemia and evidence of DKA. He was recommended for admission. Patient states at home he has been having difficulty controlling his blood sugars and they have been consistently running in the 4-500s. He he admits to being compliant with insulin. He follows [facility] glycemic pharmacy. His appetite has been normal. No recent illness. Allergies Allergy/AdvReac Type Severity Reaction Status Date / Time No Known Allergies Allergy Verified 10/17/20 08:23 Home Medications Medication Instructions Recorded Confirmed Type atorvastatin 80 mg PO QAM #0 05/09/17 10/17/20 History pantoprazole [Protonix] 40 mg PO QAM #0 05/09/17 10/17/20 History metoprolol succinate 25 mg PO QAM 09/20/19 10/17/20 History nitroglycerin 0.4 mg SUBLINGUAL DIRECTED PRN 09/20/19 10/17/20 History aspirin 81 mg PO QAM 05/18/20 10/17/20 History gabapentin 100 mg PO TID 05/18/20 10/17/20 History finasteride 5 mg tablet 5 mg PO QAM #90 tab 06/05/20 10/17/20 Rx tamsulosin 0.4 mg capsule 0.4 mg PO DAILY #90 cap 06/05/20 10/17/20 Rx metformin 1,000 mg PO DAILY 07/20/20 10/17/20 History semaglutide [Ozempic] 0.25 mg SUBCUT WK 07/20/20 10/17/20 History Lantus Solostar U-100 Insulin 36 unit SUBCUT BID 10/17/20 10/17/20 History insulin aspart (niacinamide) 1 sliding scale dose SUBCUT 10/17/20 10/17/20 History USEASDIRECTD Past Med/Surg History Medical History (Updated 10/17/20 @ 11:36 by Dena Gavin PA-C) Abnormal CT scan, pelvis CT abdomen & pelvis 05/15/20: "Prominent left pelvic sidewall and left inguinal lymph nodes. These may be reactive however a short-term follow-up CT is recommended in 3 months." Acute hyponatremia Angioedema Benign prostatic hyperplasia Complication, blocked Crespo catheter Coronary artery disease Diabetes mellitus type 2 with complications Dyslipidemia Hematuria Hematuria Hypertension Obstructed Crespo catheter Urinary retention Surgical History (Updated 10/17/20 @ 11:32 by Dena Gavin PA-C) History of hernia repair Status post cardiac catheterization Status post cholecystectomy Family History Father Cancer Diabetes Mother Diabetes Cancer leukemia Brother Coronary heart disease Myocardial infarction Social History Smoking Status: Never smoker Second Hand Exposure: No; Hx Alcohol Use: No Hx Substance Use: No Preferred Language: Citizen Of [place] Communication Ability: Effective Visual Impairment: No Limitations Hearing Ability: Normal Warehouse Delivery Driver Required: No Beliefs That Will Affect Care: None marital status: Single Current Living Situation: Spouse and Family Feels Safe at Home: Yes Assistive Devices: None Review of Systems Review of Systems: All systems reviewed & are unremarkable except as noted in HPI & below Physical Exam Physical Exam: Constitutional: Morbidly obese, male, sitting up in bed, pleasant, answers questions appropriately, in no acute distress, Head: Normocephalic, Atraumatic Eyes: PERRL, conjunctivae normal, anicteric sclerae ENMT: external ear and nose normal, oropharynx normal edentulous Neck: trachea midline, no thyromegaly normal visual inspection Respiratory: normal respiratory effort, lungs clear to auscultation, no wheeze, rales, rhonchi. Normal insp/exp effort, no accessory muscle use Cardiovascular: RRR, no murmur, no edema Vessels: no JVD or carotid bruit Chest: normal inspection of chest Abdomen: normal bowel sounds, soft, nontender, no hepatosplenomegaly Musculoskeletal: no cyanosis or clubbing, extremities motor strength 5/5 Skin: no rashes, warm and dry normal turgor Neurologic: no face palsy, no dysarthria CN's II-XI intact bilaterally and moves all extremities Psychiatric: A+Ox3, euthymic affect : Crespo catheter in place draining yellow urine Results & Data Results & Data ([facility]) Vital Signs (Past 12 Hours) Vital Signs Temp Pulse Pulse Resp BP BP Pulse Ox 10/17/20 10:00 94 H 22 206/123 H 95 10/17/20 09:45 89 20 210/121 H 98 10/17/20 08:54 93 H 18 197/105 H 96 10/17/20 06:54 36.5 C 122 H 18 165/90 H 94 Diagnostic Findings Abdomen/Pelvis CT 10/17/20 07:[address] WITH IV CONTRAST CT DOSE: 906.02 mGy.cm HISTORY: lower abdominal pain, indwelling crespo cath TECHNIQUE: Multiaxial CT images of the abdomen and pelvis were performed following the use of intravenous contrast. A dose lowering technique was utilized adhering to the principles of ALARA. COMPARISON STUDY: Abdomen and pelvis CT 05/14/2020. FINDINGS: The lung bases are clear. No pneumoperitoneum. No pneumatosis. No suspicious lytic or blastic osseous lesions. The heart is normal in size. Small hiatus hernia. Multiple small to moderate midline ventral hernias containing fat. This remains unchanged. There is fat-containing right inguinal hernia. The hernia sac also appears to partially containing the cecum. This remains unchanged. There is also a small fat-containing right femoral hernia, unchanged. The bladder is a Crespo catheter is seen within the prostatic urethra. The tip is located within the bladder base. There is severe bladder distention with mild bladder wall thickening and adjacent fat stranding. This has progressed in the interval. Therefore, this favors a bladder outlet obstruction from the Crespo catheter. Small of gas within the bladder lumen is likely due to the recent catheterization. There is moderate to severe bilateral hydroureteronephrosis which is not significantly changed. A few scattered bilateral renal hypodense lesions are also unchanged. Dominant cyst within the lower pole the right kidney measures 9.6 cm. There is also a 1.7 cm hypodense lesion within the interpolar region of the right kidney best in image 193. This is stable compared to the 2017 examination and therefore also favors a cyst. Post cystectomy. The liver, spleen, adrenal glands, and pancreas are unremarkable. No retroperitoneal lymphadenopathy. Colonic diverticulosis. No evidence for acute diverticulitis. No definite bowel wall thickening or obstruction. Normal appendix. The prostate gland remains markedly enlarged. A few prominent left pelvic sidewall and left inguinal lymph nodes remain stable. IMPRESSION: 1. Markedly distended bladder which demonstrates a thickened wall and mild adjacent fat stranding. There is also moderate to severe bilateral hydronephrosis. This is likely secondary to bladder outlet obstruction from the Crespo catheter balloon which is located within the prostatic urethra. Recommend removal/repositioning of the Crespo catheter. Trace gas within the bladder lumen is likely due to the catheterization. 2. Markedly enlarged prostate gland, unchanged. 3. Colonic diverticulosis. No evidence for acute diverticulitis. 4. Additional stable findings as described above. 5. These findings were discussed with Dr. ochoa at 9:45 AM on 10/17/2020.. ACT 112: Negative or not required by law. Electronically signed by: Jose Shen M.D. 10/17/2020 9:48 AM Chest X-Ray 10/17/20 08:44 SINGLE VIEW CHEST CLINICAL HISTORY: Generalized abdominal pain. FINDINGS: An AP, portable, upright chest radiograph is compared to study dated 05/20/2020. The cardiomediastinal silhouette is unremarkable. The lungs and pleural spaces are clear. No pneumothorax is seen. The bony thorax is grossly intact. IMPRESSION: No active disease in the chest. ACT 112: Negative or not required by law. Electronically signed by: Clarence Barahona M.D. 10/17/2020 9:13 AM Medications Administered Insulin Human Regular 250 (units/ Sodium Chloride) 250 mls @ 7.9 mls/hr IV .Q24H RASHAAD; Protocol Stop: 11/16/20 08:59 Last Titration: 10/17/20 10:53 Dose: 9.5 units/hr, 9.5 mls/hr Documented by: [id number] Cosigned by: [id number] Admin: 10/17/20 09:40 Dose: 7.9 units/hr, 7.9 mls/hr Documented by: [id number] Cosigned by: [id number] Potassium Chloride/Sodium Chloride (1/2 Nss + 20meq Kcl 1000ml) 20 meq in 1,000 mls @ 250 mls/hr IV .Q4H RASHAAD Stop: 10/17/20 13:44 Last Admin: 10/17/20 10:08 Dose: 250 mls/hr Documented by: [id number] Discontinued Medications Acetaminophen (Ofirmev) 1,000 mg in 100 mls @ 400 mls/hr IV NOW STA Stop: 10/17/20 07:16 Last Infusion: 10/17/20 08:24 Dose: 0 mls/hr Documented by: [id number] Admin: 10/17/20 07:37 Dose: 400 mls/hr Documented by: [id number] Sodium Chloride (Nss 1000ml) 1,000 mls @ 999 mls/hr IV .Q1H1M ONE Stop: 10/17/20 08:07 Last Infusion: 10/17/20 08:55 Dose: 0 mls/hr Documented by: [id number] Admin: 10/17/20 07:41 Dose: 999 mls/hr Documented by: [id number] Sodium Chloride (Nss 1000ml) 1,000 mls @ 999 mls/hr IV .Q1H1M ONE Stop: 10/17/20 09:43 Last Infusion: 10/17/20 10:08 Dose: 0 mls/hr Documented by: [id number] Admin: 10/17/20 08:54 Dose: 999 mls/hr Documented by: [id number] Ioversol (Ioversol 100ml) 94 ml IV ONCE ONE Stop: 10/17/20 09:03 Last Admin: 10/17/20 09:03 Dose: 94 ml Documented by: [id number] Labetalol HCl (Labetalol Hcl Iv 5 Mg/Ml 20ml) 10 mg IV NOW STA Stop: 10/17/20 11:03 Last Admin: 10/17/20 11:18 Dose: 10 mg Documented by: [id number] Cosigned by: [id number] Miscellaneous (Dka Goal Range 150-250 Mg/Dl) 1 ea N/A ONE ONE Stop: 10/17/20 08:53 Last Admin: 10/17/20 10:12 Dose: Not Given Documented by: [id number] Morphine Sulfate (Morphine Sulfate 4 Mg/Ml 1 Ml Carp\\Vial) 4 mg IV NOW STA Stop: 10/17/20 07:08 Last Admin: 10/17/20 07:37 Dose: 4 mg Documented by: [id number] COVID-19 Results Results COVID-19 Adm Lab Results: RBC 5.27 M/uL (4.7-6.1) 10/17/20 WBC 6.47 K/uL (4.8-10.8) 10/17/20 Hgb 14.6 g/dL (14.0-18.0) 10/17/20 Hct 43.0 % (42-52) 10/17/20 Plt Count 270 K/uL (130-400) 10/17/20 Neutrophils (%) (Auto) 74.2 % 10/17/20 Lymphocytes (%) (Auto) 16.8 % 10/17/20 Monocytes # (Auto) 0.45 K/uL (0.11-0.59) 10/17/20 Eosinophils # (Auto) 0.08 K/uL (0-0.5) 10/17/20 Immature Granulocyte % (Auto) 0.5 % 10/17/20 Neutrophils # (Auto) 4.80 K/uL (1.4-6.5) 10/17/20 Lymphocytes # (Auto) 1.09 K/uL (1.2-3.4) L 10/17/20 Monocytes # (Auto) 0.45 K/uL (0.11-0.59) 10/17/20 Eosinophils # (Auto) 0.08 K/uL (0-0.5) 10/17/20 Basophils # (Auto) 0.02 K/uL (0-0.2) 10/17/20 Immature Granulocyte # (Auto) 0.03 K/uL (0.00-0.02) H 10/17/20 Na 130 mmol/L (136-145) L 10/17/20 K 4.2 mmol/L (3.5-5.1) 10/17/20 Cl 108 mmol/L (98-107) H 10/17/20 CO2 16 mmol/L (21-32) L 10/17/20 Anion Gap 14.0 (3-11) H 10/17/20 BUN 43 mg/dl (7-18) H 10/17/20 Creatinine 1.09 mg/dl (0.6-1.4) 10/17/20 BUN/Creatinine Ratio 39.0 (10-20) H 10/17/20 Glucose Level 479 mg/dl (70-99) H* 10/17/20 Ca 9.9 mg/dl (8.5-10.1) 10/17/20 Phosphorus Level 3.8 mg/dl (2.5-4.9) 10/17/20 Total Bilirubin 0.5 mg/dl (0.2-1) 10/17/20 AST/SGOT 11 U/L (15-37) L 10/17/20 ALT/SGPT 20 U/L (12-78) 10/17/20 Alkaline Phosphatase 177 U/L (45-117) H 10/17/20 Total Protein 8.6 gm/dl (6.4-8.2) H 10/17/20 Albumin 3.2 gm/dl (3.4-5.0) L 10/17/20 Globulin 5.4 gm/dl (2.5-4.0) H 10/17/20 Albumin/Globulin Ratio 0.6 (0.9-2) L 10/17/20 COVID-19 PCR NEGATIVE (Negative) 10/17/20 Influenza Virus Type A (PCR) Negative (Neg) 10/17/20 Influenza Virus Type B (PCR) Negative (Neg) 10/17/20 Chest X-Ray 10/17/20 Code Status & VTE Plan Code Status Full Code VTE Prophylaxis Plan VTE Prophylaxis will be ordered: Yes Supervising Physician Co-Signing Physician Notes Patient is a 65-year-old male with history of insulin-dependent diabetes mellitus, chronic obstructive uropathy on chronic Crespo secondary to severe phimosis and meatal stenosis, BPH, hypertension and other medical problems presents with history of worsening abdominal pain, suprapubic in location since 1 day duration. He admits to having his Crespo catheter replaced 1 week ago as outpatient which was not appropriately placed as per patient. He states taking his insulin and other diabetic medications regularly but his blood glucose levels have been uncontrolled mostly in 300s to 400s as per patient. He denies chest pain, shortness of breath, dysuria, hematuria. He admits that his urine has been draining with the help of Crespo catheter. Please review HPI for complete details of presentation. His labs consistent with acute diabetic ketoacidosis, metabolic acidosis and was found to have hypertensive urgency while in ED. His CT scan of the abdomen suggestive of markedly distended bladder, moderate to severe bilateral hydronephrosis suggestive of bladder outlet obstruction with Crespo catheter balloon located within the prostate urethra. Also noted markedly enlarged prostate gland. On exam patient is moderately built and nourished, no apparent distress, normocephalic atraumatic, lungs--normal breath sounds, clear to auscultation, S1-S2, no murmur, tachycardia, abdomen soft, nontender, normal bowel sounds, alert, awake, oriented, grossly no focal abnormalities, : Crespo, bladder abnormality. Patient is admitted for management of acute diabetic ketoacidosis, obstructive uropathy and hypertensive urgency. Agree with aggressive IV fluids, insulin drip, DKA protocol. We will keep him n.p.o. until anion gap acidosis improves. Agree with holding Metformin. Glycemic pharmacy consulted. Continue metoprolol and add lisinopril given uncontrolled high blood pressure. Will consult urology for obstructive uropathy and need for replacing Crespo catheter given complicated anatomy. Blood, urine cultures obtained. Will empirically start on Rocephin until cultures results. Bladder scan as needed. I personally reviewed the record. Patient is interviewed and examined at bedside. Patient's care is coordinated with Dena Gavin PA-C. Please refer to the documentation above for details of patient's presentation and for discussion of other issues.
[2020-10-17 11:24] LABS: Base Excess VBG -7.5 mEq/L; pH VBG 7.37 (7.36-7.41)
[2020-10-17 11:54] LABS: Calcium 9.9 mg/dl (8.5-10.1); Creatinine Clr Calc Pharmacy 59.9 ml/min; Est GFR (Non-African American) 69.9; Magnesium 2.3 mg/dl (1.8-2.4); Phosphorus 3.8 mg/dl (2.5-4.9); Potassium 4.2 mmol/L (3.5-5.1)
[2020-10-17] MEDS ORDERED: PHARMACY GLYCEMIC MGMT CONSULT PRN (12:00)
[2020-10-17 12:08] LABS: Beta-Hydroxybutyrate 32.11 mg/dl (0.2-2.81)
[2020-10-17] MEDS ORDERED: LABETALOL HCL IV 5 MG/ML 20ML IV PRN (12:31)
[2020-10-17] MEDS: PENDING D5 1/2NS+20mEq KCL IVF SCH ×5 (12:45→20:10)
[2020-10-17] MEDS: POTASSIUM CHLORIDE 20 MEQ in NORMOSOL-R 1,000 ML IV SCH ×2 (12:45→17:46)
[2020-10-17] MEDS: FAMOTIDINE 20 MG in SYRINGE 3 ML IV SCH (12:45)
[2020-10-17] MEDS: cefTRIAXone SODIUM 2,000 MG in DEXTROSE 5% 50 ML IV SCH (12:46)
[2020-10-17] MEDS: INSULIN ASPART 100 UNITS/ML 3 ML PEN SC SCH ×3 (12:46→20:59)
[2020-10-17] MEDS: lisinopril 5 MG TAB PO SCH (12:46)
--- NOTE | 2020-10-17 13:11 | Pharmacy Report ---
Pharmacy Glycemic Short Note 2 - Date of Service October 17, 2020 - Glycemic Short BSG Results (Last 24 hours): 10/17/20 10/17/20 10/17/20 07:17 08:49 09:39 Glucose 693 H* POC Glucose > 600 H* 590 H* 10/17/20 10/17/20 10/17/20 10:38 11:15 11:46 Glucose 479 H* POC Glucose 532 H* 379 H* 10/17/20 10/17/20 12:14 12:16 Glucose POC Glucose 367 H* 382 H* OUTPATIENT ANTIDIABETIC REGIMEN: * Lantus 36 units bid, Novolog TIDM, metformin, ozempic * A1c 10% 05/2020 ASSESSMENT: * 65 year old admitted with hyperglycemia. PMHx significant for T2DM, CAD, HTN, HLD. Presenting with severe abdominal pain. Per provider reports he has been having a difficult time controlling his BSGs at home and they have been running in the 4-500s. He follow with [facility] glycemic pharmacy * Patient started on insulin drip per DKA protocol, as anion gap elevated on admission. Will continue to follow PLAN FOR INPATIENT GLYCEMIC CONTROL: * Hold outpatient oral diabetes medications * Insulin drip: goal range 150-250 / continue insulin drip PLAN FOR DISCHARGE: * tbd
[2020-10-17] MEDS ORDERED: GLUCOSE 40% GEL 15 GM TUBE PO PRN (13:15)
[2020-10-17] MEDS ORDERED: GLUCAGON FOR INJ 1 MG VIAL IM PRN (13:15)
[2020-10-17] MEDS ORDERED: DEXTROSE 50% 50 ML SYRINGE IV PRN (13:15)
[2020-10-17] MEDS ORDERED: CARBOHYDRATES FOR HYPOGLYCEMIA PO PRN (13:15)
[2020-10-17] MEDS ORDERED: GLUCOSE 10 TABS/TUBE PO PRN (13:15)
[2020-10-17] MEDS: GABAPENTIN 100 MG CAP PO SCH ×2 (14:34→20:00)
--- NOTE | 2020-10-17 14:34 | Urology Consultation ---
Date of Consultation October 17, 2020 Assessment & Plan (1) Bilateral hydronephrosis: (2) Chronic indwelling Conteh catheter: (3) Prostate abscess: 65yo M admitted with abdominal pain in the setting of obstructive uropathy secondary to bladder outlet obstruction from Conteh catheter displacement. - Hospital course, labs, and imaging reviewed. - Plan of care reviewed with Dr. Paul - Afebrile, Wbc and creatinine stable. - CT abdomen pelvis notable for bilateral hydronephrosis secondary to bladder outlet obstruction from Conteh catheter balloon located in the prostatic urethra. - Nursing advanced Conteh catheter resulting in 2200ml of urine output - Patient reports a significant improvement in abdominal pain following the catheter repositioning - Given significant urine output and improvement in pain with advancement of Conteh catheter, no further acute intervention warranted at this time - Maintain Conteh catheter, continue to monitor output - Urine and blood cultures pending, follow cultures - Continue supportive care and antibiotics per primary team - Continue Flomax and Finasteride - Patient [facility] and reports a follow-up is already in place - 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 Will defer to [facility] for further questions or concerns. - Thank you for allowing us to participate in the acute care of Mr. Diamond. - Please reconsult us with additional questions, concerns or changes in patient status. History of Present Illness Reason for Consultation: Bilateral hydronephrosis Attending Physician: Zhen Campos MD History of Present Illness 65yo M with a PMHx including insulin-dependent T2DM, CAD, HTN, HLD, PUD, BPH with obstructive uropathy chronic Conteh who presented to the ED with complaints of abdominal pain x1 day. He reported severe, sharp, and constant pain located in the suprapubic region. He reported he had his Conteh catheter changed on 10/10 and admits to gradually increasing pain ever since. He has had output from his Conteh catheter. CT abdomen pelvis revealed markedly distended bladder and moderate to severe bilateral hydronephrosis secondary to bladder outlet obstruction from Conteh catheter balloon located in the prostatic urethra. During further work-up patient was also found to have significant hyperglycemia and evidence of DKA. Chart review: Nursing staff in ED advanced Conteh and had 2200 mL of urine output instanta neously. Patient follows [facility] urology in which he had prostatic abscess with fistula and formation into scrotum and scrotal abscess. He had a scrotal exploration and has had Conteh catheter ever since. He had VCUG 09/19 which was unremarkable. Patient failed a voiding trial on 10/10 and Conteh catheter was replaced. He is scheduled for outpatient cystoscopy. Afebrile, Wbc 6.47, Hgb 14.6, Cr 1.09. Urine culture pending. On IV Rocephin empirically. On flomax and finasteride. CT abdomen pelvis impression: 1. Markedly distended bladder which demonstrates a thickened wall and mild adjacent fat stranding. There is also moderate to severe bilateral hydronephrosis. This is likely secondary to bladder outlet obstruction from the Conteh catheter balloon which is located within the prostatic urethra. Recommend removal/repositioning of the Conteh catheter. Trace gas within the bladder lumen is likely due to the catheterization. 2. Markedly enlarged prostate gland, unchanged. 3. Colonic diverticulosis. No evidence for acute diverticulitis. Pt examined at bedside this afternoon. Awake, resting in bed on arrival. He denies any pain or discomfort at this time. He states he is feeling much better since the Conteh catheter was repositioned. Conteh catheter intact, draining cloudy yellow urine with sediment in tubing. No dysuria. Denies fevers or chills. No nausea or vomiting. He reports he is established with [facility] and has an upcoming appointment. Offers no additional complaints at this time Allergies Allergy/AdvReac Type Severity Reaction Status Date / Time No Known Allergies Allergy Verified 10/17/20 08:23 Home Medications Medication Instructions Recorded Confirmed Type atorvastatin 80 mg PO QAM #0 05/09/17 10/17/20 History pantoprazole [Protonix] 40 mg PO QAM #0 05/09/17 10/17/20 History metoprolol succinate 25 mg PO QAM 09/20/19 10/17/20 History nitroglycerin 0.4 mg SUBLINGUAL DIRECTED PRN 09/20/19 10/17/20 History aspirin 81 mg PO QAM 05/18/20 10/17/20 History gabapentin 100 mg PO TID 05/18/20 10/17/20 History finasteride 5 mg tablet 5 mg PO QAM #90 tab 06/05/20 10/17/20 Rx tamsulosin 0.4 mg capsule 0.4 mg PO DAILY #90 cap 06/05/20 10/17/20 Rx metformin 1,000 mg PO DAILY 07/20/20 10/17/20 History semaglutide [Ozempic] 0.25 mg SUBCUT WK 07/20/20 10/17/20 History Lantus Solostar U-100 Insulin 36 unit SUBCUT BID 10/17/20 10/17/20 History insulin aspart (niacinamide) 1 sliding scale dose SUBCUT 10/17/20 10/17/20 History USEASDIRECTD Patient History Medical History (Updated 10/17/20 @ 15:43 by Dena Gavin PA-C) Abnormal CT scan, pelvis CT abdomen & pelvis 05/15/20: "Prominent left pelvic sidewall and left inguinal lymph nodes. These may be reactive however a short-term follow-up CT is recommended in 3 months." Acute hyponatremia Angioedema Benign prostatic hyperplasia Complication, blocked Conteh catheter Coronary artery disease Diabetes mellitus type 2 with complications Dyslipidemia Hematuria Hematuria Hypertension Obstructed Conteh catheter Urinary retention Surgical History (Updated 10/17/20 @ 11:32 by Dena Gavin PA-C) History of hernia repair Status post cardiac catheterization Status post cholecystectomy Family History Father Cancer Diabetes Mother Diabetes Cancer leukemia Brother Coronary heart disease Myocardial infarction Social History Smoking Status: Never smoker Second Hand Exposure: No; Do You Dip or Chew Tobacco: No; Tobacco Cessation Education Requested by Patient: No Hx Alcohol Use: No Hx Substance Use: No Preferred Language: Tongan Communication Ability: Effective Visual Impairment: No Limitations Hearing Ability: Normal Mobile Electronics Installer Required: No Beliefs That Will Affect Care: None marital status: Single Current Living Situation: Spouse Other Information That Helps Us Care for You: No Feels Safe at Home: Yes Safety Concerns: Feels Safe At This Time Assistive Devices: None Assistive Devices Comment: CONTEH Review of Systems Review of Systems: All systems reviewed & are unremarkable except as noted in HPI & below Physical Exam Constitutional: well developed, well nourished and + obese; no acute distress Respiratory: no respiratory distress and no labored breathing Cardiovascular: Extremities: no calf tenderness Gastrointestinal (Abdomen): Inspection/Auscultation: abdomen normal to inspection Percussion/Palpation: abdomen soft; abdomen nontender and no guarding Musculoskeletal: Head/Neck/Chest: normocephalic Skin: no rashes, warm and dry Neurologic: awake Psychiatric: Orientation: alert, oriented x 3 and cooperative Genitourinary: Buried penis with small amount purulent discharge near meatus. Conteh catheter intact. No swelling or tenderness of scrotum. Mildly erythematous. Results & Data ([facility]) Vital Signs (Past 12 Hours) Vital Signs Temp Pulse Pulse Resp BP BP Pulse Ox 10/17/20 12:33 36.6 C 95 H 19 134/79 96 10/17/20 12:00 99 H 10/17/20 11:54 93 H 18 158/95 H 93 10/17/20 11:00 97 H 21 185/106 H 96 10/17/20 10:55 98 H 15 182/101 H 97 10/17/20 10:30 101 H 22 174/98 H 97 10/17/20 10:00 94 H 22 206/123 H 95 10/17/20 09:45 89 20 210/121 H 98 10/17/20 08:54 93 H 18 197/105 H 96 10/17/20 06:54 36.5 C 122 H 18 165/90 H 94 PG Care Time/CCT Total # of Minutes Spent Total Time Spent with Patient: Total time spent is greater than 50% in coordination of care (as documented) at patient's floor/unit and/or counseling patient: Coding Level of Care Code 74568 Initial Inpt Care Lvl 3 Diagnoses Bilateral hydronephrosis N13.30 Chronic indwelling Conteh catheter Z97.8 Prostate abscess N41.2
[2020-10-17 15:16] LABS: Calcium 9.8 mg/dl (8.5-10.1); Creatinine Clr Calc Pharmacy 70.9 ml/min; Est GFR (African American) 99.4; Est GFR (Non-African American) 85.8; Magnesium 2.2 mg/dl (1.8-2.4)
[2020-10-17 15:19] LABS: Phosphorus 2.8 mg/dl (2.5-4.9)
--- NOTE | 2020-10-17 18:08 | Emergency Department Note ---
Impression & Plan Type 2 diabetes mellitus with hyperosmolar hyperglycemic state (HHS), Obstructive uropathy, DKA, type 2, Bilateral hydronephrosis, Chronic indwelling Crespo catheter, Displacement of Crespo catheter ED Provider Note NAME: AARON BELLE AGE: 65 SEX: M ARRIVES VIA: Walk-In INFORMANT: Patient, ED PROVIDER(S): Javed Ochoa MD CHIEF COMPLAINT: Abdominal pain PLAN: Disposition: Admit MEDICAL DECISION MAKING: The patient is a pleasant 65-year-old gentleman with a past medical history of type 2 diabetes, prostate enlargement with history of prostate abscess June 2020, chronic indwelling Crespo catheter, hypertension, hyperlipidemia, CAD who presents emergency department with worsening lower abdominal pain which he feels radiate into his groin over the past several days in the setting of being seen the emergency department a week ago for pain related to his catheter which was different (more related to urethral irritation) but noted to have a possible UTI and started treatment with Bactrim however his urine culture only grew mixed mike. Otherwise he denies fevers, chills, cough congestion, vomiting, diarrhea. He reports his catheter had been draining. On arrival the patient is uncomfortable no acute distress, afebrile with HR 120 and otherwise stable vital signs. He has mild discomfort of his suprapubic region but no discrete tenderness. His Crespo catheter is draining at this time. Beefy erythema of region without warmth, tenderness, or crepitus - c/w yeast. WBC, H/H in place within normal limits. VBG without significant acidemia possibly related to a component of respiratory compensation given PCO2 of 27. Initial chemistry does show anion gap 17 metabolic acidosis with bicarb 15 in the setting of glucose in the 600s. Beta hydroxybutyrate also elevated in the 60s. Sodium 130 corrects to ~140. BUN 46 and BUN/Cr > 40 c/w clinically dry appearance as is osmolality elevated at 337 and suggesting a component of HHS. UA with the possibility of infection however in the setting of indwelling Crespo catheter. Lipase 1K, however nonspecific and no symptoms to suggest pancreatitis at this time. Covid-19 PCR negative. Influenza and RSV PCR also negative. CT abdomen pelvis was performed and did show evidence of displacement of the patient's Crespo catheter within the prostatic urethra though the tip may be within the bladder which would explain the degree of drainage into catheter bag on exam. CT was reviewed with radiology. Given the patient's distended bladder likely represents a component of obstruction. Suspect obstructive uropathy most likely is contributing the patient's symptoms, pain and DKA/HHS. Per my instruction RN deflated the Crespo balloon and advanced and reinflated the balloon with subsequent improved drainage of up to 2 L with subsequent improvement in the patient's abdominal pain. Given the patient's symptoms with associated evidence of DKA/HHS with insulin drip started and IV fluid hydration reasonable to admit the patient for further management. Patient is in agreement. Case was discussed with Dr. Campos, [facility], who will evaluate the patient for admission. Will defer decision for antibiotics to admitting team. Triage Nursing notes reviewed and agree them. Prior medical records reviewed Vital Signs: reviewed and remarkable for tachycardia. Differential diagnosis: Appendicitis, testicular torsion, infections, diverticulitis, UTI, obstruction, mesenteric ischemia, aortic pathology, inflammatory bowel disease, renal colic, PUD, pancreatitis, biliary pathology, hernia, volvulus, constipation, as well as other pathologies. ER treatment provided: See below. Diagnostics interpreted by me: Cardiac Monitoring: An order for continuous cardiac monitoring was placed and demonstrated NSR, 93 bpm, occasional PVCs. Laboratory studies: See below Imaging studies: See below Consultation(s): Case was discussed with Dr. Campos, [facility], who will evaluate the patient for admission. HPI: The patient is a pleasant 65-year-old gentleman with a past medical history of type 2 diabetes, prostate enlargement with history of prostate abscess June 2020, chronic indwelling Crespo catheter, hypertension, hyperlipidemia, CAD who presents emergency department with worsening lower abdominal pain which he feels radiate into his groin over the past several days in the setting of being seen the emergency department a week ago for pain related to his catheter which was different (more related to urethral irritation) but noted to have a possible UTI and started treatment with Bactrim however his urine culture only grew mixed mike. Otherwise he denies fevers, chills, cough congestion, vom iting, diarrhea. He reports his catheter had been draining. ROS: See above HPI for pertinent positives & negatives. A total of 10 systems reviewed and were otherwise negative. PAST MEDICAL HISTORY:See Below PAST SURGICAL HISTORY:See Below FAMILY HISTORY:See Below SOCIAL HISTORY:See Below HOME MEDICATIONS:See Below ALLERGIES:See Below VITALS:See Below PHYSICAL EXAMINATION: GENERAL: Awake, alert, uncomfortable-appearing, in no distress HENT: Normocephalic, atraumatic. Oropharynx with dry mucous membranes and otherwise unremarkable. EYES: Normal conjunctiva. Sclera non-icteric. NECK: Supple. No nuchal rigidity. FROM. No JVD. RESPIRATORY: Clear to auscultation. CARDIAC: Tachycardia rate, normal rhythm. Extremities warm and well perfused. Pulses equal. ABDOMEN: Soft, non-distended. Mild discomfort of suprapubic region without discrete tenderness to palpation. No rebound or guarding. No masses. RECTAL: Deferred. : Crespo catheter in place. Beefy erythema of region without warmth, tenderness, or crepitus - c/w yeast. MUSCULOSKELETAL: Chest examination reveals no tenderness. The back is symmetrical on inspection without obvious abnormality. There is no CVA tenderness to palpation. No joint edema. LOWER EXTREMITIES: Calves are equal size bilaterally and non-tender. No edema. No discoloration. NEURO: Normal sensorium. No sensory or motor deficits noted. SKIN: No rash or jaundice noted. ED COURSE: Critical care: I have personally spent greater than 75 minutes of critical care time in the direct management of this patient. This includes bedside care, interpretation of diagnostic studies, and testing, discussion with consultants, patient, and family members, and other required patient management activities. This 75 minutes is in excess of all separately billable procedures. Javed Ochoa MD Past Med/Surg History Medical History Abnormal CT scan, pelvis CT abdomen & pelvis 05/15/20: "Prominent left pelvic sidewall and left inguinal lymph nodes. These may be reactive however a short-term follow-up CT is recommended in 3 months." Acute hyponatremia Angioedema Benign prostatic hyperplasia Complication, blocked Crespo catheter Coronary artery disease Diabetes mellitus type 2 with complications Dyslipidemia Hematuria Hematuria Hypertension Obstructed Crespo catheter Urinary retention Surgical History History of hernia repair Status post cardiac catheterization Status post cholecystectomy Family History Father Cancer Diabetes Mother Diabetes Cancer leukemia Brother Coronary heart disease Myocardial infarction Social History Smoking Status: Never smoker Second Hand Exposure: No; Do You Dip or Chew Tobacco: No; Tobacco Cessation Education Requested by Patient: No Hx Alcohol Use: No Hx Substance Use: No Preferred Language: German Communication Ability: Effective Visual Impairment: No Limitations Hearing Ability: Normal Manager It Security Required: No Beliefs That Will Affect Care: None marital status: Single Current Living Situation: Spouse Other Information That Helps Us Care for You: No Feels Safe at Home: Yes Safety Concerns: Feels Safe At This Time Assistive Devices: None Assistive Devices Comment: YADY Allergies Allergies Allergy/AdvReac Type Severity Reaction Status Date / Time No Known Allergies Allergy Verified 10/17/20 08:23 Home Meds Home Medications Medication Instructions Recorded Confirmed atorvastatin 80 mg PO QAM #0 05/09/17 10/17/20 pantoprazole [Protonix] 40 mg PO QAM #0 05/09/17 10/17/20 metoprolol succinate 25 mg PO QAM 09/20/19 10/17/20 nitroglycerin 0.4 mg SUBLINGUAL DIRECTED PRN 09/20/19 10/17/20 aspirin 81 mg PO QAM 05/18/20 10/17/20 gabapentin 100 mg PO TID 05/18/20 10/17/20 metformin 1,000 mg PO DAILY 07/20/20 10/17/20 semaglutide [Ozempic] 0.25 mg SUBCUT WK 07/20/20 10/17/20 Lantus Solostar U-100 Insulin 36 unit SUBCUT BID 10/17/20 10/17/20 insulin aspart (niacinamide) 1 sliding scale dose SUBCUT 10/17/20 10/17/20 USEASDIRECTD Previous Rx's Medication Instructions Recorded finasteride 5 mg tablet 5 mg PO QAM #90 tab 06/05/20 tamsulosin 0.4 mg capsule 0.4 mg PO DAILY #90 cap 06/05/20 Results & Data (ED) Vital Signs Vital Signs - 24 hr 10/17/20 06:54 10/17/20 08:54 10/17/20 09:45 Temperature 36.5 C Temperature Source Oral Pulse Rate 122 H 89 Pulse Rate [Apical] 93 H Pulse Rate from SpO2 Sensor Respiratory Rate 18 18 20 Respiratory Effort / Characteristics Non-Labored Spontaneous Respiratory Depth Normal Respiratory Pattern Regular Blood Pressure 165/90 H 210/121 H Blood Pressure [Right Arm] 197/105 H Blood Pressure Mean 115 150 Blood Pressure Mean [Right Arm] 135 Pulse Oximetry 94 96 98 Oxygen Delivery Method Room Air Room Air Sepsis Recent Fever Within 48 Hours No Sepsis New/Unexplained Change in Mental Status N/A Sepsis Action Taken by Nursing No Action Required 10/17/20 10:00 10/17/20 10:30 Temperature Temperature Source Pulse Rate 94 H 101 H Pulse Rate [Apical] Pulse Rate from SpO2 Sensor 95 H 101 H Respiratory Rate 22 22 Respiratory Effort / Characteristics Respiratory Depth Respiratory Pattern Blood Pressure 206/123 H 174/98 H Blood Pressure [Right Arm] Blood Pressure Mean 150 123 Blood Pressure Mean [Right Arm] Pulse Oximetry 95 97 Oxygen Delivery Method Sepsis Recent Fever Within 48 Hours Sepsis New/Unexplained Change in Mental Status Sepsis Action Taken by Nursing Laboratory Data Attestation: I reviewed the patient's lab results. Result diagrams: 10/17/20 07:17 10/17/20 19:04 Lab Results 10/17/20 10/17/20 10/17/20 Range/Units 07:17 07:17 07:45 WBC 6.47 (4.8-10.8) K/uL RBC 5.27 (4.7-6.1) M/uL Hgb 14.6 (14.0-18.0) g/dL Hct 43.0 (42-52) % MCV 81.6 (80-100) fL MCH 27.7 (25-34) pg MCHC 34.0 (32-36) g/dL RDW Std Deviation 44.4 (36.4-46.3) fL RDW Coeff of Naomy 14.9 H (11.5-14.5) % Plt Count 270 (130-400) K/uL MPV 11.3 H (7.4-10.4) fL Immature Gran % (Auto) 0.5 % Neut % (Auto) 74.2 % Lymph % (Auto) 16.8 % [place] % (Auto) 7.0 % Eos % (Auto) 1.2 % Baso % (Auto) 0.3 % Neut # (Auto) 4.80 (1.4-6.5) K/uL Lymph # (Auto) 1.09 L (1.2-3.4) K/uL [place] # (Auto) 0.45 (0.11-0.59) K/uL Eos # (Auto) 0.08 (0-0.5) K/uL Baso # (Auto) 0.02 (0-0.2) K/uL Immature Gran # (Auto) 0.03 H (0.00-0.02) K/uL VBG pH (7.36-7.41) VBG pCO2 (38-50) mmHg VBG pO2 mmHg VBG HCO3 mmol/L VBG O2 Saturation % VBG Base Excess mEq/L Barometric Pressure mm/Hg Sodium 130 L (136-145) mmol/L Potassium 4.8 (3.5-5.1) mmol/L Chloride 97 L (98-107) mmol/L Carbon Dioxide 15 L (21-32) mmol/L Anion Gap 17.0 H (3-11) BUN 46 H (7-18) mg/dl Creatinine 1.15 (0.6-1.4) mg/dl Est Cr Clr Drug Dosing 56.7 ml/min Est GFR ( Amer) 75.9 Est GFR (Non-Af Amer) 65.5 BUN/Creatinine Ratio 40.1 H (10-20) Glucose 693 H* (70-99) mg/dl POC Glucose (70-99) mg/dl Osmolality (280-300) mOsm/kg Lactate (0.4-2.0) mmol/L Calcium 10.9 H (8.5-10.1) mg/dl Total Bilirubin 0.5 (0.2-1) mg/dl AST 11 L (15-37) U/L ALT 20 (12-78) U/L Alkaline Phosphatase 177 H (45-117) U/L Total Protein 8.6 H (6.4-8.2) gm/dl Albumin 3.2 L (3.4-5.0) gm/dl Globulin 5.4 H (2.5-4.0) gm/dl Albumin/Globulin Ratio 0.6 L (0.9-2) Lipase 1089 H (73-393) U/L Beta-Hydroxybutyric Acd 63.47 H (0.2-2.81) mg/dl Urine Color Yellow Urine Appearance Turbid A (Clear) Urine pH 5.0 (4.5-7.5) Ur Specific [place] 1.027 (1.000-1.030) Urine Protein 1+ H (Negative) Urine Glucose (UA) 3+ H (Negative) Urine Ketones 2+ H (Negative) Urine Blood 3+ H (Negative) Urine Nitrite Negative (Negative) Urine Bilirubin Negative (Negative) Urine Urobilinogen Negative (Negative) Ur Leukocyte Esterase 2+ H (Negative) Urine WBC (Auto) >30 H (0-5) /hpf Urine RBC (Auto) 10-30 H (0-4) /hpf U Hyaline Cast (Auto) 0 (0-5) /lpf U Epithel Cells (Auto) 5-10 H (0-5) /lpf Urine Bacteria (Auto) Negative (Negative) Urine Yeast Budding w/ Hyphae A (None Prsent) COVID-19 Eval Order SARS-CoV-2 (PCR) (Negative) Influenza Type A (PCR) (Neg) Influenza Type B (PCR) (Neg) RSV (RT-PCR) (Neg) 10/17/20 10/17/20 10/17/20 Range/Units 07:46 07:46 07:49 WBC (4.8-10.8) K/uL RBC (4.7-6.1) M/uL Hgb (14.0-18.0) g/dL Hct (42-52) % MCV (80-100) fL MCH (25-34) pg MCHC (32-36) g/dL RDW Std Deviation (36.4-46.3) fL RDW Coeff of Naomy (11.5-14.5) % Plt Count (130-400) K/uL MPV (7.4-10.4) fL Immature Gran % (Auto) % Neut % (Auto) % Lymph % (Auto) % [place] % (Auto) % Eos % (Auto) % Baso % (Auto) % Neut # (Auto) (1.4-6.5) K/uL Lymph # (Auto) (1.2-3.4) K/uL [place] # (Auto) (0.11-0.59) K/uL Eos # (Auto) (0-0.5) K/uL Baso # (Auto) (0-0.2) K/uL Immature Gran # (Auto) (0.00-0.02) K/uL VBG pH (7.36-7.41) VBG pCO2 (38-50) mmHg VBG pO2 mmHg VBG HCO3 mmol/L VBG O2 Saturation % VBG Base Excess mEq/L Barometric Pressure mm/Hg Sodium (136-145) mmol/L Potassium (3.5-5.1) mmol/L Chloride (98-107) mmol/L Carbon Dioxide (21-32) mmol/L Anion Gap (3-11) BUN (7-18) mg/dl Creatinine (0.6-1.4) mg/dl Est Cr Clr Drug Dosing ml/min Est GFR ( Amer) Est GFR (Non-Af Amer) BUN/Creatinine Ratio (10-20) Glucose (70-99) mg/dl POC Glucose (70-99) mg/dl Osmolality 337 H (280-300) mOsm/kg Lactate (0.4-2.0) mmol/L Calcium (8.5-10.1) mg/dl Total Bilirubin (0.2-1) mg/dl AST (15-37) U/L ALT (12-78) U/L Alkaline Phosphatase (45-117) U/L Total Protein (6.4-8.2) gm/dl Albumin (3.4-5.0) gm/dl Globulin (2.5-4.0) gm/dl Albumin/Globulin Ratio (0.9-2) Lipase (73-393) U/L Beta-Hydroxybutyric Acd (0.2-2.81) mg/dl Urine Color Urine Appearance (Clear) Urine pH (4.5-7.5) Ur Specific [place] (1.000-1.030) Urine Protein (Negative) Urine Glucose (UA) (Negative) Urine Ketones (Negative) Urine Blood (Negative) Urine Nitrite (Negative) Urine Bilirubin (Negative) Urine Urobilinogen (Negative) Ur Leukocyte Esterase (Negative) Urine WBC (Auto) (0-5) /hpf Urine RBC (Auto) (0-4) /hpf U Hyaline Cast (Auto) (0-5) /lpf U Epithel Cells (Auto) (0-5) /lpf Urine Bacteria (Auto) (Negative) Urine Yeast (None Prsent) COVID-19 Eval Order CovFluRsv at [facility] SARS-CoV-2 (PCR) NEGATIVE (Negative) Influenza Type A (PCR) Negative (Neg) Influenza Type B (PCR) Negative (Neg) RSV (RT-PCR) Negative (Neg) 10/17/20 10/17/20 10/17/20 Range/Units 08:49 09:32 09:36 WBC (4.8-10.8) K/uL RBC (4.7-6.1) M/uL Hgb (14.0-18.0) g/dL Hct (42-52) % MCV (80-100) fL MCH (25-34) pg MCHC (32-36) g/dL RDW Std Deviation (36.4-46.3) fL RDW Coeff of Naomy (11.5-14.5) % Plt Count (130-400) K/uL MPV (7.4-10.4) fL Immature Gran % (Auto) % Neut % (Auto) % Lymph % (Auto) % [place] % (Auto) % Eos % (Auto) % Baso % (Auto) % Neut # (Auto) (1.4-6.5) K/uL Lymph # (Auto) (1.2-3.4) K/uL [place] # (Auto) (0.11-0.59) K/uL Eos # (Auto) (0-0.5) K/uL Baso # (Auto) (0-0.2) K/uL Immature Gran # (Auto) (0.00-0.02) K/uL VBG pH 7.32 L (7.36-7.41) VBG pCO2 27 L (38-50) mmHg VBG pO2 61 mmHg VBG HCO3 14 mmol/L VBG O2 Saturation 89.0 % VBG Base Excess -10.8 mEq/L Barometric Pressure 732.6 mm/Hg Sodium (136-145) mmol/L Potassium (3.5-5.1) mmol/L Chloride (98-107) mmol/L Carbon Dioxide (21-32) mmol/L Anion Gap (3-11) BUN (7-18) mg/dl Creatinine (0.6-1.4) mg/dl Est Cr Clr Drug Dosing ml/min Est GFR ( Amer) Est GFR (Non-Af Amer) BUN/Creatinine Ratio (10-20) Glucose (70-99) mg/dl POC Glucose > 600 H* (70-99) mg/dl Osmolality (280-300) mOsm/kg Lactate 0.8 (0.4-2.0) mmol/L Calcium (8.5-10.1) mg/dl Total Bilirubin (0.2-1) mg/dl AST (15-37) U/L ALT (12-78) U/L Alkaline Phosphatase (45-117) U/L Total Protein (6.4-8.2) gm/dl Albumin (3.4-5.0) gm/dl Globulin (2.5-4.0) gm/dl Albumin/Globulin Ratio (0.9-2) Lipase (73-393) U/L Beta-Hydroxybutyric Acd (0.2-2.81) mg/dl Urine Color Urine Appearance (Clear) Urine pH (4.5-7.5) Ur Specific [place] (1.000-1.030) Urine Protein (Negative) Urine Glucose (UA) (Negative) Urine Ketones (Negative) Urine Blood (Negative) Urine Nitrite (Negative) Urine Bilirubin (Negative) Urine Urobilinogen (Negative) Ur Leukocyte Esterase (Negative) Urine WBC (Auto) (0-5) /hpf Urine RBC (Auto) (0-4) /hpf U Hyaline Cast (Auto) (0-5) /lpf U Epithel Cells (Auto) (0-5) /lpf Urine Bacteria (Auto) (Negative) Urine Yeast (None Prsent) COVID-19 Eval Order SARS-CoV-2 (PCR) (Negative) Influenza Type A (PCR) (Neg) Influenza Type B (PCR) (Neg) RSV (RT-PCR) (Neg) 10/17/20 10/17/20 Range/Units 09:39 10:38 WBC (4.8-10.8) K/uL RBC (4.7-6.1) M/uL Hgb (14.0-18.0) g/dL Hct (42-52) % MCV (80-100) fL MCH (25-34) pg MCHC (32-36) g/dL RDW Std Deviation (36.4-46.3) fL RDW Coeff of Naomy (11.5-14.5) % Plt Count (130-400) K/uL MPV (7.4-10.4) fL Immature Gran % (Auto) % Neut % (Auto) % Lymph % (Auto) % [place] % (Auto) % Eos % (Auto) % Baso % (Auto) % Neut # (Auto) (1.4-6.5) K/uL Lymph # (Auto) (1.2-3.4) K/uL [place] # (Auto) (0.11-0.59) K/uL Eos # (Auto) (0-0.5) K/uL Baso # (Auto) (0-0.2) K/uL Immature Gran # (Auto) (0.00-0.02) K/uL VBG pH (7.36-7.41) VBG pCO2 (38-50) mmHg VBG pO2 mmHg VBG HCO3 mmol/L VBG O2 Saturation % VBG Base Excess mEq/L Barometric Pressure mm/Hg Sodium (136-145) mmol/L Potassium (3.5-5.1) mmol/L Chloride (98-107) mmol/L Carbon Dioxide (21-32) mmol/L Anion Gap (3-11) BUN (7-18) mg/dl Creatinine (0.6-1.4) mg/dl Est Cr Clr Drug Dosing ml/min Est GFR ( Amer) Est GFR (Non-Af Amer) BUN/Creatinine Ratio (10-20) Glucose (70-99) mg/dl POC Glucose 590 H* 532 H* (70-99) mg/dl Osmolality (280-300) mOsm/kg Lactate (0.4-2.0) mmol/L Calcium (8.5-10.1) mg/dl Total Bilirubin (0.2-1) mg/dl AST (15-37) U/L ALT (12-78) U/L Alkaline Phosphatase (45-117) U/L Total Protein (6.4-8.2) gm/dl Albumin (3.4-5.0) gm/dl Globulin (2.5-4.0) gm/dl Albumin/Globulin Ratio (0.9-2) Lipase (73-393) U/L Beta-Hydroxybutyric Acd (0.2-2.81) mg/dl Urine Color Urine Appearance (Clear) Urine pH (4.5-7.5) Ur Specific [place] (1.000-1.030) Urine Protein (Negative) Urine Glucose (UA) (Negative) Urine Ketones (Negative) Urine Blood (Negative) Urine Nitrite (Negative) Urine Bilirubin (Negative) Urine Urobilinogen (Negative) Ur Leukocyte Esterase (Negative) Urine WBC (Auto) (0-5) /hpf Urine RBC (Auto) (0-4) /hpf U Hyaline Cast (Auto) (0-5) /lpf U Epithel Cells (Auto) (0-5) /lpf Urine Bacteria (Auto) (Negative) Urine Yeast (None Prsent) COVID-19 Eval Order SARS-CoV-2 (PCR) (Negative) Influenza Type A (PCR) (Neg) Influenza Type B (PCR) (Neg) RSV (RT-PCR) (Neg) Administered Medications Enoxaparin Sodium (Enoxaparin Inj 30 Mg/0.3 Ml Syr) 30 mg SQ Q24H [facility] Stop: 11/16/20 21:59 Last Admin: 10/17/20 20:00 Dose: 30 mg Documented by: [id number] Gabapentin (Gabapentin 100 Mg Cap) 100 mg PO TID [facility] Stop: 11/16/20 13:59 Last Admin: 10/17/20 20:00 Dose: 100 mg Documented by: [id number] Admin: 10/17/20 14:34 Dose: 100 mg Documented by: [id number] Insulin Human Regular 250 (units/ Sodium Chloride) 250 mls @ 6.8 mls/hr IV .Q24H [facility]; Protocol Stop: 11/16/20 08:59 Last Titration: 10/17/20 20:59 Dose: 4.1 units/hr, 4.1 mls/hr Documented by: [id number] Cosigned by: [id number] Titration: 10/17/20 19:24 Dose: 6.8 units/hr, 6.8 mls/hr Documented by: [id number] Cosigned by: [id number] Titration: 10/17/20 18:58 Dose: 6.8 units/hr, 6.8 mls/hr Documented by: [id number] Cosigned by: [id number] Titration: 10/17/20 18:15 Dose: 6.8 units/hr, 6.8 mls/hr Documented by: [id number] Cosigned by: [id number] Titration: 10/17/20 17:41 Dose: 8.5 units/hr, 8.5 mls/hr Documented by: [id number] Cosigned by: [id number] Titration: 10/17/20 16:19 Dose: 6.1 units/hr, 6.1 mls/hr Documented by: [id number] Cosigned by: [id number] Titration: 10/17/20 14:34 Dose: 7.5 units/hr, 7.5 mls/hr Documented by: [id number] Cosigned by: [id number] Titration: 10/17/20 10:53 Dose: 9.5 units/hr, 9.5 mls/hr Documented by: [id number] Cosigned by: [id number] Admin: 10/17/20 09:40 Dose: 7.9 units/hr, 7.9 mls/hr Documented by: [id number] Cosigned by: [id number] Famotidine 20 mg/ Syringe 5 mls @ 2.5 mls/min IV DAILY [facility] Stop: 11/16/20 11:14 Last Admin: 10/17/20 12:45 Dose: 2.5 mls/min Documented by: [id number] Ceftriaxone Sodium 2,000 mg/ (Dextrose) 50 mls @ 100 mls/hr IV Q24H [facility]; Protocol Stop: 10/22/20 11:14 Last Infusion: 10/17/20 13:18 Dose: 0 mls/hr Documented by: [id number] Admin: 10/17/20 12:46 Dose: 100 mls/hr Documented by: [id number] Potassium Chloride/Dextrose/Sod Cl (D5w And 1/2nss + 20meq Kcl) 20 meq in 1,000 mls @ 150 mls/hr IV .Q6H40M [facility] Stop: 11/16/20 19:44 Last Admin: 10/17/20 19:59 Dose: 150 mls/hr Documented by: [id number] Insulin Aspart (Insulin Aspart 100 Units/Ml 3 Ml Pen) 0 units SC ACHS [facility] Stop: 11/16/20 11:29 Last Admin: 10/17/20 20:59 Dose: Not Given Documented by: [id number] Admin: 10/17/20 18:08 Dose: 7 units Documented by: [id number] Cosigned by: [id number] Admin: 10/17/20 12:46 Dose: Not Given Documented by: [id number] Cosigned by: [id number] Lisinopril (Lisinopril 5 Mg Tab) 5 mg PO QAM [facility] Stop: 11/16/20 11:14 Last Admin: 10/17/20 12:46 Dose: 5 mg Documented by: [id number] Discontinued Medications Acetaminophen (Ofirmev) 1,000 mg in 100 mls @ 400 mls/hr IV NOW STA Stop: 10/17/20 07:16 Last Infusion: 10/17/20 08:24 Dose: 0 mls/hr Documented by: [id number] Admin: 10/17/20 07:37 Dose: 400 mls/hr Documented by: [id number] Sodium Chloride (Nss 1000ml) 1,000 mls @ 999 mls/hr IV .Q1H1M ONE Stop: 10/17/20 08:07 Last Infusion: 10/17/20 08:55 Dose: 0 mls/hr Documented by: [id number] Admin: 10/17/20 07:41 Dose: 999 mls/hr Documented by: [id number] Sodium Chloride (Nss 1000ml) 1,000 mls @ 999 mls/hr IV .Q1H1M ONE Stop: 10/17/20 09:43 Last Infusion: 10/17/20 10:08 Dose: 0 mls/hr Documented by: [id number] Admin: 10/17/20 08:54 Dose: 999 mls/hr Documented by: [id number] Potassium Chloride/Sodium Chloride (1/2 Nss + 20meq Kcl 1000ml) 20 meq in 1,000 mls @ 250 mls/hr IV .Q4H [facility] Stop: 10/17/20 13:44 Last Infusion: 10/17/20 12:47 Dose: 0 mls/hr Documented by: [id number] Admin: 10/17/20 10:08 Dose: 250 mls/hr Documented by: [id number] Potassium Chloride 20 meq/ (Parenteral Electrolytes) 1,010 mls @ 150 mls/hr IV .Q6H44M [facility] Stop: 11/16/20 11:14 Last Infusion: 10/17/20 20:12 Dose: 0 mls/hr Documented by: [id number] Admin: 10/17/20 17:46 Dose: 150 mls/hr Documented by: [id number] Infusion: 10/17/20 17:46 Dose: 150 mls/hr Documented by: [id number] Admin: 10/17/20 12:45 Dose: 150 mls/hr Documented by: [id number] Ioversol (Ioversol 100ml) 94 ml IV ONCE ONE Stop: 10/17/20 09:03 Last Admin: 10/17/20 09:03 Dose: 94 ml Documented by: [id number] Labetalol HCl (Labetalol Hcl Iv 5 Mg/Ml 20ml) 10 mg IV NOW STA Stop: 10/17/20 11:03 Last Admin: 10/17/20 11:18 Dose: 10 mg Documented by: [id number] Cosigned by: [id number] Miscellaneous (Dka Goal Range 150-250 Mg/Dl) 1 ea N/A ONE ONE Stop: 10/17/20 08:53 Last Admin: 10/17/20 10:12 Dose: Not Given Documented by: [id number] Miscellaneous (Pending D5 1/2ns+20meq Kcl Ivf) 1 ea N/A Q2H RASHAAD Stop: 11/16/20 11:14 Last Admin: 10/17/20 20:10 Dose: Not Given Documented by: [id number] Admin: 10/17/20 17:46 Dose: 1 ea Documented by: [id number] Admin: 10/17/20 17:09 Dose: 1 ea Documented by: [id number] Admin: 10/17/20 13:18 Dose: 1 ea Documented by: [id number] Admin: 10/17/20 12:45 Dose: 1 ea Documented by: [id number] Miscellaneous (Dka Goal Range 150-250 Mg/Dl) 1 ea N/A ONE ONE Stop: 10/17/20 11:16 Last Admin: 10/17/20 12:44 Dose: 1 ea Documented by: [id number] Miscellaneous Information (Pharmacy Glycemic Mgmt Consult) 1 ea N/A NOW STA Stop: 10/17/20 11:16 Last Admin: 10/17/20 12:43 Dose: 1 ea Documented by: [id number] Miscellaneous Information (Nursing To Pharmacy Communication) 1 ea N/A TODAY RASHAAD Stop: 11/16/20 19:29 Last Admin: 10/17/20 20:10 Dose: Not Given Documented by: [id number] Morphine Sulfate (Morphine Sulfate 4 Mg/Ml 1 Ml Carp\\Vial) 4 mg IV NOW STA Stop: 10/17/20 07:08 Last Admin: 10/17/20 07:37 Dose: 4 mg Documented by: [id number] Imaging Data Radiologist's Impression: Abdomen/Pelvis CT 10/17/20 07:[address] WITH IV CONTRAST CT DOSE: 906.02 mGy.cm HISTORY: lower abdominal pain, indwelling crespo cath TECHNIQUE: Multiaxial CT images of the abdomen and pelvis were performed following the use of intravenous contrast. A dose lowering technique was utilized adhering to the principles of ALARA. COMPARISON STUDY: Abdomen and pelvis CT 05/14/2020. FINDINGS: The lung bases are clear. No pneumoperitoneum. No pneumatosis. No suspicious lytic or blastic osseous lesions. The heart is normal in size. Small hiatus hernia. Multiple small to moderate midline ventral hernias containing fat. This remains unchanged. There is fat-containing right inguinal hernia. The hernia sac also appears to partially containing the cecum. This remains un changed. There is also a small fat-containing right femoral hernia, unchanged. The bladder is a Crespo catheter is seen within the prostatic urethra. The tip is located within the bladder base. There is severe bladder distention with mild bladder wall thickening and adjacent fat stranding. This has progressed in the interval. Therefore, this favors a bladder outlet obstruction from the Crespo catheter. Small of gas within the bladder lumen is likely due to the recent catheterization. There is moderate to severe bilateral hydroureteronephrosis which is not significantly changed. A few scattered bilateral renal hypodense lesions are also unchanged. Dominant cyst within the lower pole the right kidney measures 9.6 cm. There is also a 1.7 cm hypodense lesion within the interpolar region of the right kidney best in image 193. This is stable compared to the 2017 examination and therefore also favors a cyst. Post cystectomy. The liver, spleen, adrenal glands, and pancreas are unremarkable. No retroperitoneal lymphadenopathy. Colonic diverticulosis. No evidence for acute diverticulitis. No definite bowel wall thickening or obstruction. Normal appendix. The prostate gland remains markedly enlarged. A few prominent left pelvic sidewall and left inguinal lymph nodes remain stable. IMPRESSION: 1. Markedly distended bladder which demonstrates a thickened wall and mild adjacent fat stranding. There is also moderate to severe bilateral hydr onephrosis. This is likely secondary to bladder outlet obstruction from the Crespo catheter balloon which is located within the prostatic urethra. Recommend removal/repositioning of the Crespo catheter. Trace gas within the bladder lumen is likely due to the catheterization. 2. Markedly enlarged prostate gland, unchanged. 3. Colonic diverticulosis. No evidence for acute diverticulitis. 4. Additional stable findings as described above. 5. These findings were discussed with Dr. ochoa at 9:45 AM on 10/17/2020.. ACT 112: Negative or not required by law. Electronically signed by: Jose Shen M.D. 10/17/2020 9:48 AM Chest X-Ray 10/17/20 08:44 SINGLE VIEW CHEST CLINICAL HISTORY: Generalized abdominal pain. FINDINGS: An AP, portable, upright chest radiograph is compared to study dated 05/20/2020. The cardiomediastinal silhouette is unremarkable. The lungs and pleural spaces are clear. No pneumothorax is seen. The bony thorax is grossly intact. IMPRESSION: No active disease in the chest. ACT 112: Negative or not required by law. Electronically signed by: Clarence Barahona M.D. 10/17/2020 9:13 AM Discharge Plan Visit Data Chief Complaint: Abdominal Pain Stated Complaint: STOMACH PAIN ED Provider: Javed Ochoa Discharge Problem: Type 2 diabetes mellitus with hyperosmolar hyperglycemic state (HHS), Obstructive uropathy, DKA, type 2, Bilateral hydronephrosis, Chronic indwelling Crespo catheter, Displacement of Crespo catheter Patient Disposition: Admitted As Inpatient Discharge Instructions Interventions: ED Discharge Assessment Last Done: 10/17/20 11:54 Discharge Problem: DKA, type 2 Qualifiers: Diabetes mellitus complication detail: without coma Qualified Code(s): E11.10 - Type 2 diabetes mellitus with ketoacidosis without coma Displacement of Crespo catheter Qualifiers: Encounter type: initial encounter Qualified Code(s): T83.021A - Displacement of indwelling urethral catheter, initial encounter
[2020-10-17] MEDS ORDERED: Nursing to Pharmacy Communication SCH (19:30)
[2020-10-17 19:32] LABS: BUN Creatinine Ratio 35.7 (10-20); Calcium 9.5 mg/dl (8.5-10.1); Creatinine Clr Calc Pharmacy 76.8 ml/min; Est GFR (African American) 104.5; Est GFR (Non-African American) 90.2; Magnesium 2.1 mg/dl (1.8-2.4)
[2020-10-17 19:33] LABS: Phosphorus 2.5 mg/dl (2.5-4.9)
[2020-10-17] MEDS: D5W AND 1/2NSS + 20MEQ KCL 20 MEQ/1,000 ML BAG IV SCH (19:59)
[2020-10-17] MEDS: ENOXAPARIN INJ 30 MG/0.3 ML SYR SQ SCH (20:00)
[2020-10-17 23:26] LABS: Calcium 9.1 mg/dl (8.5-10.1); Creatinine Clr Calc Pharmacy 91.9 ml/min; Est GFR (African American) 112.5; Est GFR (Non-African American) 97.1; Magnesium 1.9 mg/dl (1.8-2.4); Potassium 3.9 mmol/L (3.5-5.1)
[2020-10-17 23:27] LABS: Phosphorus 2.7 mg/dl (2.5-4.9)
[2020-10-18] MEDS: D5W AND 1/2NSS + 20MEQ KCL 20 MEQ/1,000 ML BAG IV SCH ×2 (02:51→08:33)
[2020-10-18 03:20] LABS: Basophils # (auto) 0.01 K/uL (0-0.2); Basophils % (auto) 0.1 %; Eosinophils # (auto) 0.36 K/uL (0-0.5); Eosinophils % (auto) 4.4 %; Hematocrit (blood only) 34.9 % (42-52); Hemoglobin 11.6 g/dL (14.0-18.0); Immature Granulocytes # (auto) 0.04 K/uL (0.00-0.02); Immature Granulocytes % (auto) 0.5 %; Lymphocytes % (auto) 9.8 %; Mean Corpuscular Hemoglobin 26.7 pg (25-34); Mean Corpuscular Hgb Conc 33.2 g/dL (32-36); Mean Corpuscular Volume 80.2 fL (80-100); Mean Platelet Volume 10.3 fL (7.4-10.4); Monocytes % (auto) 12.2 %; Neutrophils # (auto) 5.99 K/uL (1.4-6.5); Platelet Count 217 K/uL (130-400); RDW Coefficient of Variation 14.7 % (11.5-14.5); Red Blood Count 4.35 M/uL (4.7-6.1)
[2020-10-18 03:27] LABS: BUN Creatinine Ratio 38.1 (10-20); Calcium 8.8 mg/dl (8.5-10.1); Creatinine Clr Calc Pharmacy 108.8 ml/min; Est GFR (African American) 120.6; Phosphorus 2.8 mg/dl (2.5-4.9); Potassium 3.5 mmol/L (3.5-5.1)
[2020-10-18 06:33] LABS: Estimated Average Glucose 369 mg/dl; Hemoglobin A1C 14.5 % (4.5-5.6)
[2020-10-18] MEDS ORDERED: INSULIN GLARGINE SOLOSTAR 100 UNITS/ML 3 ML PEN SC ONE ×2 (07:30→14:15)
[2020-10-18 07:53] LABS: Calcium 8.9 mg/dl (8.5-10.1); Creatinine Clr Calc Pharmacy 119.7 ml/min; Est GFR (Non-African American) 107.8; Magnesium 1.9 mg/dl (1.8-2.4); Potassium 3.5 mmol/L (3.5-5.1)
[2020-10-18 07:55] LABS: Phosphorus 2.1 mg/dl (2.5-4.9)
[2020-10-18] MEDS: INSULIN ASPART 100 UNITS/ML 3 ML PEN SC SCH ×4 (07:57→21:00)
[2020-10-18] MEDS: GABAPENTIN 100 MG CAP PO SCH ×3 (07:58→21:16)
[2020-10-18] MEDS: FINASTERIDE 5 MG TAB PO SCH (07:58)
[2020-10-18] MEDS: ASPIRIN 81 MG CHEW PO SCH (07:59)
[2020-10-18] MEDS: lisinopril 5 MG TAB PO SCH (07:59)
[2020-10-18] MEDS: TAMSULOSIN HCL 0.4 MG CAP PO SCH (07:59)
[2020-10-18] MEDS: METOPROLOL SUCC 25MG EXT REL TAB PO SCH (07:59)
[2020-10-18] MEDS: FAMOTIDINE 20 MG in SYRINGE 3 ML IV SCH (08:33)
[2020-10-18] MEDS ORDERED: ATORVASTATIN 40 MG TAB PO SCH (09:00)
[2020-10-18] MEDS: INSULIN REGULAR 250 UNITS in SODIUM CHLORIDE 0.9% 247.5 ML IV SCH (10:11)
[2020-10-18] MEDS: cefTRIAXone SODIUM 2,000 MG in DEXTROSE 5% 50 ML IV SCH (11:20)
--- NOTE | 2020-10-18 11:39 | Pharmacy Report ---
Pharmacy Glycemic Short Note 2 - Date of Service October 18, 2020 - Glycemic Short BSG Results (Last 24 hours): 10/17/20 10/17/20 10/17/20 11:15 11:46 12:14 Glucose 479 H* POC Glucose 379 H* 367 H* 10/17/20 10/17/20 10/17/20 12:16 13:13 14:09 Glucose POC Glucose 382 H* 363 H* 280 H 10/17/20 10/17/20 10/17/20 14:47 15:13 16:18 Glucose 279 H POC Glucose 269 H 208 H 10/17/20 10/17/20 10/17/20 17:13 18:13 19:04 Glucose 238 H POC Glucose 346 H* 270 H 10/17/20 10/17/20 10/17/20 19:18 20:14 22:02 Glucose POC Glucose 234 H 170 H 213 H 10/17/20 10/17/20 10/18/20 22:54 23:05 00:06 Glucose 221 H POC Glucose 211 H 209 H 10/18/20 10/18/20 10/18/20 01:00 02:02 02:53 Glucose 163 H POC Glucose 185 H 177 H 10/18/20 10/18/20 10/18/20 04:02 05:02 06:11 Glucose POC Glucose 146 H 167 H 171 H 10/18/20 10/18/20 10/18/20 06:58 07:03 08:58 Glucose 185 H POC Glucose 181 H 299 H 10/18/20 10/18/20 09:59 11:02 Glucose POC Glucose 246 H 192 H OUTPATIENT ANTIDIABETIC REGIMEN: * Lantus 36 units bid, Novolog TIDM, metformin, ozempic * A1c 10% 05/2020 ASSESSMENT: 10/18 * Patient continues on insulin drip this AM, gap now closed. Plan to transition off insulin drip. Drip running ~3 units/hr - ~70 units/day. Plan to give 70 units x 1 now (this dosing is similar to home Lantus daily dose). Plan to stop drip ~6 hrs after basal dose of insulin given or when calculator prompts them to hold drip * Will set CR to 3 to help with transition off insulin drip. Patient now eating this AM - IV fluids changed and dextrose removed 10/17 * 65 year old admitted with hyperglycemia. PMHx significant for T2DM, CAD, HTN, HLD. Presenting with severe abdominal pain. Per provider reports he has been having a difficult time controlling his BSGs at home and they have been running in the 4-500s. He follow with [facility] glycemic pharmacy * Patient started on insulin drip per DKA protocol, as anion gap elevated on admission. Will continue to follow PLAN FOR INPATIENT GLYCEMIC CONTROL: * Hold outpatient oral diabetes medications * Basal insulin: Lantus 70 units x 1, plan for Lantus scale for HS if BSGs trending up after insulin drip dc'ed * Correctional Insulin: Novolog Correction per scale ACHS Goal Range: Low 110 mg/dL - High 140 mg/dL Correction Factor: 10 mg/dL/unit * Prandial insulin: Per carb ratio of 1 unit per 3 grams CHO consumed PLAN FOR DISCHARGE: * tbd
[2020-10-18] MEDS ORDERED: SODIUM CHLORIDE 0.9% 1000ML 1,000 ML IV SCH (11:45)
[2020-10-18 11:46] LABS: BUN Creatinine Ratio 28.4 (10-20); Calcium 8.7 mg/dl (8.5-10.1); Creatinine Clr Calc Pharmacy 115.5 ml/min; Est GFR (African American) 123.2; Est GFR (Non-African American) 106.3; Magnesium 1.9 mg/dl (1.8-2.4); Phosphorus 1.6 mg/dl (2.5-4.9); Potassium 3.6 mmol/L (3.5-5.1)
[2020-10-18] MEDS ORDERED: SODIUM PHOSPHATE 3 MMOL/1 ML INFUSION IV STA (13:22)
[2020-10-18] MEDS ORDERED: SODIUM PHOSPHATE 9 MMOL in SODIUM CHLORIDE 0.9% 250 ML IV ONE (13:30)
--- NOTE | 2020-10-18 15:16 | Hospitalist Progress Note ---
Date of Service October 18, 2020 Assessment & Plan (1) Abdominal pain: (2) Obstructive uropathy: (3) DKA, type 2: This is a 65-year-old male who has significant past medical history of insulin- dependent T2DM, CAD, HTN, HLD, PUD, BPH with obstructive uropathy chronic Crespo who presents to ED secondary to abdominal pain x1 day. Abdominal pain/obstructive uropathy BPH with crespo 2/2 to prostatic abscess with extension to scrotum CT abdomen pelvis revealed markedly distended bladder and moderate to severe bilateral hydronephrosis secondary to bladder outlet obstruction from Crespo catheter balloon located in the prostatic urethra. Nursing staff in ED advanced Crespo and had 2200 mL of urine output instantaneously. Patient's abdominal pain improved significantly. 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 He had VCUG 09/19 which was unremarkable. Patient failed a voiding trial on 10/10 and Crespo catheter was replaced. He is scheduled for outpatient cystoscopy. Continue Flomax and finasteride Ordered for urine culture rule out catheter associated UTI IV Rocephin empirically Uncontrolled T2DM Diabetic ketoacidosis in type II Blood sugar elevated more than 600 on admission Was started on insulin drip Insulin drip per protocol appreciate input from pharmacy glycemic management hb A1c more than 14 commutator presser consulted Hypertensive urgency Pressure stable now Possibly exacerbated by pain in setting of urinary obstruction, monitor Continue metoprolol Start lisinopril 5 mg daily SHEREEN inhibitor would benefit in setting of T2DM CAD Continue ASA, statin, metoprolol No chest pain or shortness of breath PUD Continue outpatient Pepcid Elevated Lipase unknown etiology, has been elevated in past ? setting of dka no epigastric pain/n/v CT a/p shows normal appearing pancreas Follow level, Diet advanced, DVT ppx: SQ Lovenox Disposition: Expected to be discharged home when medically stable PCP: Ivelisse FULL CODE Patient's daughter updated over phone Admission and Anticipated Discharge Date Admission Date: October 17, 2020 Subjective Follow-up visit for hyperglycemia/HHS/poorly controlled type 2 diabetes/urinary retention with chronic indwelling Crespo catheter: Patient reports feeling much better, no more abdominal pain or discomfort after Crespo catheter were readjusted, No complaint of nausea vomiting, no fever or chills Willing to try solid food Offers no complaint of pain or discomfort. Stable vitals Review of Systems Review of Systems: All systems reviewed & are unremarkable except as noted in Subjective Physical Exam Physical Exam: Physical exam: General: No acute distress, alert awake oriented x3 HEENT: PERRLA, EOMI, Heart: Regular S1-S2, no carotid bruit, no JVD, no lower extremity edema Lungs: Clear to auscultate, no wheeze or rales Abdomen: Soft nontender, no organomegaly Extremity: scrotal /perirectal area: Perineal abscess with wound packed present, no surrounding erythema noted, diffuse excoriation around the scrotal area and urethral meatus Neuro: No focal neurological deficit Psych: Alert awake oriented x3, normal affect Results & Data Results & Data ([facility]) Vital Signs (Past 12 Hours) Vital Signs Temp Pulse Resp BP Pulse Ox 10/18/20 11:43 36.5 C 76 19 113/73 95 10/18/20 07:16 36.5 C 80 21 127/72 96 10/18/20 03:42 36.7 C 81 20 119/65 96
[2020-10-18] MEDS ORDERED: NITROGLYCERIN SL 0.4 MG/TAB TAB SL PRN (15:50)
[2020-10-18] MEDS: PENDING ORDER - INSULIN DRIP SCH ×4 (16:49→22:08)
[2020-10-18] MEDS: ENOXAPARIN INJ 30 MG/0.3 ML SYR SQ SCH (21:16)
[2020-10-18] MEDS: ACETAMINOPHEN 325 MG TAB PO PRN (21:57)
[2020-10-19] MEDS: PENDING ORDER - INSULIN DRIP SCH (03:33)
[2020-10-19] MEDS ORDERED: INSULIN ASPART 100 UNITS/ML 3 ML PEN SC SCH (06:00)
--- NOTE | 2020-10-19 07:52 | Pharmacy Report ---
Pharmacy Glycemic Short Note 2 - Date of Service October 19, 2020 - Glycemic Short BSG Results (Last 24 hours): 10/18/20 10/18/20 10/18/20 06:58 08:58 09:59 Glucose 185 H POC Glucose 299 H 246 H 10/18/20 10/18/20 10/18/20 10:58 11:02 12:00 Glucose 200 H POC Glucose 192 H 198 H 10/18/20 10/18/20 10/18/20 13:52 15:13 16:12 Glucose POC Glucose 307 H* 192 H 269 H 10/18/20 10/18/20 10/18/20 17:01 17:56 19:01 Glucose POC Glucose 243 H 219 H 273 H 10/18/20 10/18/20 10/18/20 19:47 21:00 22:00 Glucose POC Glucose 186 H 143 H 131 H 10/18/20 10/19/20 10/19/20 23:01 00:01 02:00 Glucose POC Glucose 110 H 92 82 10/19/20 06:02 Glucose POC Glucose 122 H OUTPATIENT ANTIDIABETIC REGIMEN: * Lantus 36 units bid, Novolog 14-14-18 TIDM, metformin, ozempic * A1c 10% 05/2020 ASSESSMENT: 10/19 * Pt has received 126 units of SQ insulin + IV insulin infusion over the past 24hrs * 95 units of basal with Lantus * 31 units of bolus with NovoLog * BSGs trended downwards last evening after overlap of IV insulin infusion + SQ insulin with Lantus/NovoLog indicating adequate SQ insulin dosing. * IV insulin infusion "turned off" around 2200 last evening. * AM fasting BSG is in goal range at 122 mg/dl. * Will resume modified/stressed outpatient SQ basal bolus insulin regimen and titrate based on BSG trends. * Dextrose IVF dc 10/18 * Patient continues on insulin drip this AM, gap now closed. Plan to transition off insulin drip. Drip running ~3 units/hr - ~70 units/day. Plan to give 70 units x 1 now (this dosing is similar to home Lantus daily dose). Plan to stop drip ~6 hrs after basal dose of insulin given or when calculator prompts them to hold drip * Will set CR to 3 to help with transition off insulin drip. Patient now eating this AM - IV fluids changed and dextrose removed 10/17 * 65 year old admitted with hyperglycemia. PMHx significant for T2DM, CAD, HTN, HLD. Presenting with severe abdominal pain. Per provider reports he has been having a difficult time controlling his BSGs at home and they have been running in the 4-500s. He follow with [facility] glycemic pharmacy * Patient started on insulin drip per DKA protocol, as anion gap elevated on admission. Will continue to follow PLAN FOR INPATIENT GLYCEMIC CONTROL: * Hold outpatient oral diabetes medications * Basal insulin: Lantus 36 units SQ BID * Correctional Insulin: Novolog Correction per scale ACHS. Will add overnight checks/coverage if BSGs trend upwards today. Goal Range: Low 110 mg/dL - High 140 mg/dL Correction Factor: 10 mg/dL/unit * Prandial insulin: Per carb ratio of 1 unit per 3 grams CHO consumed PLAN FOR DISCHARGE: * tbd
[2020-10-19] MEDS: ASPIRIN 81 MG CHEW PO SCH (08:28)
[2020-10-19] MEDS: PANTOprazole 40 MG TAB PO SCH (08:28)
[2020-10-19] MEDS: GABAPENTIN 100 MG CAP PO SCH ×3 (08:28→20:56)
[2020-10-19] MEDS: lisinopril 5 MG TAB PO SCH (08:28)
[2020-10-19] MEDS: TAMSULOSIN HCL 0.4 MG CAP PO SCH (08:28)
[2020-10-19] MEDS: FINASTERIDE 5 MG TAB PO SCH (08:28)
[2020-10-19] MEDS: METOPROLOL SUCC 25MG EXT REL TAB PO SCH (08:29)
[2020-10-19] MEDS: ACETAMINOPHEN 325 MG TAB PO PRN (08:33)
[2020-10-19] MEDS: INSULIN ASPART 100 UNITS/ML 3 ML PEN SC SCH ×4 (08:36→20:59)
[2020-10-19] MEDS ORDERED: INSULIN GLARGINE SOLOSTAR 100 UNITS/ML 3 ML PEN SC SCH ×2 (09:00)
[2020-10-19] MEDS: cefTRIAXone SODIUM 2,000 MG in DEXTROSE 5% 50 ML IV SCH (10:55)
[2020-10-19] MEDS ORDERED: INSULIN GLARGINE SOLOSTAR 100 UNITS/ML 3 ML PEN SC ONE (11:15)
[2020-10-19] MEDS ORDERED: INSULIN ASPART 100 UNITS/ML 3 ML PEN SC ONE (14:30)
[2020-10-19] MEDS ORDERED: FLUCONAZOLE 100 MG TAB PO ONE (14:30)
--- NOTE | 2020-10-19 14:37 | Communication Note ---
Date of Service: October 19, 2020 Patient has history of scrotal abscess, status post I&D in the past Wound culture from scrotal/perianal area: Growing Samira, started with Diflucan, appreciate pharmacy input for dosing. Ordered for scrotal ultrasound. Eloina Claudio MD
--- NOTE | 2020-10-19 17:34 | Hospitalist Progress Note ---
Date of Service October 19, 2020 Assessment & Plan (1) Abdominal pain: (2) Obstructive uropathy: (3) DKA, type 2: This is a 65-year-old male who has significant past medical history of insulin- dependent T2DM, CAD, HTN, HLD, PUD, BPH with obstructive uropathy chronic Crespo who presents to ED secondary to abdominal pain x1 day. Abdominal pain/obstructive uropathy BPH with crespo 2/2 to prostatic abscess with extension to scrotum Abdomen symptoms has completely resolved after readjustment of Crespo catheter Per urology no other intervention needed, continue with Crespo catheter CT abdomen pelvis revealed markedly distended bladder and moderate to severe bilateral hydronephrosis secondary to bladder outlet obstruction from Crespo catheter balloon located in the prostatic urethra. Nursing staff in ED advanced Crespo and had 2200 mL of urine output instantane ously. Patient's abdominal pain improved significantly. Patient has been asymptomatic/no lower abdominal pain or discomfort since then Severe bilateral hydronephrosis possibly secondary to Crespo misplacement leading to bladder outlet obstruction Patient had no further issue with urinary retention, Crespo draining clear yellow urine. 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 He had VCUG 09/19 which was unremarkable. Patient failed a voiding trial on 10/10 and Crespo catheter was replaced. He is scheduled for outpatient cystoscopy. Continue Flomax and finasteride Urine culture negative, patient does not have any catheter associated UTI IV Rocephin discontinued Scrotal wound positive for Samira, started with Diflucan: Uncontrolled T2DM Diabetic ketoacidosis in type II Blood sugar elevated more than 600 on admission Was treated with IV insulin drip protocol appreciate input from pharmacy glycemic management hb A1c more than 14 director of people consulted Blood sugar has improved markedly, currently on subcu Lantus and sliding scale Patient will be discharged home with adjusted dose of insulin will continue to follow with diabetic clinic as outpatient Hypertensive urgency Resolved, stable blood pressure now with home medications Possibly exacerbated by pain in setting of urinary obstruction, monitor Continue metoprolol On lisinopril 5 mg daily -new medication during this admission For renal benefit of SHEREEN inhibitor in setting of T2DM CAD Continue ASA, statin, metoprolol No chest pain or shortness of breath PUD Continue outpatient Pepcid Elevated Lipase Resolved, tolerating diet, no GI issues CT a/p shows normal appearing pancreas DVT ppx: SQ Lovenox Disposition: Possible discharge home tomorrow PCP: Ivelisse FULL CODE Patient's daughter updated over phone Admission and Anticipated Discharge Date Admission Date: October 17, 2020 Subjective Follow-up visit for hyperglycemia/HHS/poorly controlled type 2 diabetes/urinary retention with chronic indwelling Crespo catheter: Patient sitting up in chair, feels fine, said he managed to walk on the hallway with walker, No fever or chills offers no discomfort Blood sugar has improved, Hoping to be discharged home tomorrow Review of Systems Review of Systems: All systems reviewed & are unremarkable except as noted in Subjective Physical Exam Physical Exam: Physical exam: General: No acute distress, alert awake oriented x3 HEENT: PERRLA, EOMI, Heart: Regular S1-S2, no carotid bruit, no JVD, no lower extremity edema Lungs: Clear to auscultate, no wheeze or rales Abdomen: Soft nontender, no organomegaly Extremity: scrotal /perirectal area: Perineal abscess with wound packed present, no surrounding erythema noted, diffuse excoriation around the scrotal area and urethral meatus Neuro: No focal neurological deficit Psych: Alert awake oriented x3, normal affect Results & Data Results & Data ([facility]) Vital Signs (Past 12 Hours) Vital Signs Temp Pulse Resp BP Pulse Ox 10/19/20 15:28 36.5 C 73 16 136/78 97 10/19/20 07:21 36.5 C 72 18 153/83 H 97
[2020-10-19] MEDS: INSULIN GLARGINE SOLOSTAR 100 UNITS/ML 3 ML PEN SC SCH (20:56)
[2020-10-19] MEDS: ENOXAPARIN INJ 30 MG/0.3 ML SYR SQ SCH (21:00)
--- NOTE | 2020-10-19 21:07 | Ultrasound Report ---
ULTRASOUND TESTES AND SCROTUM CLINICAL HISTORY: Scrotal edema. Reported history of scrotal abscess. COMPARISON STUDY: No priors. TECHNIQUE: Real-time, grayscale, and color Doppler sonography of the testes and scrotum is performed. Images are reviewed in the transverse and longitudinal planes. FINDINGS: Right testis is not identified and reported surgically absent. The left testis is normal in size and echotexture, measuring 4.1 x 2.2 x 2.8 cm. No intratesticular mass is seen. Left testicular blood madiha w is normal. Normal Doppler waveforms are identified in the left testis. The left epididymal head is normal in appearance, measuring 0.9 cm in length. No varicocele or hydrocele is seen. There is edema noted within the wall of the right scrotum. No flu id collection is seen to suggest abscess. IMPRESSION: 1. The right testis is not identified and reported surgically absent. 2. Unremarkable sonographic assessment of the left testis. 3. Nonspecific scrotal wall edema is seen on the right. No organized fluid collection is identified t o suggest abscess. ACT 112: Negative or not required by law. Electronically signed by: Clarence Barahona M.D. 10/19/2020 9:05 PM
[2020-10-20] MEDS: INSULIN ASPART 100 UNITS/ML 3 ML PEN SC SCH ×3 (00:08→08:41)
[2020-10-20 06:23] LABS: BUN Creatinine Ratio 26.8 (10-20); Calcium 8.5 mg/dl (8.5-10.1); Creatinine Clr Calc Pharmacy 129.6 ml/min; Est GFR (African American) 128.9; Est GFR (Non-African American) 111.2; Magnesium 2.1 mg/dl (1.8-2.4); Potassium 3.6 mmol/L (3.5-5.1)
[2020-10-20 06:29] LABS: Phosphorus 3.8 mg/dl (2.5-4.9)
[2020-10-20] MEDS: GABAPENTIN 100 MG CAP PO SCH (08:37)
[2020-10-20] MEDS: lisinopril 5 MG TAB PO SCH (08:38)
[2020-10-20] MEDS: METOPROLOL SUCC 25MG EXT REL TAB PO SCH (08:38)
[2020-10-20] MEDS: TAMSULOSIN HCL 0.4 MG CAP PO SCH (08:38)
[2020-10-20] MEDS: FINASTERIDE 5 MG TAB PO SCH (08:38)
[2020-10-20] MEDS: PANTOprazole 40 MG TAB PO SCH (08:38)
[2020-10-20] MEDS: INSULIN GLARGINE SOLOSTAR 100 UNITS/ML 3 ML PEN SC SCH (08:42)
[2020-10-20] MEDS: ASPIRIN 81 MG CHEW PO SCH (08:43)
--- NOTE | 2020-10-20 08:57 | Pharmacy Report ---
Pharmacy Glycemic Short Note 2 - Date of Service October 20, 2020 - Glycemic Short BSG Results (Last 24 hours): 10/19/20 10/19/20 10/19/20 10:03 10:25 10:26 Glucose POC Glucose 370 H* 348 H* 356 H* 10/19/20 10/19/20 10/19/20 10:27 11:42 11:42 Glucose POC Glucose 377 H* 301 H* 319 H* 10/19/20 10/19/20 10/19/20 11:43 14:12 17:21 Glucose POC Glucose 289 H 258 H 220 H 10/19/20 10/20/20 10/20/20 20:54 00:00 00:05 Glucose POC Glucose 177 H 69 L* 72 10/20/20 10/20/20 10/20/20 04:11 05:58 08:22 Glucose 125 H POC Glucose 106 H 157 H OUTPATIENT ANTIDIABETIC REGIMEN: * Lantus 36 units bid, Novolog 14-14-18 TIDM, metformin, ozempic * A1c 10% 05/2020 ASSESSMENT: 10/20 * Pt has received 201 units of insulin over the past 24hrs * 101 units of basal with Lantus * 100 units of bolus with NovoLog * BSGs [id number] mg/dl * AM fasting BSG is in goal range at 125/157 mg/dl this AM. Basal insulin dosing is adequate * Post-prandial BSgs were significantly elevated yesterday- CHO coverage tightened and Lantus increased since initial orders were too conservative. * PT to be DC today - see DC recs below. 10/19 * Pt has received 126 units of SQ insulin + IV insulin infusion over the past 24hrs * 95 units of basal with Lantus * 31 units of bolus with NovoLog * BSGs trended downwards last evening after overlap of IV insulin infusion + SQ insulin with Lantus/NovoLog indicating adequate SQ insulin dosing. * IV insulin infusion "turned off" around 2200 last evening. * AM fasting BSG is in goal range at 122 mg/dl. * Will resume modified/stressed outpatient SQ basal bolus insulin regimen and titrate based on BSG trends. * Dextrose IVF dc 10/18 * Patient continues on insulin drip this AM, gap now closed. Plan to transition off insulin drip. Drip running ~3 units/hr - ~70 units/day. Plan to give 70 units x 1 now (this dosing is similar to home Lantus daily dose). Plan to stop drip ~6 hrs after basal dose of insulin given or when calculator prompts them to hold drip * Will set CR to 3 to help with transition off insulin drip. Patient now eating this AM - IV fluids changed and dextrose removed 10/17 * 65 year old admitted with hyperglycemia. PMHx significant for T2DM, CAD, HTN, HLD. Presenting with severe abdominal pain. Per provider reports he has been having a difficult time controlling his BSGs at home and they have been running in the 4-500s. He follow with [facility] glycemic pharmacy * Patient started on insulin drip per DKA protocol, as anion gap elevated on admission. Will continue to follow PLAN FOR INPATIENT GLYCEMIC CONTROL: * Hold outpatient oral diabetes medications * Basal insulin: Lantus 50 units SQ BID * Correctional Insulin: Novolog Correction per scale ACHS. Will add overnight checks/coverage if BSGs trend upwards today. Goal Range: Low 110 mg/dL - High 140 mg/dL Correction Factor: 9 mg/dL/unit * Prandial insulin: Per carb ratio of 2 unit per 3 grams CHO consumed PLAN FOR DISCHARGE: * A1c = 14.5 % on * Goal A1c = below 8 % based on age and comorbidities * Outpatient regimen of Lantus 36 units bid, Novolog TIDM, metformin, ozempic needs adjusted for tighter control. DM educator spoke extensively with SO and confirmed insulin administration technique and adherence. * Lantus --> recommend increasing dosing to Lantus 50 units SQ BID * NovoLog --> Recommend increasing to 20 units SQ TIDM. Pt may work with outpatient provider on SSI coverage in addition to CHO coverage. * Metformin --> Recommend increasing to max dosing. Pt is currently taking 1,00mg PO daily. Dosage increases should be made in increments of 500 mg weekly, up to 2,000 mg/day PO, given in divided doses. Recommend increasing to 1,000mg PO daily in AM and 500mg PO daily with dinner. Pt can increase to 2,000mg PO BIDM after a week. * Ozempic --> This can be titrated with outpatient provider. Recommend increasing up to 1mg weekly if tolerated.
[2020-10-20] MEDS ORDERED: FLUCONAZOLE 100 MG TAB PO SCH (09:00)
--- NOTE | 2020-10-20 09:48 | Hospitalist Progress Note ---
Date of Service October 20, 2020 Assessment & Plan (1) Abdominal pain: (2) Obstructive uropathy: (3) DKA, type 2: This is a 65-year-old male who has significant past medical history of insulin- dependent T2DM, CAD, HTN, HLD, PUD, BPH with obstructive uropathy chronic Crespo who presents to ED secondary to abdominal pain x1 day. Abdominal pain/obstructive uropathy BPH with crespo 2/2 to prostatic abscess with extension to scrotum Patient has been doing very well since readjustment of Crespo catheter Abdomen symptoms has completely resolved presented with severe lower abdominal pain CT abdomen pelvis revealed markedly distended bladder and moderate to severe bilateral hydronephrosis secondary to bladder outlet obstruction from Crespo catheter balloon located in the prostatic urethra. Nursing staff in ED advanced Crespo and had 2200 mL of urine output ins tantaneously. Patient's abdominal pain improved significantly. 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 He had VCUG(voiding cystourethrogram) 09/19 which was unremarkable. Patient failed a voiding trial on 10/10 and Crespo catheter was replaced. He is scheduled for outpatient cystoscopy. Continue Flomax and finasteride Urine culture negative, patient does not have any catheter associated UTI IV Rocephin discontinued Scrotal wound positive for Samira, started with Diflucan: Discharged on Diflucan 100 mg daily tablet for 7 days Uncontrolled T2DM Diabetic ketoacidosis in type II Blood sugar elevated more than 600 on admission Was treated with IV insulin drip protocol inclusion paraeducator consulted Blood sugar has improved transitioned to subcu Lantus and sliding scale Patient will be discharged home with adjusted dose of insulin-as outlined below will continue to follow with diabetic clinic as outpatient-patient reports he already have a scheduled appointment tomorrow appreciate input from pharmacy glycemic management Pharmacy recommendations/insulin regimen PLAN FOR DISCHARGE: A1c = 14.5 % on Goal A1c = below 8 % based on age and comorbidities Outpatient regimen of Lantus 36 units bid, Novolog TIDM, metformin, ozempic needs adjusted for tighter control. DM educator spoke extensively with SO and confirmed insulin administration technique and adherence. Lantus --> recommend increasing dosing to Lantus 50 units SQ BID-prescription sent to pharmacy NovoLog --> dose adjusted to 20 units SQ TIDM. Pt will work with outpatient provider on SSI coverage in addition to CHO co verage. Metformin --> Recommend increasing to max dosing. Pt is currently taking 1,00mg PO daily. Dosage increases should be made in increments of 500 mg weekly, up to 2,000 mg/day PO, given in divided doses. Recommend increasing to 1,000mg PO daily in AM and 500mg PO daily with dinner. Pt can increase to 2,000mg PO BIDM after a week. Ozempic --> This can be titrated with outpatient provider. Recommend increasing up to 1mg weekly if tolerated. Hypertensive urgency Resolved, stable blood pressure now with home medications Possibly exacerbated by pain in setting of urinary obstruction, monitor Continue metoprolol On lisinopril 5 mg daily -new medication during this admission For renal benefit of SHEREEN inhibitor in setting of T2DM CAD Continue ASA, statin, metoprolol No chest pain or shortness of breath PUD Continue outpatient Pepcid Elevated Lipase Resolved, tolerating diet, no GI issues CT a/p shows normal appearing pancreas DVT ppx: SQ Lovenox Disposition: Stable to be discharged home today PCP: Ivelisse FULL CODE Admission and Anticipated Discharge Date Admission Date: October 17, 2020 Subjective Follow-up visit for hyperglycemia/HHS/poorly controlled type 2 diabetes/urinary retention with chronic indwelling Crespo catheter: pt has been doing very well, this morning he woke up feeling much more spirited has normal energy, walk to the bathroom managed to clean himself no shortness of breath no dyspnea on exertion Normal appetite, No fever or chills Blood Sugar much better after adjustment of insulin regimen Eager to be discharged home today Review of Systems Review of Systems: All systems reviewed & are unremarkable except as noted in Subjective Physical Exam Physical Exam: Physical exam: General: No acute distress, alert awake oriented x3 HEENT: PERRLA, EOMI, Heart: Regular S1-S2, no carotid bruit, no JVD, no lower extremity edema Lungs: Clear to auscultate, no wheeze or rales Abdomen: Soft nontender, no organomegaly Extremity: scrotal /perirectal area: Small wound with wound packing. No surrounding erythema Neuro: No focal neurological deficit Psych: Alert awake oriented x3, normal affect Results & Data Results & Data ([facility]) Vital Signs (Past 12 Hours) Vital Signs Temp Pulse Resp BP Pulse Ox 10/20/20 07:39 36.3 C L 71 16 149/88 H 97 10/19/20 21:51 36.7 C 69 18 143/83 H 98
--- NOTE | 2020-10-20 10:11 | Discharge Summary ---
Date of Service October 20, 2020 Admission HPI Per Admitting Provider This is a 65-year-old male who has significant past medical history of insulin- dependent T2DM, CAD, HTN, HLD, PUD, BPH with obstructive uropathy chronic Conteh who presents to ED with at bedside secondary to abdominal pain x1 day. He elicits he woke up this morning with severe abdominal pain mostly located in suprapubic region. Pain was very sharp and constant. He states he had his Conteh catheter changed on 10/10 and admits to gradually increasing pain ever since. He has had output from his Conteh catheter. He denied any fever, chills, sweats, lightheadedness, dizziness, chest pain, shortness of breath, URI symptoms, cough, nausea or vomiting. He admits to being more constipated and had 2 very small but hard stools today. When he arrived at ED work-up revealed significant obstructive uropathy secondary to Conteh placement and dislodgment with severe bilateral hydronephrosis. Nursing staff advanced Conteh and got 2200 mL of urine output and immediate relief of patient's abdominal pain. During further work-up patient was found to have significant hyperglycemia and evidence of DKA. He was recommended for admission. Patient states at home he has been having difficulty controlling his blood sugars and they have been consistently running in the 4-500s. He he admits to being compliant with insulin. He follows [facility] glycemic pharmacy. His appetite has been normal. No recent illness. Principal Diagnosis CHRONIC INDWELLING CONTEH CATHETER POORLY CONTROLLED TYPE 2 DIABETES WITH PRESENTATION OF HYPEROSMOLAR /HYPERGLYCEMIC STATE CHRONIC PERIANAL WOUND Discharge Data Allergies Allergy/AdvReac Type Severity Reaction Status Date / Time No Known Allergies Allergy Verified 10/17/20 08:23 Consultations 10/17/20 10:15 ED Decision to Admit Stat 10/17/20 10:48 Consult Urology Routine Ordered Studies 10/17/20 07:02 CT abd pelvis IV con only Stat 10/19/20 14:33 US scrotum/testicle Routine Diabetes Follow up Diabetes Follow-up Needed for HgbA1c >9% Hospital Course (1) Abdominal pain: (2) Obstructive uropathy: (3) DKA, type 2: This is a 65-year-old male who has significant past medical history of insulin- dependent T2DM, CAD, HTN, HLD, PUD, BPH with obstructive uropathy chronic Conteh who presents to ED secondary to abdominal pain x1 day. Abdominal pain/obstructive uropathy BPH with conteh 2/2 to prostatic abscess with extension to scrotum Patient has been doing very well since readjustment of Conteh catheter Abdomen symptoms has completely resolved presented with severe lower abdominal pain CT abdomen pelvis revealed markedly distended bladder and moderate to severe bilateral hydronephrosis secondary to bladder outlet obstruction from Conteh catheter balloon located in the prostatic urethra. Nursing staff in ED advanced Conteh and had 2200 mL of urine output instantaneously. Patient's abdominal pain improved significantly. 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 He had VCUG(voiding cystourethrogram) 09/19 which was unremarkable. Patient failed a voiding trial on 10/10 and Conteh catheter was replaced. He is scheduled for outpatient cystoscopy. Continue Flomax and finasteride Urine culture negative, patient does not have any catheter associated UTI IV Rocephin discontinued Scrotal wound positive for Samira, started with Diflucan: Discharged on Diflucan 100 mg daily tablet for 7 days Uncontrolled T2DM Diabetic ketoacidosis in type II Blood sugar elevated more than 600 on admission Was treated with IV insulin drip protocol finisher wallboard and plasterboard consulted Blood sugar has improved transitioned to subcu Lantus and sliding scale Patient will be discharged home with adjusted dose of insulin-as outlined below will continue to follow with diabetic clinic as outpatient-patient reports he already have a scheduled appointment tomorrow appreciate input from pharmacy glycemic management Pharmacy recommendations/insulin regimen PLAN FOR DISCHARGE: A1c = 14.5 % on Goal A1c = below 8 % based on age and comorbidities Outpatient regimen of Lantus 36 units bid, Novolog TIDM, metformin, ozempic needs adjusted for tighter control. DM educator spoke extensively with SO and confirmed insulin administration technique and adherence. Lantus --> recommend increasing dosing to Lantus 50 units SQ BID-prescription sent to pharmacy NovoLog --> dose adjusted to 20 units SQ TIDM. Pt will work with outpatient provider on SSI coverage in addition to CHO coverage. Metformin --> Recommend increasing to max dosing. Pt is currently taking 1,00mg PO daily. Dosage increases should be made in increments of 500 mg weekly, up to 2,000 mg/day PO, given in divided doses. Recommend increasing to 1,000mg PO daily in AM and 500mg PO daily with dinner. Pt can increase to 2,000mg PO BIDM after a week. Ozempic --> This can be titrated with outpatient provider. Recommend increasing up to 1mg weekly if tolerated. Hypertensive urgency Resolved, stable blood pressure now with home medications Possibly exacerbated by pain in setting of urinary obstruction, monitor Continue metoprolol On lisinopril 5 mg daily -new medication during this admission For renal benefit of SHEREEN inhibitor in setting of T2DM CAD Continue ASA, statin, metoprolol No chest pain or shortness of breath PUD Continue outpatient Pepcid Elevated Lipase Resolved, tolerating diet, no GI issues CT a/p shows normal appearing pancreas DVT ppx: SQ Lovenox Disposition: Stable to be discharged home today PCP: Ivelisse FULL CODE Total Time Total Time Spent Total Time Spent (In Minutes): Approximately 45 minutes Total Time Includes: Examination of the Patient, Discharge Planning, Medication Reconciliation, Communication With Other Providers and Other Discharge Plan Discharge Items Patient Disposition: Home - Home Health Services Reason For Visit: DKA, OBSTRUCTIVE UROPATHY Discharge Diagnosis: CHRONIC INDWELLING CONTEH CATHETER POORLY CONTROLLED TYPE 2 DIABETES WITH PRESENTATION OF HYPEROSMOLAR /HYPERGLYCEMIC STATE CHRONIC PERIANAL WOUND Activity: Resume your previous activity Non-emergency contact: Primary Care Provider Call non-emergency contact if: you have any medication questions Follow-up/Referrals: Prosper Oviedo MD [Primary Care Provider] - (Date & Time 10/24/2020 3:00 PM Provider Prosper Oviedo MD [facility] [address] ) Diet: Carb Consistent or DM2 and Heart Healthy Addtl Attending Provider Instructions: Please take all medications as instructed on discharge list below. It is recommended that you follow-up with your primary care physician within 1-2 weeks of hospital discharge to ensure you are still doing well. Please call if you have any questions or problems. You can reach a [facility] hospitalist on duty at [facility] 24 hours a day by calling [phone] [facility] Hem Inspector Provider Instructions: INSULIN DOSE ADJUSTMENT Your globin A1c = 14.5 % on 10/18/20-which is a high risk to cause you kidney f ailure heart attack stroke Goal A1c = below 8 % Insulin Lantus dose increased to 50 units twice daily subcutaneous twice daily(was 36 units twice daily) Short-acting: NovoLog take 20 minutes 3 times daily before each meal Metformin dose increased: Take 1000 mg daily in a.m. and 500 mg daily with dinner Please follow-up with your diabetic clinic for further adjustment of meds Please keep a log of your blood sugars 3 times daily as you have been doing, and bring it to next appointment You are prescribed: Diflucan 100 mg 1 tablet daily for 7 days-for fungal infection at the scrotal wound Pending Studies at Discharge: No Stand-Alone Forms: My [facility], Smoking Cessation Medications and DC Order Prescriptions: New fluconazole [Diflucan] 100 mg tablet 100 mg PO DAILY Qty: 7 RF: 0 metformin 500 mg tablet extended release 24 hr 500 mg PO PM Qty: 30 RF: 3 insulin aspart U-100 [Novolog Flexpen U-100 Insulin] 100 unit/mL (3 mL) insulin pen 20 unit subcut TIDM Qty: 15 RF: 3 Continued atorvastatin 80 mg Tablet 80 mg PO QAM Qty: 0 RF: 0 pantoprazole [Protonix] 40 mg Tablet,Delayed Release (Dr/Ec) 40 mg PO QAM Qty: 0 RF: 0 finasteride 5 mg tablet 5 mg PO QAM Qty: 90 RF: 1 tamsulosin 0.4 mg capsule 0.4 mg PO DAILY Qty: 90 RF: 1 metoprolol succinate 25 mg tablet extended release 24 hr 25 mg PO QAM RF: 0 nitroglycerin 0.4 mg tablet, sublingual 0.4 mg sublingual DIRECTED PRN (Reason: chest pain) RF: 0 gabapentin 100 mg capsule 100 mg PO TID RF: 0 aspirin 81 mg Tablet,Chewable 81 mg PO QAM RF: 0 metformin 500 mg tablet extended release 24 hr 1,000 mg PO DAILY RF: 0 Ozempic 0.25 mg or 0.5 mg(2 mg/1.5 mL) pen injector 0.25 mg SUBCUT WK RF: 0 Changed Lantus Solostar U-100 Insulin 100 unit/mL (3 mL) insulin pen 50 unit subcut BID 30 Days Qty: 30 RF: 0 Discontinued insulin aspart (niacinamide) 100 unit/mL Solution 1 sliding scale dose SUBCUT USEASDIRECTD RF: 0 Discharge Orders: Discharge Order (Routine); Ordered 10/20/20 Ordered By: Eloina Claudio Admission Data Admit Date/Time: 10/17/20 10:48 Attending Provider: Eloina Claudio Admit Provider: Zhen Campos Primary Care Provider: Prosper Oviedo Other Providers: [place] ; Zhen Campos ; Rodney Paul
--- NOTE | 2020-10-20 13:09 | Communication Note ---
Date of Service: October 20, 2020 Patient was discharged home earlier today Prior wound culture shows growth of Samira : Prescription for Diflucan was sent to pharmacy Wound culture report available: for samira /group B strep Addition of antibiotic to cover group B streptococcus: Augmentin for 10 days sent to patient's pharmacy Called patient's home updated regarding the medication change Eloina Claudio MD
== END 2020-10-20 11:17 | disposition home health service (06) | DRG 698 ==
LOC: ED 06:46 → SUATTDRO 10:48 → 2S 10:48 → 3E 10-18 13:55

== ENCOUNTER 2020-12-26 10:03 | Observation (INO) ==
[2020-12-26] MEDS ORDERED: SODIUM CHLORIDE 0.9% 500 ML IV ONE (10:16)
[2020-12-26] MEDS ORDERED: FAMOTIDINE 20MG IV PUSH 20 MG/5 ML SYR IV STA (10:16)
[2020-12-26] MEDS ORDERED: diphenhydrAMINE 50 MG/ML VIAL IV STA (10:16)
[2020-12-26] MEDS ORDERED: dexAMETHasone**PF** 10 MG/ML VIAL IV ONE (10:16)
[2020-12-26 10:39] LABS: Basophils # (auto) 0.01 K/uL (0-0.2); Basophils % (auto) 0.2 %; Eosinophils # (auto) 0.39 K/uL (0-0.5); Eosinophils % (auto) 6.8 %; Hematocrit (blood only) 42.2 % (42-52); Hemoglobin 14.2 g/dL (14.0-18.0); Immature Granulocytes # (auto) 0.06 K/uL (0.00-0.02); Lymphocytes # (auto) 1.51 K/uL (1.2-3.4); Lymphocytes % (auto) 26.3 %; Mean Corpuscular Hemoglobin 28.1 pg (25-34); Mean Corpuscular Hgb Conc 33.6 g/dL (32-36); Mean Corpuscular Volume 83.4 fL (80-100); Mean Platelet Volume 9.9 fL (7.4-10.4); Monocytes # (auto) 0.43 K/uL (0.11-0.59); Monocytes % (auto) 7.5 %; Neutrophils # (auto) 3.35 K/uL (1.4-6.5); Neutrophils % (auto) 58.2 %; Platelet Count 274 K/uL (130-400); RDW Coefficient of Variation 15.5 % (11.5-14.5); RDW Standard Deviation 47.1 fL (36.4-46.3); Red Blood Count 5.06 M/uL (4.7-6.1); White Blood Count 5.75 K/uL (4.8-10.8)
[2020-12-26 10:59] LABS: Alanine Aminotransferase 29 U/L (12-78); Albumin Level 3.3 gm/dl (3.4-5.0); Aspartate Aminotransferase 25 U/L (15-37); BUN Creatinine Ratio 21.7 (10-20); Blood Urea Nitrogen 17 mg/dl (7-18); Calcium 8.7 mg/dl (8.5-10.1); Carbon Dioxide 24 mmol/L (21-32); Chloride 106 mmol/L (98-107); Est GFR (African American) 106.6 ml/min; Glucose 225 mg/dl (70-99); Potassium 4.2 mmol/L (3.5-5.1); Sodium 136 mmol/L (136-145)
[2020-12-26 11:01] LABS: Albumin Globulin Ratio 0.8 (0.9-2); Alkaline Phosphatase 91 U/L (45-117); Bilirubin,Total 0.4 mg/dl (0.2-1); Total Protein 7.3 gm/dl (6.4-8.2)
--- NOTE | 2020-12-26 12:33 | Emergency Department Note ---
Impression & Plan Angioedema, Indwelling Perera catheter present, Hyperglycemia ED Provider Note NAME: AARON BELLE AGE: 65 SEX: M ARRIVES VIA: Walk-In INFORMANT: Patient, ED PROVIDER(S): Javed Swanson MD CHIEF COMPLAINT: Lip swelling PLAN: Disposition: Admit MEDICAL DECISION MAKING: The patient is a pleasant 65-year-old gentleman with a past medical history type 2 diabetes, prostate enlargement with history of prostate abscess June 2020, chronic indwelling Perera catheter, hypertension, hyperlipidemia, CAD who presents to the emergency department accompanied by his granddaughter and with concern for lip swelling which began last night in the setting of being seen in the emergency department on 12/22 and was started on Bactrim for suspected UTI in the setting of Perera catheter dysfunction. The patient reports first noticing the lip swelling last night and did not resolve this morning however they admit that it did not get worse either. He reports some discomfort swallowing but has been able to eat and drink without difficulty. He denies any difficulty breathing or shortness of breath. Denies any fevers, chills, cough, congestion, vomiting, new urinary issues and catheter has been draining normally. Of note, review of the patient's urine culture showed mixed mike therefore antibiotics not indicated at this time. The patient is also on lisinopril and Flomax which she has been for years and so less likely to be the culprit for angioedema however cannot be excluded either. On arrival the patient is in no acute distress, afebrile stable vital signs. He has severe swelling of the lower lip with minimal involvement of upper lip and no intraoral edema, tongue elevation or trismus. The uvula is midline and nonedematous. He has no stridor. Lungs are clear. WBC, H/H and platelets within normal limits. Chemistry without metabolic acidosis. LFTs are unremarkable. COVID-19 PCR was negative. She was treated initially with dexamethasone, diphenhydramine, famotidine and IV fluids with interval improvement in his angioedema though some residual edema is noted. While the patient is somewhat improved reasonable admit the patient for observation to ensure continued improvement. The patient is in agreement with t his plan. Case was discussed with Laura Shetty, [facility], with Dr. Campos, [facility] hospitalist who will evaluate the patient for admission. Triage Nursing notes reviewed and agree them. Prior medical records reviewed Vital Signs: reviewed and remarkable for no significant abnormalities Differential diagnosis: Allergic reaction, anaphylaxis, urticaria, Curry-Joel syndrome, toxic epidermal necrolysis, erythema multiforme, contact dermatitis, cellulitis, as well as other pathologies. ER treatment provided: See below. Diagnostics interpreted by me: ECG: Sinus rhythm, 71 bpm, no ectopy, no overt ST elevation or depression, QTC 456, QRS 102. Cardiac Monitoring: An order for continuous cardiac monitoring was placed and demonstrated Sinus rhythm, 71 bpm, no ectopy. Laboratory studies: See below Imaging studies: See below Consultation(s): Laura Shetty, [facility], with Dr. Campos, [facility] hospitalist who will evaluate the patient for admission. HPI: The patient is a pleasant 65-year-old gentleman with a past medical history type 2 diabetes, prostate enlargement with history of prostate abscess June 2020, chronic indwelling Perera catheter, hypertension, hyperlipidemia, CAD who presents to the emergency department accompanied by his granddaughter and with concern for lip swelling which began last night in the setting of being seen in the emergency department on 12/22 and was started on Bactrim for suspected UTI in the setting of Perera catheter dysfunction. The patient reports first noticing the lip swelling last night and did not resolve this morning however they admit that it did not get worse either. He reports some discomfort swallowing but has been able to eat and drink without difficulty. He denies any difficulty breathing or shortness of breath. Denies any fevers, chills, cough, congestion, vomiting, new urinary issues and catheter has been draining normally. Of note, review of the patient's urine culture showed mixed mike therefore antibiotics not indicated at this time. The patient is also on lisinopril and Flomax which she has been for years and so less likely to be the culprit for angioedema however cannot be excluded either. ROS: See above HPI for pertinent positives & negatives. A total of 10 systems reviewed and were otherwise negative. PAST MEDICAL HISTORY:See Below PAST SURGICAL HISTORY:See Below FAMILY HISTORY:See Below SOCIAL HISTORY:See Below HOME MEDICATIONS:See Below ALLERGIES:See Below VITALS:See Below PHYSICAL EXAMINATION: GENERAL: Awake, alert, well-appearing, in no distress HENT: Normocephalic, atraumatic. Severe swelling of the lower lip with minimal involvement of upper lip and no intraoral edema, tongue elevation or trismus. The uvula is midline and nonedematous. EYES: Normal conjunctiva. Sclera non-icteric. NECK: Supple. No nuchal rigidity. FROM. No JVD. No stridor RESPIRATORY: Clear to auscultation. CARDIAC: Regular rate, normal rhythm. Extremities warm and well perfused. Pulses equal. ABDOMEN: Soft, non-distended. No tenderness to palpation. No rebound or guarding. No masses. RECTAL: Deferred. MUSCULOSKELETAL: Chest examination reveals no tenderness. The back is symmetrical on inspection without obvious abnormality. There is no CVA tenderness to palpation. No joint edema. LOWER EXTREMITIES: Calves are equal size bilaterally and non-tender. No edema. No discoloration. NEURO: Normal sensorium. No sensory or motor deficits noted. SKIN: No rash or jaundice noted. ED COURSE: Critical Care: I have personally spent greater than 35 minutes of critical care time in the direct management of this patient. This includes bedside care, interpretation of diagnostic studies, and testing, discussion with consultants, patient, and family members, and other required patient management activities. This 35 minutes is in excess of all separately billable procedures. Javed Swanson MD Past Med/Surg History Medical History Abnormal CT scan, pelvis CT abdomen & pelvis 05/15/20: "Prominent left pelvic sidewall and left inguinal lymph nodes. These may be reactive however a short-term follow-up CT is recommended in 3 months." Acute hyponatremia Angioedema Benign prostatic hyperplasia Complication, blocked Perera catheter Coronary artery disease Diabetes mellitus type 2 with complications Diabetes mellitus, type II Dyslipidemia Hematuria Hematuria Hypertension Obstructed Perera catheter Urinary retention Surgical History History of hernia repair Status post cardiac catheterization Status post cholecystectomy Family History Father Cancer Diabetes Mother Diabetes Cancer leukemia Brother Coronary heart disease Myocardial infarction Social History Smoking Status: Never smoker Second Hand Exposure: No; Do You Dip or Chew Tobacco: No; Tobacco Cessation Education Requested by Patient: No Hx Alcohol Use: No Hx Substance Use: No Preferred Language: Bulgarian Communication Ability: Effective Communication Ability Comment: "can read a little bit" Visual Impairment: No Limitations Hearing Ability: Normal Corrections Specialist Required: No Beliefs That Will Affect Care: None marital status: Single Current Living Situation: Spouse Other Information That Helps Us Care for You: No Feels Safe at Home: Yes Safety Concerns: Feels Safe At This Time Assistive Devices: None Assistive Devices Comment: Perera catheter Allergies Allergies Allergy/AdvReac Type Severity Reaction Status Date / Time sulfamethoxazole Allergy Severe angioedema Verified 12/26/20 13:30 [From Bactrim] trimethoprim [From Bactrim] Allergy Severe angioedema Verified 12/26/20 13:30 Home Meds Home Medications Medication Instructions Recorded Confirmed atorvastatin 80 mg PO QAM #0 05/09/17 12/26/20 pantoprazole [Protonix] 40 mg PO QAM #0 05/09/17 12/26/20 metoprolol succinate 25 mg PO QAM 09/20/19 12/26/20 nitroglycerin 0.4 mg SUBLINGUAL DIRECTED PRN 09/20/19 12/26/20 aspirin 81 mg PO QAM 05/18/20 12/26/20 gabapentin 100 mg PO TID 05/18/20 12/26/20 Ozempic 0.5 mg SUBCUT WK 07/20/20 12/26/20 metformin 1,000 mg PO DAILY 07/20/20 12/26/20 lisinopril 10 mg PO DAILY 12/26/20 12/26/20 metformin 500 mg PO PM 12/26/20 12/26/20 Previous Rx's Medication Instructions Recorded finasteride 5 mg tablet 5 mg PO QAM #90 tab 06/05/20 tamsulosin 0.4 mg capsule 0.4 mg PO DAILY #90 cap 06/05/20 Lantus Solostar U-100 Insulin 50 unit SUBCUT BID 30 Days #30 ml 10/20/20 insulin aspart U-100 [Novolog 20 unit SUBCUT TIDM #15 ml 10/20/20 Flexpen U-100 Insulin] sulfamethoxazole-trimethoprim 1 tab PO BID 10 Days #20 tab 12/22/20 [Bactrim DS] Results & Data (ED) Vital Signs Vital Signs - 24 hr 12/26/20 10:06 12/26/20 10:17 12/26/20 10:52 Temperature 36.8 C Temperature Source Temporal Artery Scan Pulse Rate 77 80 71 Pulse Rate from SpO2 Sensor 80 71 Pulse Rhythm Regular Respiratory Rate 19 18 18 Respiratory Effort / Characteristics Non-Labored Spontaneous Respiratory Depth Normal Respiratory Pattern Regular Blood Pressure 135/88 158/86 H 157/102 H Blood Pressure Mean 103 110 120 Pulse Oximetry 96 96 96 Oxygen Delivery Method Room Air Sepsis Recent Fever Within 48 Hours No Sepsis New/Unexplained Change in Mental Status No Sepsis Action Taken by Nursing No Action Required 12/26/20 11:00 12/26/20 11:30 12/26/20 12:00 Temperature Temperature Source Pulse Rate 71 70 70 Pulse Rate from SpO2 Sensor 72 71 69 Pulse Rhythm Respiratory Rate 20 17 21 Respiratory Effort / Characteristics Respiratory Depth Respiratory Pattern Blood Pressure 153/98 H 153/87 H 150/92 H Blood Pressure Mean 116 109 111 Pulse Oximetry 96 96 95 Oxygen Delivery Method Sepsis Recent Fever Within 48 Hours Sepsis New/Unexplained Change in Mental Status Sepsis Action Taken by Nursing 12/26/20 12:30 Temperature Temperature Source Pulse Rate 73 Pulse Rate from SpO2 Sensor 74 Pulse Rhythm Respiratory Rate 17 Respiratory Effort / Characteristics Respiratory Depth Respiratory Pattern Blood Pressure 159/100 H Blood Pressure Mean 119 Pulse Oximetry 96 Oxygen Delivery Method Sepsis Recent Fever Within 48 Hours Sepsis New/Unexplained Change in Mental Status Sepsis Action Taken by Nursing Laboratory Data Attestation: I reviewed the patient's lab results. Result diagrams: 12/26/20 10:26 12/26/20 10:26 Lab Results 12/26/20 12/26/20 12/26/20 Range/Units 10:26 10:26 10:26 WBC 5.75 (4.8-10.8) K/uL RBC 5.06 (4.7-6.1) M/uL Hgb 14.2 (14.0-18.0) g/dL Hct 42.2 (42-52) % MCV 83.4 (80-100) fL MCH 28.1 (25-34) pg MCHC 33.6 (32-36) g/dL RDW Std Deviation 47.1 H (36.4-46.3) fL RDW Coeff of Naomy 15.5 H (11.5-14.5) % Plt Count 274 (130-400) K/uL MPV 9.9 (7.4-10.4) fL Immature Gran % (Auto) 1.0 % Neut % (Auto) 58.2 % Lymph % (Auto) 26.3 % Oliver % (Auto) 7.5 % Eos % (Auto) 6.8 % Baso % (Auto) 0.2 % Neut # (Auto) 3.35 (1.4-6.5) K/uL Lymph # (Auto) 1.51 (1.2-3.4) K/uL Oliver # (Auto) 0.43 (0.11-0.59) K/uL Eos # (Auto) 0.39 (0-0.5) K/uL Baso # (Auto) 0.01 (0-0.2) K/uL Immature Gran # (Auto) 0.06 H (0.00-0.02) K/uL Sodium 136 (136-145) mmol/L Potassium 4.2 (3.5-5.1) mmol/L Chloride 106 (98-107) mmol/L Carbon Dioxide 24 (21-32) mmol/L Anion Gap 6.0 (3-11) BUN 17 (7-18) mg/dl Creatinine 0.81 (0.6-1.4) mg/dl Est Cr Clr Drug Dosing Not Reportable Est GFR ( Amer) 106.6 ml/min Est GFR (Non-Af Amer) 92.0 ml/min BUN/Creatinine Ratio 21.7 H (10-20) Glucose 225 H (70-99) mg/dl Calcium 8.7 (8.5-10.1) mg/dl Total Bilirubin 0.4 (0.2-1) mg/dl AST 25 (15-37) U/L ALT 29 (12-78) U/L Alkaline Phosphatase 91 (45-117) U/L Total Protein 7.3 (6.4-8.2) gm/dl Albumin 3.3 L (3.4-5.0) gm/dl Globulin 4.0 (2.5-4.0) gm/dl Albumin/Globulin Ratio 0.8 L (0.9-2) COVID-19 Eval Order SARS-CoV-2 (PCR) (Negative) Blood Type O Positive Antibody Screen NEGATIVE 12/26/20 12/26/20 Range/Units 10:52 10:52 WBC (4.8-10.8) K/uL RBC (4.7-6.1) M/uL Hgb (14.0-18.0) g/dL Hct (42-52) % MCV (80-100) fL MCH (25-34) pg MCHC (32-36) g/dL RDW Std Deviation (36.4-46.3) fL RDW Coeff of Naomy (11.5-14.5) % Plt Count (130-400) K/uL MPV (7.4-10.4) fL Immature Gran % (Auto) % Neut % (Auto) % Lymph % (Auto) % Oliver % (Auto) % Eos % (Auto) % Baso % (Auto) % Neut # (Auto) (1.4-6.5) K/uL Lymph # (Auto) (1.2-3.4) K/uL Oliver # (Auto) (0.11-0.59) K/uL Eos # (Auto) (0-0.5) K/uL Baso # (Auto) (0-0.2) K/uL Immature Gran # (Auto) (0.00-0.02) K/uL Sodium (136-145) mmol/L Potassium (3.5-5.1) mmol/L Chloride (98-107) mmol/L Carbon Dioxide (21-32) mmol/L Anion Gap (3-11) BUN (7-18) mg/dl Creatinine (0.6-1.4) mg/dl Est Cr Clr Drug Dosing Est GFR ( Amer) ml/min Est GFR (Non-Af Amer) ml/min BUN/Creatinine Ratio (10-20) Glucose (70-99) mg/dl Calcium (8.5-10.1) mg/dl Total Bilirubin (0.2-1) mg/dl AST (15-37) U/L ALT (12-78) U/L Alkaline Phosphatase (45-117) U/L Total Protein (6.4-8.2) gm/dl Albumin (3.4-5.0) gm/dl Globulin (2.5-4.0) gm/dl Albumin/Globulin Ratio (0.9-2) COVID-19 Eval Order Covid19 at [facility] SARS-CoV-2 (PCR) NEGATIVE (Negative) Blood Type Antibody Screen Administered Medications Diphenhydramine HCl (Diphenhydramine 50 Mg/Ml Vial) 50 mg IV Q6H RASHAAD Stop: 12/28/20 14:29 Last Admin: 12/26/20 15:25 Dose: 50 mg Documented by: [id number] Insulin Aspart (Insulin Aspart 100 Units/Ml 3 Ml Pen) 0 units SC ACHS RASHAAD Stop: 01/25/21 16:29 Last Admin: 12/26/20 16:36 Dose: 15 units Documented by: [id number] Cosigned by: [id number] Discontinued Medications Amlodipine Besylate (Amlodipine Besylate 5 Mg Tab) 5 mg PO NOW ONE Stop: 12/26/20 14:13 Last Admin: 12/26/20 15:51 Dose: 5 mg Documented by: [id number] Dexamethasone Sodium Phosphate (DexamethasonePf 10 Mg/Ml Vial) 10 mg IV NOW ONE Stop: 12/26/20 10:17 Last Admin: 12/26/20 10:43 Dose: 10 mg Documented by: [id number] Diphenhydramine HCl (Diphenhydramine 50 Mg/Ml Vial) 50 mg IV NOW STA Stop: 12/26/20 10:17 Last Admin: 12/26/20 10:43 Dose: 50 mg Documented by: [id number] Enoxaparin Sodium (Enoxaparin Inj 40 Mg/0.4 Ml Syr) 40 mg SQ 1500 ONE Stop: 12/26/20 15:01 Last Admin: 12/26/20 15:25 Dose: 40 mg Documented by: [id number] Sodium Chloride (Nss) 500 mls @ 999 mls/hr IV .Q31M ONE Stop: 12/26/20 10:46 Last Infusion: 12/26/20 11:24 Dose: 0 mls/hr Documented by: [id number] Admin: 12/26/20 10:42 Dose: 999 mls/hr Documented by: [id number] Famotidine (Pepcid 20mg Iv Push) 20 mg in 5 mls @ 2.5 mls/min IV NOW STA Stop: 12/26/20 10:17 Last Admin: 12/26/20 10:43 Dose: 2.5 mls/min Documented by: [id number] Metoprolol Succinate (Metoprolol Succ 25mg Ext Rel Tab) 25 mg PO NOW STA Stop: 12/26/20 14:32 Last Admin: 12/26/20 15:51 Dose: 25 mg Documented by: [id number] Discharge Plan Visit Data Chief Complaint: Facial Injury/Pain Stated Complaint: SWELLED LIP ED Provider: Javed Swanson Discharge Problem: Angioedema, Indwelling Perera catheter present, Hyperglycemia Patient Disposition: Admitted As Inpatient Discharge Instructions Interventions: ED Discharge Assessment Last Done: 12/26/20 13:44 Discharge Problem: Angioedema Qualifiers: Encounter type: initial encounter Qualified Code(s): T78.3XXA - Angioneurotic edema, initial encounter
--- NOTE | 2020-12-26 13:32 | History & Physical Report ---
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 Denies F/C, other facial edema, tongue edema, wheezing, SOB, CP, N/V, abdominal pain. Was started on Bactrim 12/22/20 In ER patient afebrile, P: 77, R: 18, BP: 135/88, 96% on room air. No leukocytosis. Negative COVID-19 PCR In ER patient given dexamethasone 10 mg IV, Benadryl 50 mg IV, Pepcid 20 mg IV, 500 mL NSS with reported decreased lymphedema. Patient without tongue or uvula edema, without wheezing, shortness of breath Admit for further observation Angioedema probable secondary to Bactrim. 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 UA at that time possible UTI and patient was placed on Bactrim. Urine culture possible contamination Will discontinue Bactrim secondary to angioedema Obtain urine culture Hold on further antibiotics at this time (4) Diabetes mellitus, type II: A1c: 14.5 on 10/18/2020 Continue home Lantus NovoLog sliding scale per protocol Hold home metformin, Ozempic (5) Hypertension: Patient hypertensive in ER. Did not have morning meds Hold lisinopril at this time secondary to angioedema as above Continue metoprolol succinate Start amlodipine Monitor BP (6) Coronary artery disease: Denies CP Continue aspirin, atorvastatin, metoprolol succinate DVT Prophylaxis -Lovenox SQ Full Code as per discussion with pt Follows with Dr Oviedo for routine care Pt was seen and care coordinated with Dr Campos. 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 Patient states last night was sitting watching TV when he noticed his lips felt funny and his family member noted that his lips looked swollen. Patient states last night was having trouble drinking and had to drink out of a straw secondary to lip swelling. Reports woke up this morning with lips still swollen. He did not try to eat or drink anything today and did not take his medications. Denies any difficulty swallowing saliva and denies any painful swallowing. Denies any other noted facial, eyelid edema, tongue edema, nausea, vomiting, abdominal pain. Reports had a couple of loose stools. Patient with recent Perera catheter obstruction was seen at [facility] ER on 12/22/2020 and UA suggestive of UTI and patient was placed on Bactrim. Patient states at that time he was having abdominal discomfort but when Perera catheter was changed no further abdominal discomfort and denies any dysuria. Reports after Perera change will have some hematuria which then clears. Pt has been on lisinopril reported for years and denies any other medication changes. Denies fever/chills, diaphoresis, TIERNEY, dizziness, syncope, vision changes, neck pain, CP, SOB, wheezing, orthopnea, palpitations, cough, sore throat, choking, voice changes, otalgia, rhinorrhea, extremity weakness, extremity edema, rashes or hives. Denies h/o angioedema in past. Allergies Allergy/AdvReac Type Severity Reaction Status Date / Time sulfamethoxazole Allergy Severe angioedema Verified 12/26/20 13:30 [From Bactrim] trimethoprim [From Bactrim] Allergy Severe angioedema Verified 12/26/20 13:30 Home Medications Medication Instructions Recorded Confirmed Type atorvastatin 80 mg PO QAM #0 05/09/17 10/17/20 History pantoprazole [Protonix] 40 mg PO QAM #0 05/09/17 10/17/20 History metoprolol succinate 25 mg PO QAM 09/20/19 10/17/20 History nitroglycerin 0.4 mg SUBLINGUAL DIRECTED PRN 09/20/19 10/17/20 History aspirin 81 mg PO QAM 05/18/20 10/17/20 History gabapentin 100 mg PO TID 05/18/20 10/17/20 History finasteride 5 mg tablet 5 mg PO QAM #90 tab 06/05/20 10/17/20 Rx tamsulosin 0.4 mg capsule 0.4 mg PO DAILY #90 cap 06/05/20 10/17/20 Rx Ozempic 0.25 mg SUBCUT WK 07/20/20 10/17/20 History metformin 1,000 mg PO DAILY 07/20/20 10/17/20 History Lantus Solostar U-100 Insulin 50 unit SUBCUT BID 30 Days #30 ml 10/20/20 Rx insulin aspart U-100 [Novolog 20 unit SUBCUT TIDM #15 ml 10/20/20 Rx Flexpen U-100 Insulin] metformin 500 mg PO PM #30 tab 10/20/20 Rx sulfamethoxazole-trimethoprim 1 tab PO BID 10 Days #20 tab 12/22/20 Rx [Bactrim DS] lisinopril 10 mg PO DAILY 12/26/20 12/26/20 History Past Med/Surg History Medical History (Updated 12/26/20 @ 13:37 by Kinga Shetty PA-C) Abnormal CT scan, pelvis CT abdomen & pelvis 05/15/20: "Prominent left pelvic sidewall and left inguinal lymph nodes. These may be reactive however a short-term follow-up CT is recommended in 3 months." Acute hyponatremia Angioedema Benign prostatic hyperplasia Complication, blocked Perera catheter Coronary artery disease Diabetes mellitus type 2 with complications Diabetes mellitus, type II Dyslipidemia Hematuria Hematuria Hypertension Obstructed Perera catheter Urinary retention Surgical History History of hernia repair Status post cardiac catheterization Status post cholecystectomy Family History Father Cancer Diabetes Mother Diabetes Cancer leukemia Brother Coronary heart disease Myocardial infarction Social History Smoking Status: Never smoker Second Hand Exposure: No; Hx Alcohol Use: No Hx Substance Use: No Preferred Language: Croatian Communication Ability: Effective Visual Impairment: No Limitations Hearing Ability: Normal Facilities Administrator Required: No Beliefs That Will Affect Care: None marital status: Single Current Living Situation: Spouse Feels Safe at Home: Yes Assistive Devices: None Review of Systems Review of Systems: All systems reviewed & are unremarkable except as noted in HPI & below Physical Exam Physical Exam: General: no distress, obese Head: normocephalic, atraumatic Eyes: PERRL, EOM's intact, conjunctiva non-injected, anicteric ENT: normal inspection external ears, nose, mucous membranes moist; +upper and lower lip edema, uvula without edema or erythema and is midline. tongue without edema or erythema. no trismus Neck: supple, trachea midline Lungs: clear, no respiratory distress, no wheezing/rhonchi/rales CV: RRR, no pretibial edema Abd: normal BS, soft, non-tender Ext: no cyanosis, no calf tenderness Neuro: A&O x 3, no focal deficits noted, normal affect Skin: warm, dry Results & Data Results & Data ([facility]) Vital Signs (Past 12 Hours) Vital Signs Temp Pulse Resp BP Pulse Ox 12/26/20 13:00 76 24 158/104 H 96 12/26/20 12:30 73 17 159/100 H 96 12/26/20 12:00 70 21 150/92 H 95 12/26/20 11:30 70 17 153/87 H 96 12/26/20 11:00 71 20 153/98 H 96 12/26/20 10:52 71 18 157/102 H 96 12/26/20 10:17 80 18 158/86 H 96 12/26/20 10:06 36.8 C 77 19 135/88 96 Laboratory Results Short CBC 12/26/20 Range/Units 10:26 WBC 5.75 (4.8-10.8) K/uL Hgb 14.2 (14.0-18.0) g/dL Hct 42.2 (42-52) % Plt Count 274 (130-400) K/uL BMP 12/26/20 10:26 Sodium 136 Potassium 4.2 Chloride 106 Carbon Dioxide 24 BUN 17 Creatinine 0.81 Glucose 225 H Calcium 8.7 Liver Function 12/26/20 Range/Units 10:26 Total Bilirubin 0.4 (0.2-1) mg/dl AST 25 (15-37) U/L ALT 29 (12-78) U/L Alkaline Phosphatase 91 (45-117) U/L Albumin 3.3 L (3.4-5.0) gm/dl Supervising Physician Co-Signing Physician Notes Is a 65-year-old male with history of chronic obstructive uropathy secondary to BPH, chronic Perera, prostatic cancer with external, scrotal abscess, diabetes mellitus and other medical problems presents with history of sudden onset of upper and lower lip swelling since yesterday. He admits to having some difficulty swallowing since the swelling. He was recently placed on Bactrim for possible urinary tract infection and his Perera catheter was changed on December 22. Patient is on lisinopril for many years but has no adverse reactions. Urine culture from December 22 inconclusive. Patient denies currently any trouble breathing, tongue swelling, odynophagia, pain or itchiness of lip swelling, also denies dysuria, hematuria, fever or chills. Currently afebrile, normal white blood cell count, blood glucose elevated at 225. Patient admits to not taking his home medications this morning. On exam patient is moderately built and nourished, no apparent distress, normocephalic atraumatic,+ upper and lower lip swelling, lungs are clear to auscultation, normal breath sounds, S1-S2, no murmur, trace pedal edema bilaterally, alert, awake, oriented, grossly no focal deficits,+ Perera. Patient is admitted for angioedema. Bactrim discontinued. Received dexamethasone, Benadryl, Pepcid while in ED. Will hold lisinopril for now. Continue dexamethasone, Pepcid, Benadryl. Will request speech evaluation. Diabetes mellitus is uncontrolled, with HbA1c of 14.5 couple of months ago. Will utilize insulin therapy while hospitalized and hold p.o. meds. Will start on amlodipine for blood pressure control. We will repeat urine culture and consider antibiotics if necessary. I personally reviewed the record. Patient is interviewed and examined at bedside. Patient's care is coordinated with Kinga Shetty PA-C. Please refer to the documentation above for details of patient's presentation and for discussion of other issues.
--- NOTE | 2020-12-26 13:39 | Electrocardiogram Report ---
Test Reason : Blood Pressure : / mmHG Vent. Rate : 071 BPM Atrial Rate : 071 BPM P-R Int : 164 ms QRS Dur : 102 ms QT Int : 420 ms P-R-T Axes : 034 014 026 degrees QTc Int : 456 ms Suspect V1-V2 reversal Normal sinus rhythm Increased R/S ratio in V1, consider early transition or posterior infarct Abnormal ECG When compared with ECG of 21-MAY-2020 06:27, QRS axis Shifted left Confirmed by Jay Agudelo ([id number]) on 12/26/2020 1:39:24 PM Referred By: REFERRED SELF Confirmed By:Jay Agudelo
[2020-12-26] MEDS ORDERED: GLUCOSE 40% GEL 15 GM TUBE PO PRN (14:12)
[2020-12-26] MEDS ORDERED: GLUCOSE 10 TABS/TUBE PO PRN (14:12)
[2020-12-26] MEDS ORDERED: DEXTROSE 50% 50 ML SYRINGE IV PRN (14:12)
[2020-12-26] MEDS ORDERED: amLODIPine BESYLATE 5 MG TAB PO ONE (14:12)
[2020-12-26] MEDS ORDERED: ACETAMINOPHEN 325 MG TAB PO PRN (14:12)
[2020-12-26] MEDS ORDERED: GLUCAGON FOR INJ 1 MG VIAL SQ PRN (14:12)
[2020-12-26] MEDS ORDERED: CARBOHYDRATES FOR HYPOGLYCEMIA PO PRN (14:12)
[2020-12-26] MEDS ORDERED: METOPROLOL SUCC 25MG EXT REL TAB PO STA (14:31)
[2020-12-26] MEDS ORDERED: ENOXAPARIN INJ 40 MG/0.4 ML SYR SQ ONE (15:00)
[2020-12-26] MEDS: diphenhydrAMINE 50 MG/ML VIAL IV SCH ×2 (15:25→20:16)
[2020-12-26] MEDS: INSULIN ASPART 100 UNITS/ML 3 ML PEN SC SCH ×2 (16:36→20:25)
[2020-12-26] MEDS ORDERED: dexAMETHasone 5 MG in SYRINGE 0 ML IV ONE (20:00)
[2020-12-26] MEDS: FAMOTIDINE 20 MG in SYRINGE 3 ML IV SCH (20:16)
[2020-12-26] MEDS: GABAPENTIN 100 MG CAP PO SCH (20:16)
[2020-12-26] MEDS: INSULIN GLARGINE 100 UNIT/ML VIAL SC SCH (20:22)
[2020-12-27] MEDS: diphenhydrAMINE 50 MG/ML VIAL IV SCH ×2 (01:55→08:54)
[2020-12-27 05:51] LABS: Hematocrit (blood only) 42.5 % (42-52); Hemoglobin 14.2 g/dL (14.0-18.0); Mean Corpuscular Hemoglobin 27.7 pg (25-34); Mean Corpuscular Hgb Conc 33.4 g/dL (32-36); Mean Corpuscular Volume 82.8 fL (80-100); Mean Platelet Volume 10.2 fL (7.4-10.4); Platelet Count 323 K/uL (130-400); RDW Coefficient of Variation 15.2 % (11.5-14.5); RDW Standard Deviation 46.6 fL (36.4-46.3); Red Blood Count 5.13 M/uL (4.7-6.1); White Blood Count 7.73 K/uL (4.8-10.8)
[2020-12-27 06:25] LABS: BUN Creatinine Ratio 23.6 (10-20); Calcium 8.9 mg/dl (8.5-10.1); Creatinine Clr Calc Pharmacy 92.3 ml/min; Est GFR (African American) 111.2 ml/min; Magnesium 2.2 mg/dl (1.8-2.4); Potassium 3.8 mmol/L (3.5-5.1)
[2020-12-27] MEDS: INSULIN ASPART 100 UNITS/ML 3 ML PEN SC SCH (08:48)
[2020-12-27] MEDS: GABAPENTIN 100 MG CAP PO SCH (08:50)
[2020-12-27] MEDS: INSULIN GLARGINE 100 UNIT/ML VIAL SC SCH (08:51)
[2020-12-27] MEDS: FAMOTIDINE 20 MG in SYRINGE 3 ML IV SCH (08:54)
[2020-12-27] MEDS ORDERED: METOPROLOL SUCC 25MG EXT REL TAB PO SCH (09:00)
[2020-12-27] MEDS ORDERED: amLODIPine BESYLATE 5 MG TAB PO SCH (09:00)
[2020-12-27] MEDS ORDERED: ASPIRIN 81 MG ECTAB PO SCH (09:00)
[2020-12-27] MEDS ORDERED: FINASTERIDE 5 MG TAB PO SCH (09:00)
[2020-12-27] MEDS ORDERED: PANTOprazole 40 MG TAB PO SCH (09:00)
[2020-12-27] MEDS ORDERED: TAMSULOSIN HCL 0.4 MG CAP PO SCH (09:00)
[2020-12-27] MEDS ORDERED: ATORVASTATIN 40 MG TAB PO SCH (09:00)
[2020-12-27] MEDS ORDERED: amLODIPine BESYLATE 5 MG TAB PO ONE (10:35)
--- NOTE | 2020-12-27 12:19 | Discharge Summary ---
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 Patient states last night was sitting watching TV when he noticed his lips felt funny and his family member noted that his lips looked swollen. Patient states last night was having trouble drinking and had to drink out of a straw secondary to lip swelling. Reports woke up this morning with lips still swollen. He did not try to eat or drink anything today and did not take his medications. Denies any difficulty swallowing saliva and denies any painful swallowing. Denies any other noted facial, eyelid edema, tongue edema, nausea, vomiting, abdominal pain. Reports had a couple of loose stools. Patient with recent Perera catheter obstruction was seen at [facility] ER on 12/22/2020 and UA suggestive of UTI and patient was placed on Bactrim. Patient states at that time he was having abdominal discomfort but when Perera catheter was changed no further abdominal discomfort and denies any dysuria. Reports after Perera change will have some hematuria which then clears. Pt has been on lisinopril reported for years and denies any other medication changes. Denies fever/chills, diaphoresis, TIERNEY, dizziness, syncope, vision changes, neck pain, CP, SOB, wheezing, orthopnea, palpitations, cough, sore throat, choking, voice changes, otalgia, rhinorrhea, extremity weakness, extremity edema, rashes or hives. Denies h/o angioedema in past. Principal Diagnosis Angioedema: Resolved possible secondary to lisinopril Hypertension Lip swelling: Resolved Chronic indwelling catheter Type 2 diabetes Discharge Exam Physical exam: General: No acute distress, alert awake oriented x3 HEENT: PERRLA, EOMI, /No lip swelling, no problem in swallowing, talking Heart: Regular S1-S2, no carotid bruit, no JVD, no lower extremity edema Lungs: Clear to auscultate, no wheeze or rales Abdomen: Soft nontender, no organomegaly Extremity: No cyanosis, no deformity, normal strength 5 out of 5 with upper and lower Neuro: No focal neurological deficit normal speech, normal visual field, Motor strength : normal both upper and lower extremity, sensation intact Psych: Alert awake oriented x3, normal affect Discharge Data Allergies Allergy/AdvReac Type Severity Reaction Status Date / Time lisinopril Allergy Severe angioedema Verified 12/27/20 08:12 sulfamethoxazole Allergy Severe angioedema Verified 12/26/20 13:30 [From Bactrim] trimethoprim [From Bactrim] Allergy Severe angioedema Verified 12/26/20 13:30 Consultations 12/26/20 12:27 ED Decision to Admit Stat Hospital Course (1) Angioedema: Pt is 65 y/o M with PMH BPH with urinary retention, chronic Perera in place, 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 Denies F/C, other facial edema, tongue edema, wheezing, SOB, CP, N/V, abdominal pain. Was started on Bactrim 12/22/20 In ER patient afebrile, P: 77, R: 18, BP: 135/88, 96% on room air. No leukocytosis. Negative COVID-19 PCR In ER patient given dexamethasone 10 mg IV, Benadryl 50 mg IV, Pepcid 20 mg IV, Patient without tongue or uvula edema, without wheezing, shortness of breath Admitted for observation Patient was on lisinopril which has been discontinued, added to drug allergy list Bactrim also associated with angioedema which he discontinued and added to his allergy list Angioedema probable secondary to Bactrim. 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 UA at that time possible UTI and patient was placed on Bactrim. Urine culture possible contamination Bactrim discontinued added to allergy list for angioedema No evidence of urinary tract infection this admission does not need any antibiotic (4) Diabetes mellitus, type II: A1c: 14.5 on 10/18/2020 poorly controlled, need to follow-up with family physician, diabetic clinic for glycemic management Continue home Lantus NovoLog sliding scale per protocol Hold home metformin, Ozempic (5) Hypertension: Given dose increased to 10 mg daily, discontinued lisinopril for angioedema Continue beta-eva (6) Coronary artery disease: Denies CP Continue aspirin, atorvastatin, metoprolol succinate SHEREEN inhibitor discontinued for angioedema DVT Prophylaxis -Lovenox SQ Full Code as per discussion with pt Follows with Dr Oviedo for routine care Patient is discharged home today in stable condition Total Time Total Time Spent Total Time Spent (In Minutes): 35 minutes Total Time Includes: Examination of the Patient, Discharge Planning and Medication Reconciliation Discharge Plan Discharge Items Patient Disposition: Home - Home Health Services Reason For Visit: LIP EDEMA Discharge Diagnosis: Angioedema: Resolved possible secondary to lisinopril Hypertension Lip swelling: Resolved Chronic indwelling catheter Type 2 diabetes Activity: Resume your previous activity Non-emergency contact: Primary Care Provider Call non-emergency contact if: you have any medication questions Follow-up/Referrals: Prosper Oviedo MD [Primary Care Provider] - 01/02/21 3:00 pm (Date & Time 01/02/2021 3:00 PM Provider Prosper Oviedo MD [facility] ) Diet: Carb Consistent or DM2 Addtl Attending Provider Instructions: Please take all medications as instructed on discharge list below. It is recommended that you follow-up with your primary care physician within 1-2 weeks of hospital discharge to ensure you are still doing well. Please call if you have any questions or problems. You can reach a [facility] hospitalist on duty at [facility] 24 hours a day by calling [phone] Pending Studies at Discharge: No Stand-Alone Forms: My [facility], Smoking Cessation Medications and DC Order Prescriptions: New amlodipine [Norvasc] 5 mg Tablet 10 mg PO QAM 30 Days Qty: 60 RF: 3 Continued atorvastatin 80 mg Tablet 80 mg PO QAM Qty: 0 RF: 0 pantoprazole [Protonix] 40 mg Tablet,Delayed Release (Dr/Ec) 40 mg PO QAM Qty: 0 RF: 0 finasteride 5 mg tablet 5 mg PO QAM Qty: 90 RF: 1 tamsulosin 0.4 mg capsule 0.4 mg PO DAILY Qty: 90 RF: 1 metoprolol succinate 25 mg tablet extended release 24 hr 25 mg PO QAM RF: 0 nitroglycerin 0.4 mg tablet, sublingual 0.4 mg sublingual DIRECTED PRN (Reason: chest pain) RF: 0 gabapentin 100 mg capsule 100 mg PO TID RF: 0 aspirin 81 mg Tablet,Chewable 81 mg PO QAM RF: 0 metformin 500 mg tablet extended release 24 hr 1,000 mg PO DAILY RF: 0 Ozempic 0.25 mg or 0.5 mg(2 mg/1.5 mL) pen injector 0.5 mg SUBCUT WK RF: 0 Lantus Solostar U-100 Insulin 100 unit/mL (3 mL) insulin pen 50 unit subcut BID 30 Days Qty: 30 RF: 0 insulin aspart U-100 [Novolog Flexpen U-100 Insulin] 100 unit/mL (3 mL) insulin pen 20 unit subcut TIDM Qty: 15 RF: 3 metformin 500 mg tablet extended release 24 hr 500 mg PO PM RF: 0 Discontinued sulfamethoxazole-trimethoprim [Bactrim DS] 800-160 mg tablet 1 tab PO BID 10 Days Qty: 20 RF: 0 lisinopril 10 mg tablet 10 mg PO DAILY RF: 0 Discharge Orders: Discharge Order (Routine); Ordered 12/27/20 Ordered By: Eloina Claudio Admission Data Admit Date/Time: 12/26/20 12:52 Attending Provider: Eloina Claudio Admit Provider: Zhen Campos Primary Care Provider: Prosper Oviedo Other Providers: Zhen Campos ; [place] Other Interventions: Discharge Summary Assessment (RN) Last Done: 12/27/20 09:13
[2020-12-27] MEDS ORDERED: ENOXAPARIN INJ 40 MG/0.4 ML SYR SQ SCH (14:00)
== END 2020-12-27 10:43 | disposition home health service (06) ==
LOC: 2E 10:03 → ED 10:03 → SUATTDRO 12:52 → 2E 13:44

== ENCOUNTER 2021-02-17 22:22 | Inpatient (IN) ==
[2021-02-17] MEDS ORDERED: SODIUM CHLORIDE 0.9% 1000ML 1,000 ML IV SCH (23:15)
--- NOTE | 2021-02-17 23:16 | Emergency Department Note ---
History of Present Illness General Chief complaint: Fever Stated complaint: BOUNCING TEMP - CATH LEAKING Time Seen by Provider: 02/17/21 22:58 Source: patient and family Mode of arrival: ambulatory Limitations: no limitations History of Present Illness Provider complaint: fevers, abnormal catheter drainage Onset (ago): day(s) 2 Maximum Pain Intensity: 10 Associated symptoms: + fever/chills; no cough, no headaches, no loss of appetite, no nausea/vomiting or no shortness of breath Treatments prior to arrival: other This is a 65-year-old male presents the emergency department complaining of 2 to 3 days of intermittent fevers and worsening appearance of drainage from his chronic indwelling Perera catheter. Patient states this morning he noticed that the catheter drainage appeared darker and now this evening more milky. Patient states he has had a Perera catheter in place since last year. States was last changed proximally a month ago. He does follow with [facility] urology. He states he has previously had infections related to his Perera catheter. He denies any other change in medications. States he has had some mild abdominal pressure but denies pain. States he does have chronic back pain but does not feel that has been any worse recently. He denies any penile or scrotal pain or edema. States he is having some mild leakage of urine out around the catheter at his urethra. He denies nausea, vomiting, URI symptoms. No other change in medications. Patient is a diabetic. He is not anticoagulated. Pt seen during a time of high acuity and national emergency pandemic while wearing PPE. Home Medications Medication Instructions Recorded Confirmed Type atorvastatin 80 mg tablet 80 mg PO QAM #0 05/09/17 02/17/21 History pantoprazole 40 mg tablet,delayed 40 mg PO QAM #0 05/09/17 02/17/21 History release (Protonix) metoprolol succinate 25 mg 25 mg PO QAM 09/20/19 02/17/21 History tablet,extended release 24 hr nitroglycerin 0.4 mg sublingual 0.4 mg SUBLINGUAL DIRECTED PRN 09/20/19 02/17/21 History tablet aspirin 81 mg chewable tablet 81 mg PO QAM 05/18/20 02/17/21 History finasteride 5 mg tablet 5 mg PO QAM #90 tab 06/05/20 02/17/21 Rx tamsulosin 0.4 mg capsule 0.4 mg PO DAILY #90 cap 06/05/20 02/17/21 Rx metformin 500 mg tablet,extended 1,000 mg PO QAM 07/20/20 02/17/21 History release 24 hr semaglutide (Ozempic) 0.5 mg SUBCUT WK 07/20/20 02/17/21 History insulin aspart U-100 100 unit/mL 20 unit SUBCUT TIDM #15 ml 10/20/20 02/17/21 Rx (3 mL) subcutaneous pen (Novolog Flexpen U-100 Insulin aspart) insulin glargine 100 unit/mL (3 50 unit SUBCUT BID 30 Days #30 ml 10/20/20 02/17/21 Rx mL) subcutaneous pen (Lantus Solostar U-100 Insulin) metformin 500 mg tablet,extended 500 mg PO PM 12/26/20 02/17/21 History release 24 hr amlodipine 5 mg tablet (Norvasc) 10 mg PO QAM 30 Days #60 tab 12/27/20 02/17/21 Rx Allergies Allergy/AdvReac Type Severity Reaction Status Date / Time lisinopril Allergy Severe angioedema Verified 02/17/21 22:41 sulfamethoxazole Allergy Severe angioedema Verified 02/17/21 22:41 [From Bactrim] trimethoprim [From Bactrim] Allergy Severe angioedema Verified 02/17/21 22:41 Past Med/Surg History Medical History Abnormal CT scan, pelvis CT abdomen & pelvis 05/15/20: "Prominent left pelvic sidewall and left inguinal lymph nodes. These may be reactive however a short-term follow-up CT is recommended in 3 months." Acute hyponatremia Angioedema Benign prostatic hyperplasia Complication, blocked Perera catheter Coronary artery disease Diabetes mellitus type 2 with complications Diabetes mellitus, type II Dyslipidemia Hematuria Hematuria Hypertension Obstructed Perera catheter Urinary retention Surgical History History of hernia repair Status post cardiac catheterization Status post cholecystectomy Family History Father Cancer Diabetes Mother Diabetes Cancer leukemia Brother Coronary heart disease Myocardial infarction Social History Smoking Status: Never smoker Second Hand Exposure: No; Hx Alcohol Use: No Hx Substance Use: No Preferred Language: Chinese Communication Ability: Effective Visual Impairment: No Limitations Hearing Ability: Normal 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 Beliefs That Will Affect Care: None marital status: Single Current Living Situation: Alone Other Information That Helps Us Care for You: No Feels Safe at Home: Yes Safety Concerns: Feels Safe At This Time Assistive Devices: Glasses Review of Systems A total of 10 systems reviewed and were otherwise negative All systems reviewed & are unremarkable except as noted in HPI & below Physical Exam Vital Signs Vital Signs - 24 hr 02/17/21 22:25 02/18/21 00:15 02/18/21 01:05 Temperature 37.3 C 38.5 C H Temperature Source Temporal Artery Scan Oral Pulse Rate 97 H 90 Pulse Rate [Left Radial] 95 H Pulse Rate from SpO2 Sensor 90 Pulse Rhythm [Left Radial] Regular Pulse Strength [Left Radial] Normal Respiratory Rate 20 18 20 Respiratory Effort / Characteristics Non-Labored Spontaneous Non-Labored Respiratory Depth Normal Normal Respiratory Pattern Regular Regular Blood Pressure 170/89 H 169/84 H Blood Pressure [Right Arm] 159/82 H Blood Pressure Mean 116 112 Blood Pressure Mean [Right Arm] 107 Blood Pressure Position Sitting Blood Pressure Position [Right Arm] Lying Pulse Oximetry 98 96 95 Oxygen Delivery Method Room Air Room Air Room Air Sepsis Recent Fever Within 48 Hours Yes Sepsis New/Unexplained Change in Mental Status N/A Sepsis Action Taken by Nursing No Action Required 02/18/21 01:30 02/18/21 02:00 02/18/21 02:30 Temperature Temperature Source Pulse Rate 91 H 91 H 93 H Pulse Rate [Left Radial] Pulse Rate from SpO2 Sensor 91 H 91 H 92 H Pulse Rhythm [Left Radial] Pulse Strength [Left Radial] Respiratory Rate 18 31 H 24 Respiratory Effort / Characteristics Respiratory Depth Respiratory Pattern Blood Pressure 160/88 H 158/81 H 157/83 H Blood Pressure [Right Arm] Blood Pressure Mean 112 106 107 Blood Pressure Mean [Right Arm] Blood Pressure Position Blood Pressure Position [Right Arm] Pulse Oximetry 95 95 95 Oxygen Delivery Method Room Air Room Air Room Air Sepsis Recent Fever Within 48 Hours Sepsis New/Unexplained Change in Mental Status Sepsis Action Taken by Nursing 02/18/21 03:00 02/18/21 03:30 Temperature Temperature Source Pulse Rate 85 83 Pulse Rate [Left Radial] Pulse Rate from SpO2 Sensor 85 83 Pulse Rhythm [Left Radial] Pulse Strength [Left Radial] Respiratory Rate 21 24 Respiratory Effort / Characteristics Respiratory Depth Respiratory Pattern Blood Pressure 158/81 H 149/76 H Blood Pressure [Right Arm] Blood Pressure Mean 106 100 Blood Pressure Mean [Right Arm] Blood Pressure Position Blood Pressure Position [Right Arm] Pulse Oximetry 96 96 Oxygen Delivery Method Room Air Room Air Sepsis Recent Fever Within 48 Hours Sepsis New/Unexplained Change in Mental Status Sepsis Action Taken by Nursing GENERAL: alert, well appearing, well nourished, no distress, non-toxic, Perera catheter noted to have sediment and a purulent brown milky appearing substance in the catheter tubing and bag. EYE EXAM: normal conjunctiva, PERRL and EOM's grossly intact OROPHARYNX: no exudate, no erythema, lips, buccal mucosa, and tongue normal and mucous membranes are moist NECK: supple, no nuchal rigidity, no adenopathy, non-tender LUNGS: Clear to auscultation. Normal chest wall mechanics, no w/r/r HEART: no murmurs, S1 normal and S2 normal ABDOMEN: abdomen soft, mild generalized abdominal discomfort with palpation, normo-active bowel sounds, no masses, no rebound or guarding. BACK: Back is symmetrical on inspection and there is no deformity, no midline tenderness, no CVA tenderness. SKIN: no rashes and no bruising UPPER EXTREMITIES: upper extremities are grossly normal. FROM, nml pulses b/l. LOWER EXTREMITIES: No pitting edema. FROM, nml pulses b/l. NEURO EXAM: Normal sensorium, cranial nerves II-XII grossly intact, normal speech, no gross weakness of arms, no gross weakness of legs. Gross sensation intact. Course Course 0220: Discussed all results. VS stable. 0240: [facility]. Administered Medications Sodium Chloride (Nss 1000ml) 1,000 mls @ 100 mls/hr IV .Q10H ONE Stop: 02/18/21 14:06 Last Infusion: 02/18/21 05:20 Dose: 0 mls/hr Documented by: [id number] Admin: 02/18/21 04:20 Dose: 100 mls/hr Documented by: [id number] Insulin Aspart (Insulin Aspart 100 Units/Ml 3 Ml Pen) 0 units SC ACHS RASHAAD Stop: 03/20/21 03:39 Last Admin: 02/18/21 06:07 Dose: Not Given Documented by: [id number] Discontinued Medications Amlodipine Besylate (Amlodipine Besylate 5 Mg Tab) 2.5 mg PO NOW ONE Stop: 02/18/21 03:43 Last Admin: 02/18/21 04:16 Dose: Not Given Documented by: [id number] Amlodipine Besylate (Amlodipine Besylate 5 Mg Tab) 10 mg PO NOW STA Stop: 02/18/21 04:02 Last Admin: 02/18/21 04:14 Dose: 10 mg Documented by: [id number] Sodium Chloride (Nss 1000ml) 1,000 mls @ 999 mls/hr IV .Q1H1M RASHAAD Stop: 02/18/21 00:15 Last Infusion: 02/18/21 00:50 Dose: 0 mls/hr Documented by: [id number] Admin: 02/17/21 23:54 Dose: 999 mls/hr Documented by: [id number] Cefepime HCl (Maxipime) 2,000 mg in 20 mls @ 5 mls/min IV NOW STA; Protocol Stop: 02/18/21 00:34 Last Admin: 02/18/21 00:48 Dose: 5 mls/min Documented by: [id number] Acetaminophen (Ofirmev) 1,000 mg in 100 mls @ 400 mls/hr IV NOW STA Stop: 02/18/21 01:48 Last Infusion: 02/18/21 02:58 Dose: 0 mls/hr Documented by: [id number] Admin: 02/18/21 01:49 Dose: 400 mls/hr Documented by: [id number] Sodium Chloride (Nss 1000ml) 1,000 mls @ 999 mls/hr IV .Q1H1M ONE Stop: 02/18/21 02:34 Last Infusion: 02/18/21 02:59 Dose: 0 mls/hr Documented by: [id number] Admin: 02/18/21 01:49 Dose: 999 mls/hr Documented by: [id number] Insulin Aspart (Insulin Aspart Per Unit) 10 units SC NOW STA Stop: 02/18/21 03:49 Last Admin: 02/18/21 04:10 Dose: 10 units Documented by: [id number] Cosigned by: [id number] Insulin Glargine (Insulin Glargine Solostar 100 Units/Ml 3 Ml Pen) 60 units SC NOW STA Stop: 02/18/21 03:21 Last Admin: 02/18/21 04:10 Dose: 60 units Documented by: [id number] Cosigned by: [id number] Insulin Human Regular (Novolin-R Insulin Per Unit Charge) 6 units SC NOW STA Stop: 02/18/21 00:32 Last Admin: 02/18/21 00:45 Dose: 6 units Documented by: [id number] Cosigned by: [id number] Ioversol (Optiray 320 100ml) 100 ml IV ONCE ONE Stop: 02/18/21 01:18 Last Admin: 02/18/21 01:17 Dose: 93 ml Documented by: [id number] Medical Decision Making Differential Diagnosis Differential diagnosis: Etiologies such as viral syndrome, otitis, pharyngitis, pneumonia, influenza, meningitis, urinary tract infection, sepsis, bacteremia, as well as others were entertained. Medical Records Attestation: I reviewed the patient's medical records. Home Medications Current Medication List: was personally reviewed by me Laboratory Data Attestation: I reviewed the patient's lab results. Result diagrams: 02/18/21 03:56 02/18/21 03:56 Lab Results 02/17/21 02/17/21 02/17/21 Range/Units 23:30 23:49 23:49 WBC 6.55 (4.8-10.8) K/uL RBC 4.49 L (4.7-6.1) M/uL Hgb 12.7 L (14.0-18.0) g/dL Hct 37.2 L (42-52) % MCV 82.9 (80-100) fL MCH 28.3 (25-34) pg MCHC 34.1 (32-36) g/dL RDW Std Deviation 43.6 (36.4-46.3) fL RDW Coeff of Naomy 14.3 (11.5-14.5) % Plt Count 234 (130-400) K/uL MPV 10.2 (7.4-10.4) fL Immature Gran % (Auto) 0.3 % Neut % (Auto) 79.7 % Lymph % (Auto) 11.9 % [place] % (Auto) 7.3 % Eos % (Auto) 0.6 % Baso % (Auto) 0.2 % Reticulocyte % (Auto) (0.5-2.0) % Neut # (Auto) 5.22 (1.4-6.5) K/uL Lymph # (Auto) 0.78 L (1.2-3.4) K/uL [place] # (Auto) 0.48 (0.11-0.59) K/uL Eos # (Auto) 0.04 (0-0.5) K/uL Baso # (Auto) 0.01 (0-0.2) K/uL Reticulocyte # (0.02-0.10) 10^6/uL Immature Gran # (Auto) 0.02 (0.00-0.02) K/uL Sodium 131 L (136-145) mmol/L Potassium 4.1 (3.5-5.1) mmol/L Chloride 98 (98-107) mmol/L Carbon Dioxide 21 (21-32) mmol/L Anion Gap 12.0 H (3-11) BUN 14 (7-18) mg/dl Creatinine 0.83 (0.6-1.4) mg/dl Est Cr Clr Drug Dosing 83.4 ml/min Est GFR ( Amer) 105.5 ml/min Est GFR (Non-Af Amer) 91.0 ml/min BUN/Creatinine Ratio 16.9 (10-20) Glucose 370 H* (70-99) mg/dl Lactate (0.4-2.0) mmol/L Calcium 8.6 (8.5-10.1) mg/dl Magnesium 2.3 (1.8-2.4) mg/dl Iron (35-175) mcg/dl TIBC (250-450) mcg/dl Transferrin (200-360) mg/dl Ferritin (8-388) ng/ml Total Bilirubin 0.7 (0.2-1) mg/dl AST 24 (15-37) U/L ALT 34 (12-78) U/L Alkaline Phosphatase 136 H (45-117) U/L Troponin I < 0.015 (0-0.045) ng/ml Total Protein 7.8 (6.4-8.2) gm/dl Albumin 2.7 L (3.4-5.0) gm/dl Globulin 5.1 H (2.5-4.0) gm/dl Albumin/Globulin Ratio 0.5 L (0.9-2) Vitamin B12 (193-986) pg/ml Folate (>5.38) ng/ml Beta-Hydroxybutyric Acd 20.59 H (0.2-2.81) mg/dl Procalcitonin (0-0.5) ng/ml TSH 1.880 (0.300-4.500) uIu/ml Urine Color Yellow Urine Appearance Clear (Clear) Urine pH 6.0 (4.5-7.5) Ur Specific [place] 1.030 (1.000-1.030) Urine Protein 1+ H (Negative) Urine Glucose (UA) 3+ H (Negative) Urine Ketones 1+ H (Negative) Urine Blood 3+ H (Negative) Urine Nitrite Negative (Negative) Urine Bilirubin Negative (Negative) Urine Urobilinogen Negative (Negative) Ur Leukocyte Esterase Negative (Negative) Urine WBC (Auto) 10-30 H (0-5) /hpf Urine RBC (Auto) >30 H (0-4) /hpf U Hyaline Cast (Auto) 0 (0-5) /lpf U Epithel Cells (Auto) 5-10 H (0-5) /lpf Urine Bacteria (Auto) 3+ H (Negative) COVID-19 Eval Order SARS-CoV-2 (PCR) (Negative) Blood Type Antibody Screen 02/17/21 02/17/21 02/18/21 Range/Units 23:49 23:49 02:56 WBC (4.8-10.8) K/uL RBC (4.7-6.1) M/uL Hgb (14.0-18.0) g/dL Hct (42-52) % MCV (80-100) fL MCH (25-34) pg MCHC (32-36) g/dL RDW Std Deviation (36.4-46.3) fL RDW Coeff of Naomy (11.5-14.5) % Plt Count (130-400) K/uL MPV (7.4-10.4) fL Immature Gran % (Auto) % Neut % (Auto) % Lymph % (Auto) % [place] % (Auto) % Eos % (Auto) % Baso % (Auto) % Reticulocyte % (Auto) (0.5-2.0) % Neut # (Auto) (1.4-6.5) K/uL Lymph # (Auto) (1.2-3.4) K/uL [place] # (Auto) (0.11-0.59) K/uL Eos # (Auto) (0-0.5) K/uL Baso # (Auto) (0-0.2) K/uL Reticulocyte # (0.02-0.10) 10^6/uL Immature Gran # (Auto) (0.00-0.02) K/uL Sodium (136-145) mmol/L Potassium (3.5-5.1) mmol/L Chloride (98-107) mmol/L Carbon Dioxide (21-32) mmol/L Anion Gap (3-11) BUN (7-18) mg/dl Creatinine (0.6-1.4) mg/dl Est Cr Clr Drug Dosing ml/min Est GFR ( Amer) ml/min Est GFR (Non-Af Amer) ml/min BUN/Creatinine Ratio (10-20) Glucose (70-99) mg/dl Lactate 1.2 (0.4-2.0) mmol/L Calcium (8.5-10.1) mg/dl Magnesium (1.8-2.4) mg/dl Iron (35-175) mcg/dl TIBC (250-450) mcg/dl Transferrin (200-360) mg/dl Ferritin (8-388) ng/ml Total Bilirubin (0.2-1) mg/dl AST (15-37) U/L ALT (12-78) U/L Alkaline Phosphatase (45-117) U/L Troponin I (0-0.045) ng/ml Total Protein (6.4-8.2) gm/dl Albumin (3.4-5.0) gm/dl Globulin (2.5-4.0) gm/dl Albumin/Globulin Ratio (0.9-2) Vitamin B12 (193-986) pg/ml Folate (>5.38) ng/ml Beta-Hydroxybutyric Acd (0.2-2.81) mg/dl Procalcitonin 0.61 H (0-0.5) ng/ml TSH (0.300-4.500) uIu/ml Urine Color Urine Appearance (Clear) Urine pH (4.5-7.5) Ur Specific [place] (1.000-1.030) Urine Protein (Negative) Urine Glucose (UA) (Negative) Urine Ketones (Negative) Urine Blood (Negative) Urine Nitrite (Negative) Urine Bilirubin (Negative) Urine Urobilinogen (Negative) Ur Leukocyte Esterase (Negative) Urine WBC (Auto) (0-5) /hpf Urine RBC (Auto) (0-4) /hpf U Hyaline Cast (Auto) (0-5) /lpf U Epithel Cells (Auto) (0-5) /lpf Urine Bacteria (Auto) (Negative) COVID-19 Eval Order Covid[facility] at [facility] SARS-CoV-2 (PCR) (Negative) Blood Type Antibody Screen 02/18/21 02/18/21 02/18/21 Range/Units 02:56 03:56 03:56 WBC 6.38 (4.8-10.8) K/uL RBC 4.20 L (4.7-6.1) M/uL Hgb 11.8 L (14.0-18.0) g/dL Hct 34.7 L (42-52) % MCV 82.6 (80-100) fL MCH 28.1 (25-34) pg MCHC 34.0 (32-36) g/dL RDW Std Deviation 43.3 (36.4-46.3) fL RDW Coeff of Naomy 14.5 (11.5-14.5) % Plt Count 224 (130-400) K/uL MPV 10.0 (7.4-10.4) fL Immature Gran % (Auto) 0.5 % Neut % (Auto) 75.9 % Lymph % (Auto) 9.4 % [place] % (Auto) 13.5 % Eos % (Auto) 0.5 % Baso % (Auto) 0.2 % Reticulocyte % (Auto) 0.6 (0.5-2.0) % Neut # (Auto) 4.85 (1.4-6.5) K/uL Lymph # (Auto) 0.60 L (1.2-3.4) K/uL [place] # (Auto) 0.86 H (0.11-0.59) K/uL Eos # (Auto) 0.03 (0-0.5) K/uL Baso # (Auto) 0.01 (0-0.2) K/uL Reticulocyte # 0.03 (0.02-0.10) 10^6/uL Immature Gran # (Auto) 0.03 H (0.00-0.02) K/uL Sodium (136-145) mmol/L Potassium (3.5-5.1) mmol/L Chloride (98-107) mmol/L Carbon Dioxide (21-32) mmol/L Anion Gap (3-11) BUN (7-18) mg/dl Creatinine (0.6-1.4) mg/dl Est Cr Clr Drug Dosing ml/min Est GFR ( Amer) ml/min Est GFR (Non-Af Amer) ml/min BUN/Creatinine Ratio (10-20) Glucose (70-99) mg/dl Lactate (0.4-2.0) mmol/L Calcium (8.5-10.1) mg/dl Magnesium (1.8-2.4) mg/dl Iron (35-175) mcg/dl TIBC (250-450) mcg/dl Transferrin (200-360) mg/dl Ferritin (8-388) ng/ml Total Bilirubin (0.2-1) mg/dl AST (15-37) U/L ALT (12-78) U/L Alkaline Phosphatase (45-117) U/L Troponin I (0-0.045) ng/ml Total Protein (6.4-8.2) gm/dl Albumin (3.4-5.0) gm/dl Globulin (2.5-4.0) gm/dl Albumin/Globulin Ratio (0.9-2) Vitamin B12 (193-986) pg/ml Folate (>5.38) ng/ml Beta-Hydroxybutyric Acd (0.2-2.81) mg/dl Procalcitonin (0-0.5) ng/ml TSH (0.300-4.500) uIu/ml Urine Color Urine Appearance (Clear) Urine pH (4.5-7.5) Ur Specific [place] (1.000-1.030) Urine Protein (Negative) Urine Glucose (UA) (Negative) Urine Ketones (Negative) Urine Blood (Negative) Urine Nitrite (Negative) Urine Bilirubin (Negative) Urine Urobilinogen (Negative) Ur Leukocyte Esterase (Negative) Urine WBC (Auto) (0-5) /hpf Urine RBC (Auto) (0-4) /hpf U Hyaline Cast (Auto) (0-5) /lpf U Epithel Cells (Auto) (0-5) /lpf Urine Bacteria (Auto) (Negative) COVID-19 Eval Order SARS-CoV-2 (PCR) NEGATIVE (Negative) Blood Type O Positive Antibody Screen NEGATIVE 02/18/21 02/18/21 Range/Units 03:56 03:56 WBC (4.8-10.8) K/uL RBC (4.7-6.1) M/uL Hgb (14.0-18.0) g/dL Hct (42-52) % MCV (80-100) fL MCH (25-34) pg MCHC (32-36) g/dL RDW Std Deviation (36.4-46.3) fL RDW Coeff of Naomy (11.5-14.5) % Plt Count (130-400) K/uL MPV (7.4-10.4) fL Immature Gran % (Auto) % Neut % (Auto) % Lymph % (Auto) % [place] % (Auto) % Eos % (Auto) % Baso % (Auto) % Reticulocyte % (Auto) (0.5-2.0) % Neut # (Auto) (1.4-6.5) K/uL Lymph # (Auto) (1.2-3.4) K/uL [place] # (Auto) (0.11-0.59) K/uL Eos # (Auto) (0-0.5) K/uL Baso # (Auto) (0-0.2) K/uL Reticulocyte # (0.02-0.10) 10^6/uL Immature Gran # (Auto) (0.00-0.02) K/uL Sodium 132 L (136-145) mmol/L Potassium 3.5 (3.5-5.1) mmol/L Chloride 105 (98-107) mmol/L Carbon Dioxide 22 (21-32) mmol/L Anion Gap 5.0 (3-11) BUN 12 (7-18) mg/dl Creatinine 0.67 (0.6-1.4) mg/dl Est Cr Clr Drug Dosing 103.3 ml/min Est GFR ( Amer) 115.2 ml/min Est GFR (Non-Af Amer) 99.4 ml/min BUN/Creatinine Ratio 17.5 (10-20) Glucose 257 H (70-99) mg/dl Lactate (0.4-2.0) mmol/L Calcium 7.6 L (8.5-10.1) mg/dl Magnesium (1.8-2.4) mg/dl Iron 20 L (35-175) mcg/dl TIBC 202 L (250-450) mcg/dl Transferrin 154 L (200-360) mg/dl Ferritin 376.3 (8-388) ng/ml Total Bilirubin (0.2-1) mg/dl AST (15-37) U/L ALT (12-78) U/L Alkaline Phosphatase (45-117) U/L Troponin I (0-0.045) ng/ml Total Protein (6.4-8.2) gm/dl Albumin (3.4-5.0) gm/dl Globulin (2.5-4.0) gm/dl Albumin/Globulin Ratio (0.9-2) Vitamin B12 841 (193-986) pg/ml Folate > 20.00 (>5.38) ng/ml Beta-Hydroxybutyric Acd (0.2-2.81) mg/dl Procalcitonin (0-0.5) ng/ml TSH (0.300-4.500) uIu/ml Urine Color Urine Appearance (Clear) Urine pH (4.5-7.5) Ur Specific [place] (1.000-1.030) Urine Protein (Negative) Urine Glucose (UA) (Negative) Urine Ketones (Negative) Urine Blood (Negative) Urine Nitrite (Negative) Urine Bilirubin (Negative) Urine Urobilinogen (Negative) Ur Leukocyte Esterase (Negative) Urine WBC (Auto) (0-5) /hpf Urine RBC (Auto) (0-4) /hpf U Hyaline Cast (Auto) (0-5) /lpf U Epithel Cells (Auto) (0-5) /lpf Urine Bacteria (Auto) (Negative) COVID-19 Eval Order SARS-CoV-2 (PCR) (Negative) Blood Type Antibody Screen Imaging Data Radiologist's Impression: CT abdomen and pelvis with contrast: Comparison: CT 10/17/2020 Decompressed urinary bladder with Perera catheter in place. Similar marked prostatomegaly. Decreased, mild bilateral hydroureteronephrosis. No radiopaque obstructive ureteral calculus. Nonspecific increased perinephric fat stranding at the right kidney. Slightly increased urothelial enhancement along bilateral collecting systems and ureters. The findings are likely related to underlying pyelitis. No appreciable striated nephrograms to suggest pyelonephritis. There is normal enhancement of the renal veins. Stable appearance of renal cyst and renal cortical hypodensities. Stable appearance of fat-containing umbilical hernia and right inguinal hernia containing portion of colonic loop. No evidence of bowel obstruction or perforation. Normal appendix. Colonic diverticulosis without evidence of acute diverticulitis. Small hiatal hernia. Radiologist: Vianca Lambert MD ECG Data Attestation: I personally reviewed and interpreted this ECG as follows: Indication: + abdominal pain Rate (beats per minute): 90 Rhythm: + normal sinus ECG Intervals/blocks: + Normal QRS and + Normal QT ECG [place]: + Normal ECG ST segments: + Normal ST segments MDM Narrative This is a 65-year-old male presents the emergency department due to concern for possible urinary tract infection as his Perera catheter did not seem to be draining appropriately and had a discolored urine present. Patient found to have extensive sediment throughout the catheter tubing with abnormally discolored discharge however yellow urine was noted in the bottom of the catheter bag. This is a chronic indwelling Perera catheter and family bedside states it had been changed a week ago. Due to patient's concern for i ntermittent fevers over the last 3 days, a sepsis evaluation was started. Urine specimen was collected and then catheter was changed. Patient was noted to have acute urinary retention and I suspect the sediment had blocked off the catheter as once the new catheter was placed patient drained almost 1 L of urine. After the initial drainage there was some hematuria also present. This did slowly c lear back to a pink-tinged urine. Patient did report feeling improved after this. While no leukocytosis was noted patient was noted to have an elevated procalcitonin. He did have fever and tachycardia here also. Patient was not hypotensive. He was given IV fluids, started on IV antibiotics. Patient was also given Tylenol for the fever. Patient did have hyperglycemia and additional subcu insulin was also given. Patient had borderline DKA with an anion gap of 12. I suspect this is from dehydration. Patient with concurrent pseudohyponatremia. Given patient's physical exam and discussion at bedside I suspect patient does not have a clear understanding of how to maintain proper hygiene and care for the catheter. Patient remained hemodynamically stable in the emergency department. CT did reveal some perinephric stranding although stated this was not consistent with fulminant pyelonephritis. Due to indwelling catheter, UTI, risk, and other risk factors for sepsis, case was discussed with hospitalist for additional inpatient evaluation and management. An order was placed for continuous cardiac monitoring. The monitor shows a rate of _92_ with _normal sinus_ rhythm. Impression & Plan Acute UTI (urinary tract infection), Hematuria, Acute urinary retention Discharge Plan Visit Data Chief Complaint: Fever Stated Complaint: BOUNCING TEMP - CATH LEAKING Discharge Problem: Acute UTI (urinary tract infection), Hematuria, Acute urinary retention Patient Disposition: Admitted As Inpatient Condition: Good Discharge Instructions Interventions: ED Discharge Assessment Last Done: 02/18/21 05:05
[2021-02-18] LABS: Basophils # (auto) 0.01 K/uL (0-0.2); Basophils % (auto) 0.2 %; Eosinophils # (auto) 0.04 K/uL (0-0.5); Eosinophils % (auto) 0.6 %; Hematocrit (blood only) 37.2 % (42-52); Hemoglobin 12.7 g/dL (14.0-18.0); Immature Granulocytes # (auto) 0.02 K/uL (0.00-0.02); Immature Granulocytes % (auto) 0.3 %; Lymphocytes # (auto) 0.78 K/uL (1.2-3.4); Lymphocytes % (auto) 11.9 %; Mean Corpuscular Hemoglobin 28.3 pg (25-34); Mean Corpuscular Hgb Conc 34.1 g/dL (32-36); Mean Corpuscular Volume 82.9 fL (80-100); Mean Platelet Volume 10.2 fL (7.4-10.4); Monocytes # (auto) 0.48 K/uL (0.11-0.59); Monocytes % (auto) 7.3 %; Neutrophils # (auto) 5.22 K/uL (1.4-6.5); Neutrophils % (auto) 79.7 %; Platelet Count 234 K/uL (130-400); RDW Coefficient of Variation 14.3 % (11.5-14.5); RDW Standard Deviation 43.6 fL (36.4-46.3); Red Blood Count 4.49 M/uL (4.7-6.1); White Blood Count 6.55 K/uL (4.8-10.8)
[2021-02-18 00:17] LABS: Appearance Urine Clear (Clear); Bacteria Urine Automated 3+ (Negative); Bilirubin Urine Negative (Negative); Blood Urine 3+ (Negative); Cast Urine Automated 0 /lpf (0-5); Color Urine Yellow; Glucose Urine UA 3+ (Negative); Ketones Urine 1+ (Negative); Leukocyte Esterase Urine Negative (Negative); Nitrite Urine Negative (Negative); Protein Urine 1+ (Negative); RBC Urine Automated >30 /hpf (0-4); Urobilinogen Urine Negative (Negative)
[2021-02-18 00:28] LABS: Alanine Aminotransferase 34 U/L (12-78); Albumin Globulin Ratio 0.5 (0.9-2); Albumin Level 2.7 gm/dl (3.4-5.0); Alkaline Phosphatase 136 U/L (45-117); Aspartate Aminotransferase 24 U/L (15-37); BUN Creatinine Ratio 16.9 (10-20); Bilirubin,Total 0.7 mg/dl (0.2-1); Blood Urea Nitrogen 14 mg/dl (7-18); Calcium 8.6 mg/dl (8.5-10.1); Carbon Dioxide 21 mmol/L (21-32); Chloride 98 mmol/L (98-107); Creatinine Clr Calc Pharmacy 83.4 ml/min; Est GFR (African American) 105.5 ml/min; Globulin 5.1 gm/dl (2.5-4.0); Glucose 370 mg/dl (70-99); Magnesium 2.3 mg/dl (1.8-2.4); Potassium 4.1 mmol/L (3.5-5.1); Sodium 131 mmol/L (136-145); Total Protein 7.8 gm/dl (6.4-8.2); Troponin I < 0.015 ng/ml (0-0.045)
[2021-02-18] MEDS ORDERED: NovoLIN-R INSULIN PER UNIT CHARGE SC STA (00:31)
[2021-02-18] MEDS ORDERED: CEFEPIME 2,000 MG/20 ML VIAL IV STA (00:31)
[2021-02-18 00:47] LABS: Beta-Hydroxybutyrate 20.59 mg/dl (0.2-2.81)
[2021-02-18] MEDS ORDERED: OPTIRAY 320 100ml IV ONE (01:17)
[2021-02-18] MEDS ORDERED: ACETAMINOPHEN 1,000 MG/100 ML VIAL IV STA (01:34)
[2021-02-18] MEDS ORDERED: SODIUM CHLORIDE 0.9% 1000ML 1,000 ML IV ONE ×2 (01:34→04:07)
[2021-02-18] MEDS ORDERED: INSULIN GLARGINE SOLOSTAR 100 UNITS/ML 3 ML PEN SC STA (03:20)
--- NOTE | 2021-02-18 03:20 | History & Physical Report ---
Date of Service February 18, 2021 Assessment & Plan (1) Sepsis: Plan: Secondary to complicated UTI hx recurrent UTIs hx BPH/urinary retention with chronic indwelling Perera catheter history prostatic/scrotal abscess/fistula formation status post surgery Recurrent ER visits for Perera catheter blockage. Patient and partner with poor insight about indwelling Perera catheter care/suboptimal compliance with medical advice Anemia possibly from hematuria Mild DKA hx DM2 insulin requiring, suboptimal control as of recent hemoglobin A1c of 14.08 October 2020 hx CAD as per records hypertension, slightly elevated hyperlipidemia on statin Rx GMF CS, Cefepime Request nursing to provide patient and fiancee/caregiver education pertinent to chronic indwelling Perera catheter care. IVF Basal insulin, ISS BG goal 1 10-1 40, carb count coverage, update hemoglobin A1c May need IV insulin if with persistent BSG elevation. Anemia work-up, transfuse PRBC if hemoglobin less than 8 and or for symptomatic anemia Appropriate to hold home aspirin until hemoglobin stable DVT prophylaxis. SCDs RE hematuria possibly causing significant anemia Full code Patient requesting updates from providers. Ms. Venecia Borrego, contact #[phone]. Text document was generated using [employer] voice recognition software. It may contain grammatical or spelling errors. Kindly contact undersigned for clarification of any documentation item in question. History of Present Illness Chief Complaint: Urine leaking around catheter Primary Care Provider: Prosper Oviedo MD History obtained from patient, family, and records. Patient is a fair historian. Medical history significant for CAD, hypertension, hyperlipidemia, DM2 insulin requiring, PUD/GERD as per records, BPH/urinary retention with chronic indwelling Perera catheter, history prostatic/scrotal abscess/fistula formation status post surgery, recurrent UTIs. Last confinement December 2020 for angioedema attributed to lisinopril. Last outpatient [facility] urology visit December 2020. Perera catheter change during visit. Cystoscopy recommended. 3 ER visits last month for Perera catheter blockage. Patient and fiancee/caregiver not clear about knowledge of Perera catheter care/need for monthly Perera catheter changes. Patient refusing home care nursing visits because "they don't do anything." Patient aneesh cites unfortunate incident when home nursing was "rough on patient" with wound care/catheter change. Last outpatient PCP visit was June 2020 3 days history of dirty Perera catheter drainage later with fever chills at home. Achy lower abdominal pain without nausea or vomiting. Patient noted leakage of urine around catheter. Patient denies chest pain, S OB, black stools/bloody stools. Patient brought to the ER by family for evaluation. At the ER, Perera catheter noted to be dirty by staff. Subsequent Perera catheter change done yielding a liter of bloody urine. Urine output currently yellow as per ED provider. , Patient given Cefepime at the ER. Regular insulin administered at the ER for BSG 300s. MEDICAL HISTORY: As above. SURGERIES: hernia surgery, cholecystectomy, scrotal exploration, urethral meatus dilatation FAMILY HISTORY: Diabetes, heart disease PERSONAL AND SOCIAL HISTORY: Nonsmoker, no chronic intake of alcohol. 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 Allergies Allergy/AdvReac Type Severity Reaction Status Date / Time lisinopril Allergy Severe angioedema Verified 02/17/21 22:41 sulfamethoxazole Allergy Severe angioedema Verified 02/17/21 22:41 [From Bactrim] trimethoprim [From Bactrim] Allergy Severe angioedema Verified 02/17/21 22:41 Home Medications Medication Instructions Recorded Confirmed Type atorvastatin 80 mg tablet 80 mg PO QAM #0 05/09/17 02/17/21 History pantoprazole 40 mg tablet,delayed 40 mg PO QAM #0 05/09/17 02/17/21 History release (Protonix) metoprolol succinate 25 mg 25 mg PO QAM 09/20/19 02/17/21 History tablet,extended release 24 hr nitroglycerin 0.4 mg sublingual 0.4 mg SUBLINGUAL DIRECTED PRN 09/20/19 02/17/21 History tablet aspirin 81 mg chewable tablet 81 mg PO QAM 05/18/20 02/17/21 History finasteride 5 mg tablet 5 mg PO QAM #90 tab 06/05/20 02/17/21 Rx tamsulosin 0.4 mg capsule 0.4 mg PO DAILY #90 cap 06/05/20 02/17/21 Rx metformin 500 mg tablet,extended 1,000 mg PO QAM 07/20/20 02/17/21 History release 24 hr semaglutide (Ozempic) 0.5 mg SUBCUT WK 07/20/20 02/17/21 History insulin aspart U-100 100 unit/mL 20 unit SUBCUT TIDM #15 ml 10/20/20 02/17/21 Rx (3 mL) subcutaneous pen (Novolog Flexpen U-100 Insulin aspart) insulin glargine 100 unit/mL (3 50 unit SUBCUT BID 30 Days #30 ml 10/20/20 02/17/21 Rx mL) subcutaneous pen (Lantus Solostar U-100 Insulin) metformin 500 mg tablet,extended 500 mg PO PM 12/26/20 02/17/21 History release 24 hr amlodipine 5 mg tablet (Norvasc) 10 mg PO QAM 30 Days #60 tab 12/27/20 02/17/21 Rx Past Med/Surg History Medical History Abnormal CT scan, pelvis CT abdomen & pelvis 05/15/20: "Prominent left pelvic sidewall and left inguinal lymph nodes. These may be reactive however a short-term follow-up CT is recommended in 3 months." Acute hyponatremia Angioedema Benign prostatic hyperplasia Complication, blocked Perera catheter Coronary artery disease Diabetes mellitus type 2 with complications Diabetes mellitus, type II Dyslipidemia Hematuria Hematuria Hypertension Obstructed Perera catheter Urinary retention Surgical History History of hernia repair Status post cardiac catheterization Status post cholecystectomy Family History Father Cancer Diabetes Mother Diabetes Cancer leukemia Brother Coronary heart disease Myocardial infarction Social History Smoking Status: Never smoker Second Hand Exposure: No; Hx Alcohol Use: No Hx Substance Use: No Preferred Language: German Communication Ability: Effective Visual Impairment: No Limitations Hearing Ability: Normal Shot Core Drill Operator Required: No Beliefs That Will Affect Care: None marital status: Single Current Living Situation: Alone Other Information That Helps Us Care for You: No Feels Safe at Home: Yes Safety Concerns: Feels Safe At This Time Assistive Devices: Glasses Review of Systems Review of Systems: As per HPI, all 10 systems reviewed, all other ROS negative Physical Exam Physical Exam: GENERAL: obese, apathetic, no respiratory distress SKIN: Pallor , warm HEENT: Alopecia, pale palpebral conjunctivae, no ptosis, dry buccal mucosa NECK : Supple, short neck, no tenderness CHEST : CTA, no tenderness HEART : RRR , no obvious murmurs ABDOMEN: distention, minimal hypogastric tenderness EXTREMITIES : Minimal LE swelling, no LE tenderness, no other conspicuous d eformities noted NEUROLOGIC : Coherent, no facial asymmetry, slightly hard of hearing, no other gross focality Results & Data Results & Data ([facility]) Vital Signs (Past 12 Hours) Vital Signs Temp Pulse Pulse Resp BP BP Pulse Ox 02/18/21 02:30 93 H 24 157/83 H 95 02/18/21 02:00 91 H 31 H 158/81 H 95 02/18/21 01:30 91 H 18 160/88 H 95 02/18/21 01:05 90 20 169/84 H 95 02/18/21 00:15 38.5 C H 95 H 18 159/82 H 96 02/17/21 22:25 37.3 C 97 H 20 170/89 H 98 Laboratory Results Laboratory Results WBC 6.55 K/uL (4.8-10.8) 02/17/21 23:49 RBC 4.49 M/uL (4.7-6.1) L 02/17/21 23:49 Hgb 12.7 g/dL (14.0-18.0) L 02/17/21 23:49 Hct 37.2 % (42-52) L 02/17/21 23:49 MCV 82.9 fL (80-100) 02/17/21 23:49 MCH 28.3 pg (25-34) 02/17/21 23:49 MCHC 34.1 g/dL (32-36) 02/17/21 23:49 RDW Std Deviation 43.6 fL (36.4-46.3) 02/17/21 23:49 RDW Coeff of Naomy 14.3 % (11.5-14.5) 02/17/21 23:49 Plt Count 234 K/uL (130-400) 02/17/21 23:49 MPV 10.2 fL (7.4-10.4) 02/17/21 23:49 Immature Gran % (Auto) 0.3 % 02/17/21 23:49 Neut % (Auto) 79.7 % 02/17/21 23:49 Lymph % (Auto) 11.9 % 02/17/21 23:49 Gladwin % (Auto) 7.3 % 02/17/21 23:49 Eos % (Auto) 0.6 % 02/17/21 23:49 Baso % (Auto) 0.2 % 02/17/21 23:49 Neut # (Auto) 5.22 K/uL (1.4-6.5) 02/17/21 23:49 Lymph # (Auto) 0.78 K/uL (1.2-3.4) L 02/17/21 23:49 Gladwin # (Auto) 0.48 K/uL (0.11-0.59) 02/17/21 23:49 Eos # (Auto) 0.04 K/uL (0-0.5) 02/17/21 23:49 Baso # (Auto) 0.01 K/uL (0-0.2) 02/17/21 23:49 Immature Gran # (Auto) 0.02 K/uL (0.00-0.02) 02/17/21 23:49 Sodium 131 mmol/L (136-145) L 02/17/21 23:49 Potassium 4.1 mmol/L (3.5-5.1) 02/17/21 23:49 Chloride 98 mmol/L (98-107) 02/17/21 23:49 Carbon Dioxide 21 mmol/L (21-32) 02/17/21 23:49 Anion Gap 12.0 (3-11) H 02/17/21 23:49 BUN 14 mg/dl (7-18) 02/17/21 23:49 Creatinine 0.83 mg/dl (0.6-1.4) 02/17/21 23:49 Est Cr Clr Drug Dosing 83.4 ml/min 02/17/21 23:49 Est GFR ( Amer) 105.5 ml/min 02/17/21 23:49 Est GFR (Non-Af Amer) 91.0 ml/min 02/17/21 23:49 BUN/Creatinine Ratio 16.9 (10-20) 02/17/21 23:49 Glucose 370 mg/dl (70-99) H* 02/17/21 23:49 Lactate 1.2 mmol/L (0.4-2.0) 02/17/21 23:49 Calcium 8.6 mg/dl (8.5-10.1) 02/17/21 23:49 Magnesium 2.3 mg/dl (1.8-2.4) 02/17/21 23:49 Total Bilirubin 0.7 mg/dl (0.2-1) 02/17/21 23:49 AST 24 U/L (15-37) 02/17/21 23:49 ALT 34 U/L (12-78) 02/17/21 23:49 Alkaline Phosphatase 136 U/L (45-117) H 02/17/21 23:49 Troponin I < 0.015 ng/ml (0-0.045) 02/17/21 23:49 Total Protein 7.8 gm/dl (6.4-8.2) 02/17/21 23:49 Albumin 2.7 gm/dl (3.4-5.0) L 02/17/21 23:49 Globulin 5.1 gm/dl (2.5-4.0) H 02/17/21 23:49 Albumin/Globulin Ratio 0.5 (0.9-2) L 02/17/21 23:49 Beta-Hydroxybutyric Acd 20.59 mg/dl (0.2-2.81) H 02/17/21 23:49 Procalcitonin 0.61 ng/ml (0-0.5) H 02/17/21 23:49 Urine Color Yellow 02/17/21 23:30 Urine Appearance Clear (Clear) 02/17/21 23:30 Urine pH 6.0 (4.5-7.5) 02/17/21 23:30 Ur Specific Marissa 1.030 (1.000-1.030) 02/17/21 23:30 Urine Protein 1+ (Negative) H 02/17/21 23:30 Urine Glucose (UA) 3+ (Negative) H 02/17/21 23:30 Urine Ketones 1+ (Negative) H 02/17/21 23:30 Urine Blood 3+ (Negative) H 02/17/21 23:30 Urine Nitrite Negative (Negative) 02/17/21 23:30 Urine Bilirubin Negative (Negative) 02/17/21 23:30 Urine Urobilinogen Negative (Negative) 02/17/21 23:30 Ur Leukocyte Esterase Negative (Negative) 08/15/21 23:30 Urine WBC (Auto) 10-30 /hpf (0-5) H 02/17/21 23:30 Urine RBC (Auto) >30 /hpf (0-4) H 02/17/21 23:30 U Hyaline Cast (Auto) 0 /lpf (0-5) 02/17/21 23:30 U Epithel Cells (Auto) 5-10 /lpf (0-5) H 02/17/21 23:30 Urine Bacteria (Auto) 3+ (Negative) H 02/17/21 23:30 COVID-19 Eval Order Covid19 at [facility] 02/18/21 02:56 Diagnostic Findings Chest x-ray as per my interpretation cardiomegaly CT abdomen pelvis initial read: Decompressed urinarybladder with Foleycatheter in place. Similar marked prostatomegaly. Decreased, mild bilateral hydroureteronephrosis. No radiopaque obstructive ureteral calculus. Nonspecific increased perinephric fat stranding at the right kidney. Slightlyincreased urothelial enhancement along bilateral collecting systems and ureters. The findings are likelyrelated to underlying pyelitis. No appreciable striated nephrograms to suggest pyelonephritis. There is normal enhancement of the renal veins. Stable appearance of renal cysts and renal cortical hypodensities. Stable appearance of fat-containing umbilical hernia and right inguinal hernia containing portion of colonic loop. No evidence of bowel obstruction or perforation. Normal appendix. Colonic diverticulosiswithout evidence of acute diverticulitis. Small hiatal hernia.
[2021-02-18] MEDS ORDERED: GLUCOSE 10 TABS/TUBE PO PRN (03:37)
[2021-02-18] MEDS ORDERED: GLUCOSE 40% GEL 15 GM TUBE PO PRN (03:37)
[2021-02-18] MEDS ORDERED: DEXTROSE 50% 50 ML SYRINGE IV PRN (03:37)
[2021-02-18] MEDS ORDERED: GLUCAGON FOR INJ 1 MG VIAL SQ PRN (03:37)
[2021-02-18] MEDS ORDERED: CARBOHYDRATES FOR HYPOGLYCEMIA PO PRN (03:37)
[2021-02-18] MEDS ORDERED: amLODIPine BESYLATE 5 MG TAB PO ONE (03:42)
[2021-02-18] MEDS ORDERED: INSULIN ASPART PER UNIT SC STA (03:48)
[2021-02-18] MEDS ORDERED: amLODIPine BESYLATE 5 MG TAB PO STA (04:01)
[2021-02-18 04:16] LABS: Basophils # (auto) 0.01 K/uL (0-0.2); Basophils % (auto) 0.2 %; Eosinophils # (auto) 0.03 K/uL (0-0.5); Eosinophils % (auto) 0.5 %; Hematocrit (blood only) 34.7 % (42-52); Hemoglobin 11.8 g/dL (14.0-18.0); Immature Granulocytes # (auto) 0.03 K/uL (0.00-0.02); Immature Granulocytes % (auto) 0.5 %; Lymphocytes % (auto) 9.4 %; Mean Corpuscular Hemoglobin 28.1 pg (25-34); Mean Corpuscular Volume 82.6 fL (80-100); Monocytes # (auto) 0.86 K/uL (0.11-0.59); Monocytes % (auto) 13.5 %; Neutrophils # (auto) 4.85 K/uL (1.4-6.5); Neutrophils % (auto) 75.9 %; Platelet Count 224 K/uL (130-400); RDW Coefficient of Variation 14.5 % (11.5-14.5); RDW Standard Deviation 43.3 fL (36.4-46.3); Reticulocyte % 0.6 % (0.5-2.0); Reticulocytes # 0.03 10^6/uL (0.02-0.10); White Blood Count 6.38 K/uL (4.8-10.8)
[2021-02-18 04:35] LABS: BUN Creatinine Ratio 17.5 (10-20); Calcium 7.6 mg/dl (8.5-10.1); Creatinine Clr Calc Pharmacy 103.3 ml/min; Est GFR (African American) 115.2 ml/min; Est GFR (Non-African American) 99.4 ml/min; Potassium 3.5 mmol/L (3.5-5.1)
[2021-02-18 04:40] LABS: Ferritin 376.3 ng/ml (8-388)
[2021-02-18 05:18] LABS: Folate (Folic Acid) > 20.00 ng/ml (>5.38); Vitamin B12 841 pg/ml (193-986)
[2021-02-18] MEDS ORDERED: traMADol HCL 50 MG TABLET PO PRN (05:52)
[2021-02-18] MEDS ORDERED: CEFEPIME CONSULT ACTIVE SCH (05:52)
[2021-02-18] MEDS ORDERED: PROMETHAZINE HCL 12.5 MG in SODIUM CHLORIDE 0.9% 50 ML IV PRN (05:52)
[2021-02-18] MEDS ORDERED: ACETAMINOPHEN 325 MG TAB PO PRN (05:52)
[2021-02-18] MEDS: INSULIN ASPART 100 UNITS/ML 3 ML PEN SC SCH ×5 (06:07→21:09)
[2021-02-18 07:26] LABS: Estimated Average Glucose 266 mg/dl; Hemoglobin A1C 10.9 % (4.5-5.6)
--- NOTE | 2021-02-18 08:05 | XRay Report ---
XR chest 1V portable HISTORY: 65 years-old Male SEPSIS acute sepsis COMPARISON: CT abdomen and pelvis of same day, chest radiograph 10/17/2020 TECHNIQUE: AP view of the chest FINDINGS: Cardiac silhouette is upper limits of normal in size. There is no pneumothorax, pleural effusion, air space consolidation or overt pulmonary edema. Degenerative changes of the shoulders and spine. IMPRESSION: No acute process. ACT 112: Negative or not required by law. The above report was generated using voice recognition software. It may contain grammatical, syntax o r spelling errors. Electronically signed by: Jcarlos Hickman M.D. 02/18/2021 8:03 AM
[2021-02-18] MEDS ORDERED: INSULIN GLARGINE SOLOSTAR 100 UNITS/ML 3 ML PEN SQ SCH (09:00)
[2021-02-18] MEDS: PANTOprazole 40 MG TAB PO SCH (09:14)
[2021-02-18] MEDS: TAMSULOSIN HCL 0.4 MG CAP PO SCH (09:14)
[2021-02-18] MEDS: METOPROLOL SUCC 25MG EXT REL TAB PO SCH (09:14)
[2021-02-18] MEDS: FINASTERIDE 5 MG TAB PO SCH (09:15)
[2021-02-18] MEDS: ATORVASTATIN 40 MG TAB PO SCH (09:15)
[2021-02-18] MEDS: INSULIN GLARGINE SOLOSTAR 100 UNITS/ML 3 ML PEN SQ SCH ×2 (09:16→21:10)
[2021-02-18 10:21] LABS: Hematocrit (blood only) 33.2 % (42-52); Hemoglobin 11.2 g/dL (14.0-18.0)
--- NOTE | 2021-02-18 11:15 | CT Scan Report ---
CT abd pelvis IV con only CLINICAL HISTORY: urinary retention, crespo, uti, abd/back pain COMPARISON STUDY: October 17, 2020 TECHNIQUE: A dose lowering technique was utilized adhering to the principles of ALARA. CT DOSE: 1085.70 mGy.cm FINDINGS: Lower chest: Minimal atelectasis at dependent portions of bilateral lower lobes.. Liver: The contrast-enhanced liver is normal in size and contour. Diffuse decrease in attenuation of liver parenchyma is seen without focal lesions. There is no intrahepatic biliary ductal dilatation. T he hepatic veins and portal veins are patent. Gallbladder: Is surgically absent. Spleen: Normal in size and attenuation. Pancreas: Unremarkable. Adrenal glands: Left adrenal gland is unremarkable. Stable 1.7 cm right adrenal nodule is seen. Kidneys: Interval near resolution of the left-sided hydronephrosis. Interval improvement of the left hydrouret er. No evidence of nephrolithiasis. Mild interval improvement of the right-sided hydronephrosis however interval worsening of the right p erinephric stranding and new area of ill-defined decrease in attenuation of the right renal parenchym a and blurring of the cortex is seen on series 3 image 173 . Redemonstration of the large cyst at the inferior aspect of the right kidney, unchanged since prior a nd measuring 8.4 x 7.5 cm on axial image. Pelvic viscera: Urinary bladder is partially decompressed with Crespo balloon within its lumen. Few di verticuli of the bladder are seen. Prostate gland is significantly enlarged. Redemonstration of the bilateral inguinal hernias containing fat. Mild extension of the loops of larg e bowel to the right hernia sac are again seen. Bowel: Small to moderate hiatal hernia is seen. Peritoneum: There is no intraperitoneal free air or abdominal ascites. Appendix is normal in caliber and gas filled. Diverticulosis of descending and proximal sigmoid colon is seen without evidence of d iverticulitis. Vasculature: The abdominal aorta is normal in course and caliber. Adenopathy: None. Skeletal structures: Mild degenerative changes of the spine. IMPRESSION: 1. Interval improvement of bilateral hydronephrosis and hydroureter. Questionable asymmetrical fat s tranding surrounding right kidney and ill-defined area of decreased attenuation within the right maximus l cortex is seen and might represent infectious/inflammatory process. Pyelonephritis cannot be comple tely ruled out. Short-term follow-up is per clinical protocol. 2. Significantly enlarged prostate gland. Decompressed urinary bladder with Crespo balloon within its lumen. 3. Nondilated loops of bowel. Normal appendix. Small right inguinal hernia containing nondilated loo p of large bowel. Diverticulosis without diverticulitis. 4. Stable right adrenal nodule. 5. Hepatic steatosis. Status post cholecystectomy. 6. The rest of findings as above. ACT 112: Positive. There are findings on this exam that require communication between the performing entity and the patient following Patient Test Result Information Act ([place] Act 112) guidelines. The above report was generated using voice recognition software. It may contain grammatical, syntax o r spelling errors. Electronically signed by: Jacqui Mccabe DO 02/18/2021 11:13 AM
[2021-02-18] MEDS ORDERED: CEFEPIME 2,000 MG in SYRINGE 0 ML IV SCH (13:00)
[2021-02-18] MEDS: CEFEPIME 2,000 MG in SYRINGE 0 ML IV SCH ×2 (13:04→21:10)
--- NOTE | 2021-02-18 16:26 | Electrocardiogram Report ---
Test Reason : Blood Pressure : / mmHG Vent. Rate : 090 BPM Atrial Rate : 090 BPM P-R Int : 162 ms QRS Dur : 098 ms QT Int : 358 ms P-R-T Axes : 059 008 017 degrees QTc Int : 437 ms Poor data quality, interpretation may be adversely affected Normal sinus rhythm Normal ECG When compared with ECG of 26-DEC-2020 10:52, Criteria for Septal infarct are no longer Present Confirmed by Jay Agudelo ([id number]) on 02/18/2021 4:25:57 PM Referred By: REFERRED SELF Confirmed By:Jay Agudelo
--- NOTE | 2021-02-18 19:14 | Hospitalist Progress Note ---
Date of Service February 18, 2021 Assessment & Plan (1) Sepsis: Plan: Resuscitated, cont cefepime pending culture results. (2) Catheter-associated urinary tract infection: Plan: POA, chronic indwelling catheter. Cefepime pending culture results. (3) Hematuria: Plan: appears resolved and likely related to infection. Recheck after resolution of UTI and follow-up with Urology regarding this if still present. (4) Indwelling Perera catheter present: (5) Diabetes mellitus, type II: Plan: around goal, cont basal/bolus insulin. Uncontrolled A1C, encourage close follow-up with PCP to get this under control. Goal A1C 6.5. (6) Open wound of scrotum: Plan: cont daily wound care. Daily packing (7) DVT prophylaxis: Plan: SCDs/ambulation Full Code Dispo-to home when medically stable. Misti Le DO [facility] Hospitalist Admission and Anticipated Discharge Date Admission Date: February 18, 2021 Subjective 65 yo M admitted with Perera catheter leakage, found to have CAUTI patient reports feeling well Perera cath readjusted overnight and no longer leaking denies fever no evidence of hematuria denies abdominal pain/flank pain Review of Systems Review of Systems: At least ten systems were reviewed and negative except as indicated in HPI above. Physical Exam Physical Exam: CONSTITUTIONAL: WNWD, vitals as above, generally well- appearing EYES: normal conjunctivae, no scleral icterus ENT: external ear and nose normal, MMM RESPIRATORY: clear to auscultation bilaterally, no crackles, rales or wheezes, normal respiratory effort CARDIOVASCULAR: regular rate and rhythm, S1 and 2 heard without murmurs, gallops or rubs, no JVD, no peripheral edema GASTROINTESTINAL: soft, nontender, ND, no guarding, no CVA tenderness : Perera catheter in place. MUSCULOSKELETAL: strength 5/5 throughout, head is normocephalic and atraumatic, neck supple, normal palpation of chest wall without tenderness SKIN: warm and dry NEUROLOGIC: No facial palsy, no dysarthria. CN 2-12 grossly intact, no sensory deficit, normal cognition, normal speech, no tremor PSYCHIATRIC: alert cooperative and oriented to person, place and time. Results & Data Results & Data ([facility]) Vital Signs (Past 12 Hours) Vital Signs Temp Pulse Resp BP BP Pulse Ox Pulse Ox 02/18/21 14:56 36.9 C 80 16 133/69 94 02/18/21 12:33 96 02/18/21 12:05 96 02/18/21 10:32 137/68 02/18/21 10:30 87 20 95 02/18/21 07:15 36.7 C 84 16 151/72 H 95 Laboratory Results Short CBC 02/17/21 02/18/21 02/18/21 Range/Units 23:49 03:56 10:05 WBC 6.55 6.38 (4.8-10.8) K/uL Hgb 12.7 L 11.8 L 11.2 L (14.0-18.0) g/dL Hct 37.2 L 34.7 L 33.2 L (42-52) % Plt Count 234 224 (130-400) K/uL BMP 02/17/21 02/18/21 23:49 03:56 Sodium 131 L 132 L Potassium 4.1 3.5 Chloride 98 105 Carbon Dioxide 21 22 BUN 14 12 Creatinine 0.83 0.67 Glucose 370 H* 257 H Calcium 8.6 7.6 L Cardiac Enzymes 02/17/21 Range/Units 23:49 Troponin I < 0.015 (0-0.045) ng/ml Liver Function 02/17/21 Range/Units 23:49 Total Bilirubin 0.7 (0.2-1) mg/dl AST 24 (15-37) U/L ALT 34 (12-78) U/L Alkaline Phosphatase 136 H (45-117) U/L Albumin 2.7 L (3.4-5.0) gm/dl Urine 02/17/21 Range/Units 23:30 Urine Color Yellow Urine Appearance Clear (Clear) Urine pH 6.0 (4.5-7.5) Ur Specific Cedar 1.030 (1.000-1.030) Urine Protein 1+ H (Negative) Urine Glucose (UA) 3+ H (Negative) Medications Administered Current Inpatient Medications Acetaminophen (Acetaminophen 325 Mg Tab) 650 mg PO Q4H PRN PRN Reason: pain/fever Stop: 03/20/21 05:51 Atorvastatin Calcium (Atorvastatin 40 Mg Tab) [facility] [place]: 03/20/21 08:59 Last Admin: 02/18/21 09:15 Dose: 80 mg Documented by: Dextrose (Dextrose 50% 50 Ml Syringe) 25 - 50 ml IV UD PRN; Protocol PRN Reason: Hypoglycemia Protocol Stop: 03/20/21 03:36 Finasteride (Finasteride 5 Mg Tab) 5 mg PO QAM [facility] Stop: 03/20/21 08:59 Last Admin: 02/18/21 09:15 Dose: 5 mg Documented by: Glucagon (Glucagon For Inj 1 Mg Vial) 1 mg SQ UD PRN; Protocol PRN Reason: Hypoglycemia Protocol Stop: 03/20/21 03:36 Glucose (Glucose 10 Tabs/Tube) 4 - 8 tabs PO UD PRN; Protocol PRN Reason: Hypoglycemia Protocol Stop: 03/20/21 03:36 Glucose (Glucose 40% Gel 15 Gm Tube) 15 - 30 gm PO UD PRN; Protocol PRN Reason: Hypoglycemia Protocol Stop: 03/20/21 03:36 Promethazine HCl 12.5 mg/ (Sodium Chloride) 50.5 mls @ 202 mls/hr IV Q6H PRN PRN Reason: Nausea And Vomiting Stop: 03/20/21 05:51 Cefepime HCl 2,000 mg/ Syringe 20 mls @ 5 mls/min IV Q8H RASHAAD; Protocol Stop: 02/28/21 12:59 Last Admin: 02/18/21 13:04 Dose: 5 mls/min Documented by: Insulin Aspart (Insulin Aspart 100 Units/Ml 3 Ml Pen) 0 units SC ACHS [facility] Stop: 03/20/21 03:39 Last Admin: 02/18/21 17:39 Dose: 7 units Documented by: Insulin Glargine (Insulin Glargine Solostar 100 Units/Ml 3 Ml Pen) 55 units SQ BID [facility] Stop: 03/20/21 08:59 Last Admin: 02/18/21 09:16 Dose: 55 units Documented by: Metoprolol Succinate (Metoprolol Succ 25mg Ext Rel Tab) 25 mg PO QAM [facility] Stop: 03/20/21 08:59 Last Admin: 02/18/21 09:14 Dose: 25 mg Documented by: Miscellaneous (Carbohydrates For Hypoglycemia ) 15 - 30 gm PO UD PRN PRN Reason: Hypoglycemia Protocol Stop: 03/20/21 03:36 Miscellaneous Information (Cefepime Consult Active) 1 ea N/A UD [facility] Stop: 03/20/21 05:51 Pantoprazole Sodium (Pantoprazole 40 Mg Tab) 40 mg PO QAM [facility] Stop: 03/20/21 08:59 Last Admin: 02/18/21 09:14 Dose: 40 mg Documented by: Tamsulosin HCl (Tamsulosin Hcl 0.4 Mg Cap) 0.4 mg PO DAILY [facility] Stop: 03/20/21 08:59 Last Admin: 02/18/21 09:14 Dose: 0.4 mg Documented by: Tramadol HCl (Tramadol Hcl 50 Mg Tablet) 25 - 50 mg PO Q4H PRN PRN Reason: Pain Stop: 03/20/21 05:51 (1) Hematuria Hematuria type: gross Qualified Code(s): R31.0 - Gross hematuria
[2021-02-19] MEDS: CEFEPIME 2,000 MG in SYRINGE 0 ML IV SCH ×3 (05:07→20:55)
[2021-02-19 06:25] LABS: Basophils # (auto) 0.01 K/uL (0-0.2); Basophils % (auto) 0.2 %; Eosinophils # (auto) 0.24 K/uL (0-0.5); Eosinophils % (auto) 4.3 %; Hematocrit (blood only) 32.5 % (42-52); Hemoglobin 11.3 g/dL (14.0-18.0); Immature Granulocytes # (auto) 0.04 K/uL (0.00-0.02); Immature Granulocytes % (auto) 0.7 %; Lymphocytes # (auto) 0.54 K/uL (1.2-3.4); Lymphocytes % (auto) 9.6 %; Mean Corpuscular Hemoglobin 28.8 pg (25-34); Mean Corpuscular Hgb Conc 34.8 g/dL (32-36); Mean Corpuscular Volume 82.9 fL (80-100); Mean Platelet Volume 9.8 fL (7.4-10.4); Monocytes # (auto) 0.78 K/uL (0.11-0.59); Monocytes % (auto) 13.9 %; Neutrophils # (auto) 4.01 K/uL (1.4-6.5); Neutrophils % (auto) 71.3 %; Platelet Count 243 K/uL (130-400); RDW Coefficient of Variation 14.5 % (11.5-14.5); RDW Standard Deviation 44.1 fL (36.4-46.3); Red Blood Count 3.92 M/uL (4.7-6.1); White Blood Count 5.62 K/uL (4.8-10.8)
[2021-02-19 07:01] LABS: Est GFR (African American) 125.9 ml/min; Est GFR (Non-African American) 108.6 ml/min; Potassium 3.3 mmol/L (3.5-5.1)
[2021-02-19] MEDS: TAMSULOSIN HCL 0.4 MG CAP PO SCH (07:51)
[2021-02-19] MEDS: FINASTERIDE 5 MG TAB PO SCH (07:51)
[2021-02-19] MEDS: ATORVASTATIN 40 MG TAB PO SCH (07:52)
[2021-02-19] MEDS: METOPROLOL SUCC 25MG EXT REL TAB PO SCH (07:52)
[2021-02-19] MEDS: PANTOprazole 40 MG TAB PO SCH (07:52)
[2021-02-19] MEDS: INSULIN ASPART 100 UNITS/ML 3 ML PEN SC SCH ×4 (08:43→20:51)
[2021-02-19] MEDS: INSULIN GLARGINE SOLOSTAR 100 UNITS/ML 3 ML PEN SQ SCH ×2 (08:44→20:52)
--- NOTE | 2021-02-19 15:01 | Hospitalist Progress Note ---
Date of Service February 19, 2021 Assessment & Plan (1) Sepsis: Plan: Resuscitated, cont cefepime pending culture results. (2) Catheter-associated urinary tract infection: Plan: POA, chronic indwelling catheter. Cefepime pending culture results. (3) E coli bacteremia: Plan: cefepime-id consult (4) Hematuria: Plan: appears resolved and likely related to infection. Recheck after resolution of UTI and follow-up with Urology regarding this if still present. (5) Indwelling Perera catheter present: (6) Diabetes mellitus, type II: Plan: around goal, cont basal/bolus insulin. Uncontrolled A1C, encourage close follow-up with PCP to get this under control. Goal A1C 6.5. (7) Open wound of scrotum: Plan: cont daily wound care. Daily packing (8) Adrenal nodule: Plan: follow-up with PCP, nodule noted to be stable on imaging. (9) Hepatic steatosis: Plan: noted on imaging. Follow-up monitoring with PCP. (10) HTN (hypertension): Plan: around goal, cont Toprol XL, restart home amlodipine. (11) DVT prophylaxis: Plan: SCDs/ambulation Full Code Dispo-to home when medically stable. Misti Le DO [facility] Hospitalist Admission and Anticipated Discharge Date Admission Date: February 18, 2021 Subjective 65 yo M admitted with Perera catheter leakage, found to have CAUTI patient reports feeling well Perera cath readjusted overnight and no longer leaking denies fever no evidence of hematuria denies abdominal pain/flank pain Physical Exam Physical Exam: CONSTITUTIONAL: WNWD, vitals as above, generally well- appearing EYES: normal conjunctivae, no scleral icterus ENT: external ear and nose normal, MMM RESPIRATORY: clear to auscultation bilaterally, no crackles, rales or wheezes, normal respiratory effort CARDIOVASCULAR: regular rate and rhythm, S1 and 2 heard without murmurs, gallops or rubs, no JVD, no peripheral edema GASTROINTESTINAL: soft, nontender, ND, no guarding, no CVA tenderness : Perera catheter in place. MUSCULOSKELETAL: strength 5/5 throughout, head is normocephalic and atraumatic, neck supple, normal palpation of chest wall without tenderness SKIN: warm and dry NEUROLOGIC: No facial palsy, no dysarthria. CN 2-12 grossly intact, no sensory deficit, normal cognition, normal speech, no tremor PSYCHIATRIC: alert cooperative and oriented to person, place and time. Results & Data Results & Data ([facility]) Vital Signs (Past 12 Hours) Vital Signs Temp Pulse Resp BP Pulse Ox 02/19/21 14:55 36.7 C 80 16 152/79 H 96 02/19/21 07:30 36.8 C 80 16 137/77 95 Laboratory Results Short CBC 02/19/21 Range/Units 05:58 WBC 5.62 (4.8-10.8) K/uL Hgb 11.3 L (14.0-18.0) g/dL Hct 32.5 L (42-52) % Plt Count 243 (130-400) K/uL BMP 02/19/21 05:58 Sodium 136 Potassium 3.3 L Chloride 107 Carbon Dioxide 24 BUN 11 Creatinine 0.54 L Glucose 118 H Calcium 8.0 L Medications Administered Current Inpatient Medications Acetaminophen (Acetaminophen 325 Mg Tab) 650 mg PO Q4H PRN PRN Reason: pain/fever Stop: 03/20/21 05:51 Atorvastatin Calcium (Atorvastatin 40 Mg Tab) 80 mg PO [facility] Stop: 03/20/21 08:59 Last Admin: 02/19/21 07:52 Dose: 80 mg Documented by: Dextrose (Dextrose 50% 50 Ml Syringe) 25 - 50 ml IV UD PRN; Protocol PRN Reason: Hypoglycemia Protocol Stop: 03/20/21 03:36 Finasteride (Finasteride 5 Mg Tab) 5 mg PO [facility] Stop: 03/20/21 08:59 Last Admin: 02/19/21 07:51 Dose: 5 mg Documented by: Glucagon (Glucagon For Inj 1 Mg Vial) 1 mg SQ UD PRN; Protocol PRN Reason: Hypoglycemia Protocol Stop: 03/20/21 03:36 Glucose (Glucose 10 Tabs/Tube) 4 - 8 tabs PO UD PRN; Protocol PRN Reason: Hypoglycemia Protocol Stop: 03/20/21 03:36 Glucose (Glucose 40% Gel 15 Gm Tube) 15 - 30 gm PO UD PRN; Protocol PRN Reason: Hypoglycemia Protocol Stop: 03/20/21 03:36 Promethazine HCl 12.5 mg/ (Sodium Chloride) 50.5 mls @ 202 mls/hr IV Q6H PRN PRN Reason: Nausea And Vomiting Stop: 03/20/21 05:51 Cefepime HCl 2,000 mg/ Syringe 20 mls @ 5 mls/min IV Q8H [facility]; Protocol Stop: 02/28/21 12:59 Last Admin: 02/19/21 13:22 Dose: 5 mls/min Documented by: Insulin Aspart (Insulin Aspart 100 Units/Ml 3 Ml Pen) 0 units SC ACHS [facility] Stop: 03/20/21 03:39 Last Admin: 02/19/21 12:20 Dose: 5 units Documented by: Insulin Glargine (Insulin Glargine Solostar 100 Units/Ml 3 Ml Pen) 55 units SQ BID [facility] Stop: 03/20/21 08:59 Last Admin: 02/19/21 08:44 Dose: 55 units Documented by: Metoprolol Succinate (Metoprolol Succ 25mg Ext Rel Tab) 25 mg PO QAM [facility] Stop: 03/20/21 08:59 Last Admin: 02/19/21 07:52 Dose: 25 mg Documented by: Miscellaneous (Carbohydrates For Hypoglycemia ) 15 - 30 gm PO UD PRN PRN Reason: Hypoglycemia Protocol Stop: 03/20/21 03:36 Miscellaneous Information (Cefepime Consult Active) 1 ea N/A UD [facility] Stop: 03/20/21 05:51 Pantoprazole Sodium (Pantoprazole 40 Mg Tab) 40 mg PO QAM [facility] Stop: 03/20/21 08:59 Last Admin: 02/19/21 07:52 Dose: 40 mg Documented by: Tamsulosin HCl (Tamsulosin Hcl 0.4 Mg Cap) 0.4 mg PO DAILY [facility] Stop: 03/20/21 08:59 Last Admin: 02/19/21 07:51 Dose: 0.4 mg Documented by: Tramadol HCl (Tramadol Hcl 50 Mg Tablet) 25 - 50 mg PO Q4H PRN PRN Reason: Pain Stop: 03/20/21 05:51 (1) Hematuria Hematuria type: gross Qualified Code(s): R31.0 - Gross hematuria
[2021-02-20] MEDS: CEFEPIME 2,000 MG in SYRINGE 0 ML IV SCH ×2 (05:35→12:54)
[2021-02-20 05:54] LABS: Hematocrit (blood only) 34.7 % (42-52); Hemoglobin 11.5 g/dL (14.0-18.0); Mean Corpuscular Hemoglobin 27.5 pg (25-34); Mean Corpuscular Hgb Conc 33.1 g/dL (32-36); Mean Platelet Volume 9.4 fL (7.4-10.4); Platelet Count 293 K/uL (130-400); RDW Coefficient of Variation 14.3 % (11.5-14.5); RDW Standard Deviation 43.7 fL (36.4-46.3); Red Blood Count 4.18 M/uL (4.7-6.1); White Blood Count 5.18 K/uL (4.8-10.8)
[2021-02-20 06:28] LABS: BUN Creatinine Ratio 24.3 (10-20); Calcium 8.1 mg/dl (8.5-10.1); Creatinine Clr Calc Pharmacy 124.3 ml/min; Est GFR (African American) 124.1 ml/min; Potassium 3.3 mmol/L (3.5-5.1)
[2021-02-20] MEDS: INSULIN ASPART 100 UNITS/ML 3 ML PEN SC SCH ×2 (08:56→12:53)
[2021-02-20] MEDS: INSULIN GLARGINE SOLOSTAR 100 UNITS/ML 3 ML PEN SQ SCH (08:57)
[2021-02-20] MEDS: ATORVASTATIN 40 MG TAB PO SCH (08:58)
[2021-02-20] MEDS: TAMSULOSIN HCL 0.4 MG CAP PO SCH (08:58)
[2021-02-20] MEDS: FINASTERIDE 5 MG TAB PO SCH (08:58)
[2021-02-20] MEDS: METOPROLOL SUCC 25MG EXT REL TAB PO SCH (08:58)
[2021-02-20] MEDS: PANTOprazole 40 MG TAB PO SCH (08:58)
[2021-02-20] MEDS: POTASSIUM CHLORIDE CRTAB 20 MEQ TABCR PO SCH ×2 (11:15→15:41)
[2021-02-20] MEDS ORDERED: amLODIPine BESYLATE 5 MG TAB PO SCH (14:00)
--- NOTE | 2021-02-23 14:11 | Discharge Summary ---
Date of Service February 23, 2021 Admission HPI Per Admitting Provider History obtained from patient, family, and records. Patient is a fair historian. 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 Last confinement December 2020 for angioedema attributed to lisinopril. Last outpatient Julieth Fernandez urology visit December 2020. Crespo catheter change during visit. Cystoscopy recommended. 3 ER visits last month for Crespo catheter blockage. Patient and fiancee/caregiver not clear about knowledge of Crespo catheter care/need for monthly Crespo catheter changes. Patient refusing home care nursing visits because "they don't do anything." Patient aneesh cites unfortunate incident when home nursing was "rough on patient" with wound care/catheter change. Last outpatient PCP visit was June 2020 3 days history of dirty Crespo catheter drainage later with fever chills at home. Achy lower abdominal pain without nausea or vomiting. Patient noted leakage of urine around catheter. Patient denies chest pain, S OB, black stools/bloody stools. Patient brought to the ER by family for evaluation. At the ER, Crespo catheter noted to be dirty by staff. Subsequent Crespo catheter change done yielding a liter of bloody urine. Urine output currently yellow as per ED provider. , Patient given Cefepime at the ER. Regular insulin administered at the ER for BSG 300s. MEDICAL HISTORY: As above. SURGERIES: hernia surgery, cholecystectomy, scrotal exploration, urethral meatus dilatation FAMILY HISTORY: Diabetes, heart disease PERSONAL AND SOCIAL HISTORY: Nonsmoker, no chronic intake of alcohol. 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 Admission Exam Per Admitting Provider GENERAL: obese, apathetic, no respiratory distress SKIN: Pallor , warm HEENT: Alopecia, pale palpebral conjunctivae, no ptosis, dry buccal mucosa NECK : Supple, short neck, no tenderness CHEST : CTA, no tenderness HEART : RRR , no obvious murmurs ABDOMEN: distention, minimal hypogastric tenderness EXTREMITIES : Minimal LE swelling, no LE tenderness, no other conspicuous deformities noted NEUROLOGIC : Coherent, no facial asymmetry, slightly hard of hearing, no other gross focality Principal Diagnosis sepsis 2/2 E coli UTI and E coli bacteremia Chronic urinary retention with chronic indwelling crespo catheter chronic post-operative scrotal wound Discharge Exam CONSTITUTIONAL: WNWD, vitals as above, generally well-appearing EYES: normal conjunctivae, no scleral icterus ENT: external ear and nose normal, MMM RESPIRATORY: clear to auscultation bilaterally, no crackles, rales or wheezes, normal respiratory effort CARDIOVASCULAR: regular rate and rhythm, S1 and 2 heard without murmurs, gallops or rubs, no JVD, no peripheral edema GASTROINTESTINAL: soft, nontender, ND, no guarding, no CVA tenderness : Crespo catheter in place. MUSCULOSKELETAL: strength 5/5 throughout, head is normocephalic and atraumatic, neck supple, normal palpation of chest wall without tenderness SKIN: warm and dry NEUROLOGIC: No facial palsy, no dysarthria. CN 2-12 grossly intact, no sensory deficit, normal cognition, normal speech, no tremor PSYCHIATRIC: alert cooperative and oriented to person, place and time. Discharge Data Allergies Allergy/AdvReac Type Severity Reaction Status Date / Time lisinopril Allergy Severe angioedema Verified 02/17/21 22:41 sulfamethoxazole Allergy Severe angioedema Verified 02/17/21 22:41 [From Bactrim] trimethoprim [From Bactrim] Allergy Severe angioedema Verified 02/17/21 22:41 Consultations 02/18/21 02:40 ED Decision to Admit Stat 02/19/21 19:55 Consult Infectious Diseases Routine Ordered Studies Laboratory Results WBC 5.18 K/uL (4.8-10.8) 02/20/21 05:30 RBC 4.18 M/uL (4.7-6.1) L 02/20/21 05:30 Hgb 11.5 g/dL (14.0-18.0) L 02/20/21 05:30 Hct 34.7 % (42-52) L 02/20/21 05:30 MCV 83.0 fL (80-100) 02/20/21 05:30 MCH 27.5 pg (25-34) 02/20/21 05:30 MCHC 33.1 g/dL (32-36) 02/20/21 05:30 RDW Std Deviation 43.7 fL (36.4-46.3) 02/20/21 05:30 RDW Coeff of Naomy 14.3 % (11.5-14.5) 02/20/21 05:30 Plt Count 293 K/uL (130-400) 02/20/21 05:30 MPV 9.4 fL (7.4-10.4) 02/20/21 05:30 Immature Gran % (Auto) 0.7 % 02/19/21 05:58 Neut % (Auto) 71.3 % 02/19/21 05:58 Lymph % (Auto) 9.6 % 02/19/21 05:58 Hall % (Auto) 13.9 % 02/19/21 05:58 Eos % (Auto) 4.3 % 02/19/21 05:58 Baso % (Auto) 0.2 % 02/19/21 05:58 Reticulocyte % (Auto) 0.6 % (0.5-2.0) 02/18/21 03:56 Neut # (Auto) 4.01 K/uL (1.4-6.5) 02/19/21 05:58 Lymph # (Auto) 0.54 K/uL (1.2-3.4) L 02/19/21 05:58 Hall # (Auto) 0.78 K/uL (0.11-0.59) H 02/19/21 05:58 Eos # (Auto) 0.24 K/uL (0-0.5) 02/19/21 05:58 Baso # (Auto) 0.01 K/uL (0-0.2) 02/19/21 05:58 Reticulocyte # 0.03 10^6/uL (0.02-0.10) 02/18/21 03:56 Immature Gran # (Auto) 0.04 K/uL (0.00-0.02) H 02/19/21 05:58 Sodium 139 mmol/L (136-145) 02/20/21 05:30 Potassium 3.3 mmol/L (3.5-5.1) L 02/20/21 05:30 Chloride 108 mmol/L (98-107) H 02/20/21 05:30 Carbon Dioxide 26 mmol/L (21-32) 02/20/21 05:30 Anion Gap 5.0 (3-11) 02/20/21 05:30 BUN 13 mg/dl (7-18) 02/20/21 05:30 Creatinine 0.56 mg/dl (0.6-1.4) L 02/20/21 05:30 Est Cr Clr Drug Dosing 124.3 ml/min 02/20/21 05:30 Est GFR ( Amer) 124.1 ml/min 02/20/21 05:30 Est GFR (Non-Af Amer) 107.0 ml/min 02/20/21 05:30 BUN/Creatinine Ratio 24.3 (10-20) H 02/20/21 05:30 Glucose 127 mg/dl (70-99) H 02/20/21 05:30 POC Glucose 209 mg/dl (70-99) H 02/20/21 11:58 Estimat Average Glucose 266 mg/dl 02/17/21 23:49 Hemoglobin A1c 10.9 % (4.5-5.6) H 02/17/21 23:49 Lactate 1.2 mmol/L (0.4-2.0) 02/17/21 23:49 Calcium 8.1 mg/dl (8.5-10.1) L 02/20/21 05:30 Magnesium 2.3 mg/dl (1.8-2.4) 02/17/21 23:49 Iron 20 mcg/dl (35-175) L 02/18/21 03:56 TIBC 202 mcg/dl (250-450) L 02/18/21 03:56 Transferrin 154 mg/dl (200-360) L 02/18/21 03:56 Ferritin 376.3 ng/ml (8-388) 02/18/21 03:56 Total Bilirubin 0.7 mg/dl (0.2-1) 02/17/21 23:49 AST 24 U/L (15-37) 02/17/21 23:49 ALT 34 U/L (12-78) 02/17/21 23:49 Alkaline Phosphatase 136 U/L (45-117) H 02/17/21 23:49 Troponin I < 0.015 ng/ml (0-0.045) 02/17/21 23:49 Total Protein 7.8 gm/dl (6.4-8.2) 02/17/21 23:49 Albumin 2.7 gm/dl (3.4-5.0) L 02/17/21 23:49 Globulin 5.1 gm/dl (2.5-4.0) H 02/17/21 23:49 Albumin/Globulin Ratio 0.5 (0.9-2) L 02/17/21 23:49 Vitamin B12 841 pg/ml (193-986) 02/18/21 03:56 Folate > 20.00 ng/ml (>5.38) 02/18/21 03:56 Beta-Hydroxybutyric Acd 20.59 mg/dl (0.2-2.81) H 02/17/21 23:49 Procalcitonin 0.61 ng/ml (0-0.5) H 02/17/21 23:49 TSH 1.880 uIu/ml (0.300-4.500) 02/17/21 23:49 Urine Color Yellow 02/17/21 23:30 Urine Appearance Clear (Clear) 02/17/21 23:30 Urine pH 6.0 (4.5-7.5) 02/17/21 23:30 Ur Specific [place] 1.030 (1.000-1.030) 02/17/21 23:30 Urine Protein 1+ (Negative) H 02/17/21 23:30 Urine Glucose (UA) 3+ (Negative) H 02/17/21 23:30 Urine Ketones 1+ (Negative) H 02/17/21 23:30 Urine Blood 3+ (Negative) H 02/17/21 23:30 Urine Nitrite Negative (Negative) 02/17/21 23:30 Urine Bilirubin Negative (Negative) 02/17/21 23:30 Urine Urobilinogen Negative (Negative) 02/17/21 23:30 Ur Leukocyte Esterase Negative (Negative) 02/17/21 23:30 Urine WBC (Auto) 10-30 /hpf (0-5) H 02/17/21 23:30 Urine RBC (Auto) >30 /hpf (0-4) H 02/17/21 23:30 U Hyaline Cast (Auto) 0 /lpf (0-5) 02/17/21 23:30 U Epithel Cells (Auto) 5-10 /lpf (0-5) H 02/17/21 23:30 Urine Bacteria (Auto) 3+ (Negative) H 02/17/21 23:30 COVID-19 Eval Order Covid19 at [facility] 02/18/21 02:56 SARS-CoV-2 (PCR) NEGATIVE (Negative) 02/18/21 02:56 Blood Type O Positive 02/18/21 03:56 Antibody Screen NEGATIVE 02/18/21 03:56 Impressions Chest X-Ray 02/17/21 23:06 XR chest 1V portable HISTORY: 65 years-old Male SEPSIS acute sepsis COMPARISON: CT abdomen and pelvis of same day, chest radiograph 10/17/2020 TECHNIQUE: AP view of the chest FINDINGS: Cardiac silhouette is upper limits of normal in size. There is no pneumothorax, pleural effusion, airspace consolidation or overt pulmonary edema. Degenerative changes of the shoulders and spine. IMPRESSION: No acute process. ACT 112: Negative or not required by law. The above report was generated using voice recognition software. It may contain grammatical, syntax or spelling errors. Electronically signed by: Jcarlos Hickman M.D. 02/18/2021 8:03 AM Abdomen/Pelvis CT 02/18/21 00:32 CT abd pelvis IV con only CLINICAL HISTORY: urinary retention, crespo, uti, abd/back pain COMPARISON STUDY: October 17, 2020 TECHNIQUE: A dose lowering technique was utilized adhering to the principles of ALARA. CT DOSE: 1085.70 mGy.cm FINDINGS: Lower chest: Minimal atelectasis at dependent portions of bilateral lower lobes.. Liver: The contrast-enhanced liver is normal in size and contour. Diffuse de crease in attenuation of liver parenchyma is seen without focal lesions. There is no intrahepatic biliary ductal dilatation. The hepatic veins and portal veins are patent. Gallbladder: Is surgically absent. Spleen: Normal in size and attenuation. Pancreas: Unremarkable. Adrenal glands: Left adrenal gland is unremarkable. Stable 1.7 cm right adrenal nodule is seen. Kidneys: Interval near resolution of the left-sided hydronephrosis. Interval improvement of the left hydroureter. No evidence of nephrolithiasis. Mild interval improvement of the right-sided hydronephrosis however interval worsening of the right perinephric stranding and new area of ill-defined decrease in attenuation of the right renal parenchyma and blurring of the cortex is seen on series 3 image 173 . Redemonstration of the large cyst at the inferior aspect of the right kidney, unchanged since prior and measuring 8.4 x 7.5 cm on axial image. Pelvic viscera: Urinary bladder is partially decompressed with Crespo balloon within its lumen. Few diverticuli of the bladder are seen. Prostate gland is significantly enlarged. Redemonstration of the bilateral inguinal hernias containing fat. Mild extension of the loops of large bowel to the right hernia sac are again seen. Bowel: Small to moderate hiatal hernia is seen. Peritoneum: There is no intraperitoneal free air or abdominal ascites. Appendix is normal in caliber and gas filled. Diverticulosis of descending and proximal sigmoid colon is seen without evidence of diverticulitis. Vasculature: The abdominal aorta is normal in course and caliber. Adenopathy: None. Skeletal structures: Mild degenerative changes of the spine. IMPRESSION: 1. Interval improvement of bilateral hydronephrosis and hydroureter. Questionable asymmetrical fat stranding surrounding right kidney and ill-defined area of decreased attenuation within the right renal cortex is seen and might represent infectious/inflammatory process. Pyelonephritis cannot be completely ruled out. Short-term follow-up is per clinical protocol. 2. Significantly enlarged prostate gland. Decompressed urinary bladder with Crespo balloon within its lumen. 3. Nondilated loops of bowel. Normal appendix. Small right inguinal hernia containing nondilated loop of large bowel. Diverticulosis without diverticulitis. 4. Stable right adrenal nodule. 5. Hepatic steatosis. Status post cholecystectomy. 6. The rest of findings as above. ACT 112: Positive. There are findings on this exam that require communication between the performing entity and the patient following Patient Test Result Information Act ([place] Act 112) guidelines. The above report was generated using voice recognition software. It may contain grammatical, syntax or spelling errors. Electronically signed by: Jacqui Mccabe DO 02/18/2021 11:13 AM 65 yo M with a chronic indwelling crespo catheter and persistent scrotal wound s/p I&D last year presented with sepsis 2.2 a urinary tract infection with an E coli bacteremia. He was resuscitated with broad spectrum antibiotics and improved the following day. Cefepime was continued pending culture results. Initial gross hematuria was probably from infection in the presence of a catheter and was resolved by HD2. Infectious disease was consulted, however, was unable to perform a full consultation through the teleconnection. Cultures were reviewed with the ID specialist who agreed with two weeks of Augmentin therapy. At time od discharge he was hemodynamically stable and afebrile and tolerating PO. He was mentating and ambulating at his baseline and was oxygenating well on room air. He was discharged in stable condition with close primary care follow-up recommended. Diabetes Follow up Diabetes Follow-up Needed for HgbA1c >9% Hospital Course (1) Sepsis: (2) Catheter-associated urinary tract infection: POA (3) E coli bacteremia: (4) Hematuria: (5) Indwelling Crespo catheter present: (6) Diabetes mellitus, type II: (7) Open wound of scrotum: (8) Adrenal nodule: (9) Hepatic steatosis: 65 yo M with a chronic indwelling crespo catheter and persistent scrotal wound s/p I&D last year presented with sepsis 2.2 a urinary tract infection with an E coli bacteremia. He was resuscitated with broad spectrum antibiotics and improved the following day. Cefepime was continued pending culture results. Initial gross hematuria was probably from infection in the presence of a catheter and was resolved by HD2. Infectious disease was consulted, however, was unable to perform a full consultation through the teleconnection. Cultures were reviewed with the ID specialist who agreed with two weeks of Augmentin therapy. At time od discharge he was hemodynamically stable and afebrile and tolerating PO. He was mentating and ambulating at his baseline and was oxygenating well on room air. He was discharged in stable condition with close primary care follow-up recommended. Follow-up with Urology regarding the gross hematuria was recommended. He reports being followed regularly by a Urologist with his chronic indwelling catheter. Total Time Total Time Spent Total Time Spent (In Minutes): 60 Discharge Plan Discharge Items Patient Disposition: Home - Self-Care Reason For Visit: SEPSIS Discharge Diagnosis: sepsis 2/2 E coli UTI and E coli bacteremia Chronic urinary retention with chronic indwelling crespo catheter chronic post-operative scrotal wound Condition on Discharge: Good Activity: Resume your previous activity Non-emergency contact: Primary Care Provider Call non-emergency contact if: you have any medication questions, your symptoms worsen, your pain is not controlled, your pain is worsening, your pain is unusual for you, your pain is concerning for you and you have a fever Follow-up/Referrals: [facility] [Other] - 02/27/21 9:00 am Prosper Oviedo MD [Primary Care Provider] - (Date & Time 02/26/2021 11:20 AM Provider Prosper Oviedo MD Department [facility] ) Diet: Carb Consistent or DM2 Addtl Attending Provider Instructions: Please take all medications as instructed on discharge list below. Please complete full antibiotic course to clear out the bacteria in your blood. Please continue regular wound care through your primary care provider until your scrotal wound is healed. It is recommended that you follow-up with your primary care provider within one week of hospital discharge. This is to check your wound and to ensure that you are doing well on the medications. Please continue to use the [facility] service for wound or catheter issues if you are unable to see a urologist or your primary care provider right away. It was a pleasure taking care of you! Please call if you have any questions or problems. You can reach a [facility] hospitalist on duty at [facility] 24 hours a day by calling [phone]. Take care of yourself. Misti Le, DO [facility] Pending Studies at Discharge: No Stand-Alone Forms: My [facility] Medications and DC Order Prescriptions: New amoxicillin-pot clavulanate [Augmentin] 875-125 mg tablet 1 tab PO BID Qty: 28 RF: 0 Continued atorvastatin 80 mg Tablet 80 mg PO QAM Qty: 0 RF: 0 pantoprazole [Protonix] 40 mg Tablet,Delayed Release (Dr/Ec) 40 mg PO QAM Qty: 0 RF: 0 finasteride 5 mg tablet 5 mg PO QAM Qty: 90 RF: 1 tamsulosin 0.4 mg capsule 0.4 mg PO DAILY Qty: 90 RF: 1 metoprolol succinate 25 mg tablet extended release 24 hr 25 mg PO QAM RF: 0 nitroglycerin 0.4 mg tablet, sublingual 0.4 mg sublingual DIRECTED PRN (Reason: chest pain) RF: 0 aspirin 81 mg Tablet,Chewable 81 mg PO QAM RF: 0 metformin 500 mg tablet extended release 24 hr 1,000 mg PO QAM RF: 0 Ozempic 0.25 mg or 0.5 mg(2 mg/1.5 mL) pen injector 0.5 mg SUBCUT WK RF: 0 Lantus Solostar U-100 Insulin 100 unit/mL (3 mL) insulin pen 50 unit subcut BID 30 Days Qty: 30 RF: 0 insulin aspart U-100 [Novolog Flexpen U-100 Insulin] 100 unit/mL (3 mL) insulin pen 20 unit subcut TIDM Qty: 15 RF: 3 metformin 500 mg tablet extended release 24 hr 500 mg PO PM RF: 0 amlodipine [Norvasc] 5 mg Tablet 10 mg PO QAM 30 Days Qty: 60 RF: 3 Discharge Orders: Discharge Order (Routine); Ordered 02/20/21 Ordered By: Misti Peralta/Other Patient Handouts: Emptying and Cleaning Your ... Admission Data Admit Date/Time: 02/18/21 04:01 Attending Provider: Misti Le Admit Provider: Abhinav Zavala Primary Care Provider: Prosper Oviedo Other Providers: Abhinav Zavala ; Vasu Gao ; Kassie Zambrano ; Froilan Vasques I. ; Arnold Ness II ; Mandi Green ; Prosper Mitchell Other Interventions: Discharge Summary Assessment (RN) Last Done: 02/20/21 16:29
== END 2021-02-20 17:39 | disposition home or self-care (01) | DRG 698 ==
LOC: ED 22:22 → 3E 02-18 04:01

== ENCOUNTER 2024-02-18 10:05 | Inpatient (IN) ==
--- NOTE | 2024-02-18 10:55 | Emergency Department Note ---
Impression & Plan Hematuria, Acute urinary retention ED Provider Note NAME: AARON BELLE AGE: 68 SEX: M : 1955 ARRIVES VIA: Walk-In INFORMANT: [Patient] ED PROVIDER(S): [Clarence Crawford MD] CHIEF COMPLAINT: Catheter malfunction HISTORY OF PRESENT ILLNESS: The patient is a 68-year-old male who was here last evening and had a Perera catheter placed by urology with wire guidance. He was diagnosed with a UTI and discharged on antibiotics. The patient states that when he got home, the catheter did not seem to be draining well. This morning, his underwear was soaked and he was having drainage around the catheter but not into the catheter bag. There is no pain, there has been no fever, no nausea or vomiting. He thinks the catheter is either out of position or clogged. Of note, the patient was discharged with a prescription for Keflex. PMHx/PSHx/Social Hx: See Below PHYSICAL EXAM: GENERAL: Patient is in no acute distress. HEENT: No acute trauma, normocephalic atraumatic, mucous membranes moist, no nasal congestion. NECK: No stridor, no adenopathy, no meningismus, trachea is midline. LUNGS: Clear to auscultation bilaterally, no wheeze, no rhonchi, breath sounds equal. HEART: Without murmurs gallops or rubs, regular rate and rhythm. ABDOMEN: Soft, nontender, no peritonitis. No real discomfort over the bladder. EXTREMITIES: No cyanosis, full range of motion of all the joints without pain or difficulty. NEUROLOGIC: Oriented x 3, no acute motor or sensory deficits, no focal weakness. SKIN: No jaundice, no diaphoresis. Groin: Perera catheter in place with minimal to no drainage in the bag. DIFFERENTIAL DIAGNOSIS: Clotted Perera catheter, clogged Perera catheter, UTI, malpositioned Perera catheter, among others. EMERGENCY DEPARTMENT PROCEDURES: MEDICAL DECISION MAKING: There is no leukocytosis or concerning anemia. There is a normal platelet count. No coagulopathy. No renal failure or significant electrolyte abnormality. On exam, the patient was retaining urine. Urine bladder scan showed over 500 cc on his initial assessment. The patient had the Perera catheter flushed sterilely by nursing. Eventually, some urine began to drain. It was quite bloody. Patient's catheter has stopped draining several times here in the ED, it has required repeat irrigation. Urology was consulted. They saw the patient here in the ED. Hospitalization was recommended given the persistent hematuria and persistent Perera catheter obstruction. I spoke with the patient and case management. The on-call hospitalist was consulted. Of note, the patient did receive IV ceftriaxone, 2 g. This was given because of the recently diagnosed UTI. Prior/Outside records/notes reviewed: Yesterday's ED visit note describing his presentation, the need for urology consult and plan at discharge. Imaging/x-ray results per my interpretation: Chronic Medical/Social conditions affecting care: Advanced age. Care/Management discussed with: Urology on-call-Dr. Mi. Case management and the on-call hospitalist. Level of care consideration(s): After review of the information above and other included data: --I believe the patient requires escalation of care to admission DISPOSITION: Admission Past Med/Surg History Problem List (Updated 02/18/24 @ 14:46 by Clarence Crawford MD) Acute urinary retention (Acute) Hematuria (Acute) Perera catheter in place (Acute) Acute urinary retention (Acute) Acute UTI (urinary tract infection) (Acute) Urinary tract infection Food impaction of esophagus (Acute) Encounter for pre-operative examination Open wound of scrotum without complication Hyperglycemia (Acute) DKA, type 2 (Acute) Displacement of Perera catheter (Acute) Type 2 diabetes mellitus with hyperosmolar hyperglycemic state (HHS) (Acute) Chronic indwelling Perera catheter (Acute) Bilateral hydronephrosis (Acute) DKA, type 2 Obstructive uropathy (Acute) Abdominal pain Perineal abscess Prostate abscess Prostate enlargement Urethral meatal stenosis Hyperglycemia (Acute) Yeast UTI (Acute) Catheter-associated urinary tract infection (Acute) Acute urinary retention (Acute) Diabetes (Acute) Urinary retention (Acute) Hematuria Complication of Perera catheter (Acute) Abnormal CT scan, pelvis CT abdomen & pelvis 05/15/20: "Prominent left pelvic sidewall and left inguinal lymph nodes. These may be reactive however a short-term follow-up CT is recommended in 3 months." Benign prostatic hyperplasia Dyslipidemia Diabetes mellitus type 2 with complications Coronary artery disease Hypertension Anemia Phimosis Urinary retention (Acute) Angioedema (Acute) Medical History Catheter-associated urinary tract infection HTN (hypertension) Hepatic steatosis Adrenal nodule E coli bacteremia Open wound of scrotum Catheter-associated urinary tract infection DVT prophylaxis Acute urinary retention Hematuria Acute UTI (urinary tract infection) Sepsis Indwelling Perera catheter present Diabetes mellitus, type II Hyponatremia Hematuria Acute hyponatremia Obstructed Perera catheter Complication, blocked Perera catheter Surgical History History of hernia repair Status post cholecystectomy Status post cardiac catheterization Family History Father Cancer Diabetes Mother Diabetes Cancer leukemia Brother Coronary heart disease Myocardial infarction Social History Smoking Status: Never smoker Tobacco Type: Cigarettes Second Hand Exposure: No; Do You Dip or Chew Tobacco: No; Hx Alcohol Use: No Hx Substance Use: No Preferred Language: Luxembourgish Communication Ability: Effective Communication Ability Comment: "can read a little bit" Visual Impairment: Limited Hearing Ability: Normal Cloth Desizing Range Tender Required: No Beliefs That Will Affect Care: None marital status: Single Current Living Situation: Significant Other Current Living Situation Comment: lives with fiance and daughter current occupational status: retired How many Children do You have: 1 How many Children do You have Comment: daughter lives with pt and fiance, s/o and daughter both able to assist with care Feels Safe at Home: Yes during the past year weight has: remained stable Assistive Devices: Glasses and Wheelchair Allergies Allergies Allergy/AdvReac Type Severity Reaction Status Date / Time lisinopril Allergy Severe angioedema Verified 08/28/22 19:10 sulfamethoxazole Allergy Severe angioedema Verified 08/28/22 19:10 [From Bactrim] trimethoprim [From Bactrim] Allergy Severe angioedema Verified 08/28/22 19:10 Home Meds Home Medications Medication Instructions Recorded Confirmed pantoprazole 40 mg tablet,delayed 40 mg PO DAILYBB ##0 05/09/17 02/17/24 release (Protonix) metoprolol succinate 25 mg 25 mg PO QAM 09/20/19 02/17/24 tablet,extended release 24 hr nitroglycerin 0.4 mg sublingual 0.4 mg sublingual DIRECTED PRN 09/20/19 02/17/24 tablet chest pain aspirin 81 mg chewable tablet 81 mg PO QAM 05/18/20 02/17/24 metformin 500 mg tablet,extended 1,500 mg PO QAM 02/27/21 02/17/24 release 24 hr tamsulosin 0.4 mg capsule (Flomax) 0.4 mg PO QAM 04/12/21 02/17/24 amlodipine 10 mg tablet 10 mg PO QAM 09/23/21 02/17/24 insulin glargine 100 unit/mL (3 32 unit subcut BID 09/23/21 02/17/24 mL) subcutaneous pen (Lantus Solostar U-100 Insulin) ezetimibe 10 mg tablet 10 mg PO QAM 02/17/24 02/17/24 furosemide 20 mg tablet 20 mg PO QAM 02/17/24 02/17/24 insulin aspart U-100 100 unit/mL 20 unit subcut TID 02/17/24 02/17/24 (3 mL) subcutaneous pen (Novolog FlexPen U-100 Insulin aspart) isosorbide mononitrate 30 mg 30 mg PO QAM 02/17/24 02/17/24 tablet,extended release 24 hr triamcinolone acetonide 0.1 % 1 applic topical BID 02/17/24 02/17/24 topical cream Previous Rx's Medication Instructions Recorded finasteride 5 mg tablet 5 mg PO QAM #90 tabs 06/05/20 cephalexin 500 mg capsule 500 mg PO QID 10 days #40 caps 02/17/24 Results & Data (ED) Vital Signs Vital Signs - 24 hr 02/18/24 10:15 02/18/24 12:43 02/18/24 14:02 Temperature 36.5 C Temperature Source Temporal Artery Scan Pulse Rate 92 H Pulse Rate [Apical] 85 Respiratory Rate 20 20 20 Respiratory Effort / Characteristics Non-Labored Spontaneous Non-Labored Respiratory Depth Normal Normal Blood Pressure 138/77 Blood Pressure [Left Arm] 165/82 H 135/76 Blood Pressure Mean 97 Blood Pressure Mean [Left Arm] 109 95 Pulse Oximetry 95 95 97 Oxygen Delivery Method Room Air Room Air Sepsis Recent Fever Within 48 Hours No Sepsis New/Unexplained Change in Mental Status N/A Sepsis Action Taken by Nursing No Action Required Home Medications Current Medication List: was personally reviewed by me Laboratory Data Attestation: I reviewed the patient's lab results. 02/18/24 Unknown 02/18/24 Unknown Lab Results 02/18/24 Range/Units Unknown WBC 8.54 (4.8-10.8) K/ul RBC 5.09 (4.70-6.10) M/uL Hgb 14.0 (14.0-18.0) g/dl Hct 42.5 (42.0-52.0) % MCV 83.5 (80.0-100.0) fL MCH 27.5 (25.0-34.0) pg MCHC 32.9 (32.0-36.0) g/dL RDW Std Deviation 45.1 (36.4-46.3) fL RDW Coeff of Namoy 15.0 H (11.5-14.5) % Plt Count 244 (130-400) K/uL MPV 10.6 (9.4-12.4) fL Immature Gran % (Auto) 0.7 % Neut % (Auto) 67.4 % Lymph % (Auto) 16.9 % Lamb % (Auto) 10.2 % Eos % (Auto) 4.4 % Baso % (Auto) 0.4 % Neut # (Auto) 5.76 (1.40-6.50) K/uL Lymph # (Auto) 1.44 (1.20-3.40) K/uL Lamb # (Auto) 0.87 H (0.11-0.59) K/uL Eos # (Auto) 0.38 (0.00-0.50) K/uL Baso # (Auto) 0.03 (0.00-0.20) K/uL Immature Gran # (Auto) 0.06 (0.01-0.20) K/uL PT 10.6 (9.0-12.0) Seconds INR 1.0 (0.9-1.1) APTT 27 (21-31) Seconds PTT Ratio 1.0 Sodium 136 (136-145) mmol/L Potassium 3.8 (3.5-5.1) mmol/L Chloride 100 (98-107) mmol/L Carbon Dioxide 26 (21-32) mmol/L Anion Gap 10 (3-11) BUN 17 (6-23) mg/dl Creatinine 0.64 (0.6-1.4) mg/dl Est Cr Clr Drug Dosing 102.2 ml/min Est GFR ( Amer) 115.0 ml/min Est GFR (Non-Af Amer) 99.2 ml/min BUN/Creatinine Ratio 26.6 H (10-20) Glucose 203 H (70-99(Fasting)) mg/dl Calcium 9.2 (8.6-10.3) mg/dl Administered Medications Discontinued Medications Ceftriaxone Sodium (Rocephin) 2,000 mg in 50 mls @ 100 mls/hr IV NOW STA Stop: 02/18/24 13:52 Last Admin: 02/18/24 13:59 Dose: 100 mls/hr Documented By: REYNA Discharge Plan Visit Data Chief Complaint: Catheter Replacement Stated Complaint: CATHETER ISSUES ED Provider: Clarence Crawford Discharge Problem: Hematuria, Acute urinary retention Patient Disposition: Admitted As Inpatient Condition: Good Forms Stand Alone Forms: [facility] ePub Direct Prescriptions Prescriptions: No Action pantoprazole [Protonix] 40 mg Tablet,Delayed Release (Dr/Ec) 40 mg PO DAILYBB Qty: 0 Rx Instructions: TAKE THIS MEDICATION ONCE DAILY 30 MINUTES BEFORE FIRST MEAL OF THE DAY finasteride 5 mg tablet 5 mg PO QAM Qty: 90 1RF metoprolol succinate 25 mg tablet extended release 24 hr 25 mg PO QAM nitroglycerin 0.4 mg tablet, sublingual 0.4 mg sublingual DIRECTED PRN (Reason: chest pain) Rx Instructions: Place one tablet under the tongue every 5 minutes for up to 3 doses over 15 minutes if needed for chest pain aspirin 81 mg Tablet,Chewable 81 mg PO QAM metformin 500 mg tablet extended release 24 hr 1,500 mg PO QAM tamsulosin [Flomax] 0.4 mg capsule 0.4 mg PO QAM amlodipine 10 mg tablet 10 mg PO QAM insulin glargine [Lantus Solostar U-100 Insulin] 100 unit/mL (3 mL) insulin pen 32 unit subcut BID cephalexin 500 mg capsule 500 mg PO QID 10 Days Qty: 40 0RF ezetimibe 10 mg tablet 10 mg PO QAM isosorbide mononitrate 30 mg tablet extended release 24 hr 30 mg PO QAM furosemide 20 mg tablet 20 mg PO QAM triamcinolone acetonide 0.1 % cream 1 applic TOPICAL BID Rx Instructions: apply to lower legs insulin aspart U-100 [Novolog FlexPen U-100 Insulin] 100 unit/mL (3 mL) insulin pen 20 unit SUBCUT TID Rx Instructions: inject in morning,at noon and before bedtime Referrals Referrals: Cristina Vidal DO [Primary Care Provider] - Discharge Problem: Hematuria Qualifiers: Hematuria type: gross Qualified Code(s): R31.0 - Gross hematuria
--- NOTE | 2024-02-18 11:30 | Urology Consultation ---
<Statement entered by Sarthak Mi MD - 02/18/24 12:36> I have discussed Mr. Diamond's case with KUSH Rodriguez and agree with the above documentation. If the catheter is draining well, no need for exchange. Upsizing to a catheter that could do CBI would be challenging and is not required at this time. Hematuria could have been related to rapid decompression of the bladder which should resolve fairly quickly. May also be that the catheter got pulled slightly causing some trauma. As I discussed with him last night, he will require outpatient follow-up with urology for voiding trial and discussion of additional options. -Sarthak Mi MD. Date of Consultation February 18, 2024 Assessment & Plan (1) Acute urinary retention: (2) Acute UTI (urinary tract infection): (3) Perera catheter in place: (4) Complication of Perera catheter: 68 yo/M presented to the emergency department yesterday and was diagnosed with urinary retention and UTI. He required Perera catheter placement by urology. Returns today due to complication of Perera catheter. Afebrile and hemodynamically stable Perera was irrigated by nursing x2 prior to my arrival Catheter is draining appropriately at the time of my exam, hematuria noted Continue with current catheter Manually irrigate catheter as needed If catheter is functioning appropriately, then he can be discharged to home to follow-up with urology If there are ongoing issues with catheter obstruction, then he may require obse rvation overnight Continue with antibiotics and follow culture Recall urology as needed History of Present Illness Reason for Consultation: Perera complication Requesting Physician: Dr. Crawofrd History of Present Illness This is a 68-year-old male who presented to the emergency department on 02/17/2024 for evaluation of worsening urinary frequency and dysuria. He was found to have an elevated bladder scan and Perera catheter was attempted but could not be placed. Urology was consulted for assistance and Dr. Mi placed a 14 Lao catheter with wire guidance. Patient was diagnosed with a UTI and discharged to home on Keflex. He returned to the ED today for Perera catheter evaluation. He reports that urine was draining around the catheter and not much into the bag. His bladder scan was elevated on arrival. Nursing flushed his catheter once without much improvement. It was flushed a second time and has been draining. Urology is consulted for catheter complication. Patient seen at bedside in ED. He is resting in bed. Significant other present. He reports that suprapubic discomfort has resolved at present. No flank pain. No fever, chills, nausea or vomiting. He is afebrile and hemodynamically stable in ED. Allergies Allergy/AdvReac Type Severity Reaction Status Date / Time lisinopril Allergy Severe angioedema Verified 08/28/22 19:10 sulfamethoxazole Allergy Severe angioedema Verified 08/28/22 19:10 [From Bactrim] trimethoprim [From Bactrim] Allergy Severe angioedema Verified 08/28/22 19:10 Home Medications Medication Instructions Recorded Confirmed Type pantoprazole 40 mg tablet,delayed 40 mg PO DAILYBB ##0 05/09/17 02/17/24 History release (Protonix) metoprolol succinate 25 mg 25 mg PO QAM 09/20/19 02/17/24 History tablet,extended release 24 hr nitroglycerin 0.4 mg sublingual 0.4 mg sublingual DIRECTED PRN 09/20/19 02/17/24 History tablet chest pain aspirin 81 mg chewable tablet 81 mg PO QAM 05/18/20 02/17/24 History finasteride 5 mg tablet 5 mg PO QAM #90 tabs 06/05/20 02/17/24 Rx metformin 500 mg tablet,extended 1,500 mg PO QAM 02/27/21 02/17/24 History release 24 hr tamsulosin 0.4 mg capsule (Flomax) 0.4 mg PO QAM 04/12/21 02/17/24 History amlodipine 10 mg tablet 10 mg PO QAM 09/23/21 02/17/24 History insulin glargine 100 unit/mL (3 32 unit subcut BID 09/23/21 02/17/24 History mL) subcutaneous pen (Lantus Solostar U-100 Insulin) cephalexin 500 mg capsule 500 mg PO QID 10 days #40 caps 02/17/24 Rx ezetimibe 10 mg tablet 10 mg PO QAM 02/17/24 02/17/24 History furosemide 20 mg tablet 20 mg PO QAM 02/17/24 02/17/24 History insulin aspart U-100 100 unit/mL 20 unit subcut TID 02/17/24 02/17/24 History (3 mL) subcutaneous pen (Novolog FlexPen U-100 Insulin aspart) isosorbide mononitrate 30 mg 30 mg PO QAM 02/17/24 02/17/24 History tablet,extended release 24 hr triamcinolone acetonide 0.1 % 1 applic topical BID 02/17/24 02/17/24 History topical cream Patient History Medical History Catheter-associated urinary tract infection HTN (hypertension) Hepatic steatosis Adrenal nodule E coli bacteremia Open wound of scrotum Catheter-associated urinary tract infection DVT prophylaxis Acute urinary retention Hematuria Acute UTI (urinary tract infection) Sepsis Indwelling Perera catheter present Diabetes mellitus, type II Hyponatremia Hematuria Acute hyponatremia Obstructed Perera catheter Complication, blocked Perera catheter Surgical History History of hernia repair Status post cholecystectomy Status post cardiac catheterization Family History Father Cancer Diabetes Mother Diabetes Cancer leukemia Brother Coronary heart disease Myocardial infarction Social History Smoking Status: Never smoker Tobacco Type: Cigarettes Second Hand Exposure: No; Do You Dip or Chew Tobacco: No; Hx Alcohol Use: No Hx Substance Use: No Preferred Language: Niuean Communication Ability: Effective Communication Ability Comment: "can read a little bit" Visual Impairment: Limited Hearing Ability: Normal Laboratory Chemical Assistant Required: No Beliefs That Will Affect Care: None marital status: Single Current Living Situation: Significant Other Current Living Situation Comment: lives with fiance and daughter current occupational status: retired How many Children do You have: 1 How many Children do You have Comment: daughter lives with pt and fiance, s/o and daughter both able to assist with care Feels Safe at Home: Yes during the past year weight has: remained stable Assistive Devices: Glasses and Wheelchair Review of Systems Review of Systems: All systems reviewed & are unremarkable except as noted in HPI & below Physical Exam Constitutional: + obese; no acute distress Gastrointestinal (Abdomen): Percussion/Palpation: abdomen soft; abdomen nontender Neurologic: moves all extremities and awake Psychiatric: Orientation: alert and oriented x 3 Genitourinary: Perera catheter is patent and draining dark anne urine Results & Data Vital Signs (Past 12 Hours) Vital Signs Temp Pulse Resp BP Pulse Ox O2 Del Method 02/18/24 10:15 36.5 C 92 H 20 138/77 95 Room Air PG Care Time/CCT Total # of Minutes Spent Total Time Spent with Patient: Total time spent is greater than 50% in coordination of care (as documented) at patient's floor/unit and/or counseling patient: Coding Level of Care Code 51118 OP VST EST MOD 30 MIN Diagnoses Acute urinary retention R33.8 Acute UTI (urinary tract infection) N39.[address] Z97.8 Complication of Perera catheter T83.9XXA Encounter type: initial encounter (4) Complication of Perera catheter Encounter type: initial encounter Qualified Code(s): T83.9XXA - Unspecified complication of genitourinary prosthetic device, implant and graft, initial encounter
--- NOTE | 2024-02-18 13:49 | History & Physical Report ---
Date of Service February 18, 2024 Assessment & Plan (1) Acute urinary retention: (2) Urinary tract infection: (3) Crespo catheter in place: (4) Hematuria: (5) Diabetes mellitus type 2 with complications: (6) Hypertension: Plan 68 year old male who presented with urinary retention who was placed on Crespo and discharged home yesterday presented today for malfunctioning crespo catheter. Urinary retention/Hematuria status post Crespo yesterday- presented today for malfunctioning crespo catheter and now draining after flushing. Seen by urology- If catheter is draining well, no need for exchange. Manually irrigated catheter as needed. Per urology, upsizing to a catheter that could do CBI would be challenging and not required at this time. Hematuria could have been related to rapid bladder decompression and should resolve fairly quickly. patient will need outpatient urology follow-up. continue proscar and flomax UTI- UA reviewed. Continue Rocephin pending final urine culture results. Diabetes mellitus type 2 with hyperglycemia- States he takes lantus 50 U qam and novolog 20 U q am along with metformin. He took them this morning. Counseled that novolog is tid ac and is prescribed as such. Continue Lantus, Novolog, carb controlled, adjust as indicated Hypertension- on amlodipine, Toprol BPH- on proscar and flomax. Now on crespo DVT ppx- SCD. Hold chemoppx until hematuria clears up Updated over the phone Dispo- Medsurg Time spent- approx 75 mins History of Present Illness Chief Complaint: urinary retention Primary Care Provider: Cristina Vidal DO 76 year old male with history of BPH, urinary retention, DM-2, CAD who presented to the ED with malfunctioning crespo catheter. Patient presented to the ED yesterday with worsening urinary frequency and dysuria for few days and was found to have acute urinary retention and UTI. Crespo catheter was attempted in the ED but could not be placed. Urology was able to place Crespo catheter via guide wire and he was discharged home on Keflex. However he was leaking around the catheter site with not much urine in the crespo for which he came back to the ED today. His bladder scan was elevated on arrival. It was flushed. The catheter stopped draining several times in ED and required repeat irrigation. Urology was reconsulted. Given his persistent hematuria and persistent crespo catheter obstruction, they recommended hospitalization. He was given 2 gm ceftriaxone in ED. Crespo catheter was not replaced. During my encounter, patient was lying comfortably in bed. States he still has pressure sensation but no fever, chills, flank pain, N/V. States his hematuria has been persistent since yesterday. He is hungry and asking for food. Called and medications were verified. Allergies Allergy/AdvReac Type Severity Reaction Status Date / Time lisinopril Allergy Severe angioedema Verified 02/18/24 15:55 sulfamethoxazole Allergy Severe angioedema Verified 02/18/24 15:55 [From Bactrim] trimethoprim [From Bactrim] Allergy Severe angioedema Verified 02/18/24 15:55 Home Medications Medication Instructions Recorded Confirmed Type pantoprazole 40 mg tablet,delayed 40 mg PO DAILYBB ##0 05/09/17 02/18/24 History release (Protonix) metoprolol succinate 25 mg 25 mg PO QAM 09/20/19 02/18/24 History tablet,extended release 24 hr nitroglycerin 0.4 mg sublingual 0.4 mg sublingual DIRECTED PRN 09/20/19 02/18/24 History tablet chest pain aspirin 81 mg chewable tablet 81 mg PO QAM 05/18/20 02/18/24 History finasteride 5 mg tablet 5 mg PO QAM #90 tabs 06/05/20 02/18/24 Rx metformin 500 mg tablet,extended 1,500 mg PO QAM 02/27/21 02/18/24 History release 24 hr tamsulosin 0.4 mg capsule (Flomax) 0.4 mg PO QAM 04/12/21 02/18/24 History amlodipine 10 mg tablet 10 mg PO QAM 09/23/21 02/18/24 History insulin glargine 100 unit/mL (3 32 unit subcut BID 09/23/21 02/18/24 History mL) subcutaneous pen (Lantus Solostar U-100 Insulin) cephalexin 500 mg capsule 500 mg PO QID 10 days #40 caps 02/17/24 02/18/24 Rx ezetimibe 10 mg tablet 10 mg PO QAM 02/17/24 02/18/24 History furosemide 20 mg tablet 20 mg PO QAM 02/17/24 02/18/24 History insulin aspart U-100 100 unit/mL 20 unit subcut TID 02/17/24 02/18/24 History (3 mL) subcutaneous pen (Novolog FlexPen U-100 Insulin aspart) isosorbide mononitrate 30 mg 30 mg PO QAM 02/17/24 02/18/24 History tablet,extended release 24 hr triamcinolone acetonide 0.1 % 1 applic topical BID 02/17/24 02/18/24 History topical cream Past Med/Surg History Problem List (Updated 02/18/24 @ 14:46 by Clarence Crawford MD) Acute urinary retention (Acute) Hematuria (Acute) Crespo catheter in place (Acute) Acute urinary retention (Acute) Acute UTI (urinary tract infection) (Acute) Urinary tract infection Food impaction of esophagus (Acute) Encounter for pre-operative examination Open wound of scrotum without complication Hyperglycemia (Acute) DKA, type 2 (Acute) Displacement of Crespo catheter (Acute) Type 2 diabetes mellitus with hyperosmolar hyperglycemic state (HHS) (Acute) Chronic indwelling Crespo catheter (Acute) Bilateral hydronephrosis (Acute) DKA, type 2 Obstructive uropathy (Acute) Abdominal pain Perineal abscess Prostate abscess Prostate enlargement Urethral meatal stenosis Hyperglycemia (Acute) Yeast UTI (Acute) Catheter-associated urinary tract infection (Acute) Acute urinary retention (Acute) Diabetes (Acute) Urinary retention (Acute) Hematuria Complication of Crespo catheter (Acute) Abnormal CT scan, pelvis CT abdomen & pelvis 05/15/20: "Prominent left pelvic sidewall and left inguinal lymph nodes. These may be reactive however a short-term follow-up CT is recommended in 3 months." Benign prostatic hyperplasia Dyslipidemia Diabetes mellitus type 2 with complications Coronary artery disease Hypertension Anemia Phimosis Urinary retention (Acute) Angioedema (Acute) Medical History Catheter-associated urinary tract infection HTN (hypertension) Hepatic steatosis Adrenal nodule E coli bacteremia Open wound of scrotum Catheter-associated urinary tract infection DVT prophylaxis Acute urinary retention Hematuria Acute UTI (urinary tract infection) Sepsis Indwelling Crespo catheter present Diabetes mellitus, type II Hyponatremia Hematuria Acute hyponatremia Obstructed Crespo catheter Complication, blocked Crespo catheter Surgical History History of hernia repair Status post cholecystectomy Status post cardiac catheterization Family History Father Cancer Diabetes Mother Diabetes Cancer leukemia Brother Coronary heart disease Myocardial infarction Social History Smoking Status: Former smoker Tobacco Type: Cigarettes Second Hand Exposure: No; Do You Dip or Chew Tobacco: No; Tobacco Cessation Education Requested by Patient: No Hx Alcohol Use: No Hx Substance Use: No Preferred Language: Occitan Communication Ability: Effective Communication Ability Comment: "can read a little bit" Visual Impairment: Limited Hearing Ability: Normal Conservation Officer Required: No Beliefs That Will Affect Care: None marital status: Single Current Living Situation: Spouse Current Living Situation Comment: lives with fiance and daughter current occupational status: retired How many Children do You have: 1 How many Children do You have Comment: daughter lives with pt and fiance, s/o and daughter both able to assist with care Other Information That Helps Us Care for You: No Feels Safe at Home: Yes Safety Concerns: Feels Safe At This Time during the past year weight has: remained stable Assistive Devices: None Review of Systems Review of Systems: All systems reviewed & are unremarkable except as noted in Subjective Physical Exam Physical Exam: General: Lying comfortably in bed, not in distress, on room air HEENT: EOMI, ELSIE, dry oral mucosa Chest: Clear breath sounds bilaterally, no wheezes or crackles CVS: Regular rate and rhythm, normal heart sounds, no murmur Abdomen: Soft, non tender, distended, normal bowel sounds Neuro: Awake, alert, oriented, conversing well, non focal Extremities: Mild chronic edema : Crespo with hematuria Results & Data Results & Data Vital Signs (Past 12 Hours) Vital Signs Temp Pulse Pulse Resp BP BP Pulse Ox 02/18/24 12:43 85 20 165/82 H 95 02/18/24 10:15 36.5 C 92 H 20 138/77 95 O2 Del Method 02/18/24 12:43 02/18/24 10:15 Room Air Laboratory Results Short CBC 02/18/24 Range/Units Unknown WBC 8.54 (4.8-10.8) K/ul Hgb 14.0 (14.0-18.0) g/dl Hct 42.5 (42.0-52.0) % Plt Count 244 (130-400) K/uL BMP 02/18/24 Unknown Sodium 136 Potassium 3.8 Chloride 100 Carbon Dioxide 26 BUN 17 Creatinine 0.64 Glucose 203 H Calcium 9.2
[2024-02-18] MEDS: cefTRIAXone SODIUM 2,000 MG/50 ML BAG IV STA (13:59)
[2024-02-18 14:23] LABS: Basophils # (auto) 0.03 K/uL (0.00-0.20); Basophils % (auto) 0.4 %; Eosinophils # (auto) 0.38 K/uL (0.00-0.50); Eosinophils % (auto) 4.4 %; Hematocrit (blood only) 42.5 % (42.0-52.0); Immature Granulocytes # (auto) 0.06 K/uL (0.01-0.20); Immature Granulocytes % (auto) 0.7 %; Lymphocytes # (auto) 1.44 K/uL (1.20-3.40); Lymphocytes % (auto) 16.9 %; Mean Corpuscular Hemoglobin 27.5 pg (25.0-34.0); Mean Corpuscular Hgb Conc 32.9 g/dL (32.0-36.0); Mean Corpuscular Volume 83.5 fL (80.0-100.0); Mean Platelet Volume 10.6 fL (9.4-12.4); Monocytes # (auto) 0.87 K/uL (0.11-0.59); Monocytes % (auto) 10.2 %; Neutrophils # (auto) 5.76 K/uL (1.40-6.50); Neutrophils % (auto) 67.4 %; Platelet Count 244 K/uL (130-400); RDW Standard Deviation 45.1 fL (36.4-46.3); Red Blood Count 5.09 M/uL (4.70-6.10); White Blood Count 8.54 K/ul (4.8-10.8)
[2024-02-18 14:28] LABS: Partial Thromboplastin Time 27 Seconds (21-31); Prothrombin Time 10.6 Seconds (9.0-12.0)
[2024-02-18 14:37] LABS: BUN Creatinine Ratio 26.6 (10-20); Calcium 9.2 mg/dl (8.6-10.3); Creatinine Clr Calc Pharmacy 102.2 ml/min; Est GFR (Non-African American) 99.2 ml/min; Potassium 3.8 mmol/L (3.5-5.1)
[2024-02-18] MEDS ORDERED: CARBOHYDRATES FOR HYPOGLYCEMIA PO PRN (16:15)
[2024-02-18] MEDS ORDERED: GLUCAGON FOR INJ 1 MG VIAL SQ PRN (16:15)
[2024-02-18] MEDS ORDERED: DEXTROSE 50% 50 ML SYRINGE IV PRN (16:15)
[2024-02-18] MEDS ORDERED: GLUCOSE 40% GEL 15 GM TUBE PO PRN (16:15)
[2024-02-18] MEDS ORDERED: GLUCOSE 10 TAB/TUBE PO PRN (16:15)
[2024-02-18] MEDS: INSULIN ASPART PER UNIT CHARGE SC SCH (17:14)
[2024-02-18] MEDS: TRIAMCINOLONE ACET 0.1% CR 15 GM TUBE TOP SCH (20:25)
[2024-02-18] MEDS: ACETAMINOPHEN 325 MG TAB PO PRN (21:39)
[2024-02-19] MEDS: PANTOprazole 40 MG TAB PO SCH (06:12)
[2024-02-19] MEDS: amLODIPine BESYLATE 5 MG TAB PO ONE (06:13)
[2024-02-19 07:46] VITALS: RESP 19; TEMP 97.7; O2SAT 96
[2024-02-19 08:15] LABS: BUN Creatinine Ratio 21.1 (10-20); Creatinine Clr Calc Pharmacy 114.8 ml/min; Est GFR (African American) 120.6 ml/min; Potassium 3.9 mmol/L (3.5-5.1)
[2024-02-19 08:24] LABS: Hematocrit (blood only) 44.8 % (42.0-52.0); Hemoglobin 14.7 g/dl (14.0-18.0); Mean Corpuscular Hemoglobin 27.6 pg (25.0-34.0); Mean Corpuscular Hgb Conc 32.8 g/dL (32.0-36.0); Mean Corpuscular Volume 84.1 fL (80.0-100.0); Mean Platelet Volume 10.7 fL (9.4-12.4); Platelet Count 239 K/uL (130-400); RDW Coefficient of Variation 14.9 % (11.5-14.5); RDW Standard Deviation 45.3 fL (36.4-46.3); Red Blood Count 5.33 M/uL (4.70-6.10); White Blood Count 6.84 K/ul (4.8-10.8)
[2024-02-19] MEDS: EZETIMIBE 10 MG TAB PO SCH (08:42)
[2024-02-19] MEDS: METOPROLOL SUCC 25MG EXT REL TAB PO SCH (08:42)
[2024-02-19] MEDS: FUROSEMIDE 20 MG TAB PO SCH (08:42)
[2024-02-19] MEDS: ISOSORBIDE MONO EXTENDED REL 30 MG TABCR PO SCH (08:42)
[2024-02-19] MEDS: ASPIRIN 81 MG CHEW PO SCH (08:42)
[2024-02-19] MEDS: FINASTERIDE 5 MG TAB PO SCH (08:42)
[2024-02-19] MEDS: TAMSULOSIN HCL 0.4 MG CAP PO SCH (08:43)
[2024-02-19] MEDS: LANTUS PER UNIT CHARGE SQ SCH (08:51)
[2024-02-19] MEDS ORDERED: amLODIPine BESYLATE 5 MG TAB PO SCH (09:00)
--- NOTE | 2024-02-19 09:20 | Urology Progress Note ---
Date of Service February 19, 2024 Assessment & Plan (1) Acute urinary retention: (2) Perera catheter in place: (3) Hematuria: Plan: 68 yo/M admitted for complication of Perera catheter. He was previously seen in ED and diagnosed with urinary retention and UTI, Perera catheter required placement by urology. Afebrile, labs reviewedcreatinine 0.57, WBC 6.84, hemoglobin 14.7 Perera catheter did not require irrigation overnight Catheter is draining appropriately at the time of my exam, light hematuria noted Continue with current catheter Okay to manually irrigate catheter as needed for obstruction Continue with antibiotics and follow culture He can be discharged with Perera catheter from perspective when medically stable Recommend he follow-up with his established urologist for voiding trial and ongoing management will sign off, recall as needed Admission and Anticipated Discharge Date Admission Date: February 18, 2024 Subjective Patient seen and examined at bedside this morning. He is awake and sitting up in the bedside chair. No acute issues overnight. Patient and nursing reports that his catheter was irrigated yesterday, but has not required any additional irrigation. He denies suprapubic discomfort. Denies fever or chills. He follows with Dr. Jose Jaramillo at [facility] for u[facility]. Review of Systems Constitutional: as per Subjective / HPI Genitourinary: + as per Subjective / HPI Physical Exam Constitutional: + obese; no acute distress Gastrointestinal (Abdomen): Percussion/Palpation: abdomen soft; abdomen nontender Neurologic: moves all extremities and awake Psychiatric: Orientation: alert and oriented x 3 Genitourinary: Preera catheter is patent and draining light hematuria Results & Data Vital Signs (Past 12 Hours) Vital Signs Temp Pulse Resp BP BP Pulse Ox O2 Del Method 02/19/24 07:44 36.5 C 75 19 195/84 H 190/84 H 96 Room Air 02/19/24 05:50 76 184/81 H PG Care Time/CCT Total # of Minutes Spent Total Time Spent with Patient: Total time spent is greater than 50% in coordination of care (as documented) at patient's floor/unit and/or counseling patient: Coding Level of Care Code 39857 SUB INP/OBS CARE 1/25MIN Diagnoses Acute urinary retention R33.[address] Z97.8 Hematuria R31.0 Hematuria type: gross (3) Hematuria Hematuria type: gross Qualified Code(s): R31.0 - Gross hematuria
[2024-02-19] MEDS: cefTRIAXone SODIUM 2,000 MG/50 ML BAG IV SCH (12:01)
--- NOTE | 2024-02-19 12:04 | Discharge Summary ---
Discharge Summary Date of Service February 19, 2024 Principal Dx & Hospital Course #1 = Principal Diagnosis (1) Acute urinary retention: (2) Urinary tract infection: (3) Crespo catheter in place: (4) Hematuria: (5) Diabetes mellitus type 2 with complications: (6) Hypertension: Plan 68 year old male who presented with urinary retention who was placed on Crespo and discharged home yesterday presented today for malfunctioning crespo catheter. Urinary retention/Hematuria status post Crespo yesterday- presented today for malfunctioning crespo catheter and now draining after flushing. Seen by urology- If catheter is draining well, no need for exchange. Manually irrigated catheter as needed. Per urology, upsizing to a catheter that could do CBI would be challenging and not required at this time. Hematuria could have been related to rapid bladder decompression and should resolve fairly quickly. patient will need outpatient urology follow-up. continue proscar and flomax. Will have our [facility]ason reach out to obtain a urology follow up UTI- Give additional dose of rocephin x 1 today and transition to oral augmentin for additional 5 days. Urine culture grew group b beta strep Diabetes mellitus type 2 with hyperglycemia- a1c 6.9, continue home meds Hypertension- on amlodipine, Toprol - bp stable BPH- on proscar and flomax. Now on crespo. Will need urology follow up Notes For Next Care Provider Please ensure pt has follow up with urologist. Medication Changes From Visit Augmentin 875mg take one tablet by mouth twice daily for additional 5 days, then stop. Next dose due 02/20/24 in the a.m. Recommend to take a daily probiotic while taking antibiotics. I will prescribe you a medication called Florastor to take for additional 5 days. Continue all of your home medications. Admission HPI Per Admitting Provider 76 year old male with history of BPH, urinary retention, DM-2, CAD who presented to the ED with malfunctioning crespo catheter. Patient presented to the ED yesterday with worsening urinary frequency and dysuria for few days and was found to have acute urinary retention and UTI. Crespo catheter was attempted in the ED but could not be placed. Urology was able to place Crespo catheter via guide wire and he was discharged home on Keflex. However he was leaking around the catheter site with not much urine in the crespo for which he came back to the ED today. His bladder scan was elevated on arrival. It was flushed. The catheter stopped draining several times in ED and required repeat irrigation. Urology was reconsulted. Given his persistent hematuria and persistent crespo catheter obstruction, they recommended hospitalization. He was given 2 gm ceftriaxone in ED. Crespo catheter was not replaced. During my encounter, patient was lying comfortably in bed. States he still has pressure sensation but no fever, chills, flank pain, N/V. States his hematuria has been persistent since yesterday. He is hungry and asking for food. Called and medications were verified. Admission Exam Per Admitting Provider Augmentin 875mg take one tablet by mouth twice daily for additional 5 days, then stop. Next dose due 02/20/24 in the a.m. Recommend to take a daily probiotic while taking antibiotics. I will prescribe you a medication called Florastor to take for additional 5 days. Continue all of your home medications. Discharge Exam Gen: WD/WN, elderly, M, sitting up in bedside chair, NAD, A&O x3 HEENT: Normocephalic, atraumatic, conjunctivae moist, sclerae anicteric, mucous membranes moist. Lung: Clear to Auscultation bilaterally, no wheezes/rales/rhonchi Heart: Regular rate, regular rhythm, no murmurs, rubs, or gallops Abdomen: Soft, NT, ND +BS x 4 Extremities: No edema Skin: Warm, no rash, negative turgor. : + crespo cath with red colored urine Updated Medication List Medication Instructions Recorded Confirmed Type pantoprazole 40 mg tablet,delayed 40 mg PO DAILYBB ##0 05/09/17 02/18/24 History release (Protonix) metoprolol succinate 25 mg 25 mg PO QAM 09/20/19 02/18/24 History tablet,extended release 24 hr nitroglycerin 0.4 mg sublingual 0.4 mg sublingual DIRECTED PRN 09/20/19 02/18/24 History tablet chest pain aspirin 81 mg chewable tablet 81 mg PO QAM 05/18/20 02/18/24 History finasteride 5 mg tablet 5 mg PO QAM #90 tabs 06/05/20 02/18/24 Rx metformin 500 mg tablet,extended 1,500 mg PO QAM 02/27/21 02/18/24 History release 24 hr tamsulosin 0.4 mg capsule (Flomax) 0.4 mg PO QAM 04/12/21 02/18/24 History amlodipine 10 mg tablet 10 mg PO QAM 09/23/21 02/18/24 History insulin glargine 100 unit/mL (3 32 unit subcut BID 09/23/21 02/18/24 History mL) subcutaneous pen (Lantus Solostar U-100 Insulin) ezetimibe 10 mg tablet 10 mg PO QAM 02/17/24 02/18/24 History furosemide 20 mg tablet 20 mg PO QAM 02/17/24 02/18/24 History insulin aspart U-100 100 unit/mL 20 unit subcut TID 02/17/24 02/18/24 History (3 mL) subcutaneous pen (Novolog FlexPen U-100 Insulin aspart) isosorbide mononitrate 30 mg 30 mg PO QAM 02/17/24 02/18/24 History tablet,extended release 24 hr triamcinolone acetonide 0.1 % 1 applic topical BID 02/17/24 02/18/24 History topical cream Saccharomyces boulardii 250 mg 250 mg PO DAILY #5 caps 02/19/24 Rx capsule (Florastor) amoxicillin 875 mg-potassium 1 tab PO Q12H 5 days #10 tabs 02/19/24 Rx clavulanate 125 mg tablet Hospital Stay Data Consultations 02/18/24 10:40 Consult Urology Stat 02/18/24 13:50 ED Decision to Admit Stat Pending Results Patient Have Any Pending Studies at Discharge: Yes (urine culture) Discharge Instructions Given to Patient (Per Discharging Provider) MEDICATION CHANGES: Augmentin 875mg take one tablet by mouth twice daily for additional 5 days, then stop. Next dose due 02/20/24 in the a.m. Recommend to take a daily probiotic while taking antibiotics. I will prescribe you a medication called Florastor to take for additional 5 days. Continue all of your home medications. PENDING TEST RESULTS: None RECOMMENDATIONS FOR FOLLOW-UP: Please complete antibiotics as prescribed. Please follow up with your Primary urologist upon discharge from hospital. You may continue to see blood from your catheter; however this should continue to improve over the coming days. Continue all medications as prescribed. OTHER INSTRUCTIONS: Seek medical attention if you have: * temperature above 101 * chest pain or trouble breathing * abdominal pain, nausea, vomiting * diarrhea, dark stools or bloody stools * any unanswered questions or concerns Call 911 if symptoms are severe. Please take good care of yourself. It has been a pleasure taking care of you. Please take care of yourself. If you have any questions regarding your recent hospitalization please contact [facility] and request Genevieve Patelist @ [phone]. Dena Argueta PA-C Total Time Total Time Spent Total Time Spent (In Minutes): 45 minutes Supervising Physician Co-Signing Physician Notes Patient seen and examined independently. Discussed with above provider. He reports that he is feeling much better. Crespo catheter did not show any hematuria; draining clear urine. Patient discharged home on oral antibiotics. He already has a follow-up set up with urology for trial of void I have reviewed the advanced practitioner's documentation, and I agree with, and take responsibility for the plan of care I spent a total of 20 minutes coordinating, documenting, and providing care for this patient excluding time spent in the performance of separately billed services. All of the aforementioned completed while collaborating with the assigned advanced practitioner for a full treatment plan
[2024-02-19 12:16] LABS: Estimated Average Glucose 235 mg/dl; Hemoglobin A1C 9.8 % (4.5-5.6)
[2024-02-19 12:38] VITALS: BP 195/84; PULSE 85
--- NOTE | 2024-02-19 12:45 | Emergency Department Note ---
ED Visit Note ED NOTE: Patient's urine culture from 02/16 finalized as a group B beta strep with no sensitivities to follow and low counts of other mixed mike. Patient had returned to ED for a malfunctioning catheter and was subsequently admitted 02/17 through 02/18 for CBI. He did receive IV ceftriaxone. He was discharged on Augmentin per the [facility]. This should be appropriate to cover the strep. I did discuss this with Dena Argueta PA-C, with the [facility] services via [employer].
[2024-02-19] MEDS ORDERED: cefTRIAXone SODIUM 2,000 MG/50 ML BAG IV SCH (14:00)
[2024-02-20] MEDS ORDERED: amLODIPine BESYLATE 5 MG TAB PO SCH (09:00)
== END 2024-02-19 12:39 | disposition home health service (06) | DRG 699 ==
LOC: ED 10:05 → SUATTDRO 14:42 → 3N 14:42